=== PATIENT | female | born 1940 | race Caucasian/White ===

== ENCOUNTER → 2016-03-09 | Outpatient (CLI) | payer OTHER, MEDICARE | LOC: MMPC 11:11 | PROVIDERS: ATTEND Internal Medicine | DX: I48.91 Unspecified atrial fibrillation (principal); J44.9 Chronic obstructive pulmonary disease, unspecified; R60.9 Edema, unspecified; E03.9 Hypothyroidism, unspecified; J32.4 Chronic pansinusitis | CPT/HCPCS: 99213; G0463; 85610 ==

== ENCOUNTER → 2016-03-16 | Outpatient (CLI) | payer OTHER, MEDICARE | LOC: MMPC 09:00 | PROVIDERS: ATTEND Internal Medicine | DX: Z79.01 Long term (current) use of anticoagulants (principal); Z51.81 Encounter for therapeutic drug level monitoring; I63.9 Cerebral infarction, unspecified | CPT/HCPCS: 85610 ==

== ENCOUNTER → 2016-03-30 | Outpatient (CLI) | payer OTHER, MEDICARE | LOC: MMPC 09:00 | PROVIDERS: ATTEND Internal Medicine | DX: Z79.01 Long term (current) use of anticoagulants (principal); Z51.81 Encounter for therapeutic drug level monitoring; I63.9 Cerebral infarction, unspecified | CPT/HCPCS: 85610 ==

== ENCOUNTER → 2016-04-08 | Outpatient (CLI) | payer OTHER, MEDICARE ==
[2016-04-08 13:23] LABS: CALCIUM 9.2 mg/dL (8.7-10.7); POTASSIUM 4.7 meq/L (3.8-5.2)
== END ==
LOC: LAB 12:50
PROVIDERS: ATTEND Internal Medicine Cardiovascular Disease
DX: I27.2 Other secondary pulmonary hypertension (principal)
CPT/HCPCS: 36415; 80048

== ENCOUNTER → 2016-05-11 | Outpatient (CLI) | payer OTHER, MEDICARE | LOC: MMPC 11:11 | PROVIDERS: ATTEND Internal Medicine | DX: M79.1 Myalgia (principal); E03.9 Hypothyroidism, unspecified; I48.91 Unspecified atrial fibrillation; E78.5 Hyperlipidemia, unspecified; I25.10 Atherosclerotic heart disease of native coronary artery without angina pectoris ==

== ENCOUNTER → 2016-05-29 | Outpatient (CLI) | payer OTHER, MEDICARE ==
[2016-05-29 09:56] LABS: BUN/CREATININE RATIO 23.63 (6-20)
== END ==
LOC: LAB 09:20
PROVIDERS: ATTEND Internal Medicine Cardiovascular Disease
DX: J44.0 Chronic obstructive pulmonary disease with (acute) lower respiratory infection (principal); E78.5 Hyperlipidemia, unspecified; E03.9 Hypothyroidism, unspecified; I48.91 Unspecified atrial fibrillation; I73.9 Peripheral vascular disease, unspecified
CPT/HCPCS: 36415; 80048

== ENCOUNTER → 2016-06-08 | Outpatient (CLI) | payer OTHER, MEDICARE ==
--- NOTE | 2016-06-08 12:21 | DI ---
PA /LATERAL CHEST X-RAY, 06/08/2016 10:35 AM : Clinical History: Cough. Previous Exam: 01/06/2016. The patient is status post CABG. There is cardiomegaly and CHF is felt not to be present. There is in creased density with volume loss in the right middle lobe consistent with a right middle lobe pneumon ia. This patient has centrilobular emphysema. Mediastinal structures are normal. There are no pulmona ry nodules. Readin. Right middle lobe pneumonia. Followup films are recommended to be certain that the pneumonia reso lves completely. The should be obtained at least 2 weeks after the patient has become clinically comp letely asymptomatic. 2. Cardiomegaly without CHF. Comment: Mild initial verbal report to the provider was inadvertently incorrect because I was not rev iewing the current examination at the time of my verbal report. I did give a corrected verbal report by phone immediately after this error was identified.
== END ==
LOC: MOB RAD 10:37
PROVIDERS: ATTEND Physician Assistant
DX: R05 Cough (principal); J18.9 Pneumonia, unspecified organism; I51.7 Cardiomegaly; J43.2 Centrilobular emphysema; Z79.01 Long term (current) use of anticoagulants; Z51.81 Encounter for therapeutic drug level monitoring; I63.9 Cerebral infarction, unspecified
CPT/HCPCS: 36415; 71020; 80053; 85025; 85610; 86140; 87040; 99213

== ENCOUNTER → 2016-06-08 | Outpatient (CLI) | payer OTHER, MEDICARE ==
[2016-06-08 13:05] LABS: BASOPHILS # (AUTO) 0.03 10*3/UL; BASOPHILS % (AUTO) 0.3 % (0-1); EOSINOPHILS # (AUTO) 0.31 10*3/UL; EOSINOPHILS % (AUTO) 3.3 % (0-8); HEMATOCRIT 47.5 % (37.0-47.0); HEMOGLOBIN 15.3 g/dL (12.0-16.0); LYMPHOCYTES # (AUTO) 1.81 10*3/uL; MEAN CORPUSCULAR HEMOGLOBIN 29.4 PG (27-31); MEAN CORPUSCULAR HGB CONC 32.2 g/dL (33-37); MEAN CORPUSCULAR VOLUME 91.3 FL (81-99); MEAN PLATELET VOLUME 8.5 FL (7.4-12.2); MONOCYTES # (AUTO) 0.68 10*3/UL (0.3-0.8); MONOCYTES % (AUTO) 7.3 % (5-15); NEUTROPHILS # (AUTO) 6.46 10*3/UL; NEUTROPHILS % (AUTO) 69.5 % (50-80)
[2016-06-08 13:17] LABS: PLATELET MORPHOLOGY COMMENT NORMAL MORPHOLOGY (NORM); RBC MORPHOLOGY COMMENT NORMAL MORPHOLOGY (NORM); WBC MORPHOLOGY COMMENT NORMAL MORPHOLOGY (NORM)
[2016-06-08 13:18] LABS: BUN/CREATININE RATIO 25.55 (6-20); C-REACTIVE PROTEIN 0.8 mg/dL (0.0-0.9); SERUM ALBUMIN 4.4 g/dL (3.5-4.8)
== END ==
LOC: LAB 12:38
PROVIDERS: ATTEND Physician Assistant
DX: J18.9 Pneumonia, unspecified organism (principal); Z79.01 Long term (current) use of anticoagulants; Z51.81 Encounter for therapeutic drug level monitoring; I63.9 Cerebral infarction, unspecified
CPT/HCPCS: 36415; 80053; 85025; 85610; 86140; 87040; G0463

== ENCOUNTER → 2016-06-10 | Outpatient (CLI) | payer OTHER, MEDICARE | LOC: MMPC 11:11 | PROVIDERS: ATTEND Internal Medicine | DX: J18.1 Lobar pneumonia, unspecified organism (principal); G47.9 Sleep disorder, unspecified; J44.0 Chronic obstructive pulmonary disease with (acute) lower respiratory infection; I48.91 Unspecified atrial fibrillation; J44.9 Chronic obstructive pulmonary disease, unspecified | CPT/HCPCS: 99213; G0463 ==

== ENCOUNTER 2016-06-30 16:05 | Inpatient (IN) | payer OTHER, MEDICARE ==
[2016-06-30] MEDS ORDERED: IPRATROPIUM/ALBUTEROL SULFATE 3 ML NEB NEB ONE (16:24)
--- NOTE | 2016-06-30 16:30 | PDOC ---
Dyspnea HPI - General Chief Complaint: Respiratory Complaint Stated Complaint: CHF/DYSPNEA Date Seen by Provider: 06/30/16 Time Seen by Provider: 16:25 Source: POSITIVE: Patient, RN/MD Exam Limitations: POSITIVE: No limitations Treatment Prior to Arrival: REPORTS: Oxygen Nurse's Notes Reviewed & Considered: Yes - History of Present Illness Initial Comments: Patient comes in today with a chief complaint of shortness of breath. Patient with recent respiratory illness treated with antibiotics, steroids, and nebulizer treatments comes in today with increasing shortness of breath, elevated brain natruretic peptide and evidence of congestive heart failure per her primary care. She was seen today at the medical office building and sent to the emergency room for further evaluation. She states she has a slight headache, sore throat, shortness of breath. She's had increased urination, and no nausea vomiting or diarrhea. She denies any rashes. She denies any fever or chills but does have sweats that do been long-standing in nature. She is presently on Lopressor and it is noted that she has an allergy to Toprol. Toprol in the past has caused similar symptoms Body Location Affected: REPORTS: Chest Timing: REPORTS: Constant Duration: >1 week Severity: Moderate Quality: REPORTS: Other (Shortness of breath) Initiating Event: REPORTS: Upper Respiratory Illness Exacerbated By: REPORTS: Exertion, Laying Flat, Coughing Associated Symptoms: REPORTS: Sweating Similar Symptoms Previously: Yes Recently seen/treated/hospitalized: Yes Any Prior Injuries Related to Current Complaint?: No - Patient Home Medications Home Medications: Home Medications Docusate Sodium [Colace] 1 cap PO DAILY 11/18/11 Clopidogrel Bisulfate [Plavix] 1 tab PO DAILY #90 tab 05/20/15 Tamsulosin HCl 1 cap PO DAILY cap 12/09/15 Albuterol Sulfate [Proair Hfa] 1 puff INH Q4-6H #1 puff 02/11/16 Citalopram Hydrobromide [Citalopram Hbr] 1 tab-cap PO DAILY #90 tab-cap Levothyroxine Sodium 1 tab-cap PO DAILY #90 tab-cap 02/11/16 Albuterol/Ipratropium Inhaler [Combivent Respimat Inhaler] 2 puff INH QID #1 each 03/10/16 Budesonide [Pulmicort] 0.25 mg NEB BID ml 03/10/16 Diltiazem HCl 1 tab-cap PO QD tab 03/10/16 Mirabegron [Myrbetriq] 50 mg PO DAILY tab 03/10/16 Oxygen (O2) 1 unit INH QHS unit 03/10/16 Warfarin Sodium 1 tab-cap ORAL QD #90 tab-cap 03/16/16 Furosemide 1 tab PO DAILY tab 05/11/16 Hydrocodone/Acetaminophen [Hydrocodon-Acetaminophn 10-325] 1 tab-cap PO Q4-6H # 180 tab-cap 05/11/16 Metoprolol Tartrate 0.5 tab-cap PO BID #180 tab 05/11/16 Potassium Bicarbonate/Cit AC [Potassium 25 Meq Tablet Eff] 1 tab PO DAILY tab 05/11/16 Estrogens, Conj Vaginal Cream [Premarin Vaginal Cream] 0.5 gm VAGINAL 2XW #1 tube 06/10/16 Albuterol/Ipratrop Neb Soln [Duoneb Neb Soln] 1 vial NEB Q4-6HRSPRN #1 box 06/29 Atorvastatin Calcium 80 mg PO DAILY 06/30/16 Losartan [Cozaar] 25 mg PO DAILY 06/30/16 Tamsulosin HCl [Flomax] 0.4 mg PO DAILY 06/30/16 - Patient Allergies Allergies/Adverse Reactions: Allergies Allergy/AdvReac Type Severity Reaction Status Date / Time sulfamethoxazole Allergy Severe pruritis, Verified 06/30/16 16:12 [From Bactrim] short of breath, chest pain trimethoprim [From Bactrim] Allergy Severe pruritis, Verified 06/30/16 16:12 short of breath, chest pain metoprolol succinate AdvReac Severe SHORTNESS Verified 06/30/16 16:12 [From Toprol XL] OF BREATH PAIN CONTRACT AdvReac Unknown NOT Uncoded 06/30/16 16:12 APPLICABLE Past Medical History - heen HEENT History: Denies History, Dentures/Partials Cardiovascular History: Hypertension, Arrhythmia, Hyperlipidemia Respiratory History: COPD, Shortness of Breath, Home Oxygen Use Gastrointestinal History: Denies History Genitourinary History: Recurrent UTI, Incontinence, Other (please comment) Additional Genitourinary History: had stent to kidney Endocrine History: Hypothyroidism Musculoskeletal History: Arthritis Prosthesis or Implant: No Neurological History: Denies History Blood Disorders: Denies History Psychiatric History: Depression History of Sexually Transmitted Diseases: No Cancer History: Denies History History of MDRO: No History of Other Communicable Diseases: No Alcohol Use: Occasionally Substance Use Type: None Previous Surgical History: Yes Type / Date of Surgery: CABG, CAROTID ARTERY STENT X2, RENAL STENT Anesthesia Reactions: No Malignant Hyperthermia: No Significant Family History: No pertinent family hx ROS - Limitations ROS Limitations: No Limitations Constitution: REPORTS: Diaphoresis Cardiovascular: REPORTS: Denies Cardiac Symptoms Respiratory: REPORTS: Cough Non Productive, Shortness Of Breath, Wheezing Neurological: REPORTS: Headache Gastrointestinal: REPORTS: Denies GI Symptoms Endocrine: REPORTS: Denies Symptoms Musculoskeletal: REPORTS: Denies MS Symptoms Genitourinary: REPORTS: Other (Increased frequency of urination) Eyes: REPORTS: Denies Symptoms ENT: REPORTS: Denies Symptoms Skin: REPORTS: Denies Skin Symptoms Lympathic: REPORTS: Denies Lympathic Symptoms Immunologic: POSITIVE: Denies Symptoms Psychiatric: POSITIVE: Denies Psych Symptoms Dyspnea Physical Exam - General Appearance General Appearance: REPORTS: Alert, Cooperative, No Evidence of Trauma, Mild Distress - HEENT HEENT: POSITIVE: Head Inspection Nml, Eyes Inspection Nml, Ears Inspection Nml, Nose Inspection Nml, Oral/Dental Inspect. Nml, Pharynx Inspect. Nml, PERRL, EOMI , Dry Mucous Membranes - Neck Neck: REPORTS: Normal Inspection - Respiratory Respiratory: REPORTS: No Respiratory Distress, No Pleuritic Chest Pain, Speaks Full Sentences, No Pain on Inspiration, Wheezes - Cardiovascular Cardiovascular: REPORTS: Regular Rate and Rhythm, Heart Sounds Normal, No Murmur , No Gallop, No Friction Rub, No JVD - Abdomen Abdomen: Soft: (All Quadrants), Normal Bowel Sounds: (All Quadrants), Denies Tenderness: (All Quadrants) - Skin Skin: REPORTS: Intact, Normal For Race, Warm, Dry, No Rash - Extremities Extremity: Non-Tender: (All Extremities), Normal ROM: (All Extremities), Normal Inspection: (All Extremities), Pelvis Stable: (All Extremities) - Neurological / Psychological Neurological: POSITIVE: Affect Apporpriate, Oriented X3, Motor Normal, Sensation Normal Dyspnea Progress - Results Reviewed by me Xrays/CTs/US Reviewed by me: Yes Discussed with Radiologist: Yes Lab Results Reviewed: Yes - Patient's Progress Pain Medication Addressed: POSITIVE: Not Applicable Status: POSITIVE: Unchanged MDM / ED Course: Patient comes to the emergency department from the medical office building for evaluation. She has been having increasing shortness of breath with increasing cough, sweats and increasing oxygen requirements. She was evaluated, an IV started, blood drawn and sent to the lab for studies, radiographic studies obtained earlier were reviewed by me. Findings: Chest x-ray reveals worsening pneumonia. Assessment: Increased oxygen requirements with hypoxia on room air. Pneumonia which is worsening. Next Plan: Admission. Air Movement: POSITIVE: Poor Quality Measure Initiative: CAP: POSITIVE: CXR or CT - Consult Counseled: POSITIVE: Patient, RE: Lab Results, RE: Radiology Results, RE: DX Patient Care Time - Estimated PCT Patient Care Time (In Minutes): 20 Vital Signs - VS Reviewed Vital Signs Reviewed: Yes Discharge Clinical Impression: Pneumonia Discharge Disposition: Admit to Inpatient Condition: Stable Date Decision to Admit to Inpatient: 06/30/16 Time Decision to Admit to Inpatient: 16:57
[2016-06-30] MEDS ORDERED: cefTRIAXone Inj 2 GM in Sodium Chloride 0.9% 100 ML IV ONE (17:00)
[2016-06-30] MEDS ORDERED: AZITHROMYCIN 250 MG TABLET PO ONE (17:00)
[2016-06-30 17:20] LABS: VENOUS PH 7.45 (7.32-7.42)
[2016-06-30] MEDS ORDERED: NORMAL SALINE 10 ML SYRINGE FLUSH IVP PRN (17:33)
--- NOTE | 2016-06-30 17:40 | PDOC ---
History and Physical - History of Present Illness Date and Time of Service: 06/30/2016 7:29 PM Chief Complaint: Cough, shortness of breath getting worse last few days History of Present Illness: This is a 76 years old female with medical history significant for history of COPD on oxygen at night, coronary artery disease with previous CABG, history of previous stroke with history of carotid endarterectomy, atrial fibrillation on anticoagulation and depression who presented to the walk-in clinic because of cough and shortness of breath that that's not improving, apparently on June 08 she presented to the walk-in clinic at that time with cough and shortness of breath and was diagnosed with pneumonia she was put on antibiotics and bronchodilator and prednisone she felt there was some improvement but her symptoms started to come back again with more shortness of breath more with exertion with the swelling off the legs and because of that she presented again to the walk-in clinic and then they sent her to the ER. In the ER she was hypoxic needing oxygen she is only on oxygen at night. She was given breathing treatment and x-ray suggested the maybe worsening pneumonia compared to what she had before blood culture was taken and she was admitted. The cough is described intermittently with some phlegm she described at times being yellow in color but she having difficulty bringing that up, there was some wheezing today, there is some slight edema in her legs. There is no chest pain. She said she doesn't do much with walking because of arthritis in her feet. There is no fever shakes. She said she's been checking her blood pressure and blood pressure being low so she stopped taking her metoprolol and losartan on her own. She was seen also maybe [address] Olivo and he put her on Lasix. Past Medical History Medical History: 1. Hypertension. 2. Hypothyroidism. 3. COPD. 4. Sleep apnea. 5. Depression. 6. History of osteoporosis. 7. Atrial fibrillation. 8. Coronary artery disease status post CABG. 9. 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 Surgical History: 1. Carotid endarterectomy. 2. History of CABG. 3. Hysterectomy. 4. Right carotid internal artery stent. 5. Hysterectomy with bladder suspension. 6. Renal artery stent Family History: Reviewed an Not Pertinent Past Social History: She used to smoke quit many years ago, rarely drinks. No drugs. Tobacco Use: Former Smoker Substance Use Type: None Alcohol Use: Rarely Medication / Allergies Home Medications: Home Medications Medication Instructions Recorded Confirmed Type Docusate Sodium [Colace] 1 cap PO DAILY 11/18/11 06/30/16 History Clopidogrel Bisulfate [Plavix] 1 tab PO DAILY #90 tab 05/20/15 06/30/16 Clinic Tamsulosin HCl 1 cap PO DAILY cap 12/09/15 06/30/16 History Albuterol Sulfate [Proair Hfa] 1 puff INH Q4-6H #1 puff 02/11/16 06/30/16 Clinic Citalopram Hydrobromide 1 tab-cap PO DAILY #90 tab-cap 02/11/16 06/30/16 Clinic [Citalopram Hbr] Levothyroxine Sodium 1 tab-cap PO DAILY #90 tab-cap 02/11/16 06/30/16 Clinic Albuterol/Ipratropium Inhaler 2 puff INH QID #1 each 03/10/16 06/30/16 History [Combivent Respimat Inhaler] Budesonide [Pulmicort] 0.25 mg NEB BID ml 03/10/16 06/30/16 History Diltiazem HCl 1 tab-cap PO QD tab 03/10/16 06/30/16 History Mirabegron [Myrbetriq] 50 mg PO DAILY tab 03/10/16 06/30/16 History Oxygen (O2) 1 unit INH QHS unit 03/10/16 06/30/16 History Warfarin Sodium 1 tab-cap ORAL QD #90 tab-cap 03/16/16 06/30/16 Clinic Furosemide 1 tab PO DAILY tab 05/11/16 06/30/16 History Hydrocodone/Acetaminophen 1 tab-cap PO Q4-6H #180 tab-cap 05/11/16 06/30/16 Clinic [Hydrocodon-Acetaminophn 10-325] Metoprolol Tartrate 0.5 tab-cap PO BID #180 tab 05/11/16 06/30/16 Clinic Potassium Bicarbonate/Cit AC 1 tab PO DAILY tab 05/11/16 06/30/16 History [Potassium 25 Meq Tablet Eff] Estrogens, Conj Vaginal Cream 0.5 gm VAGINAL 2XW #1 tube 06/10/16 06/30/16 Clinic [Premarin Vaginal Cream] Albuterol/Ipratrop Neb Soln 1 vial NEB Q4-6HRSPRN #1 box 06/29/16 06/30/16 Clinic [[place] Neb Soln] Atorvastatin Calcium 80 mg PO DAILY 06/30/16 06/30/16 History Losartan [Cozaar] 25 mg PO DAILY 06/30/16 06/30/16 History Tamsulosin HCl [Flomax] 0.4 mg PO DAILY 06/30/16 06/30/16 History Allergies/Adverse Reactions: Allergies Allergy/AdvReac Type Severity Reaction Status Date / Time sulfamethoxazole Allergy Severe pruritis, Verified 07/01/16 07:32 [From Bactrim] short of breath, chest pain trimethoprim [From Bactrim] Allergy Severe pruritis, Verified 07/01/16 07:32 short of breath, chest pain metoprolol succinate AdvReac Severe SHORTNESS Verified 07/01/16 07:32 [From Toprol XL] OF BREATH PAIN CONTRACT AdvReac Unknown NOT Uncoded 07/01/16 07:32 APPLICABLE Review of Systems - Review of Systems All Systems: Reviewed & No Additional Complaints Except as Stated Exam - General General Appearance: POSITIVE: Cooperative, Obese - Head Head Exam: POSITIVE: Normal Inspection, Atraumatic - Eye Eye Exam: POSITIVE: Normal Appearance - ENT ENT Exam: POSITIVE: Normal Exam - Neck Neck Exam: POSITIVE: Normal Inspection - Respiratory Additional Respiratory Exam Details: Decreased air entry with harsh breasts on occasional wheeze. On the right. - Cardiovascular Cardiovascular Exam: POSITIVE: RRR, Irregular Rhythm - GI/Abdominal GI/Abdominal Exam: POSITIVE: Normal Bowel Sounds, Non Tender, Non Distended, Soft - Rectal Rectal Exam: POSITIVE: Deferred - External Exam: POSITIVE: Deferred - Extremities Additional Extremities Exam Details: Pedal edema noted - Back Back Exam: POSITIVE: Normal Inspection - Neurological Neurological Exam: POSITIVE: Alert, Oriented x 3, CN II-XII Intact, Moves All Extremities Equally - Psychiatric Psychiatric Exam: POSITIVE: Normal Affect - Integumentary Integumentary Exam: POSITIVE: Normal Color Results - Labs Labs - Last 24 Hours: Laboratory Results 06/30/16 Range/Units 17:10 VBG pH 7.45 H (7.32-7.42) VBG pCO2 49 (45-55) mmHg VBG HCO3 34 H (22-26) mmol/L VBG Base Excess 10 H (-2-2) MMOL/L Lactic Acid 1.1 (0.70-2.10) MMOL/L Magnesium 2.0 (1.6-2.4) mg/dL - EKG Data -: EKG Interpreted by Me - EKG Data Additional EKG Details: EKG shows atrial fibrillation with ventricular response at 108. - Imaging Status: Report Reviewed by Me (Chest x-ray showed airspace disease within the right lower lobe likely slightly worse than the prior examination. This may represent a new or worsening airspace disease) Assessment and Plan - Patient Problems (1) Pneumonia Current Visit: Yes Status: Acute Comment: Chest x-ray suggested likely worsening airspace disease on the right, she was given IV antibiotics will continue with IV antibiotics. I think will put her also on some steroid and bronchodilator. We'll do a CAT scan of her chest. (2) Atrial fibrillation Current Visit: Yes Status: Acute Comment: She is on Cardizem continue, continue with the warfarin will check her INR. She said she quit taking the metoprolol about 2 weeks ago as her blood pressure was low. We'll see what her heart rate overnight and see whether we need to adjust the dosage of the Cardizem. (3) Leg edema Current Visit: Yes Status: Acute Comment: She has history of coronary artery disease before, will do an echocardiogram to assess her LV function. There may be some pulmonary hypertension causing the edema. will Put her on IV Lasix. (4) Depression Current Visit: Yes Status: Acute Comment: Continue previous medications (5) History of coronary artery disease Current Visit: Yes Status: Acute Comment: Continue Plavix, Lipitor. (6) Hypothyroidism Current Visit: Yes Status: Acute Comment: Continue previous medications Photo / Body Diagrams - Uploaded Photos Uploaded Photos:
[2016-06-30] MEDS ORDERED: LIDOCAINE W/ SODIUM BICARB 0.5 ML SYR SUBD PRN (18:58)
[2016-06-30] MEDS: HYDROcodone-APAP 10 MG-325 MG TABLET PO PRN ×2 (20:08→23:59)
[2016-06-30] MEDS: ATORVASTATIN 40 MG TABLET PO SCH (20:08)
[2016-06-30] MEDS: Warfarin Tab 2.5 MG TAB PO SCH (20:09)
[2016-06-30] MEDS: methylPREDNISolone 40 MG/1 ML VIAL IVP SCH (20:09)
--- NOTE | 2016-06-30 20:59 | DI ---
CT CHEST W/O CONTRAST,06/30/2016 7:08 PM: Clinical History: Shortness of breath and cough. Previous Exam: October 27, 2012 Findings: Multiple helically acquired CT images are obtained through the chest following a CT noncontrast fide col, and demonstrate diffuse peripheral vascular disease. There is some subsegmental atelectasis in t he lung bases. There is no mass. Peripheral vascular calcifications are seen. Postsurgical changes are seen throughout the mediastinum . There are coronary artery calcifications identified. Mild degenerative changes of the thoracic spine are seen. There is mild cardiomegaly. Visualized portions of the upper abdomen are unremarkable. Impression: No acute intrathoracic pathology.
[2016-06-30] MEDS ORDERED: LEVALBUTEROL HCL 1.25 MG/3 ML NEB SCH (21:00)
[2016-06-30] MEDS ORDERED: LEVALBUTEROL HCL 1.25 MG/3 ML NEB ONE (21:32)
[2016-06-30] MEDS: BUDESONIDE 0.25 MG/2 ML AMPUL.NEB NEB SCH (21:35)
[2016-07-01] MEDS: LEVALBUTEROL HCL 1.25 MG/3 ML NEB SCH ×6 (00:08→19:39)
[2016-07-01] MEDS: methylPREDNISolone 40 MG/1 ML VIAL IVP SCH ×4 (02:04→23:25)
[2016-07-01] MEDS: HYDROcodone-APAP 10 MG-325 MG TABLET PO PRN ×5 (04:07→21:57)
[2016-07-01] MEDS: LEVOTHYROXINE 50 MCG TABLET PO SCH (06:05)
[2016-07-01] MEDS: BUDESONIDE 0.25 MG/2 ML AMPUL.NEB NEB SCH ×2 (06:48→19:38)
[2016-07-01] MEDS: FUROSEMIDE 10 MG/1 ML - 2 ML VIAL IVP SCH (07:24)
[2016-07-01] MEDS: DOCUSATE 100 MG CAPSULE PO SCH ×2 (08:06→20:20)
[2016-07-01] MEDS: CITALOPRAM 20 MG TABLET PO SCH (08:07)
[2016-07-01] MEDS: CLOPIDOGREL 75 MG TABLET PO SCH (08:07)
--- NOTE | 2016-07-01 08:16 | PDOC(PROG) ---
Date and Time of Service: 07/01/2016 8:16 AM Interval History: Subjective She said she feels better compared to yesterday. She did say she is bringing phlegm up, shortness of breath is also better. No chest pain. No palpitations. Objective : Data - Labs Labs - Last 24 Hours: Laboratory Results 06/30/16 06/30/16 07/01/16 Range/Units 17:10 19:27 06:02 PT 22.8 H 22.1 H (9.7-11.4) secs INR 2.18 2.11 (0.00-5.90) N/A VBG pH 7.45 H (7.32-7.42) VBG pCO2 49 (45-55) mmHg VBG HCO3 34 H (22-26) mmol/L VBG Base Excess 10 H (-2-2) MMOL/L Lactic Acid 1.1 (0.70-2.10) MMOL/L Magnesium 2.0 (1.6-2.4) mg/dL - Imaging CT Scan Status: Report Reviewed by Me (CT of the chest showed no acute intrathoracic abnormality) Objective : Exam - General General Appearance: No Acute Distress, Cooperative, Obese - Head Head Exam: Normal Inspection - Eye Eye Exam: Normal Appearance - ENT ENT Exam: Normal Exam - Neck Neck Exam: Normal Inspection - Respiratory Additional Respiratory Exam Details: Decreased air entry with minimal expiratory wheeze - Cardiovascular Cardiovascular Exam: RRR, Irregular Rhythm, Tachycardia - GI/Abdominal GI/Abdominal Exam: Normal Bowel Sounds, Non Tender, Non Distended, Soft, No Organomegaly - Rectal Rectal Exam: Deferred - External Exam: Deferred Exam: Deferred - Extremities Additional Extremities Exam Details: Trace edema - Neurological Neurological Exam: Alert, Oriented x 3, CN II-XII Intact, Moves All Extremities Equally - Psychiatric Psychiatric Exam: Normal Affect - Integumentary Integumentary Exam: Normal Color Assessment and Plan - Patient Problems (1) COPD exacerbation Current Visit: Yes Status: Acute Comment: Initially she was admitted as possible pneumonia causing COPD exacerbation but we did a CT of the chest there is no evidence of pneumonia on the CT, but will continue with the current treatment with antibiotics steroid and bronchodilator as acute COPD exacerbation. She is making improvement, I did tell her though that she may end up needing to be on oxygen all the time. Time will tell whether this episode of COPD exacerbation will improve to the extent that she goes back to her baseline without needing oxygen during the daytime but for now she need to be on oxygen (2) Atrial fibrillation Current Visit: Yes Status: Acute Comment: Her heart rate is not controlled well we'll give her usual Cardizem, may give additional Cardizem by mouth or metoprolol depending on her heart rate , uncontrolled we may use Cardizem drip. Continue Coumadin (3) Leg edema Current Visit: Yes Status: Acute Comment: Continue IV Lasix (4) Depression Current Visit: Yes Status: Acute Comment: Same med (5) History of coronary artery disease Current Visit: Yes Status: Acute Comment: Continue Plavix and Lipitor (6) Hypothyroidism Current Visit: Yes Status: Acute Comment: Same med Photo / Body Diagrams - Uploaded Photos Uploaded Photos:
[2016-07-01] MEDS ORDERED: DILTIAZEM HCL CD 120 MG CAP PO SCH (09:00)
[2016-07-01] MEDS ORDERED: DILTIAZEM 60 MG TABLET PO ONE (09:19)
[2016-07-01] MEDS: cefTRIAXone Inj 1 GM in Sodium Chloride 0.9% 100 ML IV SCH (17:34)
[2016-07-01] MEDS ORDERED: Senna Tab 8.6 MG TAB PO ONE (20:00)
[2016-07-01] MEDS: ATORVASTATIN 40 MG TABLET PO SCH (20:20)
[2016-07-01] MEDS: PANTOPRAZOLE 40 MG TABLET PO SCH (20:20)
[2016-07-01] MEDS: Warfarin Tab 2.5 MG TAB PO SCH (20:20)
[2016-07-01] MEDS ORDERED: DILTIAZEM 30 MG TABLET PO ONE (21:00)
[2016-07-01] MEDS ORDERED: LEVALBUTEROL HCL 1.25 MG/3 ML NEB SCH ×2 (21:00→21:30)
[2016-07-02] MEDS: LEVALBUTEROL HCL 1.25 MG/3 ML NEB SCH ×4 (01:23→19:21)
[2016-07-02] MEDS: HYDROcodone-APAP 10 MG-325 MG TABLET PO PRN ×4 (03:24→20:46)
[2016-07-02 05:27] LABS: BUN/CREATININE RATIO 27.5 (6-20); CALCIUM 8.6 mg/dL (8.7-10.7)
[2016-07-02] MEDS: BUDESONIDE 0.25 MG/2 ML AMPUL.NEB NEB SCH ×2 (06:32→19:21)
[2016-07-02] MEDS: LEVOTHYROXINE 50 MCG TABLET PO SCH (06:45)
[2016-07-02] MEDS: PANTOPRAZOLE 40 MG TABLET PO SCH ×2 (08:26→16:42)
[2016-07-02] MEDS: CLOPIDOGREL 75 MG TABLET PO SCH (08:26)
[2016-07-02] MEDS: DILTIAZEM CD 240 MG CAP PO SCH (08:26)
[2016-07-02] MEDS: Senna Tab 8.6 MG TAB PO SCH (08:26)
[2016-07-02] MEDS: methylPREDNISolone 40 MG/1 ML VIAL IVP SCH ×2 (08:27→20:47)
[2016-07-02] MEDS: FUROSEMIDE 10 MG/1 ML - 2 ML VIAL IVP SCH (08:27)
[2016-07-02] MEDS: CITALOPRAM 20 MG TABLET PO SCH (08:27)
[2016-07-02] MEDS: DOCUSATE 100 MG CAPSULE PO SCH ×3 (08:27→20:47)
[2016-07-02] MEDS ORDERED: DILTIAZEM CD 180 MG CAP PO SCH (09:00)
--- NOTE | 2016-07-02 09:28 | PDOC(PROG) ---
Date and Time of Service: 07/02/2016 9:23 AM Interval History: Subjective Patient's said she is feeling better, she slept better, she's concerned about her heart rate being not controlled. Objective : Data - Labs CBC and BMP: 07/02/16 04:22 Labs - Last 24 Hours: Laboratory Results 07/02/16 Range/Units 04:22 PT 24.8 H (9.7-11.4) secs INR 2.37 (0.00-5.90) N/A Sodium 138 (135-145) meq/L Potassium 4.0 (3.8-5.2) meq/L Chloride 99 (98-112) meq/L Carbon Dioxide 32 (23-33) meq/L Anion Gap 7 (5-20) BUN 22 (7-22) mg/dL Creatinine 0.8 (0.50-1.20) mg/dL Estimated GFR (>60 ml/min/1.73m(2)) BUN/Creatinine Ratio 27.50 H (6-20) Glucose 166 H (78-110) mg/dL Calculated Osmolality 292.0 (267-292) mOsm/kg Calcium 8.6 L (8.7-10.7) mg/dL Objective : Exam - General General Appearance: No Acute Distress, Cooperative - Head Head Exam: Normal Inspection, Atraumatic - Eye Eye Exam: Normal Appearance - ENT ENT Exam: Normal Exam - Neck Neck Exam: Normal Inspection - Respiratory Additional Respiratory Exam Details: Decreased air entry mostly clear minimal wheeze at times - Cardiovascular Cardiovascular Exam: Irregular Rhythm, Tachycardia - GI/Abdominal GI/Abdominal Exam: Normal Bowel Sounds, Non Tender, Non Distended, Soft - Rectal Rectal Exam: Deferred - External Exam: Deferred - Extremities Extremities Exam: Normal Inspection - Back Back Exam: Normal Inspection - Neurological Neurological Exam: Alert, Oriented x 3, CN II-XII Intact, No Facial Droop, Moves All Extremities Equally - Psychiatric Psychiatric Exam: Normal Affect - Integumentary Integumentary Exam: Normal Color Assessment and Plan - Patient Problems (1) COPD exacerbation Current Visit: Yes Status: Acute Comment: She is improving I think we'll cut back more on the steroid. (2) Atrial fibrillation Current Visit: Yes Status: Acute Comment: Having issues controlling her heart rate yesterday I gave her a next total 90 milligrams of immediate release diltiazem. Today I increased dosage of the diltiazem to 240 I think I'll probably put her on Cardizem at night and see whether that would achieve better rate control. She seems to be more tachycardic and hour before the morning dose of the diltiazem is due. I'm hoping by splitting the dosage and increasing it to we would achieve a better rate control. We'll check her INR tomorrow. She did have an echo I don't have the results yet. I'm hoping to control her rate without that addition of metoprolol as she said she is short of breath with a long-acting metoprolol. However she was at one point in time on short acting metoprolol. But she stopped it about 2 weeks ago because her blood pressure was low according to her. (3) Leg edema Current Visit: Yes Status: Acute Comment: This is improving continue IV Lasix (4) Depression Current Visit: Yes Status: Acute Comment: Same med (5) History of coronary artery disease Current Visit: Yes Status: Acute Comment: Continue Plavix (6) Hypothyroidism Current Visit: Yes Status: Acute Comment: Same med Photo / Body Diagrams - Uploaded Photos Uploaded Photos:
[2016-07-02] MEDS ORDERED: BISACODYL 10 MG SUPPOSITORY RECTAL PRN (11:14)
[2016-07-02] MEDS: cefTRIAXone Inj 1 GM in Sodium Chloride 0.9% 100 ML IV SCH (17:29)
[2016-07-02] MEDS: DILTIAZEM HCL CD 120 MG CAP PO SCH (20:46)
[2016-07-02] MEDS: Warfarin Tab 2.5 MG TAB PO SCH (20:46)
[2016-07-02] MEDS: NORMAL SALINE 10 ML SYRINGE FLUSH IVP PRN (20:47)
[2016-07-02] MEDS: ATORVASTATIN 40 MG TABLET PO SCH (21:37)
[2016-07-03] MEDS: HYDROcodone-APAP 10 MG-325 MG TABLET PO PRN ×4 (00:23→20:50)
[2016-07-03] MEDS: LEVALBUTEROL HCL 1.25 MG/3 ML NEB SCH ×3 (00:45→12:51)
[2016-07-03] MEDS ORDERED: ALPRAZolam Tab 0.25 MG TABLET PO ONE (01:13)
[2016-07-03] MEDS: LEVOTHYROXINE 50 MCG TABLET PO SCH (04:36)
[2016-07-03] MEDS: BUDESONIDE 0.25 MG/2 ML AMPUL.NEB NEB SCH (06:35)
[2016-07-03] MEDS: PANTOPRAZOLE 40 MG TABLET PO SCH ×2 (06:57→16:23)
[2016-07-03] MEDS: FUROSEMIDE 10 MG/1 ML - 2 ML VIAL IVP SCH (06:57)
[2016-07-03] MEDS: NORMAL SALINE 10 ML SYRINGE FLUSH IVP PRN (06:58)
[2016-07-03] MEDS: methylPREDNISolone 40 MG/1 ML VIAL IVP SCH (07:00)
[2016-07-03] MEDS: CITALOPRAM 20 MG TABLET PO SCH (09:05)
[2016-07-03] MEDS: DILTIAZEM CD 240 MG CAP PO SCH (09:05)
[2016-07-03] MEDS: DOCUSATE 100 MG CAPSULE PO SCH ×3 (09:06→20:51)
[2016-07-03] MEDS: CLOPIDOGREL 75 MG TABLET PO SCH (09:06)
[2016-07-03] MEDS: Senna Tab 8.6 MG TAB PO SCH (09:06)
--- NOTE | 2016-07-03 15:29 | PDOC(PROG) ---
Interval History: Feels much better today less short of breath. I did ask her about her beta venancio and shortness of breath she states that it does not make her feel short of breath but she stopped it because her blood pressure was low denies chest pain nausea and vomiting Objective : Data - Labs CBC and BMP: 07/02/16 04:22 Labs - Last 24 Hours: Laboratory Results 07/03/16 Range/Units 04:40 PT 29.5 H (9.7-11.4) secs INR 2.80 (0.00-5.90) N/A Objective : Exam - General General Appearance: Cooperative - Respiratory Additional Respiratory Exam Details: Bilateral expiratory wheezing - Cardiovascular Additional Cardiovascular Details: Irregularly irregular - GI/Abdominal GI/Abdominal Exam: Non Tender, Non Distended, Soft - Extremities Extremities Exam: No Clubbing Present, No Edema Present, No Cyanosis Present - Neurological Neurological Exam: Alert, Oriented x 3, CN II-XII Intact, No Facial Droop Assessment and Plan - Patient Problems (1) Atrial fibrillation Current Visit: Yes Status: Acute (2) COPD exacerbation Current Visit: Yes Status: Acute - Assessment / Plan Additional Assessment/Plan Details: #1 COPD exacerbation continue steroids and antibiotics and inhalers #2 atrial fibrillation rate controlled Cardizem now at 360 we will see what her heart rate doesn't blood pressure does if need be we can add beta venancio continue anticoagulation INR is therapeutic Photo / Body Diagrams - Uploaded Photos Uploaded Photos:
[2016-07-03] MEDS: TIOTROPIUM BROMIDE 18 MCG CAPSULE INH SCH (17:25)
[2016-07-03] MEDS: FLUTICASONE/SALMETEROL 250/50 UD INHALER INH SCH (19:22)
[2016-07-03] MEDS: Warfarin Tab 2.5 MG TAB PO SCH (20:50)
[2016-07-03] MEDS: DILTIAZEM HCL CD 120 MG CAP PO SCH (20:50)
[2016-07-03] MEDS: ATORVASTATIN 40 MG TABLET PO SCH (20:51)
[2016-07-04] MEDS: LEVOTHYROXINE 50 MCG TABLET PO SCH (05:55)
[2016-07-04] MEDS: TIOTROPIUM BROMIDE 18 MCG CAPSULE INH SCH (06:36)
[2016-07-04] MEDS: FLUTICASONE/SALMETEROL 250/50 UD INHALER INH SCH (06:37)
[2016-07-04] MEDS: NORMAL SALINE 10 ML SYRINGE FLUSH IVP PRN (06:57)
[2016-07-04] MEDS: FUROSEMIDE 10 MG/1 ML - 2 ML VIAL IVP SCH (06:57)
[2016-07-04] MEDS: PANTOPRAZOLE 40 MG TABLET PO SCH (06:57)
[2016-07-04] MEDS: CLOPIDOGREL 75 MG TABLET PO SCH (08:45)
[2016-07-04] MEDS: DOCUSATE 100 MG CAPSULE PO SCH (08:45)
[2016-07-04] MEDS: HYDROcodone-APAP 10 MG-325 MG TABLET PO PRN (08:45)
[2016-07-04] MEDS: Senna Tab 8.6 MG TAB PO SCH (08:45)
[2016-07-04] MEDS: CITALOPRAM 20 MG TABLET PO SCH (08:45)
[2016-07-04] MEDS: DILTIAZEM CD 240 MG CAP PO SCH (08:45)
[2016-07-04] MEDS ORDERED: AZITHROMYCIN 250 MG TABLET PO SCH (09:00)
[2016-07-04 12:55] VITALS: RESP 18; TEMP 97.7
--- NOTE | 2016-07-04 13:28 | DCSUMMARY ---
Hospitalization Summary Hospital Course: Final Discharge Diagnosis: Current Visit Problems Problem Status Priority Diagnosed Code Atrial fibrillation Acute I48.91 COPD exacerbation Acute J44.1 Depression Acute F32.9 History of coronary artery disease Acute Z86.79 Hypothyroidism Acute E03.9 Leg edema Acute R60.0 Pneumonia Acute J18.9 Diagnostic Data, Laboratory Data, and Procedures of Signifigance: Laboratory Results 06/30/16 06/30/16 07/01/16 Range/Units 17:10 19:27 06:02 PT 22.8 H 22.1 H (9.7-11.4) secs INR 2.18 2.11 (0.00-5.90) N/A VBG pH 7.45 H (7.32-7.42) VBG pCO2 49 (45-55) mmHg VBG HCO3 34 H (22-26) mmol/L VBG Base Excess 10 H (-2-2) MMOL/L Sodium (135-145) meq/L Potassium (3.8-5.2) meq/L Chloride (98-112) meq/L Carbon Dioxide (23-33) meq/L Anion Gap (5-20) BUN (7-22) mg/dL Creatinine (0.50-1.20) mg/dL Estimated GFR (>60 ml/min/1.73m(2)) BUN/Creatinine Ratio (6-20) Glucose (78-110) mg/dL Calculated Osmolality (267-292) mOsm/kg Lactic Acid 1.1 (0.70-2.10) MMOL/L Calcium (8.7-10.7) mg/dL Magnesium 2.0 (1.6-2.4) mg/dL 07/02/16 07/03/16 Range/Units 04:22 04:40 PT 24.8 H 29.5 H (9.7-11.4) secs INR 2.37 2.80 (0.00-5.90) N/A VBG pH (7.32-7.42) VBG pCO2 (45-55) mmHg VBG HCO3 (22-26) mmol/L VBG Base Excess (-2-2) MMOL/L Sodium 138 (135-145) meq/L Potassium 4.0 (3.8-5.2) meq/L Chloride 99 (98-112) meq/L Carbon Dioxide 32 (23-33) meq/L Anion Gap 7 (5-20) BUN 22 (7-22) mg/dL Creatinine 0.8 (0.50-1.20) mg/dL Estimated GFR (>60 ml/min/1.73m(2)) BUN/Creatinine Ratio 27.50 H (6-20) Glucose 166 H (78-110) mg/dL Calculated Osmolality 292.0 (267-292) mOsm/kg Lactic Acid (0.70-2.10) MMOL/L Calcium 8.6 L (8.7-10.7) mg/dL Magnesium (1.6-2.4) mg/dL History and Physical pertinent to Admission: Past Medical History Medical History: 1. Hypertension. 2. Hypothyroidism. 3. COPD. 4. Sleep apnea. 5. Depression. 6. History of osteoporosis. 7. Atrial fibrillation. 8. Coronary artery disease status post CABG. 9. 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 Surgical History: 1. Carotid endarterectomy. 2. History of CABG. 3. Hysterectomy. 4. Right carotid internal artery stent. 5. Hysterectomy with bladder suspension. 6. Renal artery stent Family History: Reviewed an Not Pertinent Past Social History: She used to smoke quit many years ago, rarely drinks. No drugs. Tobacco Use: Former Smoker Substance Use Type: None Alcohol Use: Rarely Course of Hospitalization: Is a very nice 76-year-old female with past medical history significant for COPD and uses oxygen only at night also has a history of coronary artery disease with previous CABG history of previous stroke carotid endarterectomy and atrial fibrillation on anticoagulation with Coumadin and is also on Plavix she presented to the walk-in clinic with some cough and shortness of breath she was put on an antibiotic and bronchodilator and prednisone patient continued to worsen and was sent to the ER where she was found to be hypoxic and admitted for possible pneumonia CT scan revealed no pneumonia and patient was treated with COPD exacerbation and improved over the course of her stay. Also she was taken off her blood pressure medication and the Cardizem to [address] Shi and her blood pressure improved and her heart rate are better controlled with this medication considering she has A. fib and also because of this I have prescribed Xopenex for her inhaler when necessary instead of regular albuterol which could exacerbate her A. 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 Morton about 3 weeks ago which put her on Lasix which we continued On the date of discharge, the patient was examined: Gen.: No acute distress, alert, nontoxic Heart: Regular rate and rhythm, no murmurs, clicks, gallops, or rubs Lungs: Clear to auscultation bilaterally, breathing is nonlabored Abdomen/GI: Normal tones on auscultation, soft, nontender, nondistended Musculoskeletal/extremities: No clubbing, cyanosis, or edema Vitals reviewed and are listed below Vital Signs (24 hrs) Temp Pulse Pulse Pulse Resp BP Pulse Ox 07/04/16 13:18 94 07/04/16 12:53 97.7 F 108 H 18 132/84 93 07/04/16 11:00 108 H 96 07/04/16 07:07 97.4 F 93 20 176/93 94 07/04/16 07:00 96 107 H 94 07/04/16 04:03 95 07/04/16 04:00 97.9 F 100 20 149/85 92 07/04/16 03:00 90 07/04/16 02:58 98 07/04/16 00:51 97.3 F 94 24 146/74 96 07/03/16 23:00 95 94 07/03/16 20:23 97.5 F 95 20 150/58 96 07/03/16 19:25 98 07/03/16 19:00 100 100 95 07/03/16 17:04 98.5 F 92 22 153/84 96 07/03/16 15:00 91 96 Assessment and Plan: 1. As per discharge assessments above 2. Disposition: Home 3. Condition on discharge, stable and improved. 4. Diet: regular diet 5. Activities: resume normal activities 6. Follow-Up: 1. PCP as needed she will call and make an appointment on Wednesday to be seen in the next 5-7 days as instructed her 2. 7. Medications at the Time of Discharge: Home Medications Medication Instructions Recorded Confirmed Type Docusate Sodium [Colace] 1 cap PO DAILY 11/18/11 06/30/16 History Clopidogrel Bisulfate [Plavix] 1 tab PO DAILY #90 tab 05/20/15 06/30/16 Clinic Tamsulosin HCl 1 cap PO DAILY cap 12/09/15 06/30/16 History Citalopram Hydrobromide 1 tab-cap PO DAILY #90 tab-cap 02/11/16 06/30/16 Clinic [Citalopram HBr] Levothyroxine Sodium 1 tab-cap PO DAILY #90 tab-cap 02/11/16 06/30/16 Clinic Diltiazem HCl 1 tab-cap PO QD tab 03/10/16 06/30/16 History Mirabegron [Myrbetriq] 50 mg PO DAILY tab 03/10/16 06/30/16 History Oxygen (O2) 1 unit INH QHS unit 03/10/16 06/30/16 History Warfarin Sodium 1 tab-cap ORAL QD #90 tab-cap 03/16/16 06/30/16 Clinic Furosemide 1 tab PO DAILY tab 05/11/16 06/30/16 History Hydrocodone/Acetaminophen 1 tab-cap PO Q4-6H #180 tab-cap 05/11/16 06/30/16 Clinic [Hydrocodon-Acetaminophn 10-325] Metoprolol Tartrate 0.5 tab-cap PO BID #180 tab 05/11/16 06/30/16 Clinic Potassium Bicarbonate/Cit AC 1 tab PO DAILY tab 05/11/16 06/30/16 History [Potassium 25 Meq Tablet Eff] Estrogens, Conj Vaginal Cream 0.5 gm VAGINAL 2XW #1 tube 06/10/16 06/30/16 Clinic [Premarin Vaginal Cream] Atorvastatin Calcium 80 mg PO DAILY 06/30/16 06/30/16 History Tamsulosin HCl [Flomax] 0.4 mg PO DAILY 06/30/16 06/30/16 History Diltiazem HCl [Cardizem Cd] 360 mg PO DAILY #30 cap 07/04/16 Rx Flutica/Salmet 250/50 Inhaler 1 puff INH RTBID #1 inhaler 07/04/16 Rx [Advair Diskus 250/50 Inhaler] Levalbuterol Tartrate [Xopenex Hfa] 15 gm INH Q4H PRN #1 hfa.aer.ad 07/04/16 Rx Tiotropium Inhalation Cap 18 mcg INH RTDAILY #30 inhaler 07/04/16 Rx [Spiriva Inhalation Cap] predniSONE Tab [Deltasone Tab] 20 mg PO BID #8 tab 07/04/16 Rx 8. Time, care, counseling and coordination of care for this discharge is greater than 30 minutes. Exam - Vitals Vital Signs: Vital Signs Temperature 97.7 F Temperature Source Temporal Artery Scan Pulse Rate [Apical] 107 Pulse Rate [Pulse Oximeter] 108 Pulse Rate 108 Respiratory Rate 18 Blood Pressure [Right Arm] 132/84 Blood Pressure [Left Arm] 145/77 Pulse Ox 94 Oxygen Flow Rate 4 Oxygen Delivery Method Nasal Cannula Height 5 ft 6 in Weight 95.164 kg Patient Problems - Patient Problem List (1) Atrial fibrillation Current Visit: Yes Status: Acute (2) COPD exacerbation Current Visit: Yes Status: Acute
== END 2016-07-04 14:58 | disposition home or self-care (01) | DRG 192 ==
LOC: ER 16:05 → MED/SURG 17:03
PROVIDERS: ADMIT Internal Medicine; ATTEND Internal Medicine
DX: J18.9 Pneumonia, unspecified organism (principal); J44.1 Chronic obstructive pulmonary disease with (acute) exacerbation; I48.91 Unspecified atrial fibrillation; Z79.01 Long term (current) use of anticoagulants; E03.9 Hypothyroidism, unspecified; R06.02 Shortness of breath
CPT/HCPCS: 36415; 71020; 80053; 82553; 83880; 84484; 85025; 86140; 93005; 93010; 94640 ×2; 99213; 99284 ×2; G0463; J7620; 71250; 80048; 82803; 83605; 83735; 85610; 87040; 93306; 94761; J0696; J1940; J2920; J7050; J7634

== ENCOUNTER → 2016-06-30 | Outpatient (CLI) | payer OTHER, MEDICARE ==
--- NOTE | 2016-06-30 14:55 | EKG ---
[address] [address] Measurements Intervals [place] Rate: 109 P: DE: 0 QRS: 85 QRSD: 106 T: 32 QT: 349 QTc: 413 Interpretive Statements ATRIAL FIBRILLATION WITH RAPID VENTRICULAR RESPONSE MINIMAL ST DEPRESSION [0.025+ mV ST DEPRESSION] ABNORMAL RHYTHM ECG No previous ECG available for comparison Electronically Signed On 06-30-16 15:57:39 MDT by Norberto Martinez [email or web address]
== END ==
LOC: RAD 14:27
PROVIDERS: ATTEND Physician Assistant
DX: R06.02 Shortness of breath (principal); I50.9 Heart failure, unspecified; R09.02 Hypoxemia; I48.91 Unspecified atrial fibrillation
CPT/HCPCS: 71020; 93005; 93010; 99213

== ENCOUNTER → 2016-06-30 | Outpatient (CLI) | payer OTHER, MEDICARE ==
[2016-06-30 15:13] LABS: BASOPHILS # (AUTO) 0.05 10*3/UL; BASOPHILS % (AUTO) 0.6 % (0-1); EOSINOPHILS # (AUTO) 0.09 10*3/UL; HEMATOCRIT 48.6 % (37.0-47.0); HEMOGLOBIN 15.4 g/dL (12.0-16.0); LYMPHOCYTES # (AUTO) 1.44 10*3/uL; MEAN CORPUSCULAR HEMOGLOBIN 28.7 PG (27-31); MEAN CORPUSCULAR HGB CONC 31.7 g/dL (33-37); MEAN CORPUSCULAR VOLUME 90.5 FL (81-99); MEAN PLATELET VOLUME 8.7 FL (7.4-12.2); MONOCYTES # (AUTO) 0.74 10*3/UL (0.3-0.8); MONOCYTES % (AUTO) 8.6 % (5-15); NEUTROPHILS # (AUTO) 6.32 10*3/UL; NEUTROPHILS % (AUTO) 73.1 % (50-80); RED BLOOD COUNT 5.37 10^6/uL (4.20-5.40)
[2016-06-30 15:26] LABS: PLATELET MORPHOLOGY COMMENT NORMAL MORPHOLOGY (NORM); RBC MORPHOLOGY COMMENT NORMAL MORPHOLOGY (NORM); WBC MORPHOLOGY COMMENT NORMAL MORPHOLOGY (NORM)
[2016-06-30 15:29] LABS: BLOOD UREA NITROGEN 17 mg/dL (7-22); BUN/CREATININE RATIO 18.88 (6-20); CALCIUM 9.3 mg/dL (8.7-10.7); SERUM ALBUMIN 4.2 g/dL (3.5-4.8)
[2016-06-30 15:38] LABS: CREATINE KINASE MB 1.18 NG/ML (0.00-5.00); TROPONIN I 0.013 ng/mL (< 0.040)
[2016-06-30 15:39] LABS: C-REACTIVE PROTEIN < 0.5 mg/dL (0.0-0.9)
--- NOTE | 2016-06-30 16:47 | DI ---
XR CXR 2VW PA/LAT,06/30/2016 2:26 PM: Clinical History: Shortness of breath. Previous Exam: June 08, 2016 Findings: A single frontal radiograph of the chest is obtained, and demonstrate some increased density overlyin g the lower thoracic spine. There is stable flattening of the hemidiaphragms. There is a stent noted within the right carotid artery as well is within one of the major branch vess els of the aortic arch. There is some density within the right middle lobe with some silhouetting of the right heart border e ssentially unchanged from the prior exam. Changes are noted as well. Impression: 1. Airspace disease within the right lower lobe likely slightly worse than the prior exam. This may r epresent a new, or worsening airspace disease.
== END ==
LOC: MOB EKG 14:31
PROVIDERS: ATTEND Physician Assistant
DX: R06.02 Shortness of breath (principal); I50.9 Heart failure, unspecified; R07.9 Chest pain, unspecified; I48.91 Unspecified atrial fibrillation; R53.1 Weakness
CPT/HCPCS: 36415; 71020; 80053; 82553; 83880; 84484; 85025; 86140; 94640

== ENCOUNTER → 2016-07-06 | Outpatient (CLI) | payer OTHER, MEDICARE | LOC: MMPC 09:00 | PROVIDERS: ATTEND Internal Medicine | DX: Z79.01 Long term (current) use of anticoagulants (principal); Z51.81 Encounter for therapeutic drug level monitoring; I63.9 Cerebral infarction, unspecified | CPT/HCPCS: 85610 ==

== ENCOUNTER → 2016-07-08 | Outpatient (CLI) | payer OTHER, MEDICARE | LOC: MMPC 11:11 | PROVIDERS: ATTEND Internal Medicine | DX: J44.9 Chronic obstructive pulmonary disease, unspecified (principal); I50.1 Left ventricular failure, unspecified; G47.00 Insomnia, unspecified; F41.8 Other specified anxiety disorders | CPT/HCPCS: 99213; G0463 ==

== ENCOUNTER → 2016-07-30 | Outpatient (CLI) | payer OTHER, MEDICARE ==
[2016-07-30 11:36] LABS: BUN/CREATININE RATIO 23.33 (6-20); CALCIUM 8.7 mg/dL (8.7-10.7)
== END ==
LOC: LAB 11:01
PROVIDERS: ATTEND Internal Medicine Cardiovascular Disease
DX: I25.10 Atherosclerotic heart disease of native coronary artery without angina pectoris (principal); I10 Essential (primary) hypertension
CPT/HCPCS: 36415; 80048

== ENCOUNTER → 2016-08-05 | Outpatient (CLI) | payer OTHER, MEDICARE | LOC: MMPC 11:11 | PROVIDERS: ATTEND Internal Medicine | DX: I50.32 Chronic diastolic (congestive) heart failure (principal); I50.1 Left ventricular failure, unspecified; I50.22 Chronic systolic (congestive) heart failure; I48.91 Unspecified atrial fibrillation; I25.10 Atherosclerotic heart disease of native coronary artery without angina pectoris; J44.9 Chronic obstructive pulmonary disease, unspecified; R60.9 Edema, unspecified; G47.33 Obstructive sleep apnea (adult) (pediatric); M15.9 Polyosteoarthritis, unspecified; N32.81 Overactive bladder; N39.41 Urge incontinence; G47.34 Idiopathic sleep related nonobstructive alveolar hypoventilation; E66.9 Obesity, unspecified | CPT/HCPCS: 99213; G0463 ==

== ENCOUNTER → 2016-08-06 | Outpatient (CLI) | payer OTHER, MEDICARE | LOC: MMPC 09:00 | PROVIDERS: ATTEND Internal Medicine | DX: Z79.01 Long term (current) use of anticoagulants (principal); Z51.81 Encounter for therapeutic drug level monitoring; I63.9 Cerebral infarction, unspecified | CPT/HCPCS: 85610 ==

== ENCOUNTER → 2016-08-12 | Outpatient (CLI) | payer OTHER, MEDICARE ==
[2016-08-12 09:27] LABS: BUN/CREATININE RATIO 28.18 (6-20); CALCIUM 9.2 mg/dL (8.7-10.7); CHOL/HDL RATIO 2.64 RATIO (0-4.0); SERUM ALBUMIN 4.2 g/dL (3.5-4.8)
== END ==
LOC: LAB 08:29
PROVIDERS: ATTEND Internal Medicine Cardiovascular Disease
DX: I50.32 Chronic diastolic (congestive) heart failure (principal)
CPT/HCPCS: 80053; 80061; 80162

== ENCOUNTER → 2016-08-13 | Outpatient (CLI) | payer OTHER, MEDICARE | LOC: MMPC 09:00 | PROVIDERS: ATTEND Internal Medicine | DX: Z79.01 Long term (current) use of anticoagulants (principal); Z51.81 Encounter for therapeutic drug level monitoring; I63.9 Cerebral infarction, unspecified | CPT/HCPCS: 85610 ==

== ENCOUNTER → 2016-08-27 | Outpatient (CLI) | payer OTHER, MEDICARE | LOC: MMPC 09:00 | PROVIDERS: ATTEND Internal Medicine | DX: Z79.01 Long term (current) use of anticoagulants (principal); Z51.81 Encounter for therapeutic drug level monitoring; I63.9 Cerebral infarction, unspecified | CPT/HCPCS: 85610 ==

== ENCOUNTER → 2016-08-31 | Outpatient (CLI) | payer OTHER, MEDICARE | LOC: MMPC 09:00 | PROVIDERS: ATTEND Internal Medicine | DX: Z79.01 Long term (current) use of anticoagulants (principal); Z51.81 Encounter for therapeutic drug level monitoring; I63.9 Cerebral infarction, unspecified | CPT/HCPCS: 85610 ==

== ENCOUNTER → 2016-09-07 | Outpatient (CLI) | payer OTHER, MEDICARE | LOC: MMPC 09:00 | PROVIDERS: ATTEND Internal Medicine | DX: Z79.01 Long term (current) use of anticoagulants (principal); Z51.81 Encounter for therapeutic drug level monitoring; I63.9 Cerebral infarction, unspecified | CPT/HCPCS: 85610 ==

== ENCOUNTER → 2016-09-14 | Outpatient (CLI) | payer OTHER, MEDICARE | LOC: MMPC 11:11 | PROVIDERS: ATTEND Internal Medicine | DX: I25.810 Atherosclerosis of coronary artery bypass graft(s) without angina pectoris (principal); R06.00 Dyspnea, unspecified; R60.0 Localized edema; J44.9 Chronic obstructive pulmonary disease, unspecified; I48.91 Unspecified atrial fibrillation | CPT/HCPCS: 99213; G0463 ==

== ENCOUNTER → 2016-09-21 | Outpatient (CLI) | payer OTHER, MEDICARE | LOC: MMPC 09:00 | PROVIDERS: ATTEND Internal Medicine | DX: Z79.01 Long term (current) use of anticoagulants (principal); Z51.81 Encounter for therapeutic drug level monitoring; I63.9 Cerebral infarction, unspecified | CPT/HCPCS: 85610 ==

== ENCOUNTER → 2016-09-28 | Outpatient (CLI) | payer OTHER, MEDICARE | LOC: MMPC 09:00 | PROVIDERS: ATTEND Internal Medicine | DX: Z79.01 Long term (current) use of anticoagulants (principal); Z51.81 Encounter for therapeutic drug level monitoring; I63.9 Cerebral infarction, unspecified | CPT/HCPCS: 85610 ==

== ENCOUNTER → 2016-10-15 | Outpatient (CLI) | payer OTHER, MEDICARE | LOC: MMPC 09:00 | PROVIDERS: ATTEND Internal Medicine | DX: Z79.01 Long term (current) use of anticoagulants (principal); Z51.81 Encounter for therapeutic drug level monitoring; I63.9 Cerebral infarction, unspecified | CPT/HCPCS: 85610 ==

== ENCOUNTER 2017-10-17 21:40 | Inpatient (IN) ==
--- NOTE | 2017-10-17 22:00 | EKG ---
[address] [address] Measurements Intervals [place] Rate: 125 P: [place]: 0 QRS: 34 QRSD: 99 T: 103 QT: 271 QTc: 345 Interpretive Statements ATRIAL FIBRILLATION WITH RAPID VENTRICULAR RESPONSE ST & T-WAVE ABNORMALITY, POSSIBE LATERAL ISCHEMIA Compared to ECG 07/14/2017 10:30:32 ST-T-wave abnormality still present Electronically Signed On 10-18-17 16:55:31 MDT by Norberto Martinez [email or web address]
--- NOTE | 2017-10-17 22:37 | PDOC ---
General Adult HPI - General Chief Complaint: Altered Mental Status Stated Complaint: High Blood Pressure, Altered Date Seen by Provider: 10/17/17 Time Seen by Provider: 21:40 Source: POSITIVE: Patient, Other (family) Exam Limitations: POSITIVE: No limitations Nurse's Notes Reviewed & Considered: Yes - History of Present Illness Initial Comment: The patient is a 77-year-old female who is evaluated in the emergency department with confusion and speech difficulty and elevated blood pressure. Apparently some time around 6 PM this evening the patient and her family noticed that she seemed to be having trouble with word finding. Her family thought she also seemed somewhat more confused. She had taken one of her pain pills around that time as well. They checked her blood pressure at home and it was in the 200s over 130s and they subsequently decided to come here to the emergency department. The patient denies any headache or chest pain. She does have shortness of breath which is chronic. She is normally on 4 L of oxygen at home. She denies any change in vision, nausea, increased numbness or weakness in her arms or legs. She does have a history of atrial fibrillation and is anticoagulated with Eliquis. She has not had any fevers. She does have a history of urinary incontinence and urinary tract infections. She states that her urologist has her on a daily antibiotic. Have you received a tetanus shot in the past 10 years?: No - Patient Home Medications Home Medications: Home Medications Oxygen (O2) 1 unit INH Q unit 03/10/16 clopidogrel 75 mg tablet 75 mg PO DAILY #90 tab 11/24/16 docusate sodium 100 mg capsule 100 mg PO DAILY cap 11/24/16 potassium bicarbonate-citric acid 25 mEq effervescent tablet 25 meq PO DAILY tab 11/24/16 torsemide 20 mg tablet 40 mg PO DAILY tab 11/24/16 trimethoprim 100 mg tablet 100 mg PO QD tab 11/24/16 atorvastatin 80 mg tablet 80 mg PO DAILY #90 tab 05/05/17 escitalopram 20 mg tablet 20 mg PO QDAY #30 tab 07/01/17 apixaban 2.5 mg tablet 2.5 mg PO BID #60 tab 08/03/17 digoxin 125 mcg tablet 125 mcg PO QDAY #30 tab 08/03/17 levothyroxine 50 mcg tablet 50 mcg PO DAILY #90 tab-cap 08/16/17 albuterol sulfate HFA 90 mcg/actuation aerosol inhaler 2 puff INH QID PRN #36 g 09/27/17 oxycodone-acetaminophen 10 mg-325 mg tablet 1 tab PO Q6H PRN #155 tab 09/27/17 - Patient Allergies Allergies/Adverse Reactions: Allergies 3 Allergy/AdvReac Type Severity Reaction Status Date / Time sulfamethoxazole Allergy Severe pruritis, Verified 10/17/17 23:35 [From Bactrim] short of breath, chest pain trimethoprim [From Bactrim] Allergy Severe pruritis, Verified 10/17/17 23:35 short of breath, chest pain toprop XL AdvReac Severe NAUSEA Uncoded 10/17/17 23:35 PAIN CONTRACT AdvReac Unknown NOT Uncoded 10/17/17 23:35 APPLICABLE oxycotin AdvReac NAUSEA Uncoded 10/17/17 23:35 Past Medical History - heen HEENT History: Denies History, Dentures/Partials Cardiovascular History: Hypertension, Arrhythmia, Hyperlipidemia Additional Cardiovasular History: LE EDEMA Respiratory History: COPD, Shortness of Breath, Home Oxygen Use Gastrointestinal History: Denies History Genitourinary History: Recurrent UTI, Incontinence, Other (please comment) Additional Genitourinary History: had stent to kidney Endocrine History: Hypothyroidism Musculoskeletal History: Arthritis Prosthesis or Implant: No Neurological History: Denies History Blood Disorders: Denies History Psychiatric History: Depression History of Sexually Transmitted Diseases: No Cancer History: Denies History History of MDRO: No History of Other Communicable Diseases: No Alcohol Use: Occasionally In the Past 12 Months, Have Used or Abuse Any Substance: None Previous Surgical History: Yes Type / Date of Surgery: CABG, CAROTID ARTERY STENT X2, RENAL STENT Anesthesia Reactions: No Malignant Hyperthermia: No Significant Family History: No pertinent family hx Past Medical History Reviewed: Reviewed - No Changes ROS - Limitations ROS Limitations: No Limitations Constitution: DENIES: Chills, Fever Cardiovascular: DENIES: Chest Pain, Heart Palpitations Respiratory: REPORTS: Shortness Of Breath, Other (She did have a cough and was treated for a respiratory infection several weeks ago) Neurological: REPORTS: Confusion, Other (Trouble with finding certain words). DENIES: Headache, Dizziness, Numbness, Seizure Activity, Weakness Gastrointestinal: REPORTS: Denies GI Symptoms Musculoskeletal: REPORTS: Denies MS Symptoms Genitourinary: REPORTS: Other (She does have chronic urinary incontinence and history of urinary tract infections) Eyes: REPORTS: Denies Symptoms ENT: REPORTS: Denies Symptoms Skin: DENIES: Rash General Adult Exam - General Appearance General Appearance: POSITIVE: Alert, Cooperative, No Acute Distress - HEENT HEENT: POSITIVE: Head Inspection Nml, Eyes Inspection Nml, Ears Inspection Nml, Nose Inspection Nml, Pharynx Inspect. Nml, PERRL, EOMI - Neck Neck: POSITIVE: Normal Inspection. NEGATIVE: Lymphadenopathy - Respiratory Respiratory: POSITIVE: No Respiratory Distress, Other (Decreased breath sounds bilaterally, she has mildly tachypnea) - Cardiovascular Cardiovascular: POSITIVE: No Murmur, Irregularly Irreg. 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 She could not remember today's date or month and occasionally she seemed to have trouble finding words although in general her speech seemed fairly normal and she answered questions appropriately) General Adult Progress - Results Reviewed by me Xrays/CTs/US Reviewed by me: Yes Discussed with Radiologist: Yes Radiology Findings: CT of the head shows no evidence of acute intracranial abnormality per radiologist. Chest x-ray shows no acute abnormalities per radiologist. Lab Results Reviewed by Me: Yes Lab Results:: Laboratory Results 3 10/17/17 10/17/17 10/17/17 22:30 22:30 22:30 WBC 14.21 H RBC 4.76 Hgb 14.1 Hct 42.8 MCV 89.9 MCH 29.6 MCHC 32.9 L RDW Std Deviation 55.6 H RDW Coeff of Karis 17.5 H Plt Count 312 MPV 8.9 Immature Gran % (Auto) 0.4 Neut % (Auto) 84.3 H Lymph % (Auto) 8.6 L Roberts % (Auto) 5.9 Eos % (Auto) 0.6 Baso % (Auto) 0.2 Immature Gran # (Auto) 0.05 Neut # (Auto) 11.98 Lymph # (Auto) 1.22 Roberts # (Auto) 0.84 H Eos # (Auto) 0.09 Baso # (Auto) 0.03 WBC Morphology Comment Normal morphology Plt Morphology Comment Normal morphology RBC Morph Comment Normal morphology D-Dimer 0.67 H VBG pH VBG pCO2 VBG HCO3 VBG Base Excess Sodium 140 Potassium 3.9 Chloride 96 L Carbon Dioxide 32 Anion Gap 12 BUN 17 Creatinine 0.8 BUN/Creatinine Ratio 21.25 H Glucose 143 H Calculated Osmolality 293.0 H Lactic Acid Calcium 9.2 Magnesium 1.9 Total Bilirubin 0.9 AST 22 ALT 18 Alkaline Phosphatase 96 Troponin I C-Reactive Protein 1.2 H NT-Pro-B Natriuret Pep 1090 H Total Protein 7.7 Albumin 4.4 Globulin 3.3 Albumin/Globulin Ratio 1.30 TSH Ur Collection Type Urine Color Urine Clarity Urine pH Ur Specific [place] Urine Protein Urine Glucose (UA) Urine Ketones Urine Occult Blood Urine Nitrate Urine Bilirubin Urine Urobilinogen Ur Leukocyte Esterase Urine RBC Urine WBC Ur Squamous Epith Cells Ur Renal Epithelial Cell Urine Crystals Urine Bacteria Urine Casts Urine Mucus Urine Trichomonas Urine Yeast Ur Culture Indicated? Digoxin 3 10/17/17 10/17/17 10/17/17 22:30 22:30 22:30 WBC RBC Hgb Hct MCV MCH MCHC RDW Std Deviation RDW Coeff of Karis Plt Count MPV Immature Gran % (Auto) Neut % (Auto) Lymph % (Auto) Roberts % (Auto) Eos % (Auto) Baso % (Auto) Immature Gran # (Auto) Neut # (Auto) Lymph # (Auto) Roberts # (Auto) Eos # (Auto) Baso # (Auto) WBC Morphology Comment Plt Morphology Comment RBC Morph Comment D-Dimer VBG pH VBG pCO2 VBG HCO3 VBG Base Excess Sodium Potassium Chloride Carbon Dioxide Anion Gap BUN Creatinine BUN/Creatinine Ratio Glucose Calculated Osmolality Lactic Acid Calcium Magnesium Total Bilirubin AST ALT Alkaline Phosphatase Troponin I 0.045 H C-Reactive Protein NT-Pro-B Natriuret Pep Total Protein Albumin Globulin Albumin/Globulin Ratio TSH 3.61 Ur Collection Type Urine Color Urine Clarity Urine pH Ur Specific [place] Urine Protein Urine Glucose (UA) Urine Ketones Urine Occult Blood Urine Nitrate Urine Bilirubin Urine Urobilinogen Ur Leukocyte Esterase Urine RBC Urine WBC Ur Squamous Epith Cells Ur Renal Epithelial Cell Urine Crystals Urine Bacteria Urine Casts Urine Mucus Urine Trichomonas Urine Yeast Ur Culture Indicated? Digoxin 0.6 L 3 10/17/17 10/17/17 10/17/17 22:30 22:34 23:15 WBC RBC Hgb Hct MCV MCH MCHC RDW Std Deviation RDW Coeff of Karis Plt Count MPV Immature Gran % (Auto) Neut % (Auto) Lymph % (Auto) Roberts % (Auto) Eos % (Auto) Baso % (Auto) Immature Gran # (Auto) Neut # (Auto) Lymph # (Auto) Roberts # (Auto) Eos # (Auto) Baso # (Auto) WBC Morphology Comment Plt Morphology Comment RBC Morph Comment D-Dimer VBG pH 7.58 H VBG pCO2 34 L VBG HCO3 32 H VBG Base Excess 10 H Sodium Potassium Chloride Carbon Dioxide Anion Gap BUN Creatinine BUN/Creatinine Ratio Glucose Calculated Osmolality Lactic Acid 3.1 H Calcium Magnesium Total Bilirubin AST ALT Alkaline Phosphatase Troponin I C-Reactive Protein NT-Pro-B Natriuret Pep Total Protein Albumin Globulin Albumin/Globulin Ratio TSH Ur Collection Type Clean catch urine Urine Color Yellow Urine Clarity Clear Urine pH 8.0 Ur Specific [place] 1.015 Urine Protein 100 A Urine Glucose (UA) Negative Urine Ketones Negative Urine Occult Blood Trace-intact H Urine Nitrate Negative Urine Bilirubin Negative Urine Urobilinogen 0.2 Ur Leukocyte Esterase Negative Urine RBC 1-3 Urine WBC 1-3 Ur Squamous Epith Cells Few Ur Renal Epithelial Cell None Urine Crystals None Urine Bacteria Many H Urine Casts None Urine Mucus None Urine Trichomonas None Urine Yeast None Ur Culture Indicated? Culture set Digoxin CBC and BMP: 10/18/17 05:00 10/18/17 05:00 EKG Interpreted/Reviewed By Me:: Yes EKG Interpretation:: POSITIVE: Other (EKG shows atrial fibrillation with a rate of 125, she does have some ST depression in leads V4 through V6 which is actually less prominent than on an EKG from June of this year. No acute ST segment or T-wave changes.) - Patient's Progress MDM / ED Course: The patient's blood pressure on arrival here was 145/113. Her EKG shows atrial fibrillation with rate of 125 and is unchanged significantly from an EKG from June of this year. CT scan of the head was obtained and was negative for any acute abnormalities. Chest x-ray was also negative for any acute infiltrate or other acute abnormalities. Her blood work reveals an elevated white count of 14 ,000. Her d-dimer is slightly elevated at 0.67. Troponin is mildly elevated at 0.045. BNP is elevated at 1000 which is less than previous values within the last year. Urinalysis does show many bacteria however is negative for nitrite and has only 1-3 WBCs on the microscopic exam, culture is pending. The cause of the patient's current confusion and difficulty with word finding is unclear however may be related to medication. A small CVA cannot be completely excluded. It addition the patient's white count is elevated and there is no obvious source. Blood cultures and lactate were obtained. The patient does have COPD and does have some increase shortness of breath and recent treatment for respiratory infection. In addition she is in atrial fibrillation and her rate is somewhat elevated in the 1 teens to 120s. These findings were discussed with the patient and her family. Decision was made to admit the patient for further monitoring and evaluation. Dr. Betancourt has agreed to admit the patient. - Consult Counseled: POSITIVE: Patient, Family, RE: Lab Results, RE: Radiology Results, RE : DX Patient Care Time - Estimated PCT Patient Care Time (In Minutes): 40 Vital Signs - Recent Vital Signs Vital Signs: Vital Signs (Last 8 hours) Temp Pulse Pulse Pulse Resp BP BP 10/18/17 06:20 106 H 20 10/18/17 06:19 93 20 10/18/17 05:54 99.0 F 99 24 131/87 10/18/17 05:00 87 24 141/63 10/18/17 04:03 22 10/18/17 04:02 99.0 F 93 22 114/72 10/18/17 03:43 94 22 10/18/17 03:42 81 26 H 10/18/17 03:30 92 119/58 10/18/17 03:00 97 10/18/17 02:58 93 22 134/95 10/18/17 02:54 86 20 10/18/17 02:40 129/69 10/18/17 02:30 131/64 10/18/17 02:20 106/58 10/18/17 02:13 10/18/17 02:10 108/56 10/18/17 01:50 93 20 10/18/17 01:49 97 22 10/18/17 01:00 98.3 F 105 H 24 118/77 10/18/17 00:58 97.1 F 112 H 20 156/89 10/18/17 00:07 Pulse Ox 10/18/17 06:20 94 10/18/17 06:19 94 10/18/17 05:54 93 10/18/17 05:00 91 10/18/17 04:03 10/18/17 04:02 93 10/18/17 03:43 93 10/18/17 03:42 93 10/18/17 03:30 10/18/17 03:00 10/18/17 02:58 94 10/18/17 02:54 10/18/17 02:40 10/18/17 02:30 10/18/17 02:20 10/18/17 02:13 95 10/18/17 02:10 10/18/17 01:50 97 10/18/17 01:49 89 10/18/17 01:00 93 10/18/17 00:58 95 10/18/17 00:07 93 - VS Reviewed Vital Signs Reviewed: Yes Discharge Clinical Impression: Atrial fibrillation with RVR, Elevated troponin, COPD exacerbation, Altered mental status, Leukocytosis Discharge Disposition: Admit to Inpatient Condition: Stable Date Decision to Admit to Inpatient: 10/17/17 Time Decision to Admit to Inpatient: 23:30
[2017-10-17 22:38] LABS: BASOPHILS # (AUTO) 0.03 10*3/UL; BASOPHILS % (AUTO) 0.2 % (0-1); EOSINOPHILS # (AUTO) 0.09 10*3/UL; EOSINOPHILS % (AUTO) 0.6 % (0-8); Hematocrit [HCT] 42.8 % (37.0-47.0); Hemoglobin [HGB] 14.1 g/dL (12.0-16.0); LYMPHOCYTES # (AUTO) 1.22 10*3/uL; MEAN CORPUSCULAR HEMOGLOBIN 29.6 PG (27-31); MEAN CORPUSCULAR HGB CONC 32.9 g/dL (33-37); MEAN CORPUSCULAR VOLUME 89.9 FL (81-99); MEAN PLATELET VOLUME 8.9 FL (7.4-12.2); MONOCYTES # (AUTO) 0.84 10*3/UL (0.3-0.8); MONOCYTES % (AUTO) 5.9 % (5-15); NEUTROPHILS # (AUTO) 11.98 10*3/UL; NEUTROPHILS % (AUTO) 84.3 % (50-80); RED BLOOD COUNT 4.76 10^6/uL (4.20-5.40)
[2017-10-17 22:46] LABS: VENOUS PH 7.58 (7.32-7.42)
[2017-10-17 22:53] LABS: BLOOD UREA NITROGEN 17 mg/dL (7-22); BUN/CREATININE RATIO 21.25 (6-20); SERUM ALBUMIN 4.4 g/dL (3.5-4.8)
--- NOTE | 2017-10-17 22:54 | DI ---
EXAM: CT Head Without Intravenous Contrast CLINICAL HISTORY: ITS.REASON speech difficulty, confusion Physician Notes: Tech Comments: TECHNIQUE: Axial computed tomography images of the head/brain without intravenous contrast. COMPARISON: No relevant prior studies available. FINDINGS: Limitations: Examination is motion limited. Brain: No evidence for acute intracranial hemorrhage or mass effect. Leonardo-white matter differentiation is grossly preserved, where visualized. Hypodensity within the left thalamus and right basal ganglia may be related to old lacunar infarcts. Global cortical involutional changes are present which are likely age-related. Mild subcortical and periventricular white matter hypodensities are noted, nonspecific though likely related to chronic small vessel ischemia. Ventricles: Unremarkable. No ventriculomegaly. Bones/joints: Unremarkable. No acute fracture. Soft tissues: Unremarkable. Vasculature: Atherosclerosis is present involving the visualized arterial structures. Sinuses: Mild paranasal sinus mucosal thickening. Mastoid air cells: Unremarkable as visualized. No mastoid effusion. IMPRESSION: 1. No acute findings.. Motion limited.
[2017-10-17 22:58] LABS: PLATELET MORPHOLOGY COMMENT NORMAL MORPHOLOGY (NORM); RBC MORPHOLOGY COMMENT NORMAL MORPHOLOGY (NORM); WBC MORPHOLOGY COMMENT NORMAL MORPHOLOGY (NORM)
--- NOTE | 2017-10-17 23:03 | DI ---
EXAM: XR Chest, 1 View CLINICAL HISTORY: ITS.REASON shortness of breath, confusion Physician Notes: Tech Comments: TECHNIQUE: Frontal view of the chest. COMPARISON: 09/15/17 FINDINGS: Lungs: Right lower lobe atelectasis. No acute infiltrate identified. Pleural space: Stable left pleural scarring. No significant effusion. No pneumothorax. Heart: Stable cardiomegaly and regional postsurgical changes. Mediastinum: Stable. Bones/joints: Stable. Vasculature: Atherosclerosis. IMPRESSION: 1. Cardiomegaly.
[2017-10-17 23:21] LABS: BILIRUBIN,URINE NEGATIVE (NEG); CLARITY,URINE CLEAR (CLEAR); COLOR,URINE YELLOW (Y); GLUCOSE, URINE (UA) NEGATIVE (NEG); OCCULT BLOOD,URINE Trace-intact (NEG); PROTEIN,URINE 100 mg/dl (NEG); UROBILINOGEN,URINE 0.2 EU/dL (0.2)
[2017-10-17 23:26] LABS: BACTERIA,URINE MANY; SQUAMOUS EPITHELIAL CELL,UR FEW; URINE SAMPLE TYPE CLEAN CATCH URINE
[2017-10-18] MEDS ORDERED: ALBUTEROL SULFATE 8.5 GM HFA INHALER INH PRN (00:07)
[2017-10-18] MEDS ORDERED: ACETAMINOPHEN 325 MG TABLET PO PRN ×3 (00:07→16:16)
[2017-10-18] MEDS ORDERED: CALCIUM CARBONATE 500 MG (TUMS) CHEWABLE TABLET PO PRN ×3 (00:07→16:16)
[2017-10-18] MEDS ORDERED: ONDANSETRON 4 MG/2 ML VIAL IVP PRN ×3 (00:07→16:16)
[2017-10-18] MEDS ORDERED: Sodium Chloride 0.9% 1,000 ML PRIMARY IV SCH ×2 (00:07→00:46)
[2017-10-18] MEDS ORDERED: DOCUSATE 100 MG CAPSULE PO PRN ×3 (00:07→16:16)
[2017-10-18] MEDS ORDERED: LIDOCAINE W/ SODIUM BICARB 0.5 ML SYR SUBD PRN ×2 (00:07→00:46)
[2017-10-18] MEDS ORDERED: ALBUTEROL SULFATE 2.5 MG/3 ML NEB PRN ×2 (00:27→00:46)
[2017-10-18] MEDS ORDERED: DILTIAZEM 5 MG/ML - 5 ML IV ONE ×2 (00:29→00:46)
[2017-10-18] MEDS ORDERED: IPRATROPIUM/ALBUTEROL SULFATE 3 ML NEB NEB SCH ×2 (00:30→01:00)
[2017-10-18] MEDS ORDERED: cefTRIAXone Inj 2 GM in Sodium Chloride 0.9% 100 ML IV SCH ×2 (00:30→08:00)
[2017-10-18] MEDS ORDERED: Diltiazem Drip 125 MG in Sodium Chloride 0.9% 100 ML IV SCH ×2 (00:30→00:46)
--- NOTE | 2017-10-18 00:46 | PDOC ---
HPI - History of Present Illness Date of Service: 10/18/17 Time of Service: 00:41 Chief Complaint: Confusion and word finding problems History of Present Illness: This very pleasant 77-year-old female with prior history of TIA, atrial fibrillation, carotid artery disease, COPD, amongst other medical issues, who presents accompanied by her daughter and gabe with complaints of acute onset of altered mental status, agitation and confusion tonight. The patient's daughter provides some history in the patient provides some history as well as does her . The patient took her normal dose of oxycodone ( Percocet) tonjim at around 7 PM and wandered around the kitchen about an hour later very confused. She states that she was having trouble finding a word to explain what she wanted to do with some coffee. She's had an another incident of that recently where she had trouble finding her words in the kitchen after her pain medications. She had an episode as well, according to her , in which she fell asleep on the toilet and she's apparently been getting some days and nights mixed up. I do not know she's had a Mini-Mental state examination done in the clinic but there are no short of long-term memory problems described by the family otherwise. The patient cannot drive due to her macular degeneration, so there's been no change in behaviors otherwise. The patient also reports that she's been short of breath, despite her 4 L of oxygen. She does not smoke. She's not had any fevers or chills. She's had diffuse sweating which is a chronic issue apparently. It is very difficult to sort of concentrate the history and physical exam based on a multitude of complaints, but the word finding problems and shortness of breath seemed to be the main issues that the patient was concerned about. She did have a Lexapro dose adjustment recently and was placed on a 3 months ago and apparently the patient has been significantly agitated since that was started. Patient also states that her feet hurt regardless of her Percocet. She denies taking any extra pills. She also had atrial fibrillation with a rapid ventricular response upon arrival with heart rates in the 120s although ST segment changes were not really change from prior EKG on comparison. Given the significant constellation of symptoms and multiple issues, patient is being admitted. Prior to the last couple of weeks, the patient has not had confusion to this degree. Other issues with her medications include a decrease in her digoxin although her digoxin level is now subtherapeutic. It was super therapeutic in the past. She also recently was switched from Coumadin to Eliquis. She was recently placed on trimethoprim to try and prevent urinary tract infections as well as these occur frequently for the patient. Past Medical History Medical History: 1. Hypertension. 2. Hypothyroidism. 3. COPD, with chronic hypoxemic respiratory failure on 4 L of nasal cannula at baseline. 4. Sleep apnea. 5. Depression apparently with anxiety features. 6. osteoporosis. 7. Atrial fibrillation. 8. Coronary artery disease status post CABG. 9. 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 10. Macular degeneration. 11. Carotid artery disease status post carotid stent placement on the right and prior carotid endarterectomy. 12. Chronic pain syndrome attributed to feet problems. I could not elicit any symptoms of neuropathy on history. Surgical History: 1. Carotid endarterectomy. 2. History of CABG. 3. Hysterectomy. 4. Right carotid internal artery stent. 5. Hysterectomy with bladder suspension. 6. Renal artery stent Family History: Reviewed an Not Pertinent Pertinent Family History: Heart disease in her father and in her siblings Past Social History: She used to smoke quit many years ago, rarely drinks. No drugs. . Has children. Tobacco Use: Former Smoker Do you dip or chew tobacco: No In the Past 12 Months, Have Used or Abuse Any of the Following Substance: None Alcohol Use: None Medication / Allergies Home Medications: Home Medications 3 Medication Instructions Recorded Confirmed Type Oxygen (O2) 1 unit INH QHS unit 03/10/16 10/17/17 History clopidogrel 75 mg tablet 75 mg PO DAILY #90 tab 11/24/16 10/17/17 History docusate sodium 100 mg capsule 100 mg PO DAILY cap 11/24/16 10/17/17 History potassium bicarbonate-citric acid 25 meq PO DAILY tab 11/24/16 10/17/17 History 25 mEq effervescent tablet torsemide 20 mg tablet 40 mg PO DAILY tab 11/24/16 10/17/17 History trimethoprim 100 mg tablet 100 mg PO QD tab 11/24/16 10/17/17 History atorvastatin 80 mg tablet 80 mg PO DAILY #90 tab 05/05/17 10/17/17 Rx escitalopram 20 mg tablet 20 mg PO QDAY #30 tab 07/01/17 10/17/17 Rx apixaban 2.5 mg tablet 2.5 mg PO BID #60 tab 08/03/17 10/17/17 Rx digoxin 125 mcg tablet 125 mcg PO QDAY #30 tab 08/03/17 10/17/17 Rx levothyroxine 50 mcg tablet 50 mcg PO DAILY #90 tab-cap 08/16/17 10/17/17 Rx albuterol sulfate HFA 90 2 puff INH QID PRN #36 g 09/27/17 10/17/17 Rx mcg/actuation aerosol inhaler oxycodone-acetaminophen 10 mg-325 1 tab PO Q6H PRN #155 tab 09/27/17 10/17/17 Rx mg tablet Allergies/Adverse Reactions: Allergies 3 Allergy/AdvReac Type Severity Reaction Status Date / Time sulfamethoxazole Allergy Severe pruritis, Verified 10/17/17 23:35 [From Bactrim] short of breath, chest pain trimethoprim [From Bactrim] Allergy Severe pruritis, Verified 10/17/17 23:35 short of breath, chest pain toprop XL AdvReac Severe NAUSEA Uncoded 10/17/17 23:35 PAIN CONTRACT AdvReac Unknown NOT Uncoded 10/17/17 23:35 APPLICABLE oxycotin AdvReac NAUSEA Uncoded 10/17/17 23:35 Review of Systems - Constitutional Constitutional: REPORTS: General Health Poor, Night Sweats (Chronic issue), Recent Illness (Had COPD exacerbation 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 [place]) - Eye Exam Eye Exam: REPORTS: Other (Has macular degeneration) - Respiratory Respiratory: REPORTS: Cough, Sputum (Thickened sputum), Dyspnea At Rest, Dyspnea with Exertion - Cardiovascular Cardiovascular: REPORTS: Negative System Review - Gastrointestinal Gastrointestinal / Abdominal: REPORTS: Nausea - Genitourinary Genitourinary: REPORTS: Incontinence, Urgency - Musculoskeletal Musculoskeletal: REPORTS: Joint Pain - Feet - Neurological Neurologic: REPORTS: Headache, Weakness, Confusion (The patient is aware that she is confused), Other (Word finding problems) - Psychiatric Psychiatric: REPORTS: Anxiety Exam - Vitals Vital Signs: Vital Signs Temperature 96.9 F Temperature Source Temporal Artery Scan Pulse Rate [Pulse Oximeter] 105 Pulse Rate 105 Respiratory Rate 20 Blood Pressure [Right Arm] 146/113 Pulse Ox 93 Oxygen Flow Rate 4 Oxygen Delivery Method Nasal Cannula Height 5 ft 5 in Weight 200 lb - General General Appearance: No Acute Distress, Cooperative - Head Head Exam: Normal Inspection, Normocephalic, Atraumatic - Eye Eye Exam: POSITIVE: No Scleral Icterus - ENT ENT Exam: POSITIVE: Mucous Membranes Dry - Neck Neck Exam: Normal Inspection, No Tenderness, No Lymphadenopathy, No Thyromegaly , JVP is not Raised - Respiratory Respiratory Exam: POSITIVE: Breathing Non Labored, Coarse Breath Sounds - Cardiovascular Cardiovascular Exam: POSITIVE: No Murmur, No Clicks, No Gallops, No Rubs, Irregular Rhythm, Tachycardia, No JVD - GI/Abdominal GI/Abdominal Exam: POSITIVE: Normal Bowel Sounds, Non Tender, Non Distended, Soft - Rectal Rectal Exam: POSITIVE: Deferred - External Exam: POSITIVE: Deferred Exam: POSITIVE: Deferred - Extremities Extremities Exam: POSITIVE: No Cyanosis Present, Clubbing Present, +1 Edema - Back Back Exam: POSITIVE: No CVA Tenderness - Neurological Neurological Exam: POSITIVE: Alert, Oriented x 3, No Facial Droop, Speech Intact / Clear, Moves All Extremities Equally Additional Neurological Exam Details: Was able to stand up and push up off the bed to stand up and transfer to the commode. - Psychiatric Psychiatric Exam: POSITIVE: Anxious, Agitated - Integumentary Integumentary Exam: POSITIVE: Warm, Dry, Intact Results - Labs CBC and BMP: 10/17/17 22:30 10/17/17 22:30 Additional Lab Results: Laboratory Results 10/17/17 10/17/17 10/17/17 Range/Units 22:30 22:30 22:30 WBC 14.21 H (4.8-10.8) 10^3/uL RBC 4.76 (4.20-5.40) 10^6/uL Hgb 14.1 (12.0-16.0) g/dL Hct 42.8 (37.0-47.0) % MCV 89.9 (81-99) FL MCH 29.6 (27-31) PG MCHC 32.9 L (33-37) g/dL RDW Std Deviation 55.6 H (39-50) fL RDW Coeff of Karis 17.5 H (11.5-14.5) % Plt Count 312 (140-350) 10*3/uL MPV 8.9 (7.4-12.2) FL Immature Gran % (Auto) 0.4 (0-5) % Neut % (Auto) 84.3 H (50-80) % Lymph % (Auto) 8.6 L (10-50) % [place] % (Auto) 5.9 (5-15) % Eos % (Auto) 0.6 (0-8) % Baso % (Auto) 0.2 (0-1) % Immature Gran # (Auto) 0.05 10*3/UL Neut # (Auto) 11.98 10*3/UL Lymph # (Auto) 1.22 10*3/uL [place] # (Auto) 0.84 H (0.3-0.8) 10*3/UL Eos # (Auto) 0.09 10*3/UL Baso # (Auto) 0.03 10*3/UL WBC Morphology Comment Normal morphology (NORM) Plt Morphology Comment Normal morphology (NORM) RBC Morph Comment Normal morphology (NORM) D-Dimer 0.67 H (0.00-0.59) mg/L VBG pH (7.32-7.42) VBG pCO2 (45-55) mmHg VBG HCO3 (22-26) mmol/L VBG Base Excess (-2-2) MMOL/L Sodium 140 (135-145) meq/L Potassium 3.9 (3.8-5.2) meq/L Chloride 96 L (98-112) meq/L Carbon Dioxide 32 (23-33) meq/L Anion Gap 12 (5-20) BUN 17 (7-22) mg/dL Creatinine 0.8 (0.50-1.20) mg/dL BUN/Creatinine Ratio 21.25 H (6-20) Glucose 143 H (78-110) mg/dL Calculated Osmolality 293.0 H (267-292) mOsm/kg Lactic Acid (0.70-2.10) MMOL/L Calcium 9.2 (8.7-10.7) mg/dL Magnesium 1.9 (1.6-2.4) mg/dL Total Bilirubin 0.9 (0.3-1.2) mg/dL AST 22 (8-39) IU/L ALT 18 (9-52) IU/L Alkaline Phosphatase 96 (38-126) IU/L Troponin I (< 0.040) ng/mL C-Reactive Protein 1.2 H (0.0-0.9) mg/dL NT-Pro-B Natriuret Pep 1090 H (0-450) PG/ML Total Protein 7.7 (6.1-8.0) g/dL Albumin 4.4 (3.5-4.8) g/dL Globulin 3.3 (2.50-4.10) g/dL Albumin/Globulin Ratio 1.30 (1.3-2.0) mg/g TSH (0.2700-4.2000) uIU/mL Ur Collection Type Urine Color (Y) Urine Clarity (CLEAR) Urine pH (5.0-8.5) Ur Specific [place] (1.005-1.030) Urine Protein (NEG) mg/dl Urine Glucose (UA) (NEG) mg/dL Urine Ketones (NEG) Urine Occult Blood (NEG) Urine Nitrate (NEG) Urine Bilirubin (NEG) Urine Urobilinogen (0.2) EU/dL Ur Leukocyte Esterase (NEG) Urine RBC (NONE) /hpf Urine WBC (NONE) Ur Squamous Epith Cells (NONE) Ur Renal Epithelial Cell (NONE) Urine Crystals Urine Bacteria (NONE) Urine Casts (NONE) Urine Mucus (NONE) Urine Trichomonas (NONE) Urine Yeast (NONE) Ur Culture Indicated? Digoxin (0.8-2.0) ng/mL 10/17/17 10/17/17 10/17/17 Range/Units 22:30 22:30 22:30 WBC (4.8-10.8) 10^3/uL RBC (4.20-5.40) 10^6/uL Hgb (12.0-16.0) g/dL Hct (37.0-47.0) % MCV (81-99) FL MCH (27-31) PG MCHC (33-37) g/dL RDW Std Deviation (39-50) fL RDW Coeff of Karis (11.5-14.5) % Plt Count (140-350) 10*3/uL MPV (7.4-12.2) FL Immature Gran % (Auto) (0-5) % Neut % (Auto) (50-80) % Lymph % (Auto) (10-50) % [place] % (Auto) (5-15) % Eos % (Auto) (0-8) % Baso % (Auto) (0-1) % Immature Gran # (Auto) 10*3/UL Neut # (Auto) 10*3/UL Lymph # (Auto) 10*3/uL [place] # (Auto) (0.3-0.8) 10*3/UL Eos # (Auto) 10*3/UL Baso # (Auto) 10*3/UL WBC Morphology Comment (NORM) Plt Morphology Comment (NORM) RBC Morph Comment (NORM) D-Dimer (0.00-0.59) mg/L VBG pH (7.32-7.42) VBG pCO2 (45-55) mmHg VBG HCO3 (22-26) mmol/L VBG Base Excess (-2-2) MMOL/L Sodium (135-145) meq/L Potassium (3.8-5.2) meq/L Chloride (98-112) meq/L Carbon Dioxide (23-33) meq/L Anion Gap (5-20) BUN (7-22) mg/dL Creatinine (0.50-1.20) mg/dL BUN/Creatinine Ratio (6-20) Glucose (78-110) mg/dL Calculated Osmolality (267-292) mOsm/kg Lactic Acid (0.70-2.10) MMOL/L Calcium (8.7-10.7) mg/dL Magnesium (1.6-2.4) mg/dL Total Bilirubin (0.3-1.2) mg/dL AST (8-39) IU/L ALT (9-52) IU/L Alkaline Phosphatase (38-126) IU/L Troponin I 0.045 H (< 0.040) ng/mL C-Reactive Protein (0.0-0.9) mg/dL NT-Pro-B Natriuret Pep (0-450) PG/ML Total Protein (6.1-8.0) g/dL Albumin (3.5-4.8) g/dL Globulin (2.50-4.10) g/dL Albumin/Globulin Ratio (1.3-2.0) mg/g TSH 3.61 (0.2700-4.2000) uIU/mL Ur Collection Type Urine Color (Y) Urine Clarity (CLEAR) Urine pH (5.0-8.5) Ur Specific [place] (1.005-1.030) Urine Protein (NEG) mg/dl Urine Glucose (UA) (NEG) mg/dL Urine Ketones (NEG) Urine Occult Blood (NEG) Urine Nitrate (NEG) Urine Bilirubin (NEG) Urine Urobilinogen (0.2) EU/dL Ur Leukocyte Esterase (NEG) Urine RBC (NONE) /hpf Urine WBC (NONE) Ur Squamous Epith Cells (NONE) Ur Renal Epithelial Cell (NONE) Urine Crystals Urine Bacteria (NONE) Urine Casts (NONE) Urine Mucus (NONE) Urine Trichomonas (NONE) Urine Yeast (NONE) Ur Culture Indicated? Digoxin 0.6 L (0.8-2.0) ng/mL 10/17/17 10/17/17 10/17/17 Range/Units 22:30 22:34 23:15 WBC (4.8-10.8) 10^3/uL RBC (4.20-5.40) 10^6/uL Hgb (12.0-16.0) g/dL Hct (37.0-47.0) % MCV (81-99) FL MCH (27-31) PG MCHC (33-37) g/dL RDW Std Deviation (39-50) fL RDW Coeff of Karis (11.5-14.5) % Plt Count (140-350) 10*3/uL MPV (7.4-12.2) FL Immature Gran % (Auto) (0-5) % Neut % (Auto) (50-80) % Lymph % (Auto) (10-50) % [place] % (Auto) (5-15) % Eos % (Auto) (0-8) % Baso % (Auto) (0-1) % Immature Gran # (Auto) 10*3/UL Neut # (Auto) 10*3/UL Lymph # (Auto) 10*3/uL [place] # (Auto) (0.3-0.8) 10*3/UL Eos # (Auto) 10*3/UL Baso # (Auto) 10*3/UL WBC Morphology Comment (NORM) Plt Morphology Comment (NORM) RBC Morph Comment (NORM) D-Dimer (0.00-0.59) mg/L VBG pH 7.58 H (7.32-7.42) VBG pCO2 34 L (45-55) mmHg VBG HCO3 32 H (22-26) mmol/L VBG Base Excess 10 H (-2-2) MMOL/L Sodium (135-145) meq/L Potassium (3.8-5.2) meq/L Chloride (98-112) meq/L Carbon Dioxide (23-33) meq/L Anion Gap (5-20) BUN (7-22) mg/dL Creatinine (0.50-1.20) mg/dL BUN/Creatinine Ratio (6-20) Glucose (78-110) mg/dL Calculated Osmolality (267-292) mOsm/kg Lactic Acid 3.1 H (0.70-2.10) MMOL/L Calcium (8.7-10.7) mg/dL Magnesium (1.6-2.4) mg/dL Total Bilirubin (0.3-1.2) mg/dL AST (8-39) IU/L ALT (9-52) IU/L Alkaline Phosphatase (38-126) IU/L Troponin I (< 0.040) ng/mL C-Reactive Protein (0.0-0.9) mg/dL NT-Pro-B Natriuret Pep (0-450) PG/ML Total Protein (6.1-8.0) g/dL Albumin (3.5-4.8) g/dL Globulin (2.50-4.10) g/dL Albumin/Globulin Ratio (1.3-2.0) mg/g TSH (0.2700-4.2000) uIU/mL Ur Collection Type Clean catch urine Urine Color Yellow (Y) Urine Clarity Clear (CLEAR) Urine pH 8.0 (5.0-8.5) Ur Specific [place] 1.015 (1.005-1.030) Urine Protein 100 A (NEG) mg/dl Urine Glucose (UA) Negative (NEG) mg/dL Urine Ketones Negative (NEG) Urine Occult Blood Trace-intact H (NEG) Urine Nitrate Negative (NEG) Urine Bilirubin Negative (NEG) Urine Urobilinogen 0.2 (0.2) EU/dL Ur Leukocyte Esterase Negative (NEG) Urine RBC 1-3 (NONE) /hpf Urine WBC 1-3 (NONE) Ur Squamous Epith Cells Few (NONE) Ur Renal Epithelial Cell None (NONE) Urine Crystals None Urine Bacteria Many H (NONE) Urine Casts None (NONE) Urine Mucus None (NONE) Urine Trichomonas None (NONE) Urine Yeast None (NONE) Ur Culture Indicated? Culture set Digoxin (0.8-2.0) ng/mL - EKG Data -: EKG Interpreted by Me Rate: Tachycardia - EKG Data When Compared to Previous EKG(s) There Are: No Significant Change EKG Interpretation: Nonspecific ST-T Wave Changes (Has T-wave inversions in V2 and ST changes in V4 V5 and V6 that are unchanged when compared to prior EKG, atrial fibrillation) - Imaging Status: Image Reviewed by Me (Chest x-ray shows to me what looks like an enlarged heart but this is a portable film. I do not see any evidence of pneumonia. Head CT scan on my view appears negative for acute bleed.) Assessment and Plan - Patient Problems (1) Atrial fibrillation with rapid ventricular response Current Visit: Yes Status: Acute Code(s): I48.91 - Unspecified atrial fibrillation (2) Expressive aphasia Current Visit: Yes Status: Acute Code(s): R47.01 - Aphasia (3) Confusion Current Visit: Yes Status: Acute Code(s): R41.0 - Disorientation, unspecified (4) COPD exacerbation Current Visit: Yes Status: Acute Code(s): J44.1 - Chronic obstructive pulmonary disease with (acute) exacerbation (5) History of TIA (transient ischemic attack) Current Visit: Yes Status: Chronic Code(s): Z86.73 - Personal history of transient ischemic attack (TIA), and cerebral infarction without residual deficits (6) Anxiety disorder Current Visit: Yes Status: Acute Code(s): F41.9 - Anxiety disorder, unspecified Qualifiers: Anxiety disorder type: unspecified anxiety disorder Qualified Code(s): F41.9 - Anxiety disorder, unspecified (7) Polypharmacy Current Visit: Yes Status: Acute Code(s): Z79.899 - Other terminal make up operator (current ) drug therapy (8) Chronic pain syndrome Current Visit: Yes Status: Acute Code(s): G89.4 - Chronic pain syndrome (9) Coronary artery disease Current Visit: Yes Status: Acute Code(s): I25.10 - Atherosclerotic heart disease of wiyot coronary artery without angina pectoris Qualifiers: Coronary Disease-Associated Artery/Lesion type: wiyot artery [place] vs. transplanted heart: wiyot heart Associated angina: without angina Qualified Code(s): I25.10 - Atherosclerotic heart disease of wiyot coronary artery without angina pectoris (10) Carotid artery disease Current Visit: Yes Status: Acute Code(s): I77.9 - Disorder of arteries and arterioles, unspecified Qualifiers: Carotid artery disease type: stenosis Laterality: right Qualified Code(s) : I65.21 - Occlusion and stenosis of right carotid artery (11) Hypothyroidism Current Visit: Yes Status: Chronic Onset Date: 08/06/11 Code(s): E03.9 - Hypothyroidism, unspecified Qualifiers: Hypothyroidism type: acquired Qualified Code(s): E03.9 - Hypothyroidism, unspecified - Assessment / Plan Additional Assessment/Plan Details: Admit the patient. Given the COPD exacerbation, placed on Rocephin, and prednisone and also add DuoNeb scheduled and albuterol on a when necessary basis. I did read through her most recent clinic note with Dr. Avendaño and it appears that the patient often stops medications such as inhalers without a clear reason as to why. She did use her albuterol rescue inhaler and I had her do 4 puffs in the emergency room and she did feel better in terms of her acute shortness of breath. Given her digoxin, atrial fibrillation with rapid ventricular response, and can hold off on Zithromax due to QT prolongation and arrhythmia issues on this medication. In terms of the expressive aphasia and confusion, it is difficult for me to tell if this is medication related or not. I think the patient does warrant exploration with an MRI scan to make sure there is no acute stroke. With the expressive aphasia I would be mostly worried about issues in a speech area of the brain. That is ordered for later this morning. Check labs tomorrow. Trend out 2 more troponins to see whether or not we could be dealing with an acute coronary syndrome although I doubt with no chest pain and no change in EKG tracings. Stop digitoxin. It was reduced, but now at subtherapeutic and I do not think it 's effective at its current dose. She cannot tolerate the higher dose because she was supratherapeutic recently. Therefore a different strategy will need to be instituted for her age fibrillation rate controlled. We'll trial Cardizem here with a rapid ventricular rate and if it works well we could consider going to that medication. Patient has chronic edema and this could certainly make it worse, but I think at this point I'm and hold off on her Lasix. Her arthritis is low on her basic metabolic panel and she appears somewhat dehydrated on exam some) some fluids tonight. I think some of her confusion may be polypharmacy related. It could be opiate induced as well and the history would certainly coincide with this given her confusion increase after her pain pill earlier this evening. Titrate Percocet to 07/01/2024 instead of 12/01/2024 Given the increased agitation since Lexapro, decrease it to 10 mg and in try to taper that off. I would like to avoid a serotonin withdrawal syndrome, but I don't think the Lexapro is effective so it should be titrated down. Historically and symptomatically the patient seems to be much more agitated according to the daughter since being on Lexapro. This patient would benefit greatly from a Mini-Mental state examination or screening for dementia after washout of some of these medications. Complex set of issues, but I think worse treating coinciding diagnosis sees at the same time including the following: COPD exacerbation Atrial fibrillation with rapid ventricular response Agitation which is likely related to medication and ARCHITECTURAL TECHNICIAN side effects Expressive aphasia which could be related to medications or could be related to potential stroke. ----- I did discuss the above plan with the patient, her , and her daughter and they all agreed to the plan. She is DO NOT RESUSCITATE.
[2017-10-18] MEDS: oxyCODONE-ACETAMINOPHEN 5-325 TAB PO SCH ×4 (01:23→18:53)
[2017-10-18] MEDS: IPRATROPIUM/ALBUTEROL SULFATE 3 ML NEB NEB SCH ×2 (01:49→06:19)
[2017-10-18] MEDS ORDERED: LEVOTHYROXINE 50 MCG TABLET PO SCH ×2 (05:30)
[2017-10-18 05:42] LABS: BASOPHILS # (AUTO) 0.03 10*3/UL; BASOPHILS % (AUTO) 0.2 % (0-1); EOSINOPHILS # (AUTO) 0.04 10*3/UL; EOSINOPHILS % (AUTO) 0.3 % (0-8); Hematocrit [HCT] 40.9 % (37.0-47.0); Hemoglobin [HGB] 13.2 g/dL (12.0-16.0); LYMPHOCYTES # (AUTO) 1.66 10*3/uL; MEAN CORPUSCULAR HEMOGLOBIN 29.1 PG (27-31); MEAN CORPUSCULAR HGB CONC 32.3 g/dL (33-37); MEAN CORPUSCULAR VOLUME 90.3 FL (81-99); MEAN PLATELET VOLUME 9.2 FL (7.4-12.2); MONOCYTES # (AUTO) 0.82 10*3/UL (0.3-0.8); MONOCYTES % (AUTO) 6.2 % (5-15); NEUTROPHILS # (AUTO) 10.58 10*3/UL; NEUTROPHILS % (AUTO) 80.3 % (50-80); RED BLOOD COUNT 4.53 10^6/uL (4.20-5.40)
[2017-10-18 05:59] LABS: BLOOD UREA NITROGEN 15 mg/dL (7-22); BUN/CREATININE RATIO 21.42 (6-20)
[2017-10-18 06:24] LABS: PLATELET MORPHOLOGY COMMENT NORMAL MORPHOLOGY (NORM); RBC MORPHOLOGY COMMENT NORMAL MORPHOLOGY (NORM); WBC MORPHOLOGY COMMENT NORMAL MORPHOLOGY (NORM)
[2017-10-18] MEDS ORDERED: ERGOCALCIFEROL 50,000 IU CAPSULE PO SCH (08:00)
--- NOTE | 2017-10-18 08:09 | PDOC(PROG) ---
Date of Service: 10/18/17 Time of Service: 08:00 Interval History: Subjective Patient was brought to the hospital because of for some confusion. She told me that she could not think clearly yesterday and the day before. Otherwise she is denying other symptoms except some shortness of breath. Apparently she's been short of breath for a period of time and recently saw the solo truck driver who put her on inhalers, steroid and antibiotics. She said she took a second round of antibiotics. She is short of breath when she walk few steps per her description. She is denying chest pain. There was also recent cut in the dosage of digoxin. Today she said maybe she is thinking more clearly but she is tired because she didn't sleep well. No chest pain. She somewhat difficult historian. She is though oriented 3. Objective : Data - Labs CBC and BMP: 10/18/17 05:00 10/18/17 05:00 Objective : Exam - General General Appearance: No Acute Distress, Cooperative - Head Head Exam: Normal Inspection - Eye Eye Exam: Normal Appearance - ENT ENT Exam: Normal Exam - Neck Neck Exam: Normal Inspection - Respiratory Additional Respiratory Exam Details: Decreased breath sounds otherwise clear - Cardiovascular Cardiovascular Exam: Irregular Rhythm, Tachycardia - GI/Abdominal GI/Abdominal Exam: Normal Bowel Sounds, Non Tender, Non Distended, Soft, No Organomegaly - Rectal Rectal Exam: Deferred - External Exam: Deferred Exam: Deferred - Extremities Extremities Exam: Normal Inspection - Back Back Exam: Normal Inspection - Neurological Neurological Exam: Alert, Oriented x 3, CN II-XII Intact, No Facial Droop, Speech Intact / Clear - Psychiatric Psychiatric Exam: Normal Affect - Integumentary Integumentary Exam: Normal Color Assessment and Plan - Patient Problems (1) Atrial fibrillation with rapid ventricular response Current Visit: Yes Status: Acute Comment: She is on Cardizem drip. We'll try to see whether we can switch her to Cardizem by mouth. We'll take her off the digoxin. Continue eliquis. We' ll see whether we can stop the fluid later on today because of her history of diastolic dysfunction. I think we'll hold off on stress test for now as her heart rate is not controlled. Code(s): I48.91 - Unspecified atrial fibrillation (2) Hypothyroidism Current Visit: Yes Status: Chronic Onset Date: 08/06/11 Comment: Same med Code(s): E03.9 - Hypothyroidism, unspecified Qualifiers: Hypothyroidism type: acquired Qualified Code(s): E03.9 - Hypothyroidism, unspecified (3) Confusion Current Visit: Yes Status: Acute Comment: She is not sure whether she took extra pain medication. This may be the effect of pain medications. She did have an MRI I'm waiting for the official result. Code(s): R41.0 - Disorientation, unspecified (4) COPD exacerbation Current Visit: Yes Status: Acute Comment: She was put on antibiotics, steroid and bronchodilator. Will switch the bronchodilator to Xopenex instead of the albuterol because of her heart rate Code(s): J44.1 - Chronic obstructive pulmonary disease with (acute) exacerbation (5) History of TIA (transient ischemic attack) Current Visit: Yes Status: Chronic Comment: Continue Plavix in addition to the request. Code(s): Z86.73 - Personal history of transient ischemic attack (TIA), and cerebral infarction without residual deficits (6) Anxiety disorder Current Visit: Yes Status: Acute Comment: She is on Lexapro and the dosage was cut back by Dr. Galeas as there was also a recent change in medication. We'll continue with the current dosage. May consider some Xanax as she seems very anxious at times. Code(s): F41.9 - Anxiety disorder, unspecified Qualifiers: Anxiety disorder type: unspecified anxiety disorder Qualified Code(s): F41.9 - Anxiety disorder, unspecified (7) Chronic pain syndrome Current Visit: Yes Status: Acute Comment: Same pain medications Code(s): G89.4 - Chronic pain syndrome (8) Coronary artery disease Current Visit: Yes Status: Acute Comment: Continue Plavix and Lipitor. Code(s): I25.10 - Atherosclerotic heart disease of [place] coronary artery without angina pectoris Qualifiers: Coronary Disease-Associated Artery/Lesion type: [place] artery [place] vs. transplanted heart: [place] heart Associated angina: without angina Qualified Code(s): I25.10 - Atherosclerotic heart disease of [place] coronary artery without angina pectoris (9) Abnormal finding on urinalysis Current Visit: Yes Status: Acute Comment: Culture was sent she is on antibiotics continue. Code(s): R82.90 - Unspecified abnormal findings in urine (10) Vitamin D deficiency Current Visit: Yes Status: Acute Comment: We will put her on vitamin D. Code(s): E55.9 - Vitamin D deficiency, unspecified
--- NOTE | 2017-10-18 08:25 | DI ---
CT CTA Chest Non-Coronary WWO,10/18/2017 1:10 AM: Clinical History: Dyspnea and hypoxia. Previous Exam: June Findings: Multiple helically acquired CT images are obtained through the chest following intravenous administra tion of 75 cc of Isovue-370, and demonstrate no evidence of pulmonary embolism. The pulmonary arterie s are within normal limits. There is mild subsegmental atelectasis in the lung bases. Is no mass. The re is mild cardiomegaly. Peripheral vascular calcifications are seen of the aorta and coronary artery calcifications are noted. There is subsegmental atelectasis in the lung bases. The upper abdomen is not well evaluated. 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 Impression: No evidence of pulmonary embolism. Other findings stable from the prior exam.
--- NOTE | 2017-10-18 08:27 | DI ---
MRI Brain WO Contrast,10/18/2017 7:00 AM: Clinical History: Expressive aphasia. Previous Exam: None at this facility. Findings: Multiplanar MR images are obtained through the brain without contrast, and demonstrate limited evalua tion due to motion artifact. There is no abnormally restricted diffusion. There is diffuse age-related body and loss and there are scattered areas of increased FLAIR and T2 si gnal within the periventricular and subcortical white matter consistent with small vessel ischemic ch true. The midline structures are unremarkable. There is no evidence of Chiari malformation. The spinal cord is normal. The corpus callosum is normal. The sella and parasellar region is unremarkable. The paran kyle sinuses and intraorbital structures are normal. Impression: No acute intracranial pathology.
[2017-10-18] MEDS ORDERED: LEVALBUTEROL HCL 1.25 MG/3 ML NEB PRN ×2 (08:30→16:16)
[2017-10-18] MEDS ORDERED: Apixaban Tab 2.5 MG TABLET PO SCH ×2 (09:00)
[2017-10-18] MEDS ORDERED: DILTIAZEM HCL CD 120 MG CAP PO SCH (09:00)
[2017-10-18] MEDS ORDERED: DOCUSATE 100 MG CAPSULE PO SCH (09:00)
[2017-10-18] MEDS ORDERED: POTASSIUM CHLORIDE 20 MEQ TAB PO SCH (09:00)
[2017-10-18] MEDS ORDERED: predniSONE Tab 20 MG, predniSONE Tab 10 MG PO SCH ×4 (09:00)
[2017-10-18] MEDS ORDERED: ESCITALOPRAM 10 MG TABLET PO SCH ×3 (09:00)
[2017-10-18] MEDS ORDERED: CLOPIDOGREL 75 MG TABLET PO SCH ×2 (09:00)
[2017-10-18] MEDS ORDERED: DIGOXIN 125 MCG TABLET PO SCH (09:00)
[2017-10-18] MEDS ORDERED: PANTOPRAZOLE 40 MG TABLET PO SCH (09:00)
[2017-10-18] MEDS ORDERED: LIDOCAINE HCL 2 % 10 ML JELLY URO-JECT TOPICAL PRN (09:18)
[2017-10-18] MEDS ORDERED: DILTIAZEM 30 MG TABLET PO PRN ×2 (11:33→16:16)
[2017-10-18] MEDS ORDERED: ALPRAZolam Tab 0.25 MG TABLET PO PRN (12:24)
[2017-10-18] MEDS ORDERED: LEVALBUTEROL HCL 1.25 MG/3 ML NEB SCH (13:00)
[2017-10-18] MEDS: LEVALBUTEROL HCL 1.25 MG/3 ML NEB SCH (20:05)
[2017-10-18] MEDS: Apixaban Tab 2.5 MG TABLET PO SCH (20:19)
[2017-10-18] MEDS: ATORVASTATIN 40 MG TABLET PO SCH (20:19)
[2017-10-18] MEDS: DILTIAZEM HCL CD 120 MG CAP PO SCH (20:19)
[2017-10-18] MEDS: ALPRAZolam Tab 0.25 MG TABLET PO PRN (20:19)
[2017-10-18] MEDS: POTASSIUM CHLORIDE 20 MEQ TAB PO SCH (20:22)
[2017-10-18] MEDS ORDERED: ATORVASTATIN 40 MG TABLET PO SCH ×2 (21:00)
[2017-10-19] MEDS: oxyCODONE-ACETAMINOPHEN 5-325 TAB PO SCH ×4 (00:45→18:50)
[2017-10-19] MEDS ORDERED: cefTRIAXone Inj 2 GM in Sodium Chloride 0.9% 100 ML IV SCH (01:00)
[2017-10-19] MEDS: LEVALBUTEROL HCL 1.25 MG/3 ML NEB SCH ×4 (01:02→19:16)
[2017-10-19] MEDS: LEVOTHYROXINE 50 MCG TABLET PO SCH (04:36)
[2017-10-19 05:29] LABS: BASOPHILS # (AUTO) 0.02 10*3/UL; BASOPHILS % (AUTO) 0.2 % (0-1); EOSINOPHILS # (AUTO) 0.13 10*3/UL; EOSINOPHILS % (AUTO) 1.1 % (0-8); Hematocrit [HCT] 43.7 % (37.0-47.0); Hemoglobin [HGB] 14.4 g/dL (12.0-16.0); LYMPHOCYTES # (AUTO) 1.97 10*3/uL; MEAN CORPUSCULAR HEMOGLOBIN 29.8 PG (27-31); MEAN CORPUSCULAR VOLUME 90.3 FL (81-99); MONOCYTES # (AUTO) 1.13 10*3/UL (0.3-0.8); MONOCYTES % (AUTO) 9.2 % (5-15); NEUTROPHILS # (AUTO) 8.96 10*3/UL; NEUTROPHILS % (AUTO) 73.1 % (50-80); RED BLOOD COUNT 4.84 10^6/uL (4.20-5.40)
[2017-10-19 05:38] LABS: BLOOD UREA NITROGEN 17 mg/dL (7-22); BUN/CREATININE RATIO 24.28 (6-20)
[2017-10-19 06:10] LABS: RBC MORPHOLOGY COMMENT NORMAL MORPHOLOGY (NORM); WBC MORPHOLOGY COMMENT NORMAL MORPHOLOGY (NORM)
[2017-10-19 06:11] LABS: PLATELET MORPHOLOGY COMMENT SEE COMMENTS (NORM)
[2017-10-19] MEDS: POTASSIUM CHLORIDE 20 MEQ TAB PO SCH ×2 (06:42→17:37)
[2017-10-19] MEDS: PANTOPRAZOLE 40 MG TABLET PO SCH (06:42)
--- NOTE | 2017-10-19 07:48 | PDOC(PROG) ---
Date of Service: 10/19/17 Time of Service: 08:00 Interval History: Subjective Patient is sleepy but arousable. She said she feels better compared to when she came in. Things are more clear in her head. She is oriented 3. Her shortness of breath seemed to be improved. Objective : Data - Labs CBC and BMP: 10/19/17 04:45 10/19/17 04:45 Objective : Exam - General General Appearance: No Acute Distress, Cooperative, Obese - Head Head Exam: Normal Inspection - Eye Eye Exam: Normal Appearance - ENT ENT Exam: Normal Exam - Neck Neck Exam: Normal Inspection - Respiratory Additional Respiratory Exam Details: Decreased air entry otherwise clear - Cardiovascular Cardiovascular Exam: Irregular Rhythm - GI/Abdominal GI/Abdominal Exam: Normal Bowel Sounds, Non Tender, Non Distended, Soft, No Organomegaly - Rectal Rectal Exam: Deferred - External Exam: Deferred - Extremities Extremities Exam: Normal Inspection - Back Back Exam: Normal Inspection - Neurological Neurological Exam: Alert, Oriented x 3, CN II-XII Intact, No Facial Droop, Speech Intact / Clear, Moves All Extremities Equally - Psychiatric Psychiatric Exam: Normal Affect - Integumentary Integumentary Exam: Normal Color Assessment and Plan - Patient Problems (1) Atrial fibrillation with rapid ventricular response Current Visit: Yes Status: Acute Comment: We switched her to by mouth Cardizem and her rate seemed to be better controlled now. However she is mainly laying in bed. I'll ask PT and OT to work with her she is weak and will see what happens to her heart rate will keep the same dosage for now. For anticoagulation she is on eliquis. Code(s): I48.91 - Unspecified atrial fibrillation (2) Hypothyroidism Current Visit: Yes Status: Chronic Onset Date: 08/06/11 Comment: Same med Code(s): E03.9 - Hypothyroidism, unspecified Qualifiers: Hypothyroidism type: acquired Qualified Code(s): E03.9 - Hypothyroidism, unspecified (3) Confusion Current Visit: Yes Status: Acute Comment: The MRI did not show evidence of a new stroke. Maybe it's medication and secondary to UTI she seems better now. Code(s): R41.0 - Disorientation, unspecified (4) COPD exacerbation Current Visit: Yes Status: Acute Comment: Continue antibiotics, steroid and bronchodilator. There is an element of anxiety and we put her on Xanax as needed. Code(s): J44.1 - Chronic obstructive pulmonary disease with (acute) exacerbation (5) History of TIA (transient ischemic attack) Current Visit: Yes Status: Chronic Comment: Continue Plavix Code(s): Z86.73 - Personal history of transient ischemic attack (TIA), and cerebral infarction without residual deficits (6) Anxiety disorder Current Visit: Yes Status: Acute Comment: Continue Lexapro and Xanax as needed Code(s): F41.9 - Anxiety disorder, unspecified Qualifiers: Anxiety disorder type: unspecified anxiety disorder Qualified Code(s): F41.9 - Anxiety disorder, unspecified (7) Chronic pain syndrome Current Visit: Yes Status: Acute Comment: Same pain medication Code(s): G89.4 - Chronic pain syndrome (8) Coronary artery disease Current Visit: Yes Status: Acute Comment: She is on Lipitor and Plavix. troponin was minimally elevated. I think once her rate is controlled probably need to have a stress test may be a as an outpatient Code(s): I25.10 - Atherosclerotic heart disease of [place] coronary artery without angina pectoris Qualifiers: Coronary Disease-Associated Artery/Lesion type: [place] artery [place] vs. transplanted heart: [place] heart Associated angina: without angina Qualified Code(s): I25.10 - Atherosclerotic heart disease of [place] coronary artery without angina pectoris (9) Abnormal finding on urinalysis Current Visit: Yes Status: Acute Comment: The UA showing growth of gram-negative bacilli will see the identity today. She is on Rocephin continue Code(s): R82.90 - Unspecified abnormal findings in urine (10) Vitamin D deficiency Current Visit: Yes Status: Acute Comment: Continue vitamin D Code(s): E55.9 - Vitamin D deficiency, unspecified
[2017-10-19] MEDS: CLOPIDOGREL 75 MG TABLET PO SCH (09:02)
[2017-10-19] MEDS: cefTRIAXone Inj 2 GM in Sodium Chloride 0.9% 100 ML IV SCH (09:02)
[2017-10-19] MEDS: ESCITALOPRAM 10 MG TABLET PO SCH (09:02)
[2017-10-19] MEDS: DILTIAZEM HCL CD 120 MG CAP PO SCH ×2 (09:02→20:11)
[2017-10-19] MEDS: predniSONE Tab 20 MG, predniSONE Tab 10 MG PO SCH ×2 (09:02)
[2017-10-19] MEDS: Apixaban Tab 2.5 MG TABLET PO SCH ×2 (09:02→20:10)
--- NOTE | 2017-10-19 12:59 | PTI REPORT ---
Thank you for the referral of Milagros Dennis. She was seen on 10/19/17 for an inpatient evaluation secondary to weakness. SUBJECTIVE: The patient is a 77-year-old female. The patient states that her family made her come to the hospital and that she was very confused and didn't understand why. She states that her vision is going away and that she is not seeing very well and that has really got her depressed. The patient takes a lot of pain medication due to her sore and achy feet and ankles. She states she uses a cane when she ambulates at home; she sometimes doesn't use it around the house, but anytime she ventures outside. She states she hasn't been going outside much doing any shopping or other ADLs due to her vision and her incontinence. PAST MEDICAL HISTORY: Past medical history can be found in the patient's medical record. OBJECTIVE FINDINGS: General observations: The patient was seen in her room this morning. She is hooked up to all of the cardiac monitors in the ICU. The patient was alert and oriented x3 and states that she feels much better than she did upon admission. Range of motion: The patient demonstrates range of motion of her cervical spine and shoulders that is non painful and within normal limits for age. The patient demonstrated with normal range of motion of her lower extremities. Strength: The patient demonstrates 3/5 for strength in the upper extremities. She appeared to have normal sensation in the hands and fingers as well. Lower extremity strength was 3 to 3-/5. Edema: There is no swelling in the ankles or feet to speak of. Pain: The patient states that her ankles and feet are very painful and sore when she steps on them, but not too bad at rest. She states sometimes they ache and burn and she appeared to have decreased sensation, almost neuropathy type symptoms. The patient did become very anxious when we talked about her pain medication and the possibility that she didn't take it properly and that is why she ended up in the hospital. Transfers: The patient transferred from sit to stand with stand by assist. Ambulation: The patient ambulated and was able to do turns and bending over with minimal assist to stand by assist. She did not lose her balance while we were in the room. Endurance: The patient has very poor endurance and is on 4 liters of oxygen at all times. She states her oxygen apparatus when she leaves the house is a " puff as needed" type apparatus and she feels it does not deliver the oxygen she needs for active movement. She becomes anxious and short of breath when she has to use that apparatus. ASSESSMENT: Hospitalization due to medications. Now that she has been managed properly she is doing well today. We will defer medication organization and ADL organization to occupational therapy and we will assist them in any way possible. Short-Term Goals: To be met by discharge from inpatient: Patient will be able to perform all bed mobility and transfers independently. Patient will be able to ambulate 300 feet with least restrictive assistive device. Patient will improve lower extremity strength to 4/5. Long-Term Goals: To be met following discharge from inpatient: Patient will return home safely and independently. TREATMENT PLAN: Patient will be seen B.I.D during the week and one time per day over the weekend as an inpatient to address the above goals and objectives. INITIAL TREATMENT: Treatment today consisted of the initial evaluation activities only. JAZLYN
--- NOTE | 2017-10-19 15:14 | OTI REPORT ---
Thank you for the referral of Milagros Dennis. He was seen on 10/19/17 for an occupational therapy inpatient evaluation secondary to increased confusion and generalized weakness. SUBJECTIVE: The patient is a 77-year-old female who is being seen secondary to having some increased confusion and agitation at home. She reports that she lives in her own home. She has difficulty with a lot of different things. She has been on a lot of high level plain meds for over a year. 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 She states that both of her feet hurt her a lot and that is why she is very limited. She typically does not walk with any assistive device in her home, but uses a cane out of her home. Recently she has been staying in her home more and more as it is more difficult for her to get out secondary to her foot pain and her decreased vision. The patient is also on four liters of oxygen at home and was on four liters today while in the hospital. She reports that she is breathing much better today. When she goes out, she has the pulsed oxygen which she doesn't think helps her very well as she does get short of breath when she goes out and about. The patient reports that she typically dresses herself. We did discuss her multiple medications. She reports she does not see very well and pill boxes do not help her whatsoever. She typically lines her pills in her cupboards and takes them one at a time throughout the day. She says she has too many to count. She states the pain medications she is taking take the edge off, but do not completely help the pain. PAST MEDICAL HISTORY: Past medical history can be found in the patient's medical record. OBJECTIVE FINDINGS: General observations: Today the patient was sitting in bed upon the therapist's arrival. She had her breakfast in front of her but had fallen asleep. Cognitively, the patient was very with it in comparison to the reports from yesterday. She knew the date, her name, reason for hospitalization, and she was able to give us a full history. Cognitively the patient seemed good today; however, we may continue with a cognitive assessment later on today. Vision: The patient's vision is very poor. We did discuss using some assistive devices for her vision. She said that she has tried some big magnifier machines from [employer] that did not help her whatsoever. Activities of daily living: While sitting edge of bed, the patient was able to don and doff her socks independently. Transfers: The patient required contact guard assist to transfer from sit to stand. She was slightly unsteady but overall had good balance. The patient requires min assist for balance with toilet transfers. Range of motion: Upper extremity range of motion is within functional limits. She was able to externally rotate to touch the back of her head and internally rotate to touch her back. Strength: Strength in her upper extremities was 3+/5 for flexion and abduction, elbow flexion/extension was 4/5, and wrist flexion/extension was 4/5. Pain: The patient states that she has minimal pain in her shoulders and hands. Her main pain is in her feet. Endurance: The patient does get short of breath very easily. ASSESSMENT: The patient would benefit from skilled occupational therapy to work on energy conservation and to improve her slight difficulties with functional transfers and her balance. We talked to Dr. Condon and Elena Chaparro about the patient's medication management. The patient may be confusing some of her medications and may not be able to see them correctly. It is highly recommended that upon discharge a nurse goes into the home to check her medications and to see if she is taking them correctly. She may also benefit from some home health services as it sounds like her vision is very limiting as well as her feet, which cause increased safety difficulties. The patient does have some overall weakness and decreased endurance secondary to her COPD. The patient also has anxiety which is somewhat limiting. Short-Term Goals: To be met by discharge from inpatient: Patient will be able to dress self including set up independently. Patient will learn three to four energy conservation techniques and implement them during activities to conserve energy. Patient will increase upper extremity strength to 4+/5 throughout. Patient will be able to complete 5-10 minutes of activity in order to improve her activity tolerance with ADLs. Long-Term Goals: To be met following discharge from inpatient: Patient will be able to return home with minimal assistance to address medication management and to improve her abilities for in home ADLs secondary to her vision loss. TREATMENT PLAN: Patient will be seen B.I.D during the week and one time per day over the weekend as an inpatient to address the above goals and objectives. INITIAL TREATMENT: Treatment today consisted of the initial evaluation followed by discussion and education on visual needs, energy conservation, and medication management. We also worked on lower extremity ADLs including dressing tasks and functional transfers with contact guard to min assist. JAZLYN
--- NOTE | 2017-10-19 16:04 | PT.PROG ---
Progress Note Progress Note: S. Patient stated that she would like to go for a walk this afternoon. O. Patient ambulated 150 feet around the nurses station. then was left in her room where she was left in her chair with nursing. A. Patient tolerated ambulation well, she required 2 short standing rest breaks during ambulation and min assist x 1. Patient would continue to benefit from skilled therapy to increase strength and mobility. P. continue POC.
--- NOTE | 2017-10-19 16:26 | OT.PROG ---
Progress Note Progress Note: S: pt reported that she hasn't got out much and she thinks it may be good for her to do out-pt therapy. She states that she can not see very well, and she can 't read but can still watch t.v. O: pt was educated and practiced some energy conservation techniques. They included purse breathing through activities. A: pt would continue to benefit from therapy to increase her activity tolerance. P: continue per POC.
[2017-10-19] MEDS: ATORVASTATIN 40 MG TABLET PO SCH (20:11)
[2017-10-19] MEDS: ALPRAZolam Tab 0.25 MG TABLET PO PRN (20:11)
[2017-10-20] MEDS: oxyCODONE-ACETAMINOPHEN 5-325 TAB PO SCH ×5 (01:30→18:43)
[2017-10-20] MEDS: LEVALBUTEROL HCL 1.25 MG/3 ML NEB SCH ×4 (01:51→19:05)
[2017-10-20] MEDS: LEVOTHYROXINE 50 MCG TABLET PO SCH (04:44)
[2017-10-20] MEDS: PANTOPRAZOLE 40 MG TABLET PO SCH (06:42)
[2017-10-20] MEDS: POTASSIUM CHLORIDE 20 MEQ TAB PO SCH (06:42)
--- NOTE | 2017-10-20 08:21 | PDOC(PROG) ---
Date of Service: 10/20/17 Time of Service: 08:20 Interval History: Subjective Patient feels better compared to when she came in. She said she thinks more clearly today. Shortness of breath improved. She still have some problems sleeping but otherwise she said she is doing much better compared to when she came in. Objective : Data - Labs CBC and BMP: 10/19/17 04:45 10/19/17 04:45 Objective : Exam - General General Appearance: No Acute Distress, Cooperative - Head Head Exam: Normal Inspection - Eye Eye Exam: Normal Appearance - ENT ENT Exam: Normal Exam - Neck Neck Exam: Normal Inspection - Respiratory Respiratory Exam: Clear to Auscultation - Bilaterally - Cardiovascular Cardiovascular Exam: RRR - GI/Abdominal GI/Abdominal Exam: Normal Bowel Sounds, Non Tender, Non Distended, Soft, No Organomegaly - Rectal Rectal Exam: Deferred - External Exam: Deferred Exam: Deferred - Extremities Extremities Exam: Normal Inspection - Back Back Exam: Normal Inspection - Neurological Neurological Exam: Alert, Oriented x 3, CN II-XII Intact, No Facial Droop, Speech Intact / Clear, Moves All Extremities Equally - Psychiatric Psychiatric Exam: Normal Affect Assessment and Plan - Patient Problems (1) Atrial fibrillation with rapid ventricular response Current Visit: Yes Status: Acute Comment: Rate seems to be controlled now with the Cardizem. She is on eliquis for anticoagulation continue Code(s): I48.91 - Unspecified atrial fibrillation (2) Hypothyroidism Current Visit: Yes Status: Chronic Onset Date: 08/06/11 Comment: Same med Code(s): E03.9 - Hypothyroidism, unspecified Qualifiers: Hypothyroidism type: acquired Qualified Code(s): E03.9 - Hypothyroidism, unspecified (3) Confusion Current Visit: Yes Status: Acute Comment: Seem to be resolved Code(s): R41.0 - Disorientation, unspecified (4) COPD exacerbation Current Visit: Yes Status: Acute Comment: Continue steroid and breathing treatment, will start cutting back on the dosage of the steroid. Code(s): J44.1 - Chronic obstructive pulmonary disease with (acute) exacerbation (5) History of TIA (transient ischemic attack) Current Visit: Yes Status: Chronic Comment: She is on Plavix continue Code(s): Z86.73 - Personal history of transient ischemic attack (TIA), and cerebral infarction without residual deficits (6) Anxiety disorder Current Visit: Yes Status: Acute Comment: Continue Lexapro and the Xanax as needed Code(s): F41.9 - Anxiety disorder, unspecified Qualifiers: Anxiety disorder type: unspecified anxiety disorder Qualified Code(s): F41.9 - Anxiety disorder, unspecified (7) Chronic pain syndrome Current Visit: Yes Status: Acute Comment: Same pain medication Code(s): G89.4 - Chronic pain syndrome (8) Coronary artery disease Current Visit: Yes Status: Acute Comment: She may need to have a stress test later on as an outpatient. Code(s): I25.10 - Atherosclerotic heart disease of [place] coronary artery without angina pectoris Qualifiers: Coronary Disease-Associated Artery/Lesion type: [place] artery [place] vs. transplanted heart: [place] heart Associated angina: without angina Qualified Code(s): I25.10 - Atherosclerotic heart disease of [place] coronary artery without angina pectoris (9) Vitamin D deficiency Current Visit: Yes Status: Acute Comment: Continue vitamin D replacement Code(s): E55.9 - Vitamin D deficiency, unspecified (10) UTI (urinary tract infection) Current Visit: Yes Status: Acute Comment: Growth showed Klebsiella she is on Rocephin will give another day of IV antibiotics. Probably home tomorrow Code(s): N39.0 - Urinary tract infection, site not specified
[2017-10-20] MEDS: cefTRIAXone Inj 2 GM in Sodium Chloride 0.9% 100 ML IV SCH (09:12)
[2017-10-20] MEDS: Apixaban Tab 2.5 MG TABLET PO SCH ×2 (09:12→20:28)
[2017-10-20] MEDS: predniSONE Tab 20 MG, predniSONE Tab 10 MG PO SCH ×2 (09:12)
[2017-10-20] MEDS: ESCITALOPRAM 10 MG TABLET PO SCH (09:13)
[2017-10-20] MEDS: TORSEMIDE 20 MG PO SCH (09:13)
[2017-10-20] MEDS: CLOPIDOGREL 75 MG TABLET PO SCH (09:13)
[2017-10-20] MEDS: DILTIAZEM HCL CD 120 MG CAP PO SCH ×2 (09:13→20:28)
[2017-10-20 09:49] LABS: BLOOD UREA NITROGEN 22 mg/dL (7-22); BUN/CREATININE RATIO 31.42 (6-20)
--- NOTE | 2017-10-20 15:59 | PT.PROG ---
Progress Note Progress Note: S. Patient stated that she is feeling better this morning compared to yesterday. O. patient ambulated 450 feet to around the nurses station then was left in chair with alarm and call light. A. patient tolerated therapy well this morning, she continues to have weakness and requires short rest breaks during ambulation. Patient would continue to benefit from skilled therapy to increase strength and mobility at this time. P. Continue POC.
--- NOTE | 2017-10-20 17:05 | PT.PROG ---
Progress Note Progress Note: S: Pt. states he is doing ok. O: Treatment consisted of functional activities: ambulated 2 1/2 laps with use of cane with 3-4 rest breaks. She was then taken back to her room. A: Pt. continues to have low activity tolerance and require frequent rest breaks. P: Continue per POC to increase strength and activity tolerance. Jo Ann Gonsalves, DAMASCENER
--- NOTE | 2017-10-20 17:31 | OT.PROG ---
Progress Note Progress Note: S: pt reports that she feels week and tired. o:: After completing ambulation with PT she completed exercises in room while sitting. She completed active shoulder flex, abd, bicep flex and rows all x20 while practicing good breathing techniques as energy conservation techniques. A: pt demonstrates low activity tolerance but may continue to benefit from therapy to increase tolerance in in/out pt setting. P: continue per POC.
[2017-10-20] MEDS: ALPRAZolam Tab 0.25 MG TABLET PO PRN (20:28)
[2017-10-20] MEDS: ATORVASTATIN 40 MG TABLET PO SCH (20:28)
[2017-10-21] MEDS: oxyCODONE-ACETAMINOPHEN 5-325 TAB PO SCH ×2 (01:02→10:55)
[2017-10-21] MEDS: LEVALBUTEROL HCL 1.25 MG/3 ML NEB SCH ×2 (01:12→06:38)
[2017-10-21] MEDS: LEVOTHYROXINE 50 MCG TABLET PO SCH (05:32)
[2017-10-21 06:39] VITALS: O2SAT 91
[2017-10-21 07:13] VITALS: BP 173/84; RESP 20; TEMP 96.9
[2017-10-21] MEDS: DILTIAZEM HCL CD 120 MG CAP PO SCH (08:28)
[2017-10-21] MEDS: ESCITALOPRAM 10 MG TABLET PO SCH (08:29)
[2017-10-21] MEDS: PANTOPRAZOLE 40 MG TABLET PO SCH (08:29)
[2017-10-21] MEDS: Apixaban Tab 2.5 MG TABLET PO SCH (08:29)
[2017-10-21] MEDS: CLOPIDOGREL 75 MG TABLET PO SCH (08:29)
[2017-10-21] MEDS: cefTRIAXone Inj 2 GM in Sodium Chloride 0.9% 100 ML IV SCH (08:30)
[2017-10-21] MEDS ORDERED: predniSONE Tab 20 MG TAB PO SCH (09:00)
[2017-10-21] MEDS ORDERED: POTASSIUM CHLORIDE 20 MEQ TAB PO SCH (09:00)
--- NOTE | 2017-10-21 09:50 | DCSUMMARY ---
Hospitalization Summary Admit Date: 10/18/2017 Discharge Date: 10/21/17 Hospital Course: Discharge diagnoses 1. Confusion probably multifactorial resolved 2. Atrial fibrillation. 3. UTI 4. History of hypertension 5. COPD 6. History of CVA 7. Macular degeneration 8. Chronic pain syndrome 9. Hypothyroidism 10. Depression with anxiety Hospital course This is 77 years old the female with medical history significant for history of CVA before, atrial fibrillation, carotid artery disease, COPD and chronic pain syndrome who was brought to the hospital because of alteration in mental status , with some restlessness and confusion. The patient took her normal dose of Percocet on the night of admission and wondered around the kitchen about an hour later very confused. She states that she was having trouble finding a word to explain what's she wanted to do with some coffee. She had also another episode when she had also some confusion. The patient did report shortness of breath when she came in. Because of that she was brought to the hospital. There was a recent change in her dosage of medication as the Lexapro dose was increased and the digoxin dose was decreased. Patient was admitted to the hospital by Dr. Galeas please see his note. Patient was in addition to having the confusion was in A fib with rapid ventricular response. Patient was put on IV drip Cardizem. She was started on antibiotics for possible infection. She did have a CT of the head which did not show acute findings. She did have an MRI the next day and there was no evidence of new stroke. The impression is that her confusion is probably multifactorial including maybe taking extra pain medication and UTI. She did also have some mild COPD exacerbation and she was put on steroid and bronchodilator in addition to the antibiotic to treat the UTI. The growth in the urine showed Klebsiella. When I saw her she was initially really anxious as we did adjustment to her medication and treated her with antibiotics she seemed to improve. Initially she was put on Cardizem drip as I said and then we switched her to Cardizem by mouth instead of the digoxin. Gradually there was improvement in her symptoms. Did ask physical therapy to work with her. At the day of discharge she was feeling better so we thought that she cab be discharged home on Cardizem by mouth, we did decrease the dosage of the Lexapro to 10 mg from 20 mg daily. we gave her a few days of prednisone. Continued with inhaler treatment. She is normally on torsemide although prescribed at 40 mg but she actually takes 20 mg day. We Suggested that she continue on 20 mg a day. Did discuss with her the option of measuring daily weights and the use torsemide when she gain more than 2 pounds. however she need to be consistent with measuring her weight otherwise she need to be on the torsemide daily as from before. She did have some mild elevation of troponin when she came in and did discuss with her having a stress test I thought this could be done later on as an outpatient once she recover from this illness. She did not have chest pain. She will discuss it with her production consultant and the PCP. Discharge instruction Diet regular activity as started Medications Current Medication(s) 3 Medication Instructions Recorded Confirmed Type Oxygen (O2) 1 unit INH QHS unit 03/10/16 10/17/17 History clopidogrel 75 mg tablet 75 mg PO DAILY #90 tab 11/24/16 10/17/17 History docusate sodium 100 mg capsule 100 mg PO DAILY cap 11/24/16 10/17/17 History potassium bicarbonate-citric acid 25 meq PO DAILY tab 11/24/16 10/17/17 History 25 mEq effervescent tablet torsemide 20 mg tablet 40 mg PO DAILY tab 11/24/16 10/17/17 History trimethoprim 100 mg tablet 100 mg PO QD tab 11/24/16 10/17/17 History atorvastatin 80 mg tablet 80 mg PO DAILY #90 tab 05/05/17 10/17/17 Rx apixaban 2.5 mg tablet 2.5 mg PO BID #60 tab 08/03/17 10/17/17 Rx levothyroxine 50 mcg tablet 50 mcg PO DAILY #90 tab-cap 08/16/17 10/17/17 Rx albuterol sulfate HFA 90 2 puff INH QID PRN #36 g 09/27/17 10/17/17 Rx mcg/actuation aerosol inhaler oxycodone-acetaminophen 10 mg-325 1 tab PO Q6H PRN #155 tab 09/27/17 10/17/17 Rx mg tablet Diltiazem 24Hr ER [Cardizem Cd] 120 mg PO BID #60 cap.sr.24h 10/21/17 Rx Escitalopram Oxalate [Lexapro] 10 mg PO DAILY tab 10/21/17 Rx Pantoprazole Sodium [Protonix] 40 mg PO AC BK #30 tab 10/21/17 Rx Prednisone 10 mg PO DAILY #6 tab 10/21/17 Rx Torsemide [Torsemide] 20 mg PO DAILY #1 10/21/17 Rx Follow-up with PCP in 1-2 weeks, follow-up with the cardiology in 1-2 weeks Condition at discharge was stable for discharge Exam - Vitals Vital Signs: Vital Signs Temperature 96.9 F Temperature Source Temporal Artery Scan Pulse Rate [Telemetry] 77 Pulse Rate [Apical] 86 Pulse Rate [Pulse Oximeter] 79 Pulse Rate 77 Respiratory Rate 20 Blood Pressure [Right Arm] 173/84 Blood Pressure 156/89 Pulse Ox 91 Oxygen Flow Rate 4 Oxygen Delivery Method Nasal Cannula Height 5 ft 5 in Weight 215 lb - General General Appearance: No Acute Distress, Cooperative, Obese - Head Head Exam: Normal Inspection - Eye Eye Exam: POSITIVE: Normal Appearance - ENT ENT Exam: POSITIVE: Normal Exam - Neck Neck Exam: Normal Inspection - Respiratory Additional Respiratory Exam Details: Decreased air entry otherwise clear - Cardiovascular Cardiovascular Exam: POSITIVE: Irregular Rhythm - GI/Abdominal GI/Abdominal Exam: POSITIVE: Normal Bowel Sounds, Non Tender, Non Distended, Soft, No Organomegaly - Rectal Rectal Exam: POSITIVE: Deferred - External Exam: POSITIVE: Deferred - Extremities Extremities Exam: POSITIVE: Normal Inspection - Back Back Exam: POSITIVE: Normal Inspection - Neurological Neurological Exam: POSITIVE: Alert, Oriented x 3, CN II-XII Intact, No Facial Droop, Speech Intact / Clear, Moves All Extremities Equally - Psychiatric Psychiatric Exam: POSITIVE: Normal Affect Patient Problems - Patient Problem List (1) Atrial fibrillation with rapid ventricular response Current Visit: Yes Status: Acute Code(s): I48.91 - Unspecified atrial fibrillation Category: Medical (2) Hypothyroidism Current Visit: Yes Status: Chronic Onset Date: 08/06/11 Code(s): E03.9 - Hypothyroidism, unspecified Qualifiers: Hypothyroidism type: acquired Qualified Code(s): E03.9 - Hypothyroidism, unspecified Category: Medical (3) Confusion Current Visit: Yes Status: Acute Code(s): R41.0 - Disorientation, unspecified Category: Medical (4) COPD exacerbation Current Visit: Yes Status: Acute Code(s): J44.1 - Chronic obstructive pulmonary disease with (acute) exacerbation Category: Medical (5) History of TIA (transient ischemic attack) Current Visit: Yes Status: Chronic Code(s): Z86.73 - Personal history of transient ischemic attack (TIA), and cerebral infarction without residual deficits Category: Medical (6) Anxiety disorder Current Visit: Yes Status: Acute Code(s): F41.9 - Anxiety disorder, unspecified Qualifiers: Anxiety disorder type: unspecified anxiety disorder Qualified Code(s): F41.9 - Anxiety disorder, unspecified Category: Medical (7) Chronic pain syndrome Current Visit: Yes Status: Acute Code(s): G89.4 - Chronic pain syndrome Category: Medical (8) Coronary artery disease Current Visit: Yes Status: Acute Code(s): I25.10 - Atherosclerotic heart disease of [place] coronary artery without angina pectoris Qualifiers: Coronary Disease-Associated Artery/Lesion type: [place] artery [place] vs. transplanted heart: [place] heart Associated angina: without angina Qualified Code(s): I25.10 - Atherosclerotic heart disease of [place] coronary artery without angina pectoris Category: Medical (9) Vitamin D deficiency Current Visit: Yes Status: Acute Code(s): E55.9 - Vitamin D deficiency, unspecified Category: Medical (10) UTI (urinary tract infection) Current Visit: Yes Status: Acute Code(s): N39.0 - Urinary tract infection, site not specified Category: Medical
--- NOTE | 2017-10-21 11:48 | PT.PROG ---
Progress Note Progress Note: S. Patient stated that she is feeling better today. O. Patient ambulated 450 feet around the nurses station then performed seated exercises in the form of; long arc quads, marches, heel toe raises, ball squeezes, clam shells, and resisted knee flexion all x 10 bilaterally. Patient was left with alarm and call light. A. Patient tolerated therapy well, she is able to ambulate further with no rest breaks today. Patient has met all goals at this time however could benefit from outpatient therapy to continue strengthening and endurance. P. Continue POC.
[2017-10-21] MEDS: TORSEMIDE 20 MG PO SCH (12:20)
--- NOTE | 2017-10-21 16:48 | OT AM DAY ---
Diagnosis : Weakness AM - Occupational Therapy S: The patient's daughter was present during treatment today. They stated that the patient is going home here shortly. The patient's daughter would really like her to come to outpatient therapy to continue to work on her strength and overall abilities. O: The patient was able to demonstrate transferring from sit to stand independently. The patient was able to transfer to the bathroom with stand by assist. The patient performed toileting activities independently. The patient was able to don Depends and pants independently as well as new socks. We then worked on active range of motion for shoulder flexion, biceps flexion/extension , and wrist flexion/extension. A: The patient was instructed in energy conservation techniques as well as functional activities to perform at home. P: Patient is being discharged to home. JAZLYN
[2017-10-25] MEDS ORDERED: ERGOCALCIFEROL 50,000 IU CAPSULE PO SCH (08:00)
== END 2017-10-21 12:41 | disposition home or self-care (01) | DRG 309 ==
LOC: ER 21:40 → MED/SURG 23:51 → ICU 10-18 00:30 → MED/SURG 10-18 15:45
PROVIDERS: ADMIT Family Medicine; ATTEND Internal Medicine

== ENCOUNTER 2017-11-12 09:48 | Inpatient (IN) ==
[2017-11-12] MEDS ORDERED: Sodium Chloride 0.9% 1,000 ML PRIMARY IV ONE (10:11)
--- NOTE | 2017-11-12 10:22 | EKG ---
[address] [address] Measurements Intervals [place] Rate: 122 P: SC: 0 QRS: 15 QRSD: 110 T: 37 QT: 323 QTc: 395 Interpretive Statements ATRIAL FIBRILLATION WITH RAPID VENTRICULAR RESPONSE MODERATE INTRAVENTRICULAR CONDUCTION DELAY [105+ ms QRS DURATION, 80+ ms Q/S IN V1/V2, NO Q AND 60+ ms R IN I/aVL/V5/V6] NONSPECIFIC ST & T-WAVE ABNORMALITY Compared to ECG 10/17/2017 21:57:35 Intraventricular conduction delay now present Possible ischemia is now borderline T-wave abnormality still present Electronically Signed On 11-15-17 08:03:56 MDT by Don Salazar MD [email or web address]
--- NOTE | 2017-11-12 10:38 | PDOC ---
General Adult HPI - General Chief Complaint: Respiratory Complaint Stated Complaint: high b/p/difficulty breathing Date Seen by Provider: 11/12/17 Time Seen by Provider: 10:05 Source: POSITIVE: Patient Exam Limitations: POSITIVE: No limitations Nurse's Notes Reviewed & Considered: Yes - History of Present Illness Initial Comment: The patient is a 77-year-old female who presents to the emergency department with increased confusion and general malaise. She has a history of chronic atrial fibrillation, COPD, coronary artery disease as well as chronic pain and presents to the ER stating that she just doesn't feel right. She states that yesterday she attempted to go to PT however she didn't feel well enough to complete this. Since then she just hasn't felt well. She denies any specific complaints of headache or chest pain. She does have a history of similar symptoms last month and was hospitalized for several days. At that time she had undergone CT of the head as well as MRI of the brain which did not show any evidence of acute bleed or infarct. She had been taken off of digoxin during that hospitalization and discharged home on Cardizem however she saw the learning design specialist several days ago and was taken off the Cardizem and put back on digoxin. In addition she has a history of urinary tract infections and was treated for an infection during her last hospitalization. She does have history of chronic urinary incontinence and takes baseline suppressive antibiotic medications prescribed by the urologist. She also has COPD and wears oxygen at 4 L baseline. She denies any increased shortness of breath or productive cough. She has not had any known fever at home. She denies abdominal pain. She has not had any increased swelling in her legs. She states that she feels dehydrated. She is anticoagulated with Eliquis. She denies any recent falls. She does take oxycodone 4 times a day for chronic pain in her legs. She states that she has not increased the dose or taken any extra pain medication recently. Have you received a tetanus shot in the past 10 years?: Yes - Patient Home Medications Home Medications: Home Medications Oxygen (O2) 1 unit INH QHS unit 03/10/16 clopidogrel 75 mg tablet 75 mg PO DAILY #90 tab 11/24/16 docusate sodium 100 mg capsule 100 mg PO DAILY cap 11/24/16 trimethoprim 100 mg tablet 100 mg PO QD tab 11/24/16 atorvastatin 80 mg tablet 80 mg PO DAILY #90 tab 05/05/17 apixaban 2.5 mg tablet 2.5 mg PO BID #60 tab 08/03/17 levothyroxine 50 mcg tablet 50 mcg PO DAILY #90 tab-cap 08/16/17 albuterol sulfate HFA 90 mcg/actuation aerosol inhaler 2 puff INH QID PRN #36 g 09/27/17 Diltiazem 24Hr ER [Cardizem Cd] 120 mg PO BID #60 cap.sr.24h 10/21/17 Escitalopram Oxalate [Lexapro] 10 mg PO DAILY tab 10/21/17 oxycodone-acetaminophen 10 mg-325 mg tablet 1 tab PO Q6H PRN #120 tab 11/02/17 digoxin 125 mcg tablet 125 mcg PO QDAY #30 tab 11/09/17 ipratropium 20 mcg-albuterol 100 mcg/actuation mist for inhalation 1 inh INH QID 11/09/17 potassium chloride ER 10 mEq capsule,extended release 10 meq PO .QOD 30 Days cap 11/09/17 torsemide 20 mg tablet 10 mg PO .qod tab 11/09/17 - Patient Allergies Allergies/Adverse Reactions: Allergies 3 Allergy/AdvReac Type Severity Reaction Status Date / Time sulfamethoxazole Allergy Severe pruritis, Verified 11/12/17 09:56 [From Bactrim] short of breath, chest pain trimethoprim [From Bactrim] Allergy Severe pruritis, Verified 11/12/17 09:56 short of breath, chest pain toprop XL AdvReac Severe NAUSEA Uncoded 11/12/17 09:56 PAIN CONTRACT AdvReac Unknown NOT Uncoded 11/12/17 09:56 APPLICABLE oxycotin AdvReac NAUSEA Uncoded 11/12/17 09:56 Past Medical History - heen HEENT History: Denies History, Dentures/Partials Cardiovascular History: Hypertension, Arrhythmia, Hyperlipidemia Additional Cardiovasular History: LE EDEMA Respiratory History: COPD, Shortness of Breath, Home Oxygen Use Gastrointestinal History: Denies History Genitourinary History: Recurrent UTI, Incontinence, Other (please comment) Additional Genitourinary History: had stent to kidney Endocrine History: Hypothyroidism Musculoskeletal History: Arthritis Prosthesis or Implant: No Neurological History: Denies History Blood Disorders: Denies History Psychiatric History: Depression History of Sexually Transmitted Diseases: No Female Reproductive History: Hysterectomy Cancer History: Denies History In Past Year Been Physically Harmed or Verbally Threatened: No History of MDRO: No History of Other Communicable Diseases: No Tobacco Use: Never Smoker Alcohol Use: Occasionally In the Past 12 Months, Have Used or Abuse Any Substance: None Previous Surgical History: Yes Type / Date of Surgery: CABG, CAROTID ARTERY STENT X2, RENAL STENT Anesthesia Reactions: No Malignant Hyperthermia: No Significant Family History: No pertinent family hx Past Medical History Reviewed: Reviewed - No Changes ROS - Limitations ROS Limitations: No Limitations Constitution: REPORTS: Weakness (Generalized weakness and malaise). DENIES: Chills, Fever Cardiovascular: REPORTS: Blood Pressure Problem (She does report that her blood pressure has been running high in the 160s to 170s systolic). DENIES: Chest Pain, Heart Palpitations, Edema Respiratory: REPORTS: Shortness Of Breath (Chronic). DENIES: Cough Non Productive, Cough Productive Neurological: REPORTS: Confusion. DENIES: Headache, Numbness, Weakness Gastrointestinal: DENIES: Abdominal Pain, Nausea, Vomitting, Diarrhea Endocrine: REPORTS: Fatigue Musculoskeletal: DENIES: Lower Extremity Swelling (She states that her legs are less swollen than usual although she does still have some swelling) Genitourinary: REPORTS: Other (She has chronic urinary incontinence and history of urinary tract infections) Eyes: REPORTS: Denies Symptoms ENT: REPORTS: Denies Symptoms Skin: DENIES: Rash General Adult Exam - General Appearance General Appearance: POSITIVE: Alert, Cooperative, No Acute Distress - HEENT HEENT: POSITIVE: Head Inspection Nml, Eyes Inspection Nml, Ears Inspection Nml, Nose Inspection Nml, Pharynx Inspect. Nml, Dry Mucous Membranes - Neck Neck: POSITIVE: Normal Inspection. NEGATIVE: Lymphadenopathy - Respiratory Respiratory: POSITIVE: No Respiratory Distress, Breath Sounds Normal (Decreased breath sounds bilaterally, respirations are unlabored) - Cardiovascular Cardiovascular: POSITIVE: Irregularly Irreg. Rhythm, Other (Heart rate is in the 120s) - Abdomen Abdomen: Soft: (All Quadrants), Denies Tenderness: (All Quadrants) - Back Back: POSITIVE: Normal Inspection - Skin Skin: POSITIVE: Normal Color, No Rash - Extremities Extremity: Normal ROM: (All Extremities) Additional Extremities Details: She does have 1+-2+ edema on the lower extremities bilaterally - Neurological / Psychological Neurological: POSITIVE: Oriented X3, process lead Normal As Tested, Motor Normal, Sensation Normal, Other (No focal neurologic deficits and her speech appears normal at this time) General Adult Progress - Results Reviewed by me Xrays/CTs/US Reviewed by me: Yes Discussed with Radiologist: Yes Radiology Findings: Head CT and chest x-ray showed no acute findings per radiologist. Lab Results Reviewed by Me: Yes Lab Results:: Laboratory Results 3 11/12/17 11/12/17 11/12/17 10:51 10:52 10:52 WBC RBC Hgb Hct MCV MCH MCHC RDW Std Deviation RDW Coeff of Karis Plt Count MPV Immature Gran % (Auto) Neut % (Auto) Lymph % (Auto) Gage % (Auto) Eos % (Auto) Baso % (Auto) Immature Gran # (Auto) Neut # (Auto) Lymph # (Auto) Gage # (Auto) Eos # (Auto) Baso # (Auto) WBC Morphology Comment Plt Morphology Comment RBC Morph Comment Sodium 137 Potassium 4.2 Chloride 97 L Carbon Dioxide 32 Anion Gap 8 BUN 17 Creatinine 0.6 BUN/Creatinine Ratio 28.33 H Glucose 151 H Calculated Osmolality 288.0 Lactic Acid Calcium 9.5 Magnesium 2.1 Total Bilirubin 1.1 AST 24 ALT 29 Alkaline Phosphatase 91 Troponin I < 0.019 C-Reactive Protein 0.8 NT-Pro-B Natriuret Pep 796 H Total Protein 7.4 Albumin 4.3 Globulin 3.2 Albumin/Globulin Ratio 1.30 Ur Collection Type Clean catch urine Urine Color Yellow Urine Clarity Clear Urine pH 8.0 Ur Specific [place] 1.015 Urine Protein 30 A Urine Glucose (UA) Negative Urine Ketones Negative Urine Occult Blood Negative Urine Nitrate Negative Urine Bilirubin Negative Urine Urobilinogen 0.2 Ur Leukocyte Esterase Negative Urine RBC 1-3 Urine WBC 1-3 Ur Squamous Epith Cells Rare Ur Renal Epithelial Cell None Urine Crystals None Urine Bacteria Moderate H Urine Casts None Urine Mucus None Urine Trichomonas None Urine Yeast None Ur Culture Indicated? Culture set Digoxin 3 11/12/17 11/12/17 11/12/17 10:52 11:17 11:17 WBC 10.11 RBC 4.60 Hgb 13.9 Hct 41.6 MCV 90.4 MCH 30.2 MCHC 33.4 RDW Std Deviation 53.7 H RDW Coeff of Karis 16.7 H Plt Count 327 MPV 9.2 Immature Gran % (Auto) 0.2 Neut % (Auto) 85.0 H Lymph % (Auto) 9.2 L Gage % (Auto) 4.8 L Eos % (Auto) 0.6 Baso % (Auto) 0.2 Immature Gran # (Auto) 0.02 Neut # (Auto) 8.59 Lymph # (Auto) 0.93 Gage # (Auto) 0.49 Eos # (Auto) 0.06 Baso # (Auto) 0.02 WBC Morphology Comment Normal morphology Plt Morphology Comment Normal morphology RBC Morph Comment See comments Sodium Potassium Chloride Carbon Dioxide Anion Gap BUN Creatinine BUN/Creatinine Ratio Glucose Calculated Osmolality Lactic Acid 1.9 Calcium Magnesium Total Bilirubin AST ALT Alkaline Phosphatase Troponin I C-Reactive Protein NT-Pro-B Natriuret Pep Total Protein Albumin Globulin Albumin/Globulin Ratio Ur Collection Type Urine Color Urine Clarity Urine pH Ur Specific [place] Urine Protein Urine Glucose (UA) Urine Ketones Urine Occult Blood Urine Nitrate Urine Bilirubin Urine Urobilinogen Ur Leukocyte Esterase Urine RBC Urine WBC Ur Squamous Epith Cells Ur Renal Epithelial Cell Urine Crystals Urine Bacteria Urine Casts Urine Mucus Urine Trichomonas Urine Yeast Ur Culture Indicated? Digoxin 0.5 L CBC and BMP: 11/12/17 11:17 11/12/17 10:52 EKG Interpreted/Reviewed By Me:: Yes EKG Interpretation:: POSITIVE: Other (She does have atrial fibrillation with a rate of 122, no acute ST segment or T-wave changes) - Patient's Progress MDM / ED Course: The patient is hypertensive on arrival with blood pressure of 169/83. She is also somewhat tachycardic with a heart rate in the 120s. EKG shows atrial fibrillation with rapid ventricular response with no other acute ST segment or T -wave findings. An IV was established. Blood cultures and lactate were drawn with initial IV start. She did receive 1 L bolus of normal saline and she appears to be clinically dry. Her blood work is all essentially unremarkable. Urinalysis reveals moderate bacteria with only 1-3 WBCs which is similar to what she had during her last hospitalization and culture grew out Klebsiella. Her head CT shows no acute findings per radiologist. The patient continues to have generalized weakness and malaise. The etiology of this is unclear. She may have a mild urinary tract infection and culture is pending. In addition she continues to have atrial fibrillation with a rate between 101 30 here in the ER. She did recently have her medication changed which may be contributing to her current symptoms. Decision was made to admit the patient for further monitoring and treatment. Dr. Condon has agreed to admit the patient and the patient is in agreement with this plan. - Consult Counseled: POSITIVE: Patient, RE: Lab Results, RE: Radiology Results, RE: DX, RE : Need for F/U Patient Care Time - Estimated PCT Patient Care Time (In Minutes): 35 Vital Signs - VS Reviewed Vital Signs Reviewed: Yes Discharge Clinical Impression: Atrial fibrillation with rapid ventricular response, Confusion Discharge Disposition: Admit to Inpatient Condition: Fair Date Decision to Admit to Inpatient: 11/12/17 Time Decision to Admit to Inpatient: 13:00
[2017-11-12 10:55] LABS: BILIRUBIN,URINE NEGATIVE (NEG); CLARITY,URINE CLEAR (CLEAR); COLOR,URINE YELLOW (Y); GLUCOSE, URINE (UA) NEGATIVE (NEG); OCCULT BLOOD,URINE NEGATIVE (NEG); PROTEIN,URINE 30 mg/dl (NEG); UROBILINOGEN,URINE 0.2 EU/dL (0.2)
[2017-11-12 11:01] LABS: BLOOD UREA NITROGEN 17 mg/dL (7-22); BUN/CREATININE RATIO 28.33 (6-20); SERUM ALBUMIN 4.3 g/dL (3.5-4.8)
[2017-11-12 11:03] LABS: BACTERIA,URINE MODERATE; SQUAMOUS EPITHELIAL CELL,UR RARE; URINE SAMPLE TYPE CLEAN CATCH URINE
[2017-11-12 11:23] LABS: BASOPHILS # (AUTO) 0.02 10*3/UL; BASOPHILS % (AUTO) 0.2 % (0-1); EOSINOPHILS # (AUTO) 0.06 10*3/UL; EOSINOPHILS % (AUTO) 0.6 % (0-8); Hematocrit [HCT] 41.6 % (37.0-47.0); Hemoglobin [HGB] 13.9 g/dL (12.0-16.0); LYMPHOCYTES # (AUTO) 0.93 10*3/uL; MEAN CORPUSCULAR HEMOGLOBIN 30.2 PG (27-31); MEAN CORPUSCULAR HGB CONC 33.4 g/dL (33-37); MEAN CORPUSCULAR VOLUME 90.4 FL (81-99); MEAN PLATELET VOLUME 9.2 FL (7.4-12.2); MONOCYTES # (AUTO) 0.49 10*3/UL (0.3-0.8); MONOCYTES % (AUTO) 4.8 % (5-15); NEUTROPHILS # (AUTO) 8.59 10*3/UL
[2017-11-12 11:37] LABS: PLATELET MORPHOLOGY COMMENT NORMAL MORPHOLOGY (NORM); RBC MORPHOLOGY COMMENT SEE COMMENTS (NORM); WBC MORPHOLOGY COMMENT NORMAL MORPHOLOGY (NORM)
--- NOTE | 2017-11-12 12:47 | DI ---
CT HEAD SCAN WITHOUT IV CONTRAST, 11/12/2017 10:11 AM : Clinical History: Confusion. The patient is anticoagulated. Previous Exam: 10/17/2017. Scans are obtained from the foramen magnum to the vertex without IV contrast. The 4th, 3rd, and lateral ventricles are of normal size, shape, position, and contour for the patient 's age. There is no acute intracranial hemorrhagic or bland infarct. There is an old lacunar infarct of the left thalamus. There is a low-density area towards the inferior aspect of the right basal gang franko but this actually represents an extension of subarachnoid space from the right sylvian vallecula rather than a low-density lesion of the brain parenchyma. There is mild to moderate cerebellar and mi ld cerebral atrophy. There are no extracerebral mantles or shift of the midline structures. Bone wind ow evaluation is normal. The paranasal sinuses are normal. READIN. There is no acute hemorrhagic or bland infarct. 2. Old lacunar infarct of the left thalamus. The low density area in the region of the right basal g anglia anteriorly represents an ectatic subarachnoid channel extending from the right sylvian vallecu la, a normal variant. 3. Mild to moderate cerebellar and mild cerebral atrophy.
--- NOTE | 2017-11-12 13:20 | DI ---
AP CHEST X-RAY, 11/12/2017 10:11 AM : Clinical History: Hypoxia. Previous Exam: 10/17/2017. There is no acute soft tissue or bony abnormality. The patient is status post CABG. There is cardiome yary. The vessels are more prominent and distended than on the prior exam and this patient may have C HF. No acute infiltrate or effusion is present. The lungs are hyperinflated. Mediastinal structures a re normal. There are no pulmonary nodules. Readin. There is no acute infiltrate or effusion. The lungs are hyperinflated in this patient may have un derlying emphysema. 2. Cardiomegaly. The vessels are more prominent than on the prior exam and this patient may have CHF .
--- NOTE | 2017-11-12 13:50 | PDOC ---
HPI - History of Present Illness Date of Service: 11/12/17 Time of Service: 16:00 Chief Complaint: More confusion History of Present Illness: This is a 77 years old female with medical history significant for history of CVA before, atrial fibrillation, carotid artery disease, COPD and chronic pain syndrome who was also recently here in the hospital for the confusion which were believed to be multifactorial, she had also UTI, uncontrolled heart rate and she had also COPD exacerbation. Herat rate was controlled with Cardizem and the digoxin was discontinued apparently she was doing okay except her blood pressure is uncontrolled as apparently she stopped taking the diuretic she saw Dr. Martinez on the he took her off the Cardizem put her back on the digoxin. And then the last 2 days she's been having confusion not thinking clearly according to her. She is denying palpitation or shortness of breath. Because of that she was brought to the ER. In the ER she was found to have an abnormal UA and heart rate was uncontrolled atrial fibrillation at 122. She was given fluids and was admitted. Currently she is denying chest pain, denying shortness of breath denying nausea or vomiting. Past Medical History Medical History: 1. Hypertension. 2. Hypothyroidism. 3. COPD, with chronic hypoxemic respiratory failure on 4 L of nasal cannula at baseline. 4. Sleep apnea. 5. Depression apparently with anxiety features. 6. osteoporosis. 7. Atrial fibrillation. 8. Coronary artery disease status post CABG. 9. 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 10. Macular degeneration. 11. Carotid artery disease status post carotid stent placement on the right and prior carotid endarterectomy. 12. Chronic pain syndrome attributed to feet problems. I could not elicit any symptoms of neuropathy on history. Surgical History: 1. Carotid endarterectomy. 2. History of CABG. 3. Hysterectomy. 4. Right carotid internal artery stent. 5. Hysterectomy with bladder suspension. 6. Renal artery stent Family History: Reviewed an Not Pertinent Pertinent Family History: Heart disease in her father and in her siblings Past Social History: She used to smoke quit many years ago, rarely drinks. No drugs. . Has children. Tobacco Use: Never Smoker In the Past 12 Months, Have Used or Abuse Any of the Following Substance: None Alcohol Use: Rarely Medication / Allergies Home Medications: Home Medications 3 Medication Instructions Recorded Confirmed Type Oxygen (O2) 1 unit INH QHS unit 03/10/16 11/12/17 History clopidogrel 75 mg tablet 75 mg PO DAILY #90 tab 11/24/16 11/12/17 History docusate sodium 100 mg capsule 100 mg PO DAILY cap 11/24/16 11/12/17 History trimethoprim 100 mg tablet 100 mg PO QD tab 11/24/16 11/12/17 History atorvastatin 80 mg tablet 80 mg PO DAILY #90 tab 05/05/17 11/12/17 Rx apixaban 2.5 mg tablet 2.5 mg PO BID #60 tab 08/03/17 11/12/17 Rx levothyroxine 50 mcg tablet 50 mcg PO DAILY #90 tab-cap 08/16/17 11/12/17 Rx albuterol sulfate HFA 90 2 puff INH QID PRN #36 g 09/27/17 11/12/17 Rx mcg/actuation aerosol inhaler Diltiazem 24Hr ER [Cardizem Cd] 120 mg PO BID #60 cap.sr.24h 10/21/17 11/12/17 Rx Escitalopram Oxalate [Lexapro] 10 mg PO DAILY tab 10/21/17 11/12/17 Rx oxycodone-acetaminophen 10 mg-325 1 tab PO Q6H PRN #120 tab 11/02/17 11/12/17 Rx mg tablet digoxin 125 mcg tablet 125 mcg PO QDAY #30 tab 11/09/17 11/12/17 Rx ipratropium 20 mcg-albuterol 100 1 inh INH QID 11/09/17 11/12/17 History mcg/actuation mist for inhalation potassium chloride ER 10 mEq 10 meq PO .QOD 30 Days cap 11/09/17 11/12/17 History capsule,extended release torsemide 20 mg tablet 10 mg PO .qod tab 11/09/17 11/12/17 History Allergies/Adverse Reactions: Allergies 3 Allergy/AdvReac Type Severity Reaction Status Date / Time sulfamethoxazole Allergy Severe pruritis, Verified 11/12/17 09:56 [From Bactrim] short of breath, chest pain trimethoprim [From Bactrim] Allergy Severe pruritis, Verified 11/12/17 09:56 short of breath, chest pain toprop XL AdvReac Severe NAUSEA Uncoded 11/12/17 09:56 PAIN CONTRACT AdvReac Unknown NOT Uncoded 11/12/17 09:56 APPLICABLE oxycotin AdvReac NAUSEA Uncoded 11/12/17 09:56 Review of Systems - Review of Systems All Systems: Reviewed & No Additional Complaints Except as Stated Exam - Vitals Vital Signs: Vital Signs Temperature 98.4 F Temperature Source Temporal Artery Scan Pulse Rate [Pulse Oximeter] 118 Respiratory Rate 18 Blood Pressure [Left Arm] 169/89 Pulse Ox 95 Oxygen Delivery Method Room Air Height 5 ft 6 in Weight 200 lb - General General Appearance: Cooperative - Head Head Exam: Normal Inspection - Eye Eye Exam: POSITIVE: Normal Appearance - Neck Neck Exam: Normal Inspection - Respiratory Additional Respiratory Exam Details: Decreased air entry otherwise clear - Cardiovascular Cardiovascular Exam: POSITIVE: Irregular Rhythm - GI/Abdominal GI/Abdominal Exam: POSITIVE: Normal Bowel Sounds, Non Tender, Non Distended, Soft, No Organomegaly - Rectal Rectal Exam: POSITIVE: Deferred - External Exam: POSITIVE: Deferred - Extremities Extremities Exam: POSITIVE: Normal Inspection - Neurological Neurological Exam: POSITIVE: Alert, CN II-XII Intact, Speech Intact / Clear, Moves All Extremities Equally - Psychiatric Psychiatric Exam: POSITIVE: Flat Affect Results - Labs CBC and BMP: 11/13/17 05:00 11/13/17 05:00 - EKG Data -: EKG Interpreted by Me Rate: Tachycardia (EKG showed atrial fibrillation with rapid ventricular response) - Imaging Status: Report Reviewed by Me (CT There is no acute hemorrhagic or bland infarct. 2. Old lacunar infarct of the left thalamus. The low density area in the region of the right basal ganglia anteriorly represents an ectatic subarachnoid channel extending from the right sylvian vallecula, a normal variant. 3. Mild to moderate cerebellar and mild cerebral atrophy. Chest X ray 1. There is no acute infiltrate or effusion. The lungs are hyperinflated in this patient may have underlying emphysema. 2. Cardiomegaly. The vessels are more prominent than on the prior exam and this patient may have CHF.) Assessment and Plan - Patient Problems (1) Atrial fibrillation with rapid ventricular response Current Visit: Yes Status: Acute Comment: Her rate is still uncontrolled, I think will put her back Cardizem . Does not seem the digoxin is able to control heart rate. I did explain to the family I understand Dr. Martinez position in terms of for it may affect her LV fashion. However her LV function was normal her EF was 60% in June 2016. In addition her BNP on the day that he saw her was normal. And was high when she was in the hospital with uncontrolled rate. There is a an allergy to metoprolol puts in the note. The family said that at one point she was tried on beta venancio and she became short of breath and they took her off the beta venancio. So seems to be intolerance to beta venancio. I told the family I have limited resources apart from trying to put her on the Cardizem to control her heart rate. They agreed with the current plan. I think the fact that her heart rate became uncontrolled and have recurrence of symptoms after discontinuing the Cardizem ponits to its benefits. In addition having a normal BNP also on the day that it was discontinued also point the fact that it was not depressing her LV function and that was the concern that Dr. Martinez had with it. His BNP is actually elevated now and I think this is as a result of uncontrolled heart rate as a result of stopping the Cardizem. The digoxin was stopped last time because at higher dosage that she was before she was supratherapeutic and the dosage was cut and she ended up with uncontrolled rate so that strategy was not working and that's why we switch the Cardizem. Code(s): I48.91 - Unspecified atrial fibrillation (2) Abnormal finding on urinalysis Current Visit: No Status: Acute Comment: I think will put her on antibiotics until we have culture results. Code(s): R82.90 - Unspecified abnormal findings in urine (3) Coronary artery disease Current Visit: No Status: Acute Comment: Continue Plavix. And Lipitor. Code(s): I25.10 - Atherosclerotic heart disease of [place] coronary artery without angina pectoris Qualifiers: Coronary Disease-Associated Artery/Lesion type: [place] artery [place] vs. transplanted heart: [place] heart Associated angina: without angina Qualified Code(s): I25.10 - Atherosclerotic heart disease of [place] coronary artery without angina pectoris
[2017-11-12] MEDS ORDERED: LIDOCAINE HCL 2 % 10 ML JELLY URO-JECT TOPICAL PRN (13:57)
[2017-11-12] MEDS ORDERED: LIDOCAINE W/ SODIUM BICARB 0.5 ML SYR SUBD PRN (13:57)
[2017-11-12] MEDS: oxyCODONE/APAP 10/325 Tab 1 EACH TAB PO PRN ×3 (14:41→23:12)
[2017-11-12] MEDS: DILTIAZEM HCL CD 120 MG CAP PO SCH ×2 (14:41→20:48)
[2017-11-12] MEDS ORDERED: LEVALBUTEROL HCL 1.25 MG/3 ML NEB PRN (15:06)
[2017-11-12] MEDS: cefTRIAXone Inj 1 GM in Sodium Chloride 0.9% 100 ML IV SCH (15:30)
[2017-11-12] MEDS ORDERED: Vancomycin-PHA to Dose IV PRN (15:38)
[2017-11-12] MEDS: LEVALBUTEROL HCL 1.25 MG/3 ML NEB PRN ×2 (17:37→21:49)
[2017-11-12] MEDS: LEVALBUTEROL HCL 1.25 MG/3 ML NEB SCH (19:00)
[2017-11-12] MEDS: ATORVASTATIN 40 MG TABLET PO SCH (20:48)
[2017-11-12] MEDS: Apixaban Tab 2.5 MG TABLET PO SCH (20:48)
[2017-11-13] MEDS: oxyCODONE/APAP 10/325 Tab 1 EACH TAB PO PRN ×4 (04:52→21:37)
[2017-11-13 05:28] LABS: BASOPHILS # (AUTO) 0.03 10*3/UL; BASOPHILS % (AUTO) 0.3 % (0-1); EOSINOPHILS # (AUTO) 0.19 10*3/UL; EOSINOPHILS % (AUTO) 1.8 % (0-8); Hematocrit [HCT] 42.3 % (37.0-47.0); Hemoglobin [HGB] 14.2 g/dL (12.0-16.0); LYMPHOCYTES # (AUTO) 2.09 10*3/uL; MEAN CORPUSCULAR HEMOGLOBIN 30.4 PG (27-31); MEAN CORPUSCULAR HGB CONC 33.6 g/dL (33-37); MEAN CORPUSCULAR VOLUME 90.6 FL (81-99); MEAN PLATELET VOLUME 9.6 FL (7.4-12.2); MONOCYTES # (AUTO) 0.97 10*3/UL (0.3-0.8); MONOCYTES % (AUTO) 9.1 % (5-15); NEUTROPHILS % (AUTO) 69.1 % (50-80); RED BLOOD COUNT 4.67 10^6/uL (4.20-5.40)
[2017-11-13] MEDS ORDERED: LEVOTHYROXINE 50 MCG TABLET PO SCH ×2 (05:30→09:00)
[2017-11-13 05:42] LABS: BLOOD UREA NITROGEN 20 mg/dL (7-22); SERUM ALBUMIN 3.9 g/dL (3.5-4.8)
[2017-11-13 05:44] LABS: PLATELET MORPHOLOGY COMMENT NORMAL MORPHOLOGY (NORM); RBC MORPHOLOGY COMMENT NORMAL MORPHOLOGY (NORM); WBC MORPHOLOGY COMMENT NORMAL MORPHOLOGY (NORM)
[2017-11-13] MEDS: LEVALBUTEROL HCL 1.25 MG/3 ML NEB SCH ×4 (06:11→19:07)
--- NOTE | 2017-11-13 08:09 | PDOC(PROG) ---
Date of Service: 11/13/17 Time of Service: 08:00 Interval History: Subjective She seems to be better today. Calmer and more with it. Denying shortness of breath denying chest pain. Objective : Data - Labs CBC and BMP: 11/13/17 05:00 11/13/17 05:00 Objective : Exam - General General Appearance: No Acute Distress, Obese - Head Head Exam: Normal Inspection - Eye Eye Exam: Normal Appearance - ENT ENT Exam: Normal Exam - Neck Neck Exam: Normal Inspection - Respiratory Respiratory Exam: Clear to Auscultation - Bilaterally - Cardiovascular Cardiovascular Exam: RRR - GI/Abdominal GI/Abdominal Exam: Normal Bowel Sounds, Non Tender, Non Distended, Soft, No Organomegaly - Rectal Rectal Exam: Deferred - External Exam: Deferred - Extremities Extremities Exam: Normal Inspection - Back Back Exam: Normal Inspection - Neurological Neurological Exam: Alert, Oriented x 3, CN II-XII Intact, No Facial Droop, Speech Intact / Clear, Moves All Extremities Equally - Psychiatric Psychiatric Exam: Normal Affect - Integumentary Integumentary Exam: Normal Color Assessment and Plan - Patient Problems (1) Atrial fibrillation with rapid ventricular response Current Visit: Yes Status: Acute Comment: Rate seemed to be better controlled continue Cardizem. Continue eliquis. Code(s): I48.91 - Unspecified atrial fibrillation (2) Abnormal finding on urinalysis Current Visit: No Status: Acute Comment: She is on Rocephin until we have culture result. Code(s): R82.90 - Unspecified abnormal findings in urine (3) Coronary artery disease Current Visit: No Status: Acute Comment: She is on Plavix and Lipitor continue. Code(s): I25.10 - Atherosclerotic heart disease of [place] coronary artery without angina pectoris Qualifiers: Coronary Disease-Associated Artery/Lesion type: [place] artery [place] vs. transplanted heart: [place] heart Associated angina: without angina Qualified Code(s): I25.10 - Atherosclerotic heart disease of [place] coronary artery without angina pectoris (4) Hypertension Current Visit: Yes Status: Acute Comment: Blood pressure is elevated. She is on torsemide and that should help to lower her blood pressure she'll get it today asked the family to bring it. she is on Cardizem. If The blood pressure still uncontrolled consider adding an JOHNNY inhibitor. Code(s): I10 - Essential (primary) hypertension (5) Anxiety associated with depression Current Visit: No Status: Chronic Onset Date: 08/13/15 Comment: She is on Lexapro continue Code(s): F41.8 - Other specified anxiety disorders
[2017-11-13] MEDS: DOCUSATE 100 MG CAPSULE PO SCH (08:41)
[2017-11-13] MEDS: CLOPIDOGREL 75 MG TABLET PO SCH (08:41)
[2017-11-13] MEDS: Apixaban Tab 2.5 MG TABLET PO SCH ×2 (08:41→21:38)
[2017-11-13] MEDS: DILTIAZEM HCL CD 120 MG CAP PO SCH ×2 (08:41→21:37)
[2017-11-13] MEDS: ESCITALOPRAM 10 MG TABLET PO SCH (08:41)
[2017-11-13] MEDS: LEVOTHYROXINE 100 MCG TABLET PO SCH (08:41)
[2017-11-13] MEDS ORDERED: Potassium Chloride Tab 10 MEQ TAB PO SCH (10:30)
[2017-11-13] MEDS: TORSEMIDE 20 MG PO SCH (11:00)
[2017-11-13] MEDS: cefTRIAXone Inj 1 GM in Sodium Chloride 0.9% 100 ML IV SCH (15:30)
[2017-11-13] MEDS ORDERED: POLYETHYLENE GLYCOL 3350 17 GM POWDER PO PRN (20:08)
[2017-11-13] MEDS: ATORVASTATIN 40 MG TABLET PO SCH (21:37)
[2017-11-14] MEDS: oxyCODONE/APAP 10/325 Tab 1 EACH TAB PO PRN ×4 (04:09→21:55)
[2017-11-14] MEDS: LEVOTHYROXINE 100 MCG TABLET PO SCH (05:42)
[2017-11-14] MEDS ORDERED: LEVALBUTEROL HCL 1.25 MG/3 ML NEB ONE ×4 (07:56→15:20)
[2017-11-14] MEDS: LEVALBUTEROL HCL 1.25 MG/3 ML NEB SCH ×4 (07:57→18:52)
[2017-11-14] MEDS: TORSEMIDE 20 MG PO SCH (09:14)
[2017-11-14] MEDS: DOCUSATE 100 MG CAPSULE PO SCH (09:15)
[2017-11-14] MEDS: Apixaban Tab 2.5 MG TABLET PO SCH ×2 (09:15→20:42)
[2017-11-14] MEDS: CLOPIDOGREL 75 MG TABLET PO SCH (09:15)
[2017-11-14] MEDS: ESCITALOPRAM 10 MG TABLET PO SCH (09:15)
[2017-11-14] MEDS: DILTIAZEM HCL CD 120 MG CAP PO SCH ×2 (09:16→20:41)
[2017-11-14] MEDS: Potassium Chloride Tab 10 MEQ TAB PO SCH (10:13)
--- NOTE | 2017-11-14 10:13 | PDOC(PROG) ---
Date of Service: 11/14/17 Time of Service: 10:20 Interval History: Subjective Patient feels better. She said she slept well last night. She is denying chest pain or shortness of breath. She wants to go for a walk. Objective : Data - Labs CBC and BMP: 11/13/17 05:00 11/13/17 05:00 Objective : Exam - General General Appearance: No Acute Distress, Cooperative, Obese - Head Head Exam: Normal Inspection - Eye Eye Exam: Normal Appearance - ENT ENT Exam: Normal Exam - Neck Neck Exam: Normal Inspection - Respiratory Additional Respiratory Exam Details: Decreased air entry otherwise clear - Cardiovascular Cardiovascular Exam: Irregular Rhythm - GI/Abdominal GI/Abdominal Exam: Normal Bowel Sounds, Non Tender, Non Distended, Soft, No Organomegaly - Rectal Rectal Exam: Deferred - External Exam: Deferred - Extremities Extremities Exam: Normal Inspection - Neurological Neurological Exam: Alert, Oriented x 3, CN II-XII Intact, Moves All Extremities Equally - Psychiatric Psychiatric Exam: Normal Affect Assessment and Plan - Patient Problems (1) Atrial fibrillation with rapid ventricular response Current Visit: Yes Status: Acute Comment: Rate is better controlled with the Cardizem. Continue anticoagulation. Did explain to the that we switched her to the Cardizem as seem not to be digoxin seems not working, she came in twice and her rate was not controlled. Code(s): I48.91 - Unspecified atrial fibrillation (2) Abnormal finding on urinalysis Current Visit: No Status: Acute Comment: Gram-negative bacilli growing in the culture. Will wait for identification and likely switch her to oral antibiotics. Code(s): R82.90 - Unspecified abnormal findings in urine (3) Coronary artery disease Current Visit: No Status: Acute Comment: She is on Plavix and Lipitor continue Code(s): I25.10 - Atherosclerotic heart disease of [place] coronary artery without angina pectoris Qualifiers: Coronary Disease-Associated Artery/Lesion type: [place] artery [place] vs. transplanted heart: [place] heart Associated angina: without angina Qualified Code(s): I25.10 - Atherosclerotic heart disease of [place] coronary artery without angina pectoris (4) Hypertension Current Visit: Yes Status: Acute Comment: Blood pressure seem to be better with Cardizem and torsemide. One of the issue would be compliance when she goes home. Last time we tried to convince her to use a pillbox however she was resistant. She still resistant to that this time too. We'll do MOCA today and CPT tomorrow. Code(s): I10 - Essential (primary) hypertension (5) Anxiety associated with depression Current Visit: No Status: Chronic Onset Date: 08/13/15 Comment: Continue Lexapro Code(s): F41.8 - Other specified anxiety disorders
[2017-11-14] MEDS: NITROFURANTOIN/NITROFURAN MAC 100 MG CAPSULE PO SCH ×2 (13:42→20:41)
[2017-11-14] MEDS ORDERED: LEVALBUTEROL HCL 0.63 MG/3 ML NEB ONE (15:19)
[2017-11-14] MEDS: ATORVASTATIN 40 MG TABLET PO SCH (20:41)
[2017-11-15] MEDS: LEVALBUTEROL HCL 1.25 MG/3 ML NEB SCH ×2 (06:58→10:49)
[2017-11-15] MEDS: oxyCODONE/APAP 10/325 Tab 1 EACH TAB PO PRN ×2 (07:05→13:34)
[2017-11-15] MEDS: LEVOTHYROXINE 100 MCG TABLET PO SCH (07:06)
[2017-11-15] MEDS: DILTIAZEM HCL CD 120 MG CAP PO SCH (11:16)
[2017-11-15] MEDS: Apixaban Tab 2.5 MG TABLET PO SCH (11:17)
[2017-11-15] MEDS: CLOPIDOGREL 75 MG TABLET PO SCH (11:17)
[2017-11-15] MEDS: ESCITALOPRAM 10 MG TABLET PO SCH (11:18)
[2017-11-15] MEDS: DOCUSATE 100 MG CAPSULE PO SCH (11:18)
[2017-11-15] MEDS: Potassium Chloride Tab 10 MEQ TAB PO SCH (11:18)
[2017-11-15] MEDS: TORSEMIDE 20 MG PO SCH (11:19)
[2017-11-15] MEDS: NITROFURANTOIN/NITROFURAN MAC 100 MG CAPSULE PO SCH (11:19)
--- NOTE | 2017-11-15 11:51 | OT PM DAY ---
PM - Occupational Therapy S: The patient states that she has trouble seeing; she cannot see very well , even with her glasses on. O: The patient was seen in her room. She completed the Scar Cognitive Assessment (MoCA) Visuospatial executive: 05/03 Namin Attention: Sub-task 1: 1/2 Sub-task 2: 1 Sub-task 3: 0/3 Language: Sub-task 1: 2/2 Sub-task 2: 0/ Abstraction: 1 Delayed recall: 05/03 Orientation: 6 The patient had a total score of 19/30 which puts her in the MILD cognitive impairment category. She was left with her lunch, upright in her chair. A: The patient got frustrated with any of the tasks that she had to complete on her own, like the visuospatial executive cube. Problem solving was very difficult for the patient. P: Continue seeing patient BID during the week and one time per day over the weekend until discharge. ALDAD
--- NOTE | 2017-11-15 12:39 | PTI REPORT ---
Thank you for the referral of Milagros Dennis. He was seen on 11/15/17 for an inpatient evaluation secondary to confusion. SUBJECTIVE: The patient is a 77-year-old female who has been hospitalize with us before with similar issues in the last six weeks. The patient lives with her at home. She has chronic pain issues. She is on 4 liters of oxygen. She has diabetic neuropathy and she is on quite a bit of pain medication. She comes into the hospital with a UTI and a-fib, which appears to be a chronic condition for her. She was very confused upon entering the hospital, as she was on her most recent hospitalization as well. The patient was attempting to do some therapy after her recent hospitalization but it only lasted for a visit or two. PAST MEDICAL HISTORY: Past medical history can be found in the patient's medical record. OBJECTIVE FINDINGS: General observations: The patient was alert and oriented x3 and seemed to be doing a lot better with her confusion and orientation. The patient has a lot of questions about why she has a catheter and when it can possibly be removed. Pain: The patient states she is having some minimal pain in her neck and shoulders and her ankles aren't too bad today. She has chronic pain in her right shoulder with the possibility of a rotator cuff tear. Range of motion: The patient demonstrates range of motion in her cervical spine that is functional and non painful. She demonstrates shoulder range of motion to approximately 90 to 100 degrees bilaterally. Strength: Lower extremity strength was 3/5 with functional range of motion. She had fair to fair minus core control. Ambulation: The patient does use a cane outside the home. Within the home, she uses no assistive devices. The patient is able to ambulate with stand by assist of one and a straight cane fairly well. Endurance: The patient does become short of breath easily. ASSESSMENT: Confusion due to her medication issues. When she comes to the hospital, the hospital kind of straightens her out and she does well for a while. The therapist is not sure the patient is able to manage her medications at home; whatever system she has in place is not working well. She has chronic atrial fibrillation and chronic pain as well as significant COPD. Short-Term Goals: To be met by discharge from inpatient: Patient will be able to transfer from bed to stand independently. Patient will be able to ambulate 100 feet with least restrictive assistive device. Patient will demonstrate lower extremity strength of 4/5 or greater. Long-Term Goals: To be met following discharge from inpatient: Patient will return home, independent with all ADLs and functional transfers. TREATMENT PLAN: Patient will be seen B.I.D during the week and one time per day over the weekend as an inpatient for light strengthening, transfers, and ambulatory activities. INITIAL TREATMENT: Treatment today consisted of the initial evaluation activities only. JAZLYN
--- NOTE | 2017-11-15 13:04 | DCSUMMARY ---
Hospitalization Summary Admit Date: 11/12/2017 Discharge Date: 11/15/17 Hospital Course: Discharge diagnoses 1. Atrial fibrillation with rapid ventricular response 2. UTI 3. Anxiety/depression 4. History of CVA before 5. Hypothyroidism 6. Hypertension 7. COPD on oxygen 8. Depression with anxiety 9. History of multiple degeneration 10. Chronic pain syndrome 11. Bladder incontinence Hospital course This is a 77 years old female with medical history significant for history of CVA before, A fib, coronary artery disease, COPD and chronic pain syndrome who was recently here in the hospital for some confusion which we believed at that time to be multifactorial in etiology, she had UTI, uncontrolled heart rate and she also had COPD exacerbation. Heart rate was controlled with Cardizem and digoxin was discontinued. The digoxin was discontinued as the we noticed her rate was not controlled with it. The dosage was recently adjusted as the level was supratherapeutic, so the level is either high or low with uncontrolled rate so this was switched to Cardizem. She has intolerance to beta venancio. Apparently this time before she came in her blood pressure was elevated she saw Dr. Martinez like 2 days or 3 days before she came into the ER he discontinued the Cardizem and put her back on the digoxin. His reasoning was that she has a LV dysfunction though her echo showed normal ejection fraction before, and her BNP on the day that he saw her was normal. This was done on Wednesday and she came in on Wednesday into the ER apparently complaining from confusion. She was found to be in atrial fibrillation uncontrolled rate. Her digoxin level was low. She was admitted to the hospital. After discussion with the family about what medication we should use and with her it seemed to me the Cardizem worked before, her LV function was normal before her BNP when she was on Cardizem improved compared to what it was when she was on digoxin. We decided to put her back on the Cardizem and discontinued the digoxin. Family was okay that she on okay with that. Urine did grow Escherichia coli which was resistant to trimethoprim. She received Rocephin and switched to Macrodantin. I did not DC the trimethoprim postdischarge I think this need to be looked at by her urologist as she was complaining from incontinence I thought will leave it up to him to decide to continue with it or not. The previous infection she had before was Klebsiella. She did improve and she did participate with physical therapy and she did okay and they thought that she is ready for discharged home. The issue that we tried to convince her is to have either a pillbox or home health nurse to come and check on her medication intake however she refused like the previous time. Medication compliance is an issue. She wasn't taking her diuretic as prescribed. And I'm not sure with her vision that she is taking all her medications correctly. I'm not sure whether she is taking more of her pain medications than she is prescribed. Discharge instructions Diet regular Activity as tolerated Medications Current Medication(s) 3 Medication Instructions Recorded Confirmed Type Oxygen (O2) 1 unit INH QHS unit 03/10/16 11/12/17 History clopidogrel 75 mg tablet 75 mg PO DAILY #90 tab 11/24/16 11/12/17 History docusate sodium 100 mg capsule 100 mg PO DAILY cap 11/24/16 11/12/17 History trimethoprim 100 mg tablet 100 mg PO QD tab 11/24/16 11/12/17 History atorvastatin 80 mg tablet 80 mg PO DAILY #90 tab 05/05/17 11/12/17 Rx apixaban 2.5 mg tablet 2.5 mg PO BID #60 tab 08/03/17 11/12/17 Rx levothyroxine 50 mcg tablet 50 mcg PO DAILY #90 tab-cap 08/16/17 11/12/17 Rx albuterol sulfate HFA 90 2 puff INH QID PRN #36 g 09/27/17 11/12/17 Rx mcg/actuation aerosol inhaler Escitalopram Oxalate [Lexapro] 10 mg PO DAILY tab 10/21/17 11/12/17 Rx oxycodone-acetaminophen 10 mg-325 1 tab PO Q6H PRN #120 tab 11/02/17 11/12/17 Rx mg tablet ipratropium 20 mcg-albuterol 100 1 inh INH QID 11/09/17 11/12/17 History mcg/actuation mist for inhalation potassium chloride ER 10 mEq 10 meq PO .QOD 30 Days cap 11/09/17 11/12/17 History capsule,extended release torsemide 20 mg tablet 20 mg PO DAILY tab 11/09/17 11/13/17 History Diltiazem 24Hr ER [Cardizem Cd] 120 mg PO BID #60 cap.sr.24h 11/15/17 Rx Nitrofurantoin Macro [Macrodantin] 100 mg PO BID #8 cap 11/15/17 Rx Follow-up with PCP 1-2 weeks, follow-up with urology 2 weeks Condition at discharge was stable for discharge Exam - Vitals Vital Signs: Vital Signs Temperature 97.9 F Temperature Source Temporal Artery Scan Pulse Rate [Apical] 63 Pulse Rate [Pulse Oximeter] 96 Pulse Rate 90 Respiratory Rate 16 Blood Pressure [Right Arm] 105/71 Blood Pressure [Left Arm] 169/89 Pulse Ox 100 Oxygen Flow Rate 4L Oxygen Delivery Method Nasal Cannula Height 5 ft 6 in Weight 216 lb 6.4 oz - General General Appearance: No Acute Distress, Cooperative, Obese - Head Head Exam: Normal Inspection - Eye Eye Exam: POSITIVE: Normal Appearance - ENT ENT Exam: POSITIVE: Normal Exam - Neck Neck Exam: Normal Inspection - Respiratory Respiratory Exam: POSITIVE: Clear to Auscultation - Bilaterally - Cardiovascular Cardiovascular Exam: POSITIVE: RRR - GI/Abdominal GI/Abdominal Exam: POSITIVE: Normal Bowel Sounds, Non Tender, Non Distended, Soft, No Organomegaly - Rectal Rectal Exam: POSITIVE: Deferred - External Exam: POSITIVE: Deferred Exam: POSITIVE: Deferred - Extremities Extremities Exam: POSITIVE: Normal Inspection - Neurological Neurological Exam: POSITIVE: Alert, Oriented x 3, CN II-XII Intact, No Facial Droop, Speech Intact / Clear, Moves All Extremities Equally - Psychiatric Psychiatric Exam: POSITIVE: Normal Affect Patient Problems - Patient Problem List (1) Atrial fibrillation with rapid ventricular response Status: Acute Code(s): I48.91 - Unspecified atrial fibrillation Category: Medical (2) Abnormal finding on urinalysis Status: Acute Code(s): R82.90 - Unspecified abnormal findings in urine Category: Medical (3) Coronary artery disease Status: Acute Code(s): I25.10 - Atherosclerotic heart disease of [place] coronary artery without angina pectoris Qualifiers: Coronary Disease-Associated Artery/Lesion type: [place] artery [place] vs. transplanted heart: [place] heart Associated angina: without angina Qualified Code(s): I25.10 - Atherosclerotic heart disease of [place] coronary artery without angina pectoris Category: Medical (4) Hypertension Status: Acute Code(s): I10 - Essential (primary) hypertension Category: Medical (5) Anxiety associated with depression Status: Chronic Onset Date: 08/13/15 Code(s): F41.8 - Other specified anxiety disorders Category: Medical
[2017-11-15 13:32] VITALS: BP 122/78; RESP 20; TEMP 97.7; O2SAT 90
--- NOTE | 2017-11-15 15:23 | OTI REPORT ---
Thank you for the referral of Milagros Dennis. She was seen on 11/15/17 for an occupational therapy inpatient evaluation secondary to confusion. SUBJECTIVE: The patient is a 77-year-old female who is being seen today secondary to weakness and cognitive concerns. Prior to admission the patient lived at home with her . 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 The patient reports that she is possibly having some difficulties with her medication management; she didn't think that she was, but there are times when she can't really see her medications, she just has them lined up in her cupboard. The patient takes her thyroid medication separately in the AM and then she fills her pill cup after she eats breakfast to take the rest of her medications. She also reported that she feels like her doctors change her medication frequently and that that she just can't keep up with the medication changes. Her daughter typically cleans her house. The patient does her own laundry and dishes and she showers independently. She typically uses her cane for ambulation outside of the house but does not use it in the house. The therapist had a long discussion with the patient on the use of a pill box; however, the patient stated "I need to do it daily, I can't do the week crap". The patient reports that she cannot see well enough to go shopping, so her family does all the shopping for her. The patient does not drive. The patient does have a phone at home with bigger numbers. She can see the numbers 3, 5, and 8 and can punch in the rest of the phone number that way. The patient cannot read the phone book. She has some phone numbers memorized. The patient does get meals on wheels five days a week, so this helps her and her out. For supper they usually have a snack like meal and use the toaster or the microwave. At one time the patient told the therapist that she takes her pain meds "two every six hours" and another time she told the therapist she takes "one every six hours". The patient's does not help her with medication management. When she gets short of breath he tells her to use her inhaler. PAST MEDICAL HISTORY: Past medical history can be found in the patient's medical record. OBJECTIVE FINDINGS: Cognition: The patient did have some difficulty finding words that she wanted to say. We attempted the CPT test; however, the patient was very adamant and refused a lot of the tasks. Cognitively the patient was in a rote learning type state where she was not abstractly seeing the big picture of how this could possibly benefit her in the long run to simulate tasks. Medication: The patient refused to use the pill boxes and could not read the directions on the bill boxes. Shopping: The patient did not want to try to use the correct amount of money or make change as she stated, "I do not do this in the store". [place]: The patient did not want to make toast. Washing: The patient did not want to use the sink. Phone: The patient was not able to visually see the phone numbers and refused to do the phone task. We attempted each task with explanation, but the patient reported she doesn't do these things and would not do them with the therapist. Range of motion: Upper extremity active range of motion is within functional limits. Strength: Strength throughout was 3+/5 for shoulder flexion, abduction, elbow flexion/extension, and internal/external rotation. Oxygen: The patient is on 4 liters of oxygen. The patient reports she is on 4 liters of oxygen everyday. The patient reports that she loses her breath quite frequently. ASSESSMENT: During the evaluation, the patient was enquiring about some medication management simulations. The therapist ended up calling [employer] as well as [employer] and they both stated they could help her set up her medications in a pill box form if she were to provide them. We also called [employer] which was recently purchased by another company. In the past, [employer] would send pills out in pill bubbles that would have all of the pills together; however, that company is not able to send medications through the mail anymore and the patient would have to go to [place] to get them. The patient was not willing to do that. The patient was slightly inquisitive about home health coming to help her set up her medications. The therapist did talk to [facility] and they stated that they could do a pill walk on her pills which would help her distribute the pills when she needed to take them as well as the correct pills. We could also put a timer on her pain pills if needed. After the therapist discussed this with the team, the patient refused all assistance with her her pain pills as well as medication management for home. It is recommended that the patient have somebody assist with her medication management on a weekly basis if not a daily basis to make sure that she is taking her pills as prescribed. The patient's vision is limiting a lot of her ability to see her medications. Cognitively she seems to be on a rote learning level. The patient was in the MILD cognitive impairment range with the MoCA yesterday. This indicates that the patient is having some mild cognitive processing issues which she did demonstrate today when attempting the CPT. Short-Term Goals: To be met by discharge from inpatient: Patient will be able to dress self without loss of breath independently. Patient will increase upper extremity strength to 4+/5 in bilateral upper extremities. Patient will complete all functional transfers with stand by assist. Long-Term Goals: To be met following discharge from inpatient: Patient will return home demonstrating a willingness for assistance with her medication management on a daily basis. TREATMENT PLAN: Patient will be seen B.I.D during the week and one time per day over the weekend as an inpatient to address the above goals and objectives. INITIAL TREATMENT: Treatment today consisted of the initial evaluation followed by attempting cognitive tasks. JAZLYN
--- NOTE | 2017-11-15 17:43 | PT.PROG ---
Progress Note Progress Note: S. Patient stated that she is feeling a little better today than yesterday. O. Patient ambulated 175 feet to the therapy gym where she performed seated exercises in the form of; long arc quads, marches, heel toe raises, clam shells , resisted knee flexion all x 15 bilaterally. Standing balance activities 3 x 30 seconds feet together, tandem stance bilaterally. Patient was left with OT for further therapy. A. Patient tolerated therapy well this morning, she continues to have some weakness and would continue to benefit from skilled therapy at this time. P. Continue POC.
== END 2017-11-15 14:30 | disposition home or self-care (01) | DRG 309 ==
LOC: ER 09:48 → MED/SURG 12:56
PROVIDERS: ADMIT Internal Medicine; ATTEND Internal Medicine

== ENCOUNTER 2017-11-24 09:48 | Inpatient (IN) ==
[2017-11-24] MEDS ORDERED: Sodium Chloride 0.9% 1,000 ML PRIMARY IV ONE (10:42)
[2017-11-24] MEDS ORDERED: IPRATROPIUM/ALBUTEROL SULFATE 3 ML NEB NEB ONE (10:46)
--- NOTE | 2017-11-24 10:46 | EKG ---
[address] [address] Measurements Intervals [place] Rate: 114 P: [place]: 0 QRS: 50 QRSD: 113 T: 34 QT: 321 QTc: 389 Interpretive Statements ATRIAL FIBRILLATION WITH RAPID VENTRICULAR RESPONSE MODERATE INTRAVENTRICULAR CONDUCTION DELAY ST & T-WAVE ABNORMALITY, POSSIBLE INFERIOR ISCHEMIA ABNORMAL RHYTHM ECG Compared to ECG 11/12/2017 10:21:33 No significant changes Electronically Signed On 11-24-17 12:18:35 MDT by Norberto Martinez [email or web address]
[2017-11-24 10:50] LABS: BASOPHILS # (AUTO) 0.04 10*3/UL; BASOPHILS % (AUTO) 0.3 % (0-1); EOSINOPHILS # (AUTO) 0.21 10*3/UL; EOSINOPHILS % (AUTO) 1.7 % (0-8); Hematocrit [HCT] 42.7 % (37.0-47.0); Hemoglobin [HGB] 14.3 g/dL (12.0-16.0); LYMPHOCYTES # (AUTO) 1.05 10*3/uL; MEAN CORPUSCULAR HEMOGLOBIN 30.8 PG (27-31); MEAN CORPUSCULAR HGB CONC 33.5 g/dL (33-37); MEAN CORPUSCULAR VOLUME 91.8 FL (81-99); MEAN PLATELET VOLUME 9.1 FL (7.4-12.2); MONOCYTES # (AUTO) 0.79 10*3/UL (0.3-0.8); MONOCYTES % (AUTO) 6.5 % (5-15); NEUTROPHILS # (AUTO) 9.99 10*3/UL; NEUTROPHILS % (AUTO) 82.5 % (50-80); RED BLOOD COUNT 4.65 10^6/uL (4.20-5.40)
[2017-11-24 11:01] LABS: BLOOD UREA NITROGEN 21 mg/dL (7-22); BUN/CREATININE RATIO 26.25 (6-20); SERUM ALBUMIN 4.8 g/dL (3.5-4.8)
[2017-11-24 11:06] LABS: PLATELET MORPHOLOGY COMMENT NORMAL MORPHOLOGY (NORM); RBC MORPHOLOGY COMMENT NORMAL MORPHOLOGY (NORM); WBC MORPHOLOGY COMMENT NORMAL MORPHOLOGY (NORM)
[2017-11-24 11:07] LABS: BILIRUBIN,URINE NEGATIVE (NEG); CLARITY,URINE CLEAR (CLEAR); COLOR,URINE YELLOW (Y); GLUCOSE, URINE (UA) NEGATIVE (NEG); OCCULT BLOOD,URINE Trace-intact (NEG); PH,URINE 7.5 (5.0-8.5); PROTEIN,URINE NEGATIVE (NEG); UROBILINOGEN,URINE 0.2 EU/dL (0.2)
[2017-11-24 11:22] LABS: SQUAMOUS EPITHELIAL CELL,UR RARE; URINE SAMPLE TYPE CATH SPECIMEN
[2017-11-24 11:34] LABS: VENOUS PH 7.46 (7.32-7.42)
--- NOTE | 2017-11-24 12:04 | DI ---
PA /LATERAL CHEST, 11/24/2017 10:42 AM : Clinical History: Cough. Dyspnea. Previous Exam: 09/15/2017. There is no acute soft tissue or bony abnormality. The patient is status post CABG. There is cardiome yary without CHF. There is left lower lobe atelectasis versus a very early pneumonia. The atelectasis in the right middle lobe present on the prior exam has completely resolved. There is centrilobular e mphysema with pulmonary arterial hypertension. Mediastinal structures are otherwise normal. There are no pulmonary nodules. Readin. There is left lower lobe atelectasis versus a very early pneumonia. 2. Centrilobular emphysema with pulmonary arterial hypertension. 3. Cardiomegaly without CHF. The patient is status post CABG.
[2017-11-24] MEDS ORDERED: cefTRIAXone Inj 1 GM in Sodium Chloride 0.9% 100 ML IV ONE (12:37)
--- NOTE | 2017-11-24 13:05 | PDOC ---
HPI - History of Present Illness History of Present Illness: This is a very nice 77-year-old female who was just discharged from the hospital on November 12 and 2 weeks prior to that also had another admission. Last admission the a month ago was for confusion which was the team to be multifactorial at that time other admissions for COPD exacerbation and UTI comes back to the hospital with some shortness of breath and hypoxia and possible pneumonia in the past I think she was taken off Cardizem and put on digoxin and the reason was for LV dysfunction even though her echo echo showed normal ejection fraction she was put back on Cardizem which worked very well for the patient for rate control. Patient states that she forgets things and the is not focused she also has some cough also feels anxious but this is not new Past Medical History Medical History: 1. Hypertension. 2. Hypothyroidism. 3. COPD, with chronic hypoxemic respiratory failure on 4 L of nasal cannula at baseline. 4. Sleep apnea. 5. Depression apparently with anxiety features. 6. osteoporosis. 7. Atrial fibrillation. 8. Coronary artery disease status post CABG. 9. 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 10. Macular degeneration. 11. Carotid artery disease status post carotid stent placement on the right and prior carotid endarterectomy. 12. Chronic pain syndrome attributed to feet problems. I could not elicit any symptoms of neuropathy on history. Surgical History: 1. Carotid endarterectomy. 2. History of CABG. 3. Hysterectomy. 4. Right carotid internal artery stent. 5. Hysterectomy with bladder suspension. 6. Renal artery stent Family History: Reviewed an Not Pertinent Pertinent Family History: Heart disease in her father and in her siblings Past Social History: She used to smoke quit many years ago, rarely drinks. No drugs. . Has children. Tobacco Use: Never Smoker In the Past 12 Months, Have Used or Abuse Any of the Following Substance: None Medication / Allergies Home Medications: Home Medications 3 Medication Instructions Recorded Confirmed Type Oxygen (O2) 1 unit INH QHS unit 03/10/16 11/24/17 History clopidogrel 75 mg tablet 75 mg PO DAILY #90 tab 11/24/16 11/24/17 History docusate sodium 100 mg capsule 100 mg PO DAILY cap 11/24/16 11/24/17 History trimethoprim 100 mg tablet 100 mg PO QD tab 11/24/16 11/24/17 History atorvastatin 80 mg tablet 80 mg PO DAILY #90 tab 05/05/17 11/24/17 Rx apixaban 2.5 mg tablet 2.5 mg PO BID #60 tab 08/03/17 11/24/17 Rx levothyroxine 50 mcg tablet 50 mcg PO DAILY #90 tab-cap 08/16/17 11/24/17 Rx albuterol sulfate HFA 90 2 puff INH QID PRN #36 g 09/27/17 11/24/17 Rx mcg/actuation aerosol inhaler Escitalopram Oxalate [Lexapro] 10 mg PO DAILY tab 10/21/17 11/24/17 Rx oxycodone-acetaminophen 10 mg-325 1 tab PO Q6H PRN #120 tab 11/02/17 11/24/17 Rx mg tablet ipratropium 20 mcg-albuterol 100 1 inh INH QID 11/09/17 11/24/17 History mcg/actuation mist for inhalation potassium chloride ER 10 mEq 10 meq PO .QOD 30 Days cap 11/09/17 11/24/17 History capsule,extended release torsemide 20 mg tablet 20 mg PO DAILY tab 11/09/17 11/24/17 History Diltiazem 24Hr ER [Cardizem Cd] 120 mg PO BID #60 cap.sr.24h 11/15/17 11/24/17 Rx Allergies/Adverse Reactions: Allergies 3 Allergy/AdvReac Type Severity Reaction Status Date / Time sulfamethoxazole Allergy Severe pruritis, Verified 11/24/17 08:49 [From Bactrim] short of breath, chest pain trimethoprim [From Bactrim] Allergy Severe pruritis, Verified 11/24/17 08:49 short of breath, chest pain toprop XL AdvReac Severe NAUSEA Uncoded 11/12/17 09:56 PAIN CONTRACT AdvReac Unknown NOT Uncoded 11/12/17 09:56 APPLICABLE oxycotin AdvReac NAUSEA Uncoded 11/12/17 09:56 Review of Systems - Review of Systems All Systems: Reviewed & No Additional Complaints Except as Stated - Gastrointestinal Gastrointestinal / Abdominal: DENIES: Negative System Review, Nausea, Vomiting, Diarrhea, Constipation, Abdominal Pain, Bloody Stool, Poor Appetite, Heartburn, Regurgitation, Bloating, Lactose Intolerance, Melena, Bright Red Blood per Rectum, Other, See HPI Exam - Vitals Vital Signs: Vital Signs Temperature 97.7 F Temperature Source Temporal Artery Scan Pulse Rate [Pulse Oximeter] 112 Pulse Rate 116 Respiratory Rate 18 Blood Pressure [Left Arm] 147/85 Pulse Ox 100 Oxygen Delivery Method Room Air Height 5 ft 6 in Weight 213 lb - General General Appearance: Mild Distress - Neck Neck Exam: Normal Inspection, Full ROM, No Tenderness, No Lymphadenopathy, No Thyromegaly, JVP is not Raised - Respiratory Respiratory Exam: POSITIVE: Crackles, Wheezes - Cardiovascular Cardiovascular Exam: POSITIVE: RRR, No Murmur, No Clicks, No Gallops, No Rubs, PMI Non-Displaced - GI/Abdominal GI/Abdominal Exam: POSITIVE: Normal Bowel Sounds, Non Tender, Non Distended, Soft, No Masses, No Hepatomegaly, No Splenomegaly, No Organomegaly - Extremities Extremities Exam: POSITIVE: No Clubbing Present, No Edema Present - Neurological Neurological Exam: POSITIVE: Alert, Oriented x 3, Speech Intact / Clear - Psychiatric Psychiatric Exam: POSITIVE: Anxious Results - Labs CBC and BMP: 11/24/17 10:20 11/24/17 10:20 Assessment and Plan - Patient Problems (1) COPD exacerbation Current Visit: No Status: Acute Comment: We will start Rocephin and Zithromax and steroids and inhalers check VBG and CT scan of the chest to make sure she does not have a pulmonary embolus or pneumonia unclear with with x-ray Code(s): J44.1 - Chronic obstructive pulmonary disease with (acute) exacerbation (2) Expressive aphasia Current Visit: No Status: Acute Code(s): R47.01 - Aphasia (3) Anxiety disorder Current Visit: No Status: Acute Comment: We will write for some Ativan when necessary Code(s): F41.9 - Anxiety disorder, unspecified Qualifiers: (4) Atrial fibrillation with rapid ventricular response Current Visit: No Status: Acute Code(s): I48.91 - Unspecified atrial fibrillation (5) Dementia Current Visit: Yes Status: Acute Comment: Patient seems to not know what to do next her make any decisions will get a cognitive eval from occupational therapy and consult [facility] for anxiety Code(s): F03.90 - Unspecified dementia without behavioral disturbance
[2017-11-24] MEDS ORDERED: ALBUTEROL SULFATE 8.5 GM HFA INHALER INH PRN (13:11)
[2017-11-24] MEDS ORDERED: cefTRIAXone Inj 2 GM in Sodium Chloride 0.9% 100 ML IV SCH (13:11)
[2017-11-24] MEDS ORDERED: ALBUTEROL SULFATE 2.5 MG/3 ML NEB PRN (13:11)
[2017-11-24] MEDS ORDERED: LIDOCAINE W/ SODIUM BICARB 0.5 ML SYR SUBD PRN (13:11)
[2017-11-24] MEDS: oxyCODONE/APAP 10/325 Tab 1 EACH TAB PO PRN ×2 (13:54→20:35)
[2017-11-24] MEDS: LORazepam 2 MG/1 ML VIAL IVP PRN ×2 (13:55→20:36)
[2017-11-24] MEDS ORDERED: TORSEMIDE 20 MG PO SCH ×2 (14:00→16:30)
--- NOTE | 2017-11-24 14:22 | PDOC ---
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 The patient and the patient's daughter states that for the past week or so the patient has had episodes of "confusion". The daughter reports that the patient has episodes of "not knowing where she is at". Daughter reports that the patient has episodes of being "disoriented and argumentative". The daughter gives the example that the patient recently insisted that there was "the #1 on her pajamas, when there were no numbers on her pajamas. Daughter reports that the patient has a history of recurring urinary tract infections and was recently evaluated for this problem as well as urinary frequency and incontinence, and a Reece catheter was placed. Patient was recently admitted to this facility for a urinary tract infection, and was discharged 9 days ago. Patient states that she has been on prophylactic antibiotics for recurring urinary tract infections. Patient has a history of chronic foot pain, diagnosed as "neuropathy" for which she takes oxycodone/APAP. History of atrial fibrillation , for which she is on Eliquis. Patient reportedly had a low-grade fever in her physician's office earlier this morning. Patient has a history of COPD and takes beta agonists by inhalation. She is on 4 L of oxygen per minute chronically. In the emergency room her oxygen saturation was 89% on 6 L. Patient denies any chest pain. No GI symptoms. The patient's taping supervisor sent the patient to the emergency room for further evaluation. Have you received a tetanus shot in the past 10 years?: No Body Location Affected: REPORTS: Chest (Cough, shortness of breath), Other ( Episodes of confusion) Timing: REPORTS: Gradual (Cough gradually worsening over the past 3 or 4 days) Duration: <1 week Severity: Moderate Quality: REPORTS: Other (Patient denies any pain anywhere) Context: REPORTS: None Modifying Factors: improves with: Coughing Similar Symptoms Previously: No Recent Care Received: REPORTS: Recently Seen, Treated by MD, Hospitalized Any Prior Injuries Related to Current Complaint?: No - Patient Home Medications Home Medications: Home Medications Oxygen (O2) 1 unit INH QHS unit 03/10/16 clopidogrel 75 mg tablet 75 mg PO DAILY #90 tab 11/24/16 docusate sodium 100 mg capsule 100 mg PO DAILY cap 11/24/16 trimethoprim 100 mg tablet 100 mg PO QD tab 11/24/16 atorvastatin 80 mg tablet 80 mg PO DAILY #90 tab 05/05/17 apixaban 2.5 mg tablet 2.5 mg PO BID #60 tab 08/03/17 levothyroxine 50 mcg tablet 50 mcg PO DAILY #90 tab-cap 08/16/17 albuterol sulfate HFA 90 mcg/actuation aerosol inhaler 2 puff INH QID PRN #36 g 09/27/17 Escitalopram Oxalate [Lexapro] 10 mg PO DAILY tab 10/21/17 oxycodone-acetaminophen 10 mg-325 mg tablet 1 tab PO Q6H PRN #120 tab 11/02/17 ipratropium 20 mcg-albuterol 100 mcg/actuation mist for inhalation 1 inh INH QID 11/09/17 potassium chloride ER 10 mEq capsule,extended release 10 meq PO .QOD 30 Days cap 11/09/17 torsemide 20 mg tablet 20 mg PO DAILY tab 11/09/17 Diltiazem 24Hr ER [Cardizem Cd] 120 mg PO BID #60 cap.sr.24h 11/15/17 - Patient Allergies Allergies/Adverse Reactions: Allergies 3 Allergy/AdvReac Type Severity Reaction Status Date / Time sulfamethoxazole Allergy Severe pruritis, Verified 11/24/17 08:49 [From Bactrim] short of breath, chest pain trimethoprim [From Bactrim] Allergy Severe pruritis, Verified 11/24/17 08:49 short of breath, chest pain toprop XL AdvReac Severe NAUSEA Uncoded 11/12/17 09:56 PAIN CONTRACT AdvReac Unknown NOT Uncoded 11/12/17 09:56 APPLICABLE oxycotin AdvReac NAUSEA Uncoded 11/12/17 09:56 Past Medical History - heen HEENT History: Denies History, Dentures/Partials Cardiovascular History: Hypertension, Arrhythmia, Hyperlipidemia Additional Cardiovasular History: LE EDEMA Respiratory History: COPD, Shortness of Breath, Home Oxygen Use Gastrointestinal History: Denies History Genitourinary History: Recurrent UTI, Incontinence, Other (please comment) Additional Genitourinary History: had stent to kidney Endocrine History: Hypothyroidism Musculoskeletal History: Arthritis Prosthesis or Implant: No Neurological History: Denies History Blood Disorders: Denies History Psychiatric History: Depression History of Sexually Transmitted Diseases: No Female Reproductive History: Hysterectomy Obstetrical History: Denies History Cancer History: Denies History In Past Year Been Physically Harmed or Verbally Threatened: No History of MDRO: No History of Other Communicable Diseases: No Tobacco Use: Never Smoker Alcohol Use: Occasionally In the Past 12 Months, Have Used or Abuse Any Substance: None Previous Surgical History: Yes Type / Date of Surgery: CABG, CAROTID ARTERY STENT X2, RENAL STENT Anesthesia Reactions: No Malignant Hyperthermia: No Significant Family History: No pertinent family hx Past Medical History Reviewed: Reviewed - No Changes ROS - Limitations ROS Limitations: No Limitations Constitution: REPORTS: Fever (Subjectively) Cardiovascular: REPORTS: Denies Cardiac Symptoms Respiratory: REPORTS: Cough Productive, Shortness Of Breath Neurological: REPORTS: Confusion (Intermittent) Gastrointestinal: REPORTS: Denies GI Symptoms Endocrine: REPORTS: Denies Symptoms Musculoskeletal: REPORTS: Denies MS Symptoms Genitourinary: REPORTS: Denies Symptoms Eyes: REPORTS: Denies Symptoms ENT: REPORTS: Denies Symptoms Skin: REPORTS: Denies Skin Symptoms Lympathic: REPORTS: Denies Lympathic Symptoms Immunologic: POSITIVE: Denies Symptoms Psychiatric: POSITIVE: Denies Psych Symptoms General Adult Exam - General Appearance General Appearance: POSITIVE: Alert, Cooperative, No Acute Distress, No Evidence of Trauma - HEENT HEENT: POSITIVE: Head Inspection Nml, Eyes Inspection Nml, Ears Inspection Nml, Nose Inspection Nml, Oral/Dental Inspect. Nml, Pharynx Inspect. Nml, PERRL, EOMI - Pupils Pupil Size: 4 mm: Bilateral - Neck Neck: POSITIVE: Normal Inspection, Thyroid Normal - Respiratory Respiratory: POSITIVE: No Respiratory Distress, Rales (Rales left lung base). NEGATIVE: Breath Sounds Normal - Cardiovascular Cardiovascular: POSITIVE: No Murmur, Irregularly Irreg. Rhythm, Tachycardia ( Atrial fibrillation at a rate of 1 12/m). NEGATIVE: Regular Rate & Rhythm ( Irregularly irregular rhythm), No Gallop Peripheral Pulses: Radial (R): 2+, Radial (L): 2+ - Abdomen Abdomen: Soft: (All Quadrants), Normal Bowel Sounds: (All Quadrants), Denies Tenderness: (All Quadrants), No Splenomegaly: (All Quadrants), No Hepatomegaly: (All Quadrants), No Guarding: (All Quadrants), No Rebound: (All Quadrants), No Palpable Pulse: (All Quadrants), No Palpabale Mass: (All Quadrants), No Distention: (All Quadrants), No Rigidity: (All Quadrants) - Back Back: POSITIVE: Normal Inspection - Skin Skin: POSITIVE: Normal Color, Warm, Dry, No Rash - Extremities Extremity: Non-Tender: (All Extremities), Normal ROM: (All Extremities), Normal Inspection: (All Extremities) - Neurological / Psychological Neurological: POSITIVE: Affect Apporpriate, Oriented X3, earth moving technician Normal As Tested, Motor Normal, Sensation Normal General Adult Progress - Results Reviewed by me Xrays/CTs/US Reviewed by me: Yes Discussed with Radiologist: Yes Radiology Findings: Chest x-ray shows left lower lobe atelectasis versus pneumonia Lab Results Reviewed by Me: Yes Lab Results:: Laboratory Results 3 11/24/17 11/24/17 11/24/17 10:20 10:20 10:20 WBC 12.12 H RBC 4.65 Hgb 14.3 Hct 42.7 MCV 91.8 MCH 30.8 MCHC 33.5 RDW Std Deviation 54.6 H RDW Coeff of Karis 16.8 H Plt Count 383 H MPV 9.1 Immature Gran % (Auto) 0.3 Neut % (Auto) 82.5 H Lymph % (Auto) 8.7 L [place] % (Auto) 6.5 Eos % (Auto) 1.7 Baso % (Auto) 0.3 Immature Gran # (Auto) 0.04 Neut # (Auto) 9.99 Lymph # (Auto) 1.05 [place] # (Auto) 0.79 Eos # (Auto) 0.21 Baso # (Auto) 0.04 WBC Morphology Comment Normal morphology Plt Morphology Comment Normal morphology RBC Morph Comment Normal morphology D-Dimer 0.50 VBG pH VBG pCO2 VBG HCO3 VBG Base Excess Sodium 136 Potassium 3.6 L Chloride 92 L Carbon Dioxide 36 H Anion Gap 8 BUN 21 Creatinine 0.8 BUN/Creatinine Ratio 26.25 H Glucose 134 H Calculated Osmolality 286.0 Lactic Acid Calcium 9.3 Magnesium 2.0 Total Bilirubin 0.9 AST 46 H ALT 21 Alkaline Phosphatase 88 Total Creatine Kinase 48 Troponin I C-Reactive Protein 0.8 NT-Pro-B Natriuret Pep 673 H Total Protein 8.1 H Albumin 4.8 Globulin 3.3 Albumin/Globulin Ratio 1.40 Ur Collection Type Urine Color Urine Clarity Urine pH Ur Specific [place] Urine Protein Urine Glucose (UA) Urine Ketones Urine Occult Blood Urine Nitrate Urine Bilirubin Urine Urobilinogen Ur Leukocyte Esterase Urine RBC Urine WBC Ur Squamous Epith Cells Ur Renal Epithelial Cell Urine Crystals Urine Bacteria Urine Casts Urine Mucus Urine Trichomonas Urine Yeast Ur Culture Indicated? 3 11/24/17 11/24/17 11/24/17 10:20 10:20 10:50 WBC RBC Hgb Hct MCV MCH MCHC RDW Std Deviation RDW Coeff of Karis Plt Count MPV Immature Gran % (Auto) Neut % (Auto) Lymph % (Auto) [place] % (Auto) Eos % (Auto) Baso % (Auto) Immature Gran # (Auto) Neut # (Auto) Lymph # (Auto) [place] # (Auto) Eos # (Auto) Baso # (Auto) WBC Morphology Comment Plt Morphology Comment RBC Morph Comment D-Dimer VBG pH 7.46 H VBG pCO2 54 VBG HCO3 38 H VBG Base Excess 14 H Sodium Potassium Chloride Carbon Dioxide Anion Gap BUN Creatinine BUN/Creatinine Ratio Glucose Calculated Osmolality Lactic Acid 1.9 Calcium Magnesium Total Bilirubin AST ALT Alkaline Phosphatase Total Creatine Kinase Troponin I 0.017 C-Reactive Protein NT-Pro-B Natriuret Pep Total Protein Albumin Globulin Albumin/Globulin Ratio Ur Collection Type Urine Color Urine Clarity Urine pH Ur Specific [place] Urine Protein Urine Glucose (UA) Urine Ketones Urine Occult Blood Urine Nitrate Urine Bilirubin Urine Urobilinogen Ur Leukocyte Esterase Urine RBC Urine WBC Ur Squamous Epith Cells Ur Renal Epithelial Cell Urine Crystals Urine Bacteria Urine Casts Urine Mucus Urine Trichomonas Urine Yeast Ur Culture Indicated? 3 11/24/17 11:01 WBC RBC Hgb Hct MCV MCH MCHC RDW Std Deviation RDW Coeff of Karis Plt Count MPV Immature Gran % (Auto) Neut % (Auto) Lymph % (Auto) [place] % (Auto) Eos % (Auto) Baso % (Auto) Immature Gran # (Auto) Neut # (Auto) Lymph # (Auto) [place] # (Auto) Eos # (Auto) Baso # (Auto) WBC Morphology Comment Plt Morphology Comment RBC Morph Comment D-Dimer VBG pH VBG pCO2 VBG HCO3 VBG Base Excess Sodium Potassium Chloride Carbon Dioxide Anion Gap BUN Creatinine BUN/Creatinine Ratio Glucose Calculated Osmolality Lactic Acid Calcium Magnesium Total Bilirubin AST ALT Alkaline Phosphatase Total Creatine Kinase Troponin I C-Reactive Protein NT-Pro-B Natriuret Pep Total Protein Albumin Globulin Albumin/Globulin Ratio Ur Collection Type Cath specimen Urine Color Yellow Urine Clarity Clear Urine pH 7.5 Ur Specific [place] 1.015 Urine Protein Negative Urine Glucose (UA) Negative Urine Ketones Negative Urine Occult Blood Trace-intact H Urine Nitrate Negative Urine Bilirubin Negative Urine Urobilinogen 0.2 Ur Leukocyte Esterase Negative Urine RBC None Urine WBC None Ur Squamous Epith Cells Rare Ur Renal Epithelial Cell None Urine Crystals None Urine Bacteria None Urine Casts None Urine Mucus Rare Urine Trichomonas None Urine Yeast None Ur Culture Indicated? Culture not set CBC and BMP: 11/24/17 10:20 11/24/17 10:20 EKG Interpreted/Reviewed By Me:: Yes (atrial fibrillation with ventricular response of 112) EKG Interpretation:: POSITIVE: Normal Intervals, Normal [place], Normal QRS. NEGATIVE: Normal Sinus Rhythm, Normal Rate, Normal ST/T, Abnormal EKG (Atrial fibrillation with a ventricular response of 1 12/m with ST depression V4, V5, V6 , 1 and aVF) - Patient's Progress Pain Medication Addressed: POSITIVE: Not Applicable School/Work Release Addressed: POSITIVE: Not Applicable Re-Examine Time: 12:00 Re-Examine Comment: Patient states she feels some better after nebulizer treatment with DuoNeb. 1 g of Rocephin given after blood cultures. Status: POSITIVE: Improved, Re-Examined Antibiotics Given: Yes (Rocephin 1 g IV) - Consult Consult (If Yes, Name of Consulting MD & Time Called): Yes (Dr. Mccord, hospitalist, [id number]) Consulting MD will see pt:: POSITIVE: [facility] [place] Admit Counseled: POSITIVE: Patient, Family, RE: Lab Results, RE: Radiology Results, RE : DX, RE: Need for F/U Patient Care Time - Estimated PCT Patient Care Time (In Minutes): 60 Vital Signs - Recent Vital Signs Vital Signs: Vital Signs (Last 8 hours) Temp Pulse Pulse Resp BP Pulse Ox 11/24/17 11:26 116 H 18 100 11/24/17 11:25 110 H 16 96 11/24/17 10:16 97.7 F 112 H 32 H 147/85 89 - VS Reviewed Vital Signs Reviewed: Yes Discharge Clinical Impression: Pneumonia, COPD (chronic obstructive pulmonary disease), Altered mental status , Atrial fibrillation with rapid ventricular response Discharge Disposition: Admit to Inpatient Condition: Fair Date Decision to Admit to Inpatient: 11/24/17 Time Decision to Admit to Inpatient: 12:30
[2017-11-24] MEDS: methylPREDNISolone 125 MG/2 ML VIAL IVP SCH ×2 (15:36→19:55)
[2017-11-24] MEDS: Potassium Chloride Tab 10 MEQ TAB PO SCH (15:37)
--- NOTE | 2017-11-24 19:53 | DI ---
CT ANGIOGRAM OF THE CHEST, 11/24/2017 1:33 PM : Clinical History: Hypoxia. Cough. Previous Exam: 10/18/2017. Scans are performed from the base of the neck to the lower lung bases with IV contrast. 5 mL of Isovu e 370 was injected IV. Proprietary automated bolus tracking software was used to verify the timing of the injection. The base of the neck and thoracic inlet are normal. There are no abnormal axillary, supraclavicular, mediastinal, or hilar nodes. There is cardiomegaly and on the lot worker view, the heart has a "globular" configuration. There is four-chamber dilatation indicating a cardiomyopathy. The patient is status po st CABG and only the ORTIZ graft is visualized but it does not appear opacified. Coronary artery calci fications are present in the entire length of the left circumflex artery, the proximal and middle thi rds of the LAD, and the proximal half of the right coronary artery. The cardiomyopathy is most likely secondary to ischemia. The vessels are more prominent and more vessels are visualized than on the pr evious exam and this patient probably is in CHF. There is pulmonary arterial hypertension without nori dence of pulmonary emboli or pulmonary embolism with infarction. The previous study showed almost com plete atelectasis of the right middle lobe and this has reexpanded. There is a small right pleural ef fusion. No acute infiltrate is present. There is atelectasis in the right lower lobe. The bilateral a drenal masses have not changed since the prior exam. There are above fat density although the patient did receive IV contrast. The spleen and limited views of the pancreas are normal. There probably is fatty infiltration of the liver. Reflux of contrast into the hepatic veins suggest there is tricuspid insufficiency as well. READIN. There is no evidence of pulmonary embolism or pulmonary embolism with infarction. There is pulmon edi arterial hypertension. 2. Four-chamber enlargement with a globular heart configuration consistent with a cardiomyopathy mos t likely secondary to ischemia. The ORTIZ graft is visualized but is not well opacified. Other grafts are not visualized. This patient probably has CHF, and may have tricuspid insufficiency. 3. There is no acute infiltrate. A small right pleural effusion is present. The collapse of the righ t middle lobe seen on the prior exam has resolved. 4. There has been no change in the bilateral adrenal masses.
[2017-11-24] MEDS: DILTIAZEM HCL CD 120 MG CAP PO SCH (20:35)
[2017-11-24] MEDS: ATORVASTATIN 40 MG TABLET PO SCH (20:35)
[2017-11-24] MEDS: DOCUSATE 100 MG CAPSULE PO SCH (20:36)
[2017-11-24] MEDS: Apixaban Tab 2.5 MG TABLET PO SCH (20:36)
[2017-11-25] MEDS: methylPREDNISolone 125 MG/2 ML VIAL IVP SCH (01:13)
[2017-11-25] MEDS: oxyCODONE/APAP 10/325 Tab 1 EACH TAB PO PRN ×3 (04:02→21:17)
[2017-11-25 04:55] LABS: BASOPHILS # (AUTO) 0.02 10*3/UL; BASOPHILS % (AUTO) 0.2 % (0-1); EOSINOPHILS # (AUTO) 0.01 10*3/UL; EOSINOPHILS % (AUTO) 0.1 % (0-8); Hematocrit [HCT] 44.7 % (37.0-47.0); Hemoglobin [HGB] 14.8 g/dL (12.0-16.0); LYMPHOCYTES # (AUTO) 0.58 10*3/uL; MEAN CORPUSCULAR HGB CONC 33.1 g/dL (33-37); MEAN CORPUSCULAR VOLUME 93.5 FL (81-99); MEAN PLATELET VOLUME 9.5 FL (7.4-12.2); MONOCYTES # (AUTO) 0.05 10*3/UL (0.3-0.8); MONOCYTES % (AUTO) 0.6 % (5-15); NEUTROPHILS # (AUTO) 7.65 10*3/UL; NEUTROPHILS % (AUTO) 91.9 % (50-80); RED BLOOD COUNT 4.78 10^6/uL (4.20-5.40)
[2017-11-25 05:12] LABS: BLOOD UREA NITROGEN 21 mg/dL (7-22)
--- NOTE | 2017-11-25 05:14 | PDOC(PROG) ---
Interval History: Patient states that she slept for the first time in many days and her thinking is way better she is still very anxious and I think this is the major reason for this nice patient issues of from not being able to rest. Denies chest pain or shortness of breath Objective : Data - Labs CBC and BMP: 11/25/17 04:04 11/25/17 04:04 Objective : Exam - General General Appearance: Cooperative - Respiratory Respiratory Exam: Clear to Auscultation - Bilaterally, Breathing Non Labored, Normal To Percussion, Normal to Percussion and Palpation - Cardiovascular Cardiovascular Exam: RRR, No Murmur, No Clicks, No Gallops, No Rubs, PMI Non- Displaced - Extremities Extremities Exam: No Clubbing Present, No Edema Present, No Cyanosis Present - Neurological Neurological Exam: Alert, Oriented x 3, No Facial Droop, Speech Intact / Clear - Psychiatric Psychiatric Exam: Anxious Assessment and Plan - Patient Problems (1) COPD exacerbation Current Visit: No Status: Acute Comment: Continue antibiotics and steroids. CT reveals no pneumonia no pulmonary embolus but consistent with the cardiomyopathy echo done on showed some may be right heart failure and EF of 65% and pulmonary hypertension but CT of her chest reveals ischemic cardiomyopathy in patient with previous coronary artery disease we'll repeat Bnp. VBG within normal limits. I did speak with Dr. 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 Xanax 3 times a day scheduled patient at the moderate to severe anxiety patient realizes that this is a major issue in her life and she is not able to sleep for the first time yesterday with some Ativan was able to have some rest and now feels much better I will start add Xanax 1 mg 3 times a day Code(s): F41.9 - Anxiety disorder, unspecified Qualifiers: (3) Atrial fibrillation with rapid ventricular response Current Visit: Yes Status: Acute Comment: Stable on Cardizem she is also anticoagulated Code(s): I48.91 - Unspecified atrial fibrillation (4) Dementia Current Visit: Yes Status: Acute Comment: Consult ordered with occupational therapy and [facility] Code(s): F03.90 - Unspecified dementia without behavioral disturbance
[2017-11-25 05:18] LABS: PLATELET MORPHOLOGY COMMENT NORMAL MORPHOLOGY (NORM); RBC MORPHOLOGY COMMENT NORMAL MORPHOLOGY (NORM); WBC MORPHOLOGY COMMENT NORMAL MORPHOLOGY (NORM)
[2017-11-25] MEDS: LEVOTHYROXINE 50 MCG TABLET PO SCH (05:45)
[2017-11-25] MEDS: LEVALBUTEROL HCL 1.25 MG/3 ML NEB SCH ×4 (06:34→18:48)
[2017-11-25] MEDS ORDERED: FUROSEMIDE 10 MG/1 ML - 4 ML IVP ONE (07:00)
[2017-11-25] MEDS: FUROSEMIDE 40 MG TABLET PO SCH ×2 (07:16→12:43)
[2017-11-25] MEDS: predniSONE Tab 20 MG TAB PO SCH (08:43)
[2017-11-25] MEDS: Potassium Chloride Tab 10 MEQ TAB PO SCH (08:43)
[2017-11-25] MEDS: Apixaban Tab 2.5 MG TABLET PO SCH ×2 (08:43→20:54)
[2017-11-25] MEDS: ESCITALOPRAM 10 MG TABLET PO SCH (08:44)
[2017-11-25] MEDS: ALPRAZolam Tab 1 MG TABLET PO SCH ×3 (08:44→20:53)
[2017-11-25] MEDS: DILTIAZEM HCL CD 120 MG CAP PO SCH ×2 (08:44→20:53)
[2017-11-25] MEDS: CLOPIDOGREL 75 MG TABLET PO SCH (08:44)
[2017-11-25] MEDS ORDERED: AZITHROMYCIN 250 MG TABLET PO ONE (09:00)
[2017-11-25] MEDS ORDERED: ALBUTEROL INH SCH (11:00)
[2017-11-25] MEDS ORDERED: IPRATROPIUM INH SCH (11:00)
[2017-11-25] MEDS: IPRATROPIUM BROMIDE 0.5 mg/2.5 ML NEB SCH ×3 (11:16→18:52)
[2017-11-25] MEDS ORDERED: cefTRIAXone Inj 2 GM in Sodium Chloride 0.9% 100 ML IV SCH (12:30)
--- NOTE | 2017-11-25 12:56 | PTI REPORT ---
Thank you for the referral of Milagros Dennis. She was seen on 11/24/17 for an inpatient evaluation secondary to generalized weakness. SUBJECTIVE: The patient is a 77-year-old female. The patient lives at home with her . The patient has vision problems and complains of some problems with memory. The patient reports being able to begin a task but cannot remember how to complete it or why she is doing it. The patient states that she was given Ativan at 2 PM today and feels too dizzy to stand. The patient complained, saying that the plantar side of her right foot really hurts and that she needs pain medication to control pain. The patient states that she ambulates without an assistive device around the house, but uses a cane when in the community. The patient reports being very tired and wanting to lay down. PAST MEDICAL HISTORY: Past medical history can be found in the patient's medical record. OBJECTIVE FINDINGS: General observations: The patient was alert and oriented and sitting edge of bed upon the therapist's arrival. All myotomes were within normal limits. Transfers: The patient did not perform sit to stand transfer due to complaints of dizziness. Strength: Manual muscle testing of bilateral hip flexors revealed strength of 4/ 5, bilateral dorsiflexion was 4/5, bilateral shoulder flexion/abduction was 4/ 5. Sensation: Dermatomes for C4, C5, C6, C7, C8, and T1 were within normal limits. Dermatomes for L2, L3, L4 were within normal limits. Range of motion: Knee flexion/extension was within normal limits. Elbow flexion /extension was within normal limits. Dorsiflexion and plantarflexion were within normal limits. Bed mobility: The patient moved from sitting edge of bed to supine individually. Pain: The patient reported a pain level in her foot of 5/10 on the verbal analog scale (0=no pain, 10=worst pain) with medication. The patient did not fully answer when asked current pain level or what pain level is when at worst. ASSESSMENT: Although alert and oriented, the patient demonstrated intermittent loss of cognitive ability. The patient was able to answer pain level with meds, but did not answer other pain questions due to loss of focus when trying to answer. The patient displays good overall strength with manual muscle testing, but endurance level could not be assessed due to dizziness. The patient demonstrated good sit to supine transfer with the head of bed elevated 30 degrees. The patient demonstrated good trunk control during sitting and manual muscle testing. The patient was able to march in place seated without loss of balance. Patient ambulation still needs to be assessed before discharge recommendation. Short-Term Goals: To be met by discharge from inpatient: Patient will be able to individually be able to ambulate safely x150 feet. Patient will demonstrate safe individual transfers for all transfers. Long-Term Goals: To be met following discharge from inpatient: Patient will be seen by outpatient physical therapy to help progress to prior level of function. Patient will be able to return home, independent with all ADLs. TREATMENT PLAN: Patient will be seen B.I.D during the week and one time per day over the weekend as an inpatient for therapeutic exercise, gait training, neuromuscular reeducation, and functional activities. INITIAL TREATMENT: Treatment today consisted of the initial evaluation followed by the patient being left in bed with bed alarm set and call button given to patient. Dictated by: PRISCILA Victoria Supervised by: GEORGE Leblanc
--- NOTE | 2017-11-25 14:58 | OTI REPORT ---
Thank you for the referral of Milagros Dennis. She was seen on 11/24/17 for an occupational therapy inpatient evaluation secondary to generalized weakness. SUBJECTIVE: The patient is a 77-year-old female who is being seen secondary to a COPD exacerbation, expressive aphasia, anxiety disorder, a-fib, and dementia. Her nurse stated that she is having a lot of difficulty following instructions this afternoon. The patient reports that she couldn't think right, she has anxiety, and she has been taking steroids. The patient reports that her has been helping with her medication, but she stated she feels like she is not asking enough questions in regards to her medication. She stated, "I don't know what to do, I'm not thinking right. I keep asking myself what's next?". The patient states she is a little bit dizzy. She states sometimes all of the sudden things just don't connect. The patient does ambulate at home without an assistive device and she has a "puffer" oxygen tank for when she leaves the house. PAST MEDICAL HISTORY: Past medical history can be found in the patient's medical record. OBJECTIVE FINDINGS: Range of motion: Upper extremity active range of motion was within normal limits. Strength: Strength for shoulder flexion was 4/5, abduction was 4/5, elbow flexion/extension was 4+/5, and wrist flexion/extension was 4+/5. Endurance: The patient has poor activity tolerance. She is on 4 liters of oxygen and this really affects her ability to complete activities for longer periods of time. She usually needs very frequent rest breaks during functional tasks. Activities of daily living: The patient was able to don and doff socks independently; however, today the patient was dizzy from the medication so she had difficulty standing and keeping her balance and she required min assist. Cognition: Secondary to cognitive concerns, the therapist completed two different screenings today. First was the MMSE (Mini Mental State Examination) . The patient scored 20/30 which places her at MILD cognitive difficulty, one point above the MODERATE cognitive impairment level. She had difficulty with the short term memory task and drawing. She also has a lot of visual deficits. She is blind in the right eye and she has a lot of difficulty seeing out of the left eye. Next we did the MS aphasia screening test. Expressive Index: Naming: The patient scored 8/10. Automatic speech: The patient scored 10/10. Repetitions: The patient scored 10/10. Writing: The patient scored 10/10. Verbal fluency: The patient scored 0/10. Expressive subscale score: 38/50 Receptive Index: Accuracy: The patient scored 18/20. Object recognition: The patient scored 10/10. Following instructions: The patient scored 6/10. Reading instructions: We did not test the patient on this as she could not read the instructions secondary to her visual deficits. Receptive subscale score: 34/40 Overall score: 72/90 ASSESSMENT: The real question is where should this patient be discharged and what assistance levels does she need throughout the day. Ideally it would be best if this patient could go to an assistive living facility where she could have her medications monitored and to be checked on on a daily basis. She does score in the MILD cognitive impairment level, but functionally she has been admitted to the hospital three times in the last month. It appears that she may be a frequent flyer if we don't get some level of assistance for her once she discharges. The difficult component of this whole picture is that the patient usually refuses to have any services for herself at home. Last time we recommended getting home health in her home to monitor the patient and to work on her therapy and to manage her medications. The patient had refused at the time. She also refused any extra help that could possibly be given. There is a program called [facility] that offers anywhere from 1-24 hour care. It would be ideal if she could get some more assistance throughout the day to reduce her anxiety levels, keep an eye on her medical status, and to monitor her medications. The patient states that her helps with this; however, when speaking to the several different times throughout the evaluation today, he could not hear or understand what was being said. It is unknown how much he is actually hearing and understanding. Short-Term Goals: To be met by discharge from inpatient: Patient will be able to improve short term memory by remembering three tasks after a 3-4 minutes time period. Patient will be able to complete all functional ADL tasks with functional transfers safely and independently. Patient will improve 2-3 points on her MMSE. Long-Term Goals: To be met following discharge from inpatient: Patient will have a minimum of four hours of extra help throughout the day in order to function as independently as possible within her home and to have someone other than her supervise and monitor her medication management. TREATMENT PLAN: Patient will be seen B.I.D during the week and one time per day over the weekend as an inpatient to address improving her coping skills, improving her overall memory, and being able to compensate for some of the areas she is having difficulty with. INITIAL TREATMENT: Treatment today consisted of the initial evaluation activities followed by the aphasia screening, MMSE, assessing lower and upper extremity dressing, and assessing activity tolerance. JAZLYN
--- NOTE | 2017-11-25 15:47 | OT.PROG ---
Progress Note Progress Note: S: pt stated that she was wanting to go home. O: tx consisted of bed [facility] supine [facility] A due to pts confusion and positioning of telemetry leads , functional ambulation x10 feet, yellow UE RTB exercises in all planes of motion x10 each, 2# BUE chest press and shoulder flexion x10. A: pt tolerated session well but had difficulties focusing due to her confusion. P: continue POC
--- NOTE | 2017-11-25 15:49 | PT.PROG ---
Progress Note Progress Note: S. Patient agreed to go to the therapy gym this morning. O. Patient was wheeled to the therapy gym where she performed seated exercises in the form of; long arc quads, heel toe raises, marches, ball squeezes, clam shells, resisted knee flexion all x 10 bilaterally with 1# weights and red thera bands. Patient then performed sit to stands x 5 and ambulated 40 feet to the wheelchair and was wheeled back to her room where she was left with alarm and call light. A. Patient tolerated therapy fair this morning, she continues to be weak and struggles with fatigue, she would continue to benefit from skilled therapy to increase strength and endurance at this time. P. Continue POC.
--- NOTE | 2017-11-25 15:52 | PT.PROG ---
Progress Note Progress Note: S. Patient stated that she is short of breath this afternoon, she agreed to go to the therapy gym. O. Patient ambulated 50 feet to the wheelchair then was wheeled to the therapy gym where she performed seated exercises in the form of; long arc quads, heel toe raises, marches, ball squeezes, clam shells, resisted knee flexion all x 10 bilaterally with 2# weights and red thera bands. Patient then performed sit to stands x 5 and ambulated 40 feet to the wheelchair and was wheeled back to her room where she was left in chair with alarm and call light. A. Patient tolerated therapy fair this afternoon, she continues to be weak and struggles with fatigue, she required frequent rest breaks to recover from fatigue and increase her o2 sats. she would continue to benefit from skilled therapy to increase strength and endurance at this time. P. Continue POC.
--- NOTE | 2017-11-25 16:14 | OT.PROG ---
Progress Note Progress Note: S: pt reports that she wants to know why she keeps getting sick. She reports that she lives with her . O: pt was seen in the p.m today after being transferred down by PT. She completed Ue exercises with RTB in all planes x15. She also completed shoulder press with 2# and dynamic reach activity with L and R UE. A: pt still needs simple commands to complete activities as she is still unsure of herself as she is slightly confused. She may benefit from better supervision with med management. P: continue per POC.
[2017-11-25] MEDS: DOCUSATE 100 MG CAPSULE PO SCH (20:53)
[2017-11-25] MEDS: ATORVASTATIN 40 MG TABLET PO SCH (20:53)
[2017-11-26] MEDS: LEVOTHYROXINE 50 MCG TABLET PO SCH (05:15)
[2017-11-26] MEDS: IPRATROPIUM BROMIDE 0.5 mg/2.5 ML NEB SCH ×4 (06:14→18:39)
[2017-11-26] MEDS: LEVALBUTEROL HCL 1.25 MG/3 ML NEB SCH ×4 (06:18→18:37)
[2017-11-26] MEDS: oxyCODONE/APAP 10/325 Tab 1 EACH TAB PO PRN ×3 (08:00→21:06)
[2017-11-26] MEDS: CLOPIDOGREL 75 MG TABLET PO SCH (08:01)
[2017-11-26] MEDS: FUROSEMIDE 40 MG TABLET PO SCH ×2 (08:01→14:51)
[2017-11-26] MEDS: Apixaban Tab 2.5 MG TABLET PO SCH ×2 (08:01→21:04)
[2017-11-26] MEDS: AZITHROMYCIN 250 MG TABLET PO SCH (08:01)
[2017-11-26] MEDS: Potassium Chloride Tab 10 MEQ TAB PO SCH (08:01)
[2017-11-26] MEDS: predniSONE Tab 20 MG TAB PO SCH (08:01)
[2017-11-26] MEDS: ALPRAZolam Tab 1 MG TABLET PO SCH (08:01)
[2017-11-26] MEDS: DILTIAZEM HCL CD 120 MG CAP PO SCH ×2 (08:01→21:05)
[2017-11-26] MEDS: ESCITALOPRAM 10 MG TABLET PO SCH (08:01)
[2017-11-26] MEDS ORDERED: ALPRAZolam Tab 0.25 MG TABLET PO PRN (09:43)
--- NOTE | 2017-11-26 09:49 | PDOC(PROG) ---
Interval History: Patient is doing well no complaints no chest pain nausea or vomiting feels much better eating breakfast Objective : Data - Labs CBC and BMP: 11/25/17 04:04 11/25/17 04:04 Objective : Exam - General General Appearance: No Acute Distress, Cooperative - Respiratory Respiratory Exam: Clear to Auscultation - Bilaterally, Breathing Non Labored, Normal To Percussion, Normal to Percussion and Palpation - Cardiovascular Cardiovascular Exam: RRR, No Murmur, No Clicks, No Gallops, No Rubs, PMI Non- Displaced - GI/Abdominal GI/Abdominal Exam: Normal Bowel Sounds, Non Tender, Non Distended, Soft, No Masses, No Hepatomegaly, No Splenomegaly, No Organomegaly - Extremities Extremities Exam: No Clubbing Present, No Edema Present - Neurological Neurological Exam: Alert, Oriented x 3, No Facial Droop, Moves All Extremities Equally Assessment and Plan - Patient Problems (1) COPD exacerbation Current Visit: No Status: Acute Code(s): J44.1 - Chronic obstructive pulmonary disease with (acute) exacerbation (2) Anxiety disorder Current Visit: No Status: Acute Code(s): F41.9 - Anxiety disorder, unspecified Qualifiers: (3) Atrial fibrillation with rapid ventricular response Current Visit: Yes Status: Acute Code(s): I48.91 - Unspecified atrial fibrillation (4) Dementia Current Visit: Yes Status: Acute Code(s): F03.90 - Unspecified dementia without behavioral disturbance - Assessment / Plan Additional Assessment/Plan Details: #1 congestive heart failure exacerbationpatient was diuresed about 4-5 L with a 45 pound weight loss she will remain on Lasix 40 twice a day even when she is discharged. She is now Reece bag in for severe incontinence hopefully this will help in managing her congestive heart failure a lot better. a prescription will be needed for Lasix twice a day. I did call Dr. kincaid he will call the family to arrange outpatient stress test to evaluate her ischemia #2 A. fibas been stable patient does very well on verapamil on echo EF is 65% patient does not tolerate digoxin #3 severe anxiety disorder to the point that patient cannot sleep this makes her confused we are trying Xanax 0.25 when necessary today and monitoring patient #4 COPD exacerbation now improved will finish off Zithromax and prednisone I spoke to Yovany Red phone number [phone] which is her daughter and I explained all the above complaints in detail. I did tell the daughter that most likely her mom will need more help at home and in the near future she might not able to be independent.
--- NOTE | 2017-11-26 12:02 | PT.PROG ---
Progress Note Progress Note: S. Patient stated that she is confused this morning and doesn't know whats going on, however agreed to go to the therapy gym. O. Patient was wheeled to the therapy gym where she performed seated exercises in the form of; long arc quads, heel toe raises, marches, ball squeezes, clam shells, resisted knee flexion all x 10 bilaterally with red thera band and 2# weights. Patient performed sit to stands x 10 and then ambulated 70 feet to the wheelchair and was returned to her room where she was left in her chair with alarm and call light. A. Patient tolerated therapy well this morning, she continues to struggle with weakness and fatigue, she requires frequent rest breaks to recover from shortness of breath. She would continue to benefit from skilled therapy to increase strength, endurance and mobility at this time. P. Continue POC.
[2017-11-26] MEDS ORDERED: AZITHROMYCIN 250 MG TABLET PO SCH (12:56)
--- NOTE | 2017-11-26 15:31 | OT.PROG ---
Progress Note Progress Note: S: pt stated several times that she is very thirsty all the time. O: pt was seen in her room in the a.m. Upon preparing her for therapy it was discovered her catheter bag was leaking, which nursing arrived and changed out for a new one. she needed Mod A with LE dressing as she could not plan this task. She also needed max A wit donning gown. She completed transfer approx 15 ft to w/c before going downstairs. She completed UE exercises with RTB in all planes x20 with BUE's. She was returned to her room and needed cues to sit in chair. A: pt still needs cues for simple tasks such as dressing and sitting in chairs. She does transfer rather well with or without walker w/wheels. P: continue per POC.
--- NOTE | 2017-11-26 15:32 | PT.PROG ---
Progress Note Progress Note: S. Patient stated that she is really tired this afternoon. O. Patient transferred to the wheelchair and was wheeled to the therapy gym where she performed, long arc quads, marches, heel toe raises, resisted knee flexion, ball squeezes and clam shells all x 10 bilaterally with 2# and red thera bands. Patient ambulated 80 feet to the wheelchair and was left with OT for further therapy. A. Patient tolerated therapy poor, she was struggling to stay awake during exercise this afternoon, she was able to ambulate further this afternoon compared to earlier however was struggling with balance when she became fatigued. She would continue to benefit from skilled therapy to increase strength, endurance and safety at this time. P. Continue POC.
[2017-11-26] MEDS ORDERED: BISACODYL 5 MG TABLET PO PRN (17:36)
[2017-11-26] MEDS ORDERED: ALPRAZolam Tab 1 MG TABLET PO ONE (20:44)
[2017-11-26] MEDS: ATORVASTATIN 40 MG TABLET PO SCH (21:05)
[2017-11-26] MEDS: DOCUSATE 100 MG CAPSULE PO SCH (21:05)
[2017-11-27] MEDS: LEVOTHYROXINE 50 MCG TABLET PO SCH (05:06)
[2017-11-27 05:47] LABS: BLOOD UREA NITROGEN 27 mg/dL (7-22); BUN/CREATININE RATIO 38.57 (6-20); SERUM ALBUMIN 3.5 g/dL (3.5-4.8)
[2017-11-27] MEDS: IPRATROPIUM BROMIDE 0.5 mg/2.5 ML NEB SCH ×4 (06:13→18:35)
[2017-11-27] MEDS: LEVALBUTEROL HCL 1.25 MG/3 ML NEB SCH ×4 (06:15→18:34)
[2017-11-27] MEDS: FUROSEMIDE 40 MG TABLET PO SCH (07:20)
[2017-11-27] MEDS: Apixaban Tab 2.5 MG TABLET PO SCH ×2 (08:10→21:14)
[2017-11-27] MEDS: ESCITALOPRAM 10 MG TABLET PO SCH (08:10)
[2017-11-27] MEDS: AZITHROMYCIN 250 MG TABLET PO SCH (08:10)
[2017-11-27] MEDS: CLOPIDOGREL 75 MG TABLET PO SCH (08:10)
[2017-11-27] MEDS: DILTIAZEM HCL CD 120 MG CAP PO SCH ×2 (08:10→21:14)
[2017-11-27] MEDS: predniSONE Tab 20 MG TAB PO SCH (08:10)
[2017-11-27] MEDS: Potassium Chloride Tab 10 MEQ TAB PO SCH (08:11)
[2017-11-27] MEDS: oxyCODONE/APAP 10/325 Tab 1 EACH TAB PO PRN ×2 (08:11→17:02)
--- NOTE | 2017-11-27 09:52 | PDOC(PROG) ---
Date of Service: 11/27/17 Time of Service: 10:00 Interval History: Subjective Patient was sitting in the chair looks tired. She said she didn't sleep last night. She did come in to the hospital because she was not thinking right according to her. She couldn't tell me whether she had shortness of breath or not. But she's been treated as a COPD exacerbation. She did say that she saw the urologist and they put the catheter but she doesn't know how long it will stay in. She said they put it in because she had incontinence. Objective : Data - Labs CBC and BMP: 11/25/17 04:04 11/27/17 04:20 Objective : Exam - General General Appearance: Cooperative, Obese Additional General Exam Details: Looks really tired - Head Head Exam: Normal Inspection - Eye Eye Exam: Normal Appearance - ENT ENT Exam: Normal Exam - Neck Neck Exam: Normal Inspection - Respiratory Additional Respiratory Exam Details: Decreased air entry otherwise clear - Cardiovascular Cardiovascular Exam: RRR - GI/Abdominal GI/Abdominal Exam: Normal Bowel Sounds, Non Tender, Non Distended, Soft, No Organomegaly - Rectal Rectal Exam: Deferred - External Exam: Deferred Exam: Deferred - Extremities Extremities Exam: Normal Inspection - Back Back Exam: Normal Inspection - Neurological Neurological Exam: Alert, Oriented x 3, CN II-XII Intact, No Facial Droop Additional Neurological Exam Details: Looks very tired. Moves all extremities equally though. - Psychiatric Psychiatric Exam: Flat Affect - Integumentary Integumentary Exam: Normal Color Assessment and Plan - Patient Problems (1) Atrial fibrillation with rapid ventricular response Current Visit: Yes Status: Acute Comment: Her rate seemed to be controlled with the Cardizem continue Code(s): I48.91 - Unspecified atrial fibrillation (2) COPD exacerbation Current Visit: No Status: Acute Comment: She is on Zithromax continue. I think we'll cut back on the dosage of the steroid maybe that's responsible for her not sleeping well which is her main complaint today. Code(s): J44.1 - Chronic obstructive pulmonary disease with (acute) exacerbation (3) Anxiety disorder Current Visit: No Status: Acute Comment: She is on Xanax 0.25 3 times a day as needed. Apparently when she came in initially put her on 1 mg I can see 3 times a day and yesterday she looked tired so will cut back on the dosage. I think I told her we'll continue with the lower dosage as needed and see her response today before we decide about increasing the dosage. Code(s): F41.9 - Anxiety disorder, unspecified Qualifiers:
[2017-11-27] MEDS ORDERED: ALPRAZolam Tab 0.25 MG TABLET PO SCH (21:00)
[2017-11-27] MEDS: DOCUSATE 100 MG CAPSULE PO SCH (21:14)
[2017-11-27] MEDS: ATORVASTATIN 40 MG TABLET PO SCH (21:14)
[2017-11-28] MEDS: LEVOTHYROXINE 50 MCG TABLET PO SCH (05:05)
[2017-11-28] MEDS: oxyCODONE/APAP 10/325 Tab 1 EACH TAB PO PRN ×2 (05:12→12:31)
[2017-11-28 06:07] LABS: BLOOD UREA NITROGEN 24 mg/dL (7-22); BUN/CREATININE RATIO 34.28 (6-20)
[2017-11-28 06:31] VITALS: TEMP 97.4
[2017-11-28] MEDS: FUROSEMIDE 40 MG TABLET PO SCH ×2 (07:07→12:31)
[2017-11-28] MEDS: IPRATROPIUM BROMIDE 0.5 mg/2.5 ML NEB SCH ×2 (07:59→11:47)
[2017-11-28] MEDS: LEVALBUTEROL HCL 1.25 MG/3 ML NEB SCH ×2 (08:00→11:45)
[2017-11-28 08:30] VITALS: BP 150/89
[2017-11-28] MEDS: ESCITALOPRAM 10 MG TABLET PO SCH (08:57)
[2017-11-28] MEDS: Apixaban Tab 2.5 MG TABLET PO SCH (08:57)
[2017-11-28] MEDS: CLOPIDOGREL 75 MG TABLET PO SCH (08:58)
[2017-11-28] MEDS: AZITHROMYCIN 250 MG TABLET PO SCH (08:58)
[2017-11-28] MEDS: DILTIAZEM HCL CD 120 MG CAP PO SCH (08:58)
[2017-11-28] MEDS: Potassium Chloride Tab 10 MEQ TAB PO SCH (08:58)
[2017-11-28] MEDS ORDERED: predniSONE Tab 20 MG TAB PO SCH (09:00)
--- NOTE | 2017-11-28 09:29 | PDOC(PROG) ---
Date of Service: 11/28/17 Time of Service: 07:30 Interval History: Subjective Patient was sitting in the chair does not appear in distress. She said she didn 't sleep also well last night because the electricity was off. She seems to be in a better mood today compared to yesterday. She refused to take the Xanax because she said that would make her feel really tired. Objective : Data - Labs CBC and BMP: 11/25/17 04:04 11/28/17 05:00 Objective : Exam - General General Appearance: No Acute Distress, Cooperative, Obese - Head Head Exam: Normal Inspection - Eye Eye Exam: Normal Appearance - ENT ENT Exam: Normal Exam - Neck Neck Exam: Normal Inspection - Respiratory Additional Respiratory Exam Details: Decreased air entry otherwise clear - Cardiovascular Cardiovascular Exam: RRR - GI/Abdominal GI/Abdominal Exam: Normal Bowel Sounds, Non Tender, Non Distended, Soft, No Organomegaly - Rectal Rectal Exam: Deferred - External Exam: Deferred - Extremities Extremities Exam: Normal Inspection - Back Back Exam: Normal Inspection - Neurological Neurological Exam: Alert, Oriented x 3, CN II-XII Intact, No Facial Droop, Speech Intact / Clear, Moves All Extremities Equally - Psychiatric Psychiatric Exam: Normal Affect Assessment and Plan - Patient Problems (1) Atrial fibrillation with rapid ventricular response Current Visit: Yes Status: Acute Comment: Rate seemed to be controlled with current medications continue the same. Code(s): I48.91 - Unspecified atrial fibrillation (2) COPD exacerbation Current Visit: No Status: Acute Comment: Continue steroid and the antibiotics. We cut back on the dosage of the steroid. I think we'll get her up and walking and see how she feels and decide about discharge maybe later on today. Code(s): J44.1 - Chronic obstructive pulmonary disease with (acute) exacerbation (3) Anxiety disorder Current Visit: No Status: Acute Comment: Continue Lexapro. She went back and forth about this she refused to take this morning she refused to take it last night, though it seems that she would like a prescription for few pillsif she is discharge I did tell her maybe just to use it at night see the effect of it over the next few days before using it during the day. Code(s): F41.9 - Anxiety disorder, unspecified Qualifiers:
--- NOTE | 2017-11-28 11:21 | DCSUMMARY ---
Hospitalization Summary Admit Date: 11/24/2017 Discharge Date: 11/28/17 Hospital Course: Discharge diagnoses 1. COPD exacerbation 2. Atrial fibrillation 3. Hypertension 4. Sleep apnea 5. Depression with anxiety 6. Coronary artery disease with previous CABG 7. History of CVA 8. Macular degeneration 9. Chronic pain syndrome 10. Urinary incontinence had Reece catheter inserted by urology remain in place for now Hospital course This is a 77 years old female with medical history significant for history of COPD, atrial fibrillation, hypertension, history of coronary artery disease with previous CABG, who was admitted recently twice to the hospital when she had urinary tract infection and uncontrolled heart rate, this time she came in with shortness of breath and cough and also not thinking clearly and was admitted by Dr. Mccord please see his note. Patient was treated as COPD exacerbation with nebulizer, steroid and antibiotics. She did have also anxiety and she was put on Xanax. She was also diuresed. Apparently she was making improvement I saw her first on Wednesday she looked very tired and she said she did not sleep well. her Xanax initially was 1 mg 3 times a day and was cut back to 0.25 mg 3 times a day however the night before I saw her she received 1 mg of Xanax. We decided to keep her as she looked very tired and we decided to cut back on the Xanax to 0.25 and uses only at night. On the day of discharge she feels better she is not as sleepy and as tired as yesterday. However she refused to take the Xanax. after discussion with her on the day of discharge she was back and forth about the Xanax and and we decided to discharge her on lower dosage of Xanax and only to use it at night and if she noticed the next few days that she is having problem with it as she had before then she needs to stop it. And that 's include excessive sleepiness and difficulty with concentration. We discharged her on tapering dose of steroid and Zithromax. She need follow- up with her primary to reassess her response to treatment. This is her third admission within a month one concern that we had is whether she is taking her medication as prescribed. However the previous 2 times she refused to home health nurse and refused pillbox to monitor her medication intake. And not sure whether the home health nurse will see her not but according to her he said somebody is coming tomorrow to check on her. Dr. Mccord did speak with the insulation worker furnace installer and they will call her for appointment for stress test. Dr. Mccord spoke with the daughter about also her recurrent admission and my understanding that we are uncertain whether she can maintain her independence the way things are progressing. However they don't want her to go assisted now. She was discharged also on many milligram of Lasix twice a day instead of the torsemide. Although she was on 40 mg twice a day of Lasix but I cut back on the dosage to 20 mg twice a day as her BUN was getting higher. Regarding her heart rate was variable but controlled most of the time. At times it was going higher but I thought may be the overdiuresis played part it it, I think once she see her physician and if her heart rate is uncontrolled then they can consider increasing the Cardizem in the morning to 180 day and continue with the 120 at night. Discharge section Diet regular Activity as started Medications Current Medication(s) 3 Medication Instructions Recorded Confirmed Type Oxygen (O2) 1 unit INH QHS unit 03/10/16 11/24/17 History clopidogrel 75 mg tablet 75 mg PO DAILY #90 tab 11/24/16 11/24/17 History docusate sodium 100 mg capsule 100 mg PO DAILY cap 11/24/16 11/24/17 History trimethoprim 100 mg tablet 100 mg PO QD tab 11/24/16 11/24/17 History atorvastatin 80 mg tablet 80 mg PO DAILY #90 tab 05/05/17 11/24/17 Rx apixaban 2.5 mg tablet 2.5 mg PO BID #60 tab 08/03/17 11/24/17 Rx levothyroxine 50 mcg tablet 50 mcg PO DAILY #90 tab-cap 08/16/17 11/24/17 Rx albuterol sulfate HFA 90 2 puff INH QID PRN #36 g 09/27/17 11/24/17 Rx mcg/actuation aerosol inhaler Escitalopram Oxalate [Lexapro] 10 mg PO DAILY tab 10/21/17 11/24/17 Rx oxycodone-acetaminophen 10 mg-325 1 tab PO Q6H PRN #120 tab 11/02/17 11/24/17 Rx mg tablet ipratropium 20 mcg-albuterol 100 1 inh INH QID 11/09/17 11/24/17 History mcg/actuation mist for inhalation potassium chloride ER 10 mEq 10 meq PO .QOD 30 Days cap 11/09/17 11/24/17 History capsule,extended release Diltiazem 24Hr ER [Cardizem Cd] 120 mg PO BID #60 cap.sr.24h 11/15/17 11/24/17 Rx ALPRAZolam Tab [Xanax Tab] 0.25 mg PO BEDTIME #15 tab 11/28/17 Rx Azithromycin [Zithromax] 250 mg PO DAILY #3 tab 11/28/17 Rx Furosemide [Lasix] 20 mg PO BID@0700,1300 #60 tab 11/28/17 Rx Prednisone 10 mg PO DAILY #9 tab 11/28/17 Rx Follow-up with PCP 1-2 weeks Condition at discharge was stable for discharge Exam - Vitals Vital Signs: Vital Signs Temperature 97.4 F Temperature Source Temporal Artery Scan Pulse Rate [Apical] 90 Pulse Rate [Pulse Oximeter] 100 Pulse Rate 111 Respiratory Rate 20 Blood Pressure [Right Arm] 150/89 Blood Pressure [Left Arm] 128/73 Pulse Ox 91 Oxygen Flow Rate 4 Oxygen Delivery Method Nasal Cannula Height 5 ft 6 in Weight 217 lb 1.6 oz Patient Problems - Patient Problem List (1) Atrial fibrillation with rapid ventricular response Status: Acute Code(s): I48.91 - Unspecified atrial fibrillation Category: Medical (2) COPD exacerbation Status: Acute Code(s): J44.1 - Chronic obstructive pulmonary disease with ( acute) exacerbation Category: Medical (3) Anxiety disorder Status: Acute Code(s): F41.9 - Anxiety disorder, unspecified Qualifiers: Category: Medical
--- NOTE | 2017-11-28 11:25 | PT.PROG ---
Progress Note Progress Note: Pt. refuses therapy today. States she is exhausted and not feeling well. Jo Ann Gonsalves, PEER TUTOR
--- NOTE | 2017-11-28 11:29 | PT.PROG ---
Progress Note Progress Note: S: pt. states she is doing ok today. O: Treatment consisted of functional activities: ambulated one lap around the nurses station, laq, seated marches, sit to stands, and pillow squeezes. A: Pt. was tired but agreed to participate in minimal activities. P: Continue per POC to increase strength and activity tolerance. Jo Ann Gonsalves, CORK GRINDER
[2017-11-28 11:48] VITALS: O2SAT 89
[2017-11-28 11:49] VITALS: RESP 22
--- NOTE | 2017-11-29 12:22 | OT PM DAY ---
Diagnosis : WEAKNESS PM - Occupational Therapy S: Patient reports that she is not tired but during therapy today she continually tried to fall asleep. O: Today we started down in therapy doing upper extremity strengthening exercises which included red Therabrand for biceps curls, internal/external rotation, shoulder extension, shoulder adduction, and triceps x15 reps with bilateral upper extremities. She continued to do the power web for hand strengthening and then completed some trunk stabilization and strength with cones and weight-bearing positions while in a seated position. Patient also worked on a light weight ball for shoulder flexion times 10 and also played catch with therapist times 15 for reaction time and upper extremity range of motion. Upstairs she wanted to take a shower. The occupational therapist wanted to asses her independence as she has been taking more anxiety medicine; however, they reported that the dosage of the medicine had been decreased but she still had a lot of cognitive issues today going through the shower task. She continually asked the therapist, "what am I doing?, am I doing this right?, what is the next step?, and do I sit down or do I stand up?". She consistently asked these types of questions through out the entire shower task. Patient was able to don socks with mid assist on right side and independently on left side. She was able to shower herself with assistance for the water but needed step by step cues in order to wash each body part. She had difficulty even initiating each body part during the shower. She did need assistance for her back and feet. When drying off, the patient needed assistance for her back and needed cues to dry each body part. She perseverated on several areas and did not know what to do when she was done drying herself and needed cues to sit down and then to dress self. She did need max assist for her ESTEFANY hose type socks but then was able to put on the bear paw socks with direct support staff with mid assist. After that she needed max assist to don her Depends because she had her catheter in. When ambulating back to her room which was about 15 feet away patient needed hand held assist as her balance was off and needed min assist to keep her balance as she kept closing her eyes and then got her to bed. After that her nurse was going to give her her medications and she stated that she would put her back to bed. A: Today the patient seems to have declined in her function. She needed more step by step cues, she was a lot more fatigued, she closed her eyes more, and demonstrated more confusion. Today would have definitely been a safety issue if she was at home as she would have more than likely fallen and was needing step by step cues in order to initiate and complete tasks. P: Continue seeing patient BID during the week and one time per day over the weekend until discharge. JAZLYN
== END 2017-11-28 13:06 | disposition home or self-care (01) | DRG 191 ==
LOC: ER 09:48 → MED/SURG 12:55
PROVIDERS: ADMIT Internal Medicine; ATTEND Internal Medicine

== ENCOUNTER 2018-03-11 09:10 | Inpatient (IN) ==
[2018-03-11] MEDS ORDERED: KETOROLAC 15 MG/1 ML VIAL IVP ONE (09:42)
[2018-03-11] MEDS ORDERED: FUROSEMIDE 10 MG/1 ML - 4 ML IVP ONE (09:42)
[2018-03-11] MEDS ORDERED: ONDANSETRON 4 MG/2 ML VIAL IVP ONE (09:42)
--- NOTE | 2018-03-11 09:44 | PDOC ---
Dyspnea HPI - General Chief Complaint: Dyspnea Stated Complaint: 8# weight gain in 24 hrs Date Seen by Provider: 03/11/18 Time Seen by Provider: 09:39 Source: POSITIVE: Patient, Spouse Exam Limitations: POSITIVE: No limitations Treatment Prior to Arrival: REPORTS: None Nurse's Notes Reviewed & Considered: Yes - History of Present Illness Initial Comments: This is a well-developed, well-nourished, 78-year-old female, who has experienced an 8 pound weight gain overnight. [place] [facility] [place] with shortness of breath and hypoxia. During her hospitalization she was found to have a collapsed lung per the patient. Presently patient denies any headache, she does have a mild sore throat, she does have some shortness of breath but denies any chest pain, no nausea vomiting or diarrhea, no hematuria or dysuria, no rashes, no myalgias or arthralgias. She does have some pitting edema in her lower extremities and some swelling of her face and hands. Body Location Affected: REPORTS: Upper Extremity (L), Upper Extremity (R), Lower Extremity (L), Lower Extremity (R), Face, Chest Timing: REPORTS: Gradual Duration: <1 week Severity: Moderate Initiating Event: REPORTS: Upper Respiratory Illness Exacerbated By: REPORTS: Exertion, Laying Flat, Coughing Associated Symptoms: REPORTS: Ankle Swelling, Leg Swelling Similar Symptoms Previously: Yes Recently seen/treated/hospitalized: Yes Any Prior Injuries Related to Current Complaint?: No - Patient Home Medications Home Medications: Home Medications atorvastatin 80 mg tablet 80 mg PO DAILY #90 tab 05/05/17 albuterol sulfate HFA 90 mcg/actuation aerosol inhaler 2 puff INH QID PRN #36 g 09/27/17 potassium chloride ER 10 mEq capsule,extended release 10 meq PO DAILY 30 Days #30 cap 01/04/18 citalopram 10 mg tablet 10 mg PO QDAY #30 tab 02/09/18 diltiazem CD 120 mg capsule,extended release 24 hr 120 mg PO BID #60 cap 02/15/18 quetiapine 25 mg tablet 25 mg PO BID #60 tab 02/15/18 oxycodone-acetaminophen 10 mg-325 mg tablet 1 tab PO Q6H PRN #120 tab 02/23/18 albuterol sulfate 2.5 mg/3 mL (0.083 %) solution for nebulization 1.25 mg INH Q6H PRN ml 03/08/18 alprazolam 0.25 mg tablet 0.25 mg PO BID PRN #90 tab 03/08/18 apixaban 2.5 mg tablet 5 mg PO BID tab 03/08/18 guaifenesin ER 600 mg tablet, extended release 12 hr 600 mg PO Q12H 03/08/18 levothyroxine 50 mcg tablet 50 mcg PO DAILY #90 tab-cap 03/08/18 polyethylene glycol 3350 17 gram oral powder packet 17 g PO QDAY PRN 03/08/18 - Patient Allergies Allergies/Adverse Reactions: Allergies Allergy/AdvReac Type Severity Reaction Status Date / Time sulfamethoxazole Allergy Severe pruritis, Verified 03/11/18 09:27 [From Bactrim] short of breath, chest pain trimethoprim [From Bactrim] Allergy Severe pruritis, Verified 03/11/18 09:27 short of breath, chest pain toprop XL AdvReac Severe NAUSEA Uncoded 03/08/18 14:07 PAIN CONTRACT AdvReac Unknown NOT Uncoded 03/08/18 14:07 APPLICABLE oxycotin AdvReac NAUSEA Uncoded 03/08/18 14:07 Past Medical History - heen HEENT History: Denies History, Dentures/Partials Cardiovascular History: Hypertension, CAD, Arrhythmia, Hyperlipidemia Additional Cardiovasular History: LE EDEMA Respiratory History: COPD, Shortness of Breath, Home Oxygen Use Gastrointestinal History: Denies History Genitourinary History: Recurrent UTI, Incontinence, Other (please comment) Additional Genitourinary History: had stent to kidney Endocrine History: Hypothyroidism Musculoskeletal History: Arthritis Prosthesis or Implant: No Neurological History: Denies History Blood Disorders: Denies History Psychiatric History: Depression History of Sexually Transmitted Diseases: No Cancer History: Denies History History of MDRO: No History of Other Communicable Diseases: No Alcohol Use: Occasionally In the Past 12 Months, Have Used or Abuse Any Substance: None Previous Surgical History: Yes Type / Date of Surgery: CABG, CAROTID ARTERY STENT X2, RENAL STENT Anesthesia Reactions: No Malignant Hyperthermia: No Significant Family History: No pertinent family hx ROS - Limitations ROS Limitations: No Limitations Constitution: REPORTS: Weight Gain Cardiovascular: REPORTS: Denies Cardiac Symptoms Respiratory: REPORTS: Cough Non Productive, Shortness Of Breath, Wheezing Neurological: REPORTS: Denies Neuro Symptoms Gastrointestinal: REPORTS: Denies GI Symptoms Endocrine: REPORTS: Elevated Glucose Musculoskeletal: REPORTS: Pedal Edema Genitourinary: REPORTS: Denies Symptoms Eyes: REPORTS: Denies Symptoms ENT: REPORTS: Sore Throat Skin: REPORTS: Denies Skin Symptoms Lympathic: REPORTS: Denies Lympathic Symptoms Immunologic: POSITIVE: Denies Symptoms Psychiatric: POSITIVE: Denies Psych Symptoms Dyspnea Physical Exam - General Appearance General Appearance: REPORTS: Alert, Cooperative, No Acute Distress, No Evidence of Trauma - HEENT HEENT: POSITIVE: Head Inspection Nml, Eyes Inspection Nml, Ears Inspection Nml, Nose Inspection Nml, Oral/Dental Inspect. Nml, Pharynx Inspect. Nml, PERRL, EOMI - Neck Neck: REPORTS: Normal Inspection - Respiratory Respiratory: REPORTS: No Respiratory Distress, No Pleuritic Chest Pain, Speaks Full Sentences, No Pain on Inspiration, Wheezes - Cardiovascular Cardiovascular: REPORTS: Strong Pulses, No Gallop, No Friction Rub, No JVD, Irregularly Irreg Rhythm, Tachycardia, Murmur Peripheral Pulses: Radial (R): 4+ - Abdomen Abdomen: Soft: (All Quadrants), Normal Bowel Sounds: (All Quadrants), Denies Tenderness: (All Quadrants), No Splenomegaly: (All Quadrants), No Hepatomegaly: (All Quadrants), No Guarding: (All Quadrants), No Rebound: (All Quadrants), No Palpable Pulse: (All Quadrants), No Palpabale Mass: (All Quadrants), No Distention: (All Quadrants), No Rigidity: (All Quadrants) - Skin Skin: REPORTS: Intact, Normal For Race, Warm, Dry, No Rash - Extremities Extremity: Non-Tender: (All Extremities), Normal ROM: (All Extremities), Edema / Swelling: (All Extremities) - Neurological / Psychological Neurological: POSITIVE: Affect Apporpriate, Oriented X3, Motor Normal, Sensation Normal Dyspnea Progress - Results Reviewed by me Xrays/CTs/US Reviewed by me: Yes Discussed with Radiologist: Yes Lab Results Reviewed by Me: Yes CBC and BMP: 03/11/18 09:52 03/11/18 09:52 Lab Results:: Laboratory Results 03/11/18 03/11/18 03/11/18 09:42 09:50 09:52 WBC 9.74 RBC 4.04 L Hgb 11.9 L Hct 39.0 MCV 96.5 MCH 29.5 MCHC 30.5 L RDW Std Deviation 53.7 H RDW Coeff of Karis 15.5 H Plt Count 316 MPV 8.9 Immature Gran % (Auto) 0.3 Neut % (Auto) 75.3 Lymph % (Auto) 14.0 [place] % (Auto) 7.3 Eos % (Auto) 2.9 Baso % (Auto) 0.2 Immature Gran # (Auto) 0.03 Neut # (Auto) 7.34 Lymph # (Auto) 1.36 [place] # (Auto) 0.71 Eos # (Auto) 0.28 Baso # (Auto) 0.02 WBC Morphology Comment Normal morphology Plt Morphology Comment Normal morphology RBC Morph Comment Normal morphology PT INR VBG pH 7.36 VBG pCO2 62 H VBG HCO3 35 H VBG Base Excess 9 H Sodium Potassium Chloride Carbon Dioxide Anion Gap BUN Creatinine BUN/Creatinine Ratio Glucose Calculated Osmolality Lactic Acid Calcium Total Bilirubin AST ALT Alkaline Phosphatase C-Reactive Protein NT-Pro-B Natriuret Pep Total Protein Albumin Globulin Albumin/Globulin Ratio TSH Group A Strep Screen Negative 03/11/18 03/11/18 03/11/18 09:52 09:52 09:52 WBC RBC Hgb Hct MCV MCH MCHC RDW Std Deviation RDW Coeff of Karis Plt Count MPV Immature Gran % (Auto) Neut % (Auto) Lymph % (Auto) [place] % (Auto) Eos % (Auto) Baso % (Auto) Immature Gran # (Auto) Neut # (Auto) Lymph # (Auto) [place] # (Auto) Eos # (Auto) Baso # (Auto) WBC Morphology Comment Plt Morphology Comment RBC Morph Comment PT INR VBG pH VBG pCO2 VBG HCO3 VBG Base Excess Sodium 138 Potassium 4.4 Chloride 96 L Carbon Dioxide 35 H Anion Gap 7 BUN 17 Creatinine 0.8 BUN/Creatinine Ratio 21.25 H Glucose 105 Calculated Osmolality 287.0 Lactic Acid 1.2 Calcium 8.5 L Total Bilirubin 0.6 AST 16 ALT 15 Alkaline Phosphatase 72 C-Reactive Protein 1.5 H NT-Pro-B Natriuret Pep 1540 H Total Protein 6.4 Albumin 3.9 Globulin 2.4 L Albumin/Globulin Ratio 1.60 TSH 1.66 Group A Strep Screen 03/11/18 09:52 WBC RBC Hgb Hct MCV MCH MCHC RDW Std Deviation RDW Coeff of Karis Plt Count MPV Immature Gran % (Auto) Neut % (Auto) Lymph % (Auto) [place] % (Auto) Eos % (Auto) Baso % (Auto) Immature Gran # (Auto) Neut # (Auto) Lymph # (Auto) [place] # (Auto) Eos # (Auto) Baso # (Auto) WBC Morphology Comment Plt Morphology Comment RBC Morph Comment PT 11.1 INR 1.10 VBG pH VBG pCO2 VBG HCO3 VBG Base Excess Sodium Potassium Chloride Carbon Dioxide Anion Gap BUN Creatinine BUN/Creatinine Ratio Glucose Calculated Osmolality Lactic Acid Calcium Total Bilirubin AST ALT Alkaline Phosphatase C-Reactive Protein NT-Pro-B Natriuret Pep Total Protein Albumin Globulin Albumin/Globulin Ratio TSH Group A Strep Screen - Patient's Progress Re-Examine Time: 11:43 Status: POSITIVE: Unchanged MDM / ED Course: Patient was evaluated, an IV started, blood drawn and sent to the lab for studies, chest x-ray was obtained. Findings: CBC shows white count hematocrit and platelets are normal with a hemoglobin of 11.9. Comprehensive metabolic panel shows a chloride of 96, CO2 of 35, calcium of 8.5. Coagulation studies show PT of 11.1, INR of 1.01 CRP is 1.5. TSH is 1.66. Strep swab is negative. Respiratory panel is negative for all pathogens tested. Chest x-ray shows congestive heart failure with right pleural effusion. Blood gases show pH is 7.36, PCO2 of 62, bicarbonate of 35, base excess of 9. Assessment: Congestive heart failure Plan: Patient being admitted by the hospitalist. Air Movement: POSITIVE: Fair Quality Measure Initiative: CAP: POSITIVE: CXR or CT - Consult Counseled: POSITIVE: Patient, Family, RE: Lab Results, RE: Radiology Results, RE: DX, RE: Need for F/U Patient Care Time - Estimated PCT Patient Care Time (In Minutes): 45 Vital Signs - Recent Vital Signs Vital Signs: Vital Signs (Last 8 hours) Temp Pulse Resp BP Pulse Ox 03/11/18 09:32 97.8 F 93 28 H 109/49 60 - VS Reviewed Vital Signs Reviewed: Yes Discharge Clinical Impression: CHF (congestive heart failure) Discharge Disposition: Admit to Inpatient Condition: Stable Follow Up With: KATHARINA SORTO [Primary Care Provider] - Date Decision to Admit to Inpatient: 03/11/18 Time Decision to Admit to Inpatient: 12:01
[2018-03-11 09:55] LABS: VENOUS PH 7.36 (7.32-7.42)
[2018-03-11 10:16] LABS: BASOPHILS # (AUTO) 0.02 10*3/UL; BASOPHILS % (AUTO) 0.2 % (0-1); EOSINOPHILS # (AUTO) 0.28 10*3/UL; EOSINOPHILS % (AUTO) 2.9 % (0-8); Hemoglobin [HGB] 11.9 g/dL (12.0-16.0); LYMPHOCYTES # (AUTO) 1.36 10*3/uL; MEAN CORPUSCULAR HEMOGLOBIN 29.5 PG (27-31); MEAN CORPUSCULAR HGB CONC 30.5 g/dL (33-37); MEAN CORPUSCULAR VOLUME 96.5 FL (81-99); MEAN PLATELET VOLUME 8.9 FL (7.4-12.2); MONOCYTES # (AUTO) 0.71 10*3/UL (0.3-0.8); MONOCYTES % (AUTO) 7.3 % (5-15); NEUTROPHILS # (AUTO) 7.34 10*3/UL; NEUTROPHILS % (AUTO) 75.3 % (50-80); RED BLOOD COUNT 4.04 10^6/uL (4.20-5.40)
[2018-03-11 10:18] LABS: PLATELET MORPHOLOGY COMMENT NORMAL MORPHOLOGY (NORM); RBC MORPHOLOGY COMMENT NORMAL MORPHOLOGY (NORM); WBC MORPHOLOGY COMMENT NORMAL MORPHOLOGY (NORM)
[2018-03-11 10:29] LABS: BLOOD UREA NITROGEN 17 mg/dL (7-22); BUN/CREATININE RATIO 21.25 (6-20); SERUM ALBUMIN 3.9 g/dL (3.5-4.8)
--- NOTE | 2018-03-11 11:02 | DI ---
PA /LATERAL CHEST, 03/11/2018 9:42 AM : Clinical History: 8 pound weight gain overnight. Previous Exam: 12/29/2017. Soft Tissues: No acute soft tissue abnormality. Bones: Osteoporosis. Heart: Cardiomegaly with CHF. The heart has a globular configuration consistent with either a cardiom yopathy or pericardial effusion. There is no separation of the epicardial/pericardial fat pad favorin g a cardiomyopathy. Status post CABG. Lungs: There is right lower lobe atelectasis. Effusion(s): Fluid is present in the minor fissure. Mediastinum: Normal mediastinum. Nodules: No pulmonary nodules. Readin. Cardiomegaly with CHF. The globular configuration is most consistent with a cardiomyopathy, proba sidra ischemic. 2. Right pleural effusion. Right lower lobe atelectasis.
[2018-03-11 11:46] LABS: BILIRUBIN,URINE NEGATIVE (NEG); CLARITY,URINE CLEAR (CLEAR); COLOR,URINE YELLOW (Y); GLUCOSE, URINE (UA) NEGATIVE (NEG); OCCULT BLOOD,URINE LARGE (NEG); PROTEIN,URINE 30 mg/dl (NEG); UROBILINOGEN,URINE 0.2 EU/dL (0.2)
[2018-03-11 11:57] LABS: BACTERIA,URINE FEW; SQUAMOUS EPITHELIAL CELL,UR RARE; URINE SAMPLE TYPE CLEAN CATCH URINE
[2018-03-11] MEDS ORDERED: LIDOCAINE W/ SODIUM BICARB 0.5 ML SYR SUBD PRN (13:23)
[2018-03-11] MEDS ORDERED: LIDOCAINE HCL 2 % 10 ML JELLY URO-JECT TOPICAL PRN (13:23)
--- NOTE | 2018-03-11 13:25 | EKG ---
[address] [place] [id number] Measurements Intervals [place] Rate: 106 P: MS: 0 QRS: 53 QRSD: 113 T: 162 QT: 361 QTc: 423 Interpretive Statements ATRIAL FIBRILLATION WITH RAPID VENTRICULAR RESPONSE POSSIBLE ANTERIOR MYOCARDIAL INFARCTION PROBABLY OLD NONSPECIFIC ST-TWAVE CHANGES ABNORMAL RHYTHM ECG Electronically Signed On 03-12-18 16:10:01 [facility] by Norberto Martinez [email or web address]
[2018-03-11] MEDS ORDERED: FUROSEMIDE 10 MG/1 ML - 10 ML IVP ONE (13:45)
--- NOTE | 2018-03-11 16:54 | DI ---
CT Chest W Contrast 03/11/2018 2:52 PM [place] [facility] [place] ? collapsed vs effusion Comparison: Chest x-ray from the same day. CT chest 12/29/2017. Technique: Contrast enhanced CT of the chest was performed after the administration of 65 mL of Isovu e intravenous contrast. Axial, coronal, and sagittal images were obtained from the thoracic inlet thr ough the lung bases. Findings: The patient is status post median sternotomy. Emphysematous changes are present bilaterally . There are tiny bilateral pleural effusions with medial right middle lobe and lingular, as well as b ilateral lower lobe atelectasis. There is no consolidation or pneumothorax. No pulmonary nodules are noted. The airways are patent with no endobronchial lesion. There is no mediastinal or hilar lymphadenopathy . The aorta and pulmonary vessels demonstrate normal course and caliber. Heart size is enlarged with no pericardial effusion. Contrast refluxes into the inferior vena cava and hepatic veins. The thyroid exhibits normal CT morphology with surgical clips along the anterior left lobe. Osseous structures are not significantly changed. The visualized upper abdominal structures are notable for 1.7 cm right and 2.5 cm left adrenal nodule s, not significantly changed from prior imaging. Impression: 1. Tiny bilateral pleural effusions with medial right middle lobe and lingular, as well as bilateral lower lobe atelectasis. 2. Cardiomegaly with findings that can be seen in the setting of heart failure. 3. Emphysematous changes without dense consolidation or pneumothorax.
--- NOTE | 2018-03-11 19:21 | PDOC ---
HPI - History of Present Illness Date of Service: 03/11/18 Time of Service: 19:15 Chief Complaint: 8 pound weight gain and shortness of breath History of Present Illness: Is a very pleasant 78-year-old female who recently was at [facility] in the setting of suprapubic catheter placement. She had an acute respiratory distress event happen in which she had to be admitted, was found to have a pneumonia and eventually was noted to have a collapsed right lower lobe. She was treated very aggressively with METANEBS and a flutter valve and was also treated for her pneumonia, and her mucous plugging and collapsed right lower lobe lung resolved. She was discharged around March 03. Her diuretic was switched from torsemide to furosemide, and she was placed on 20 mg a day. She was told that if her weight was to increase that she should be evaluated. The patient's , Mohan, brought in her weight chart over the month and it stayed fairly consistent until today when the patient actually gained 8 pounds this morning from yesterday. She felt very short of breath and she came into the emergency room for evaluation. On initial chest x-ray looked consistent with congestive heart failure and pleural effusion. I sent the patient down for CT with contrast and what we found is that the patient actually had some mild atelectasis but minimal pleural effusions bilaterally. She states to me that she went through an obstructive sleep apnea test in the past, but could not tolerate it due to significant nocturia and urinary incontinence. She is requiring 6 L/m and occasionally does desaturate below 91%. She has no fevers, but has had a persistent cough and runny nose. I did a biofire profile which is negative. An echocardiogram done in October 2017 showed a possible right ventricular enlargement, but also showed possible diastolic dysfunction. Systolic function was normal at 65%. Right heart pressures were difficult to measure. There is no known history of blood clots. Her brain natruretic peptide was elevated but it has been consistently elevated on the last several measurements here. She was given some Lasix in the emergency room but she cannot tell that it made her feel any better. She has JVD and bilateral lower extremity edema consistent with congestive heart failure. Past Medical History Medical History: 1. Hypertension. 2. Hypothyroidism. 3. COPD, with chronic hypoxemic respiratory failure on 4 L of nasal cannula at baseline. Currently re quiring 6 L/m. 4. Sleep apnea, but cannot tolerate noninvasive ventilation. She could not complete the test for sleep apnea and does not want to go through it again. 5. Depression apparently with anxiety features. 6. osteoporosis. 7. Atrial fibrillation. 8. Coronary artery disease status post CABG. 9. 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 10. Macular degeneration. 11. Carotid artery disease status post carotid stent placement on the right and prior carotid endarterectomy. 12. Chronic pain syndrome attributed to feet problems. 13. Recent collapsed right lower lobe of the lung. Treated conservatively with flutter valve and breathing therapies and did not require bronchoscopy. Surgical History: 1. Carotid endarterectomy, bilateral. 2. History of CABG, 7 vessel. 3. Hysterectomy. 4. Right carotid internal artery stent. 5. Hysterectomy with bladder suspension. 6. Renal artery stent Family History: Reviewed an Not Pertinent Pertinent Family History: Heart disease in her father and in her siblings Past Social History: She used to smoke quit many years ago, rarely drinks. No drugs. for 65 years. Has 5 children. Tobacco Use: Former Smoker In the Past 12 Months, Have Used or Abuse Any of the Following Substance: None Alcohol Use: None Medication / Allergies Home Medications: Home Medications Medication Instructions Recorded Confirmed Type atorvastatin 80 mg tablet 80 mg PO DAILY #90 tab 05/05/17 03/11/18 Rx albuterol sulfate HFA 90 2 puff INH QID PRN #36 g 09/27/17 03/11/18 Rx mcg/actuation aerosol inhaler potassium chloride ER 10 mEq 10 meq PO DAILY 30 Days #30 cap 01/04/18 03/11/18 Rx capsule,extended release citalopram 10 mg tablet 10 mg PO QDAY #30 tab 02/09/18 03/11/18 Rx diltiazem CD 120 mg 120 mg PO BID #60 cap 02/15/18 03/11/18 Rx capsule,extended release 24 hr quetiapine 25 mg tablet 25 mg PO BID #60 tab 02/15/18 03/11/18 Rx oxycodone-acetaminophen 10 mg-325 1 tab PO Q6H PRN #120 tab 02/23/18 03/11/18 Rx mg tablet albuterol sulfate 2.5 mg/3 mL 1.25 mg INH Q6H PRN ml 03/08/18 03/11/18 History (0.083 %) solution for nebulization alprazolam 0.25 mg tablet 0.25 mg PO BID PRN #90 tab 03/08/18 03/11/18 Rx apixaban 2.5 mg tablet 5 mg PO BID tab 03/08/18 03/11/18 History guaifenesin ER 600 mg tablet, 600 mg PO Q12H 03/08/18 03/11/18 History extended release 12 hr levothyroxine 50 mcg tablet 50 mcg PO DAILY #90 tab-cap 03/08/18 03/11/18 Rx polyethylene glycol 3350 17 gram 17 g PO QDAY PRN 03/08/18 03/11/18 History oral powder packet Allergies/Adverse Reactions: Allergies Allergy/AdvReac Type Severity Reaction Status Date / Time sulfamethoxazole Allergy Severe pruritis, Verified 03/11/18 09:27 [From Bactrim] short of breath, chest pain trimethoprim [From Bactrim] Allergy Severe pruritis, Verified 03/11/18 09:27 short of breath, chest pain toprop XL AdvReac Severe NAUSEA Uncoded 03/08/18 14:07 PAIN CONTRACT AdvReac Unknown NOT Uncoded 03/08/18 14:07 APPLICABLE oxycotin AdvReac NAUSEA Uncoded 03/08/18 14:07 Review of Systems - Constitutional Constitutional: REPORTS: General Health Poor, Weight Gain, Fatigue - Respiratory Respiratory: REPORTS: Cough, Other (Short of breath) - Cardiovascular Cardiovascular: REPORTS: Negative System Review - Gastrointestinal Gastrointestinal / Abdominal: REPORTS: Negative System Review - Genitourinary Genitourinary: REPORTS: Incontinence (Urinary incontinence is been very dysfunctional for the patient and she is requiring permanent indwelling Reece catheter. She had opted for a suprapubic catheter, but because of her deteriorating health, not clear that she'll be able to have that done.) - Neurological Neurologic: REPORTS: Negative System Review - Psychiatric Psychiatric: REPORTS: Negative System Review Exam - Vitals Vital Signs: Vital Signs Temperature 98.3 F Temperature Source Oral Pulse Rate [Pulse Oximeter] 74 Pulse Rate 68 Respiratory Rate 16 Blood Pressure [Right Arm] 120/63 Blood Pressure [Left Arm] 109/49 Pulse Ox 93 Oxygen Flow Rate 6 Oxygen Delivery Method Nasal Cannula Height 5 ft 6 in Weight 231 lb - General General Appearance: Cooperative, Mild Distress (Requiring 6 L per nasal cannula, breathing comfortably at that, but does desaturate to the 80% range even while blowing her nose.) - Head Head Exam: Normal Inspection, Normocephalic, Atraumatic - Eye Eye Exam: POSITIVE: No Scleral Icterus - ENT ENT Exam: POSITIVE: Mucous Membranes Moist - Neck Neck Exam: Normal Inspection, No Tenderness, No Lymphadenopathy, No Thyromegaly, JVP is Raised - Respiratory Respiratory Exam: POSITIVE: Breathing Non Labored, Decreased Breath Sounds (In the bases bilaterally), Coarse Breath Sounds - Cardiovascular Cardiovascular Exam: POSITIVE: No Murmur, No Clicks, No Gallops, No Rubs, Irregular Rhythm, Tachycardia, JVD - GI/Abdominal GI/Abdominal Exam: POSITIVE: Normal Bowel Sounds, Non Tender, Non Distended, Soft - Rectal Rectal Exam: POSITIVE: Deferred - External Exam: POSITIVE: Deferred Exam: POSITIVE: Deferred - Extremities Extremities Exam: POSITIVE: No Clubbing Present, No Cyanosis Present, +2 Edema - Back Back Exam: POSITIVE: No CVA Tenderness - Neurological Neurological Exam: POSITIVE: Alert, Oriented x 3, No Facial Droop, Speech Intact / Clear, Moves All Extremities Equally - Psychiatric Psychiatric Exam: POSITIVE: Normal Affect, Normal Mood - Integumentary Integumentary Exam: POSITIVE: Normal Color, Warm, Dry, Intact Results - Labs CBC and BMP: 03/11/18 09:52 03/11/18 09:52 Additional Lab Results: Laboratory Results 03/11/18 03/11/18 03/11/18 09:42 09:42 09:50 WBC RBC Hgb Hct MCV MCH MCHC RDW Std Deviation RDW Coeff of Karis Plt Count MPV Immature Gran % (Auto) Neut % (Auto) Lymph % (Auto) Stokes % (Auto) Eos % (Auto) Baso % (Auto) Immature Gran # (Auto) Neut # (Auto) Lymph # (Auto) Stokes # (Auto) Eos # (Auto) Baso # (Auto) WBC Morphology Comment Plt Morphology Comment RBC Morph Comment PT INR VBG pH 7.36 VBG pCO2 62 H VBG HCO3 35 H VBG Base Excess 9 H Sodium Potassium Chloride Carbon Dioxide Anion Gap BUN Creatinine BUN/Creatinine Ratio Glucose Calculated Osmolality Lactic Acid Calcium Total Bilirubin AST ALT Alkaline Phosphatase C-Reactive Protein NT-Pro-B Natriuret Pep Total Protein Albumin Globulin Albumin/Globulin Ratio TSH Ur Collection Type Clean catch urine Urine Color Yellow Urine Clarity Clear Urine pH 5.0 Ur Specific Flomot <=1.005 Urine Protein 30 A Urine Glucose (UA) Negative Urine Ketones Negative Urine Occult Blood Large H Urine Nitrate Positive A Urine Bilirubin Negative Urine Urobilinogen 0.2 Ur Leukocyte Esterase Small Urine RBC 10-20 Urine WBC 10-15 Ur Squamous Epith Cells Rare Ur Renal Epithelial Cell None Urine Crystals None Urine Bacteria Few Urine Casts None Urine Mucus None Urine Trichomonas None Urine Yeast None Ur Culture Indicated? Culture set Group A Strep Screen Negative 03/11/18 03/11/18 03/11/18 09:52 09:52 09:52 WBC 9.74 RBC 4.04 L Hgb 11.9 L Hct 39.0 MCV 96.5 MCH 29.5 MCHC 30.5 L RDW Std Deviation 53.7 H RDW Coeff of Karis 15.5 H Plt Count 316 MPV 8.9 Immature Gran % (Auto) 0.3 Neut % (Auto) 75.3 Lymph % (Auto) 14.0 Stokes % (Auto) 7.3 Eos % (Auto) 2.9 Baso % (Auto) 0.2 Immature Gran # (Auto) 0.03 Neut # (Auto) 7.34 Lymph # (Auto) 1.36 Stokes # (Auto) 0.71 Eos # (Auto) 0.28 Baso # (Auto) 0.02 WBC Morphology Comment Normal morphology Plt Morphology Comment Normal morphology RBC Morph Comment Normal morphology PT INR VBG pH VBG pCO2 VBG HCO3 VBG Base Excess Sodium 138 Potassium 4.4 Chloride 96 L Carbon Dioxide 35 H Anion Gap 7 BUN 17 Creatinine 0.8 BUN/Creatinine Ratio 21.25 H Glucose 105 Calculated Osmolality 287.0 Lactic Acid 1.2 Calcium 8.5 L Total Bilirubin 0.6 AST 16 ALT 15 Alkaline Phosphatase 72 C-Reactive Protein 1.5 H NT-Pro-B Natriuret Pep 1540 H Total Protein 6.4 Albumin 3.9 Globulin 2.4 L Albumin/Globulin Ratio 1.60 TSH Ur Collection Type Urine Color Urine Clarity Urine pH Ur Specific Flomot Urine Protein Urine Glucose (UA) Urine Ketones Urine Occult Blood Urine Nitrate Urine Bilirubin Urine Urobilinogen Ur Leukocyte Esterase Urine RBC Urine WBC Ur Squamous Epith Cells Ur Renal Epithelial Cell Urine Crystals Urine Bacteria Urine Casts Urine Mucus Urine Trichomonas Urine Yeast Ur Culture Indicated? Group A Strep Screen 03/11/18 03/11/18 09:52 09:52 WBC RBC Hgb Hct MCV MCH MCHC RDW Std Deviation RDW Coeff of Karis Plt Count MPV Immature Gran % (Auto) Neut % (Auto) Lymph % (Auto) Stokes % (Auto) Eos % (Auto) Baso % (Auto) Immature Gran # (Auto) Neut # (Auto) Lymph # (Auto) Stokes # (Auto) Eos # (Auto) Baso # (Auto) WBC Morphology Comment Plt Morphology Comment RBC Morph Comment PT 11.1 INR 1.10 VBG pH VBG pCO2 VBG HCO3 VBG Base Excess Sodium Potassium Chloride Carbon Dioxide Anion Gap BUN Creatinine BUN/Creatinine Ratio Glucose Calculated Osmolality Lactic Acid Calcium Total Bilirubin AST ALT Alkaline Phosphatase C-Reactive Protein NT-Pro-B Natriuret Pep Total Protein Albumin Globulin Albumin/Globulin Ratio TSH 1.66 Ur Collection Type Urine Color Urine Clarity Urine pH Ur Specific Flomot Urine Protein Urine Glucose (UA) Urine Ketones Urine Occult Blood Urine Nitrate Urine Bilirubin Urine Urobilinogen Ur Leukocyte Esterase Urine RBC Urine WBC Ur Squamous Epith Cells Ur Renal Epithelial Cell Urine Crystals Urine Bacteria Urine Casts Urine Mucus Urine Trichomonas Urine Yeast Ur Culture Indicated? Group A Strep Screen - EKG Data -: EKG Interpreted by Me Rate: Tachycardia - EKG Data EKG Interpretation: Other (Atrial fibrillation) - Imaging Status: Image Reviewed by Me (Chest x-ray, shows signs of prior CABG. It looks like there could be effusions present and looks consistent with congestive heart failure. CT of the chest shows what appears to be chronic lung disease changes with consistency with COPD and I don't see large effusions there. I don't see an infiltrate. There could be some atelectasis.) Assessment and Plan - Patient Problems (1) Acute hypercapnic respiratory failure Current Visit: Yes Status: Acute Code(s): J96.02 - Acute respiratory failure with hypercapnia (2) Acute on chronic respiratory failure with hypoxemia Current Visit: Yes Status: Acute Code(s): J96.21 - Acute and chronic respiratory failure with hypoxia (3) Congestive heart failure, NYHA class 3 Current Visit: Yes Status: Acute Code(s): I50.9 - Heart failure, unspecified Qualifiers: Congestive heart failure type: unspecified Qualified Code(s): I50.9 - Heart failure, unspecified (4) Cor pulmonale, acute Current Visit: Yes Status: Acute Code(s): I26.09 - Other pulmonary embolism with acute cor pulmonale (5) Neurogenic bladder disorder Current Visit: Yes Status: Chronic Code(s): N31.9 - Neuromuscular dysfunction of bladder, unspecified (6) COPD (chronic obstructive pulmonary disease) Current Visit: Yes Status: Chronic Onset Date: 05/10/13 Code(s): J44.9 - Chronic obstructive pulmonary disease, unspecified Qualifiers: COPD type: emphysema Emphysema type: panlobular Qualified Code(s): J43.1 - Panlobular emphysema (7) Obstructive sleep apnea Current Visit: No Status: Chronic Onset Date: 08/05/15 Code(s): G47.33 - Obstructive sleep apnea (adult) (pediatric) (8) Obesity (BMI 30-39.9) Current Visit: Yes Status: Chronic Onset Date: 08/05/16 Code(s): E66.9 - Obesity, unspecified (9) Hypothyroidism Current Visit: Yes Status: Chronic Onset Date: 08/06/11 Code(s): E03.9 - Hypothyroidism, unspecified Qualifiers: Hypothyroidism type: acquired Qualified Code(s): E03.9 - Hypothyroidism, unspecified (10) Coronary artery disease involving autologous vein coronary bypass graft without angina pectoris Current Visit: Yes Status: Chronic Onset Date: 08/13/15 Code(s): I25.810 - Atherosclerosis of coronary artery bypass graft(s) without angina pectoris (11) Atrial fibrillation Current Visit: Yes Status: Chronic Code(s): I48.91 - Unspecified atrial fibrillation Qualifiers: Atrial fibrillation type: chronic Qualified Code(s): I48.2 - Chronic atrial fibrillation - Assessment / Plan Additional Assessment/Plan Details: Admit the patient. After doing CT scan today to explore whether or not there was underlying pleural effusions versus collapsed lung with mucous plugging, I think overall the presentation, history and physical, her most consistent with cor pulmonale, and in acute congestive heart failure. Echocardiogram from October 2017 reviewed. I'm not sure if the patient had one about [facility] on her recent admission for which she was just discharged March 03, but I will go ahead and see if we can track one down there before ordering one here. Lasix drip. Potassium replacement as necessary. Continue Cardizem for rate control in the setting of chronic atrial fibrillation and it may also serve to help for cor pulmonale Oxygen as necessary. Urinalysis notes noted, but I think this is most consistent with asymptomatic bacteriuria. She has no fever, no elevation in white count and no other symptoms that would suggest urinary tract infection at this time. CODE STATUS is DO NOT RESUSCITATE. Patient is not interested in doing any more sleep studies. I might get ultrasounds of the lower extremities to make sure there is no DVTs, although there may be a moot point as the patient is on Eliquis for stroke prevention which can also serve as treatment for chronic DVT/pulmonary emboli. It makes it was tenderness to some reasons for right-sided congestive heart failure however. The patient is DO NOT RESUSCITATE. I spoke with the patient and her about this. I spoke to the patient and her about the plan above I also spoke to their older daughter briefly about trying to differentiate between congestive he art failure and collapsed lung. The patient and her agreed with the plan. Her daughter was not there for the discussion of the finalized plan based on CT scan today.
[2018-03-11] MEDS: DILTIAZEM HCL CD 120 MG CAP PO SCH (21:44)
[2018-03-11] MEDS: GUAIFENESIN 600 MG TABLET PO SCH (21:45)
[2018-03-11] MEDS: Apixaban Tab 2.5 MG TABLET PO SCH (21:45)
[2018-03-11] MEDS: ATORVASTATIN 40 MG TABLET PO SCH (21:45)
[2018-03-11] MEDS: ALPRAZolam Tab 0.25 MG TABLET PO PRN (22:40)
[2018-03-11] MEDS: oxyCODONE/APAP 10/325 Tab 1 EACH TAB PO PRN (22:44)
[2018-03-12] MEDS: CALCIUM CARBONATE 500 MG (TUMS) CHEWABLE TABLET PO PRN (02:15)
[2018-03-12] MEDS: LEVOTHYROXINE 50 MCG TABLET PO SCH (04:33)
[2018-03-12] MEDS: CITALOPRAM 20 MG TABLET PO SCH (08:35)
[2018-03-12] MEDS: DILTIAZEM HCL CD 120 MG CAP PO SCH ×2 (08:35→21:37)
[2018-03-12] MEDS: oxyCODONE/APAP 10/325 Tab 1 EACH TAB PO PRN ×3 (08:36→21:37)
[2018-03-12] MEDS: Apixaban Tab 2.5 MG TABLET PO SCH ×2 (08:36→21:37)
[2018-03-12] MEDS: ALPRAZolam Tab 0.25 MG TABLET PO PRN (08:36)
[2018-03-12] MEDS: GUAIFENESIN 600 MG TABLET PO SCH ×2 (08:36→21:37)
[2018-03-12 08:54] LABS: BLOOD UREA NITROGEN 20 mg/dL (7-22); BUN/CREATININE RATIO 22.22 (6-20)
--- NOTE | 2018-03-12 11:13 | PDOC(PROG) ---
Interval History: Patient denies any chest pain nausea or vomiting at first she said she does not want any more blood drawn I did explain to her she is on a Lasix drip will need to monitor some parameters. But if she did want to stop that would have to stop the Lasix drip as well. Later she agreed to continuing Lasix drip to try to get some more fluid off for her. Objective : Data - Labs CBC and BMP: 03/11/18 09:52 03/12/18 08:35 Objective : Exam - General General Appearance: Cooperative - Respiratory Respiratory Exam: Decreased Breath Sounds - Cardiovascular Cardiovascular Exam: RRR, No Murmur, No Clicks, No Gallops, No Rubs, PMI Non- Displaced - GI/Abdominal GI/Abdominal Exam: Normal Bowel Sounds, Non Tender, Non Distended, Soft, No Masses, No Hepatomegaly, No Splenomegaly, No Organomegaly - Extremities Extremities Exam: No Clubbing Present, No Cyanosis Present, +2 Edema Assessment and Plan - Patient Problems (1) Atrial fibrillation Current Visit: Yes Status: Chronic Code(s): I48.91 - Unspecified atrial fibrillation Qualifiers: Atrial fibrillation type: chronic Qualified Code(s): I48.2 - Chronic atrial fibrillation (2) Coronary artery disease involving autologous vein coronary bypass graft without angina pectoris Current Visit: Yes Status: Chronic Onset Date: 08/13/15 Code(s): I25.810 - Atherosclerosis of coronary artery bypass graft(s) without angina pectoris (3) Hypothyroidism Current Visit: Yes Status: Chronic Onset Date: 08/06/11 Code(s): E03.9 - Hypothyroidism, unspecified Qualifiers: Hypothyroidism type: acquired Qualified Code(s): E03.9 - Hypothyroidism, unspecified (4) Obesity (BMI 30-39.9) Current Visit: Yes Status: Chronic Onset Date: 08/05/16 Code(s): E66.9 - Obesity, unspecified (5) Obstructive sleep apnea Current Visit: No Status: Chronic Onset Date: 08/05/15 Code(s): G47.33 - Obstructive sleep apnea (adult) (pediatric) (6) COPD (chronic obstructive pulmonary disease) Current Visit: Yes Status: Chronic Onset Date: 05/10/13 Code(s): J44.9 - Chronic obstructive pulmonary disease, unspecified Qualifiers: COPD type: emphysema Emphysema type: panlobular Qualified Code(s): J43.1 - Panlobular emphysema (7) Neurogenic bladder disorder Current Visit: Yes Status: Chronic Code(s): N31.9 - Neuromuscular dysfunction of bladder, unspecified (8) Congestive heart failure, NYHA class 3 Current Visit: Yes Status: Acute Code(s): I50.9 - Heart failure, unspecified Qualifiers: Congestive heart failure type: unspecified Qualified Code(s): I50.9 - Heart failure, unspecified (9) Cor pulmonale, acute Current Visit: Yes Status: Acute Code(s): I26.09 - Other pulmonary embolism with acute cor pulmonale (10) Acute on chronic respiratory failure with hypoxemia Current Visit: Yes Status: Acute Code(s): J96.21 - Acute and chronic respiratory failure with hypoxia (11) Acute hypercapnic respiratory failure Current Visit: Yes Status: Acute Code(s): J96.02 - Acute respiratory failure with hypercapnia - Assessment / Plan Additional Assessment/Plan Details: #1 acute CHF most likely right heart failure and cor pulmonale continue IV Lasix drip patient has +2 lower extremity edema replace potassium as necessary #2 continue Cardizem with chronic A. fib and anticoagulation continue oxygen #3 patient has bacteriuria in the urine she does appear seem a little confused today I will go ahead and treat with Rocephin patient has a chronic indwelling catheter #4 disposition discuss case with the patient and patient appears very weak and unable to care for self also has chronic COPD I would recommend most likely PT OT if patient agrees and then longterm placement they will discuss this over the weekend
[2018-03-12] MEDS: cefTRIAXone Inj 2 GM in Sodium Chloride 0.9% 100 ML IV SCH (13:24)
[2018-03-12] MEDS: POLYETHYLENE GLYCOL 3350 17 GM POWDER PO PRN (21:36)
[2018-03-12] MEDS: ATORVASTATIN 40 MG TABLET PO SCH (21:37)
[2018-03-13] MEDS: CALCIUM CARBONATE 500 MG (TUMS) CHEWABLE TABLET PO PRN (01:52)
[2018-03-13] MEDS: LEVOTHYROXINE 50 MCG TABLET PO SCH (04:32)
[2018-03-13 04:41] LABS: Hematocrit [HCT] 39.4 % (37.0-47.0); Hemoglobin [HGB] 11.9 g/dL (12.0-16.0); MEAN CORPUSCULAR HEMOGLOBIN 29.2 PG (27-31); MEAN CORPUSCULAR HGB CONC 30.2 g/dL (33-37); MEAN CORPUSCULAR VOLUME 96.8 FL (81-99); MEAN PLATELET VOLUME 8.6 FL (7.4-12.2); RED BLOOD COUNT 4.07 10^6/uL (4.20-5.40)
[2018-03-13 04:55] LABS: BLOOD UREA NITROGEN 22 mg/dL (7-22); SERUM ALBUMIN 3.8 g/dL (3.5-4.8)
[2018-03-13] MEDS: ALBUTEROL SULFATE 2.5 MG/3 ML NEB PRN ×3 (08:22→19:06)
[2018-03-13] MEDS: ALPRAZolam Tab 0.25 MG TABLET PO PRN ×2 (09:42→15:28)
[2018-03-13] MEDS: POLYETHYLENE GLYCOL 3350 17 GM POWDER PO PRN (09:46)
[2018-03-13] MEDS: Apixaban Tab 2.5 MG TABLET PO SCH ×2 (09:46→20:54)
[2018-03-13] MEDS: GUAIFENESIN 600 MG TABLET PO SCH ×2 (09:46→20:55)
[2018-03-13] MEDS: oxyCODONE/APAP 10/325 Tab 1 EACH TAB PO PRN ×3 (09:46→20:55)
[2018-03-13] MEDS: DILTIAZEM HCL CD 120 MG CAP PO SCH ×2 (09:47→20:54)
[2018-03-13] MEDS: CITALOPRAM 20 MG TABLET PO SCH (09:47)
--- NOTE | 2018-03-13 10:16 | PDOC(PROG) ---
Interval History: No complaints no nausea no vomiting no chest pain feels much better today she is less confused. She has opted to go to [facility] for rehabilitation I will consult PT and OT Objective : Data - Labs CBC and BMP: 03/13/18 04:35 03/13/18 04:35 Objective : Exam - General General Appearance: Cooperative - Respiratory Respiratory Exam: Clear to Auscultation - Bilaterally, Breathing Non Labored, Normal To Percussion, Normal to Percussion and Palpation - Cardiovascular Cardiovascular Exam: RRR, No Murmur, No Clicks, No Gallops, No Rubs, PMI Non- Displaced - GI/Abdominal GI/Abdominal Exam: Normal Bowel Sounds, Non Tender, Non Distended, Soft, No Masses, No Hepatomegaly, No Splenomegaly, No Organomegaly - Extremities Extremities Exam: +1 Edema Assessment and Plan - Patient Problems (1) Congestive heart failure, NYHA class 3 Current Visit: Yes Status: Acute Comment: Patient had good diuresis almost 4 L out BUN is starting to rise we'll stop Lasix drip and the start by mouth Lasix. Discussed with family patient has chosen to be placed at [facility] for continuing rehabilitation Code(s): I50.9 - Heart failure, unspecified Qualifiers: Congestive heart failure type: unspecified Qualified Code(s): I50.9 - Heart failure, unspecified (2) UTI (urinary tract infection) Current Visit: Yes Status: Acute Comment: Indwelling Reece catheter. This was present on admission because of her confusion started to treat yesterday with Rocephin. Code(s): N39.0 - Urinary tract infection, site not specified (3) Atrial fibrillation Current Visit: Yes Status: Chronic Comment: Stable Code(s): I48.91 - Unspecified atrial fibrillation Qualifiers: Atrial fibrillation type: chronic Qualified Code(s): I48.2 - Chronic atrial fibrillation (4) Coronary artery disease involving autologous vein coronary bypass graft without angina pectoris Current Visit: Yes Status: Chronic Onset Date: 08/13/15 Code(s): I25.810 - Atherosclerosis of coronary artery bypass graft(s) without angina pectoris (5) Hypothyroidism Current Visit: Yes Status: Chronic Onset Date: 08/06/11 Code(s): E03.9 - Hypothyroidism, unspecified Qualifiers: Hypothyroidism type: acquired Qualified Code(s): E03.9 - Hypothyroidism, unspecified (6) Obesity (BMI 30-39.9) Current Visit: Yes Status: Chronic Onset Date: 08/05/16 Code(s): E66.9 - Obesity, unspecified (7) Obstructive sleep apnea Current Visit: No Status: Chronic Onset Date: 08/05/15 Code(s): G47.33 - Obstructive sleep apnea (adult) (pediatric) (8) COPD (chronic obstructive pulmonary disease) Current Visit: Yes Status: Chronic Onset Date: 05/10/13 Code(s): J44.9 - Chronic obstructive pulmonary disease, unspecified Qualifiers: COPD type: emphysema Emphysema type: panlobular Qualified Code(s): J43.1 - Panlobular emphysema (9) Neurogenic bladder disorder Current Visit: Yes Status: Chronic Code(s): N31.9 - Neuromuscular dysfuncti on of bladder, unspecified (10) Cor pulmonale, acute Current Visit: Yes Status: Acute Code(s): I26.09 - Other pulmonary embolism with acute cor pulmonale (11) Acute on chronic respiratory failure with hypoxemia Current Visit: Yes Status: Acute Code(s): J96.21 - Acute and chronic respiratory failure with hypoxia (12) Acute hypercapnic respiratory failure Current Visit: Yes Status: Acute Code(s): J96.02 - Acute respiratory failure with hypercapnia
[2018-03-13] MEDS: cefTRIAXone Inj 2 GM in Sodium Chloride 0.9% 100 ML IV SCH (11:21)
[2018-03-13] MEDS: FUROSEMIDE 40 MG TABLET PO SCH (13:27)
[2018-03-13] MEDS: ATORVASTATIN 40 MG TABLET PO SCH (20:54)
[2018-03-14] MEDS: LEVOTHYROXINE 50 MCG TABLET PO SCH (04:57)
[2018-03-14 05:06] LABS: Hematocrit [HCT] 39.2 % (37.0-47.0); Hemoglobin [HGB] 12.4 g/dL (12.0-16.0); MEAN CORPUSCULAR HEMOGLOBIN 29.8 PG (27-31); MEAN CORPUSCULAR HGB CONC 31.6 g/dL (33-37); MEAN CORPUSCULAR VOLUME 94.2 FL (81-99); MEAN PLATELET VOLUME 9.1 FL (7.4-12.2); RED BLOOD COUNT 4.16 10^6/uL (4.20-5.40)
[2018-03-14 05:25] LABS: BLOOD UREA NITROGEN 17 mg/dL (7-22); BUN/CREATININE RATIO 24.28 (6-20); SERUM ALBUMIN 3.7 g/dL (3.5-4.8)
[2018-03-14] MEDS: ALBUTEROL SULFATE 2.5 MG/3 ML NEB PRN ×2 (06:50→19:15)
[2018-03-14] MEDS: FUROSEMIDE 40 MG TABLET PO SCH ×2 (06:55→14:23)
[2018-03-14] MEDS: CITALOPRAM 20 MG TABLET PO SCH (08:57)
[2018-03-14] MEDS: GUAIFENESIN 600 MG TABLET PO SCH ×2 (08:57→21:41)
[2018-03-14] MEDS: DILTIAZEM HCL CD 120 MG CAP PO SCH ×2 (08:58→21:41)
[2018-03-14] MEDS: Apixaban Tab 2.5 MG TABLET PO SCH ×2 (08:58→21:41)
[2018-03-14] MEDS: oxyCODONE/APAP 10/325 Tab 1 EACH TAB PO PRN ×3 (08:58→21:41)
[2018-03-14] MEDS: ALPRAZolam Tab 0.25 MG TABLET PO PRN ×2 (08:59→21:47)
[2018-03-14] MEDS ORDERED: LIDOCAINE HCL 2 % 10 ML JELLY URO-JECT TOPICAL PRN (09:58)
--- NOTE | 2018-03-14 10:37 | PDOC(PROG) ---
Interval History: Patient feels much better she had great diuresis much more clearer since we started treating the UTI I believe has no complaints chart Mangus in the room for physical therapy patient expressed to her plans to be discharged to [facility] for further rehabilitation Objective : Data - Labs CBC and BMP: 03/14/18 04:34 03/14/18 04:34 Objective : Exam - General General Appearance: Cooperative - Respiratory Respiratory Exam: Clear to Auscultation - Bilaterally, Breathing Non Labored, Normal To Percussion, Normal to Percussion and Palpation - Cardiovascular Cardiovascular Exam: RRR, No Murmur, No Clicks, No Gallops, No Rubs, PMI Non- Displaced - GI/Abdominal GI/Abdominal Exam: Normal Bowel Sounds, Non Tender, Non Distended, Soft, No Masses, No Hepatomegaly, No Splenomegaly, No Organomegaly - Extremities Extremities Exam: No Clubbing Present, No Edema Present Assessment and Plan - Patient Problems (1) Congestive heart failure, NYHA class 3 Current Visit: Yes Status: Acute Comment: Great diuresis Lasix drip was stopped now on by mouth Lasix tolerating well BUN/creatinine within normal limits Code(s): I50.9 - Heart failure, unspecified Qualifiers: Congestive heart failure type: unspecified Qualified Code(s): I50.9 - Heart failure, unspecified (2) UTI (urinary tract infection) Current Visit: Yes Status: Acute Comment: Continue Rocephin Code(s): N39.0 - Urinary tract infection, site not specified (3) Atrial fibrillation Current Visit: Yes Status: Chronic Comment: Stable Code(s): I48.91 - Unspecified atrial fibrillation Qualifiers: Atrial fibrillation type: chronic Qualified Code(s): I48.2 - Chronic atrial fibrillation (4) Coronary artery disease involving autologous vein coronary bypass graft without angina pectoris Current Visit: Yes Status: Chronic Onset Date: 08/13/15 Comment: Stable Code(s): I25.810 - Atherosclerosis of coronary artery bypass graft(s) without angina pectoris (5) Hypothyroidism Current Visit: Yes Status: Chronic Onset Date: 08/06/11 Comment: Continue replacement Code(s): E03.9 - Hypothyroidism, unspecified Qualifiers: Hypothyroidism type: acquired Qualified Code(s): E03.9 - Hypothyroidism, unspecified (6) Obesity (BMI 30-39.9) Current Visit: Yes Status: Chronic Onset Date: 08/05/16 Code(s): E66.9 - Obesity, unspecified (7) Obstructive sleep apnea Current Visit: No Status: Chronic Onset Date: 08/05/15 Code(s): G47.33 - Obstructive sleep apnea (adult) (pediatric) (8) COPD (chronic obstructive pulmonary disease) Current Visit: Yes Status: Chronic Onset Date: 05/10/13 Code(s): J44.9 - Chronic obstructive pulmonary disease, unspecified Qualifiers: COPD type: emphysema Emphysema type: panlobular Qualified Code(s): J43.1 - Panlobular emphysema (9) Neurogenic bladder disorder Current Visit: Yes Status: Chronic Comment: Change Reece out Code(s): N31.9 - Neuromuscular dysfunction of bladder, unspecified (10) Cor pulmonale, acute Current Visit: Yes Status: Acute Code(s): I26.09 - Other pulmonary embolism with acute cor pulmonale (11) Acute on chronic respiratory failure with hypoxemia Current Visit: Yes Status: Acute Code(s): J96.21 - Acute and chronic respiratory failure with hypoxia (12) Acute hypercapnic respiratory failure Current Visit: Yes Status: Acute Code(s): J96.02 - Acute respiratory failure with hypercapnia
[2018-03-14] MEDS: cefTRIAXone Inj 2 GM in Sodium Chloride 0.9% 100 ML IV SCH (14:23)
--- NOTE | 2018-03-14 15:01 | PT.PROG ---
Progress Note Progress Note: S. Patient stated that she would like to get up and go for a walk. O. Patient ambulated 75 feet in carpenter and back to her room where she performed, long arc quads, marches, and ankle pumps, x 10, sit to stands x 3. Patient was left in her chair with alarm and call light. A. Patient tolerated ambulation fair, she requires frequent verbal cues for safety with her walker and min assist with transfers and ambulation, She would continue to benefit from skilled therapy to increase strength, mobility, endurance and safety at this time. P. continue POC.
--- NOTE | 2018-03-14 15:27 | PTI REPORT ---
Thank you for the referral of Milagros Dennis. She was seen on 03/14/18 for an inpatient evaluation secondary to generalized weakness. SUBJECTIVE: The patient is an 78-year-old female who was referred by Dr. Betancourt secondary to a recent hospitalization in [place]. She then transferred back to [place]. Her doctor states she still has significant right sided congestive heart failure. We are going to care for her here. She states that she is going to be eventually transferring to the [facility] for rehabilitation. She does hope to eventually get home. She was upset about the decision, but she said that the decision was hers and in light of her multiple re-hospitalizations, it is probably the best place for her. PAST MEDICAL HISTORY: Past medical history can be found in the patient's medical record. OBJECTIVE FINDINGS: General observations: Lower extremities demonstrated significant improvement of swelling and fluid according to the doctor as he was right there during the examination. Range of motion/Strength: The patient demonstrates range of motion of the right shoulder to approximately 90 degrees of flexion and abduction. She does have a history of a rotator cuff tear in that shoulder. The left shoulder made it to about 120 degrees of flexion and abduction with 3-/5 strength. She demonstrates strength of 3/5 in the hip, knee, ankle, and foot on both sides. Core strength is poor. Transfers: The patient required minimal assistance to transfer from sit to stand. She was very hesitant in any of her movements or decisions today. Ambulation: The patient did ambulate with stand by assist of one and a walker up to 100 feet and she made it to the shower today. Pain: The patient complains of ankle and foot pain that prevents her from ambulating too far or participating in too much activity. ASSESSMENT: The patient is considering and has agreed to go to the [facility] after the next 3-4 days in the hospital here. Problem List: Decreased upper and lower extremity strength Bad right shoulder, longstanding Food/ankle pain Multiple hospitalizations due to her respiratory function Short-Term Goals: To be met by discharge from inpatient: Patient will be able to transfer from bed to stand independently. Patient will be able to ambulate 300 feet with least restrictive assistive device. Patient will increase bilateral lower extremity strength to 3+/5. Patient will be able to perform all ADLs independently. Long-Term Goals: To be met following discharge from inpatient: Patient will transfer to the [facility]. TREATMENT PLAN: Patient will be seen B.I.D during the week and one time per day over the weekend as an inpatient to address the above goals and objectives. INITIAL TREATMENT: Treatment today consisted of the initial evaluation only. JAZLYN
[2018-03-14] MEDS: NYSTATIN 15 GM POWDER TOPICAL PRN (15:40)
--- NOTE | 2018-03-14 16:37 | OT.PROG ---
Progress Note Progress Note: Occupational Therapy Pt. refused occupational therapy services this afternoon and reports that she is tired and wants to visit with her . Pt. did see physical therapy this afternoon and OT will attempt to see pt. again in the morning. SURAJ Reinoso/Marisel
[2018-03-14] MEDS: ATORVASTATIN 40 MG TABLET PO SCH (21:41)
[2018-03-14] MEDS: POTASSIUM CHLORIDE 20 MEQ TAB PO SCH (22:11)
[2018-03-15] MEDS ORDERED: POTASSIUM CHLORIDE 20 MEQ TAB PO ONE (02:16)
[2018-03-15] MEDS ORDERED: Magnesium Sulfate 2gm (Premix) 2 GM/50 ML BAG IV ONE (02:16)
[2018-03-15] MEDS: LEVOTHYROXINE 50 MCG TABLET PO SCH (04:58)
[2018-03-15] MEDS: oxyCODONE/APAP 10/325 Tab 1 EACH TAB PO PRN ×2 (07:45→13:33)
[2018-03-15] MEDS: FUROSEMIDE 40 MG TABLET PO SCH ×2 (07:45→12:59)
[2018-03-15 08:35] LABS: BLOOD UREA NITROGEN 17 mg/dL (7-22); BUN/CREATININE RATIO 24.28 (6-20); SERUM ALBUMIN 3.9 g/dL (3.5-4.8)
[2018-03-15] MEDS: Apixaban Tab 2.5 MG TABLET PO SCH (09:12)
[2018-03-15] MEDS: GUAIFENESIN 600 MG TABLET PO SCH (09:12)
[2018-03-15] MEDS: ALPRAZolam Tab 0.25 MG TABLET PO PRN ×2 (09:12→13:39)
[2018-03-15] MEDS: POTASSIUM CHLORIDE 20 MEQ TAB PO SCH (09:13)
[2018-03-15] MEDS: CITALOPRAM 20 MG TABLET PO SCH (09:13)
[2018-03-15] MEDS: DILTIAZEM HCL CD 120 MG CAP PO SCH (09:13)
--- NOTE | 2018-03-15 10:23 | PDOC(PROG) ---
Interval History: Patient has no complaints had a few PVCs in the middle the night electrolytes were replaced with magnesium and potassium now within normal limits PVCs resolved patient denies chest pain nausea vomiting just wanted to know when her [facility] bed is available I told her the social work assistant is working on Objective : Data - Labs CBC and BMP: 03/14/18 04:34 03/15/18 08:20 Objective : Exam - General General Appearance: No Acute Distress, Cooperative - Respiratory Respiratory Exam: Clear to Auscultation - Bilaterally, Breathing Non Labored, Normal To Percussion, Normal to Percussion and Palpation - Cardiovascular Cardiovascular Exam: RRR, No Murmur, No Clicks, No Gallops, No Rubs, PMI Non- Displaced - GI/Abdominal GI/Abdominal Exam: Normal Bowel Sounds, Non Tender, Non Distended, Soft, No Masses, No Hepatomegaly, No Splenomegaly, No Organomegaly - Extremities Extremities Exam: No Clubbing Present, No Edema Present, No Cyanosis Present Assessment and Plan - Patient Problems (1) Congestive heart failure, NYHA class 3 Current Visit: Yes Status: Acute Comment: Stable at present time continue Lasix by mouth twice a day and potassium replacement Code(s): I50.9 - Heart failure, unspecified Qualifiers: Congestive heart failure type: unspecified Qualified Code(s): I50.9 - Heart failure, unspecified (2) UTI (urinary tract infection) Current Visit: Yes Status: Acute Comment: Treated we will go one more day with ceftriaxone then stop for a total of 5 days Code(s): N39.0 - Urinary tract infection, site not specified (3) Atrial fibrillation Current Visit: Yes Status: Chronic Comment: Stable at present time Code(s): I48.91 - Unspecified atrial fibrillation Qualifiers: Atrial fibrillation type: chronic Qualified Code(s): I48.2 - Chronic atrial fibrillation (4) Coronary artery disease involving autologous vein coronary bypass graft without angina pectoris Current Visit: Yes Status: Chronic Onset Date: 08/13/15 Code(s): I25.810 - Atherosclerosis of coronary artery bypass graft(s) without angina pectoris (5) Hypothyroidism Current Visit: Yes Status: Chronic Onset Date: 08/06/11 Code(s): E03.9 - Hypothyroidism, unspecified Qualifiers: Hypothyroidism type: acquired Qualified Code(s): E03.9 - Hypothyroidism, unspecified (6) Obesity (BMI 30-39.9) Current Visit: Yes Status: Chronic Onset Date: 08/05/16 Code(s): E66.9 - Obesity, unspecified (7) Obstructive sleep apnea Current Visit: No Status: Chronic Onset Date: 08/05/15 Code(s): G47.33 - Obstructive sleep apnea (adult) (pediatric) (8) COPD (chronic obstructive pulmonary disease) Current Visit: Yes Status: Chronic Onset Date: 05/10/13 Code(s): J44.9 - Chronic obstructive pulmonary disease, unspecified Qualifiers: COPD type: emphysema Emphysema type: panlobular Qualified Code(s): J43.1 - Panlobular emphysema (9) Neurogenic bladder disorder Current Visit: Yes Status: Chronic Code(s): N31.9 - Neuromuscular dysfunction of bladder, unspecified (10) Cor pulmonale, acute Current Visit: Yes Status: Chronic Code(s): I26.09 - Other pulmonary embolism with acute cor pulmonale (11) Acute on chronic respiratory failure with hypoxemia Current Visit: Yes Status: Resolved Code(s): J96.21 - Acute and chronic re spiratory failure with hypoxia (12) Acute hypercapnic respiratory failure Current Visit: Yes Status: Resolved Code(s): J96.02 - Acute respiratory failure with hypercapnia
[2018-03-15] MEDS: NYSTATIN 15 GM POWDER TOPICAL PRN (10:49)
[2018-03-15 11:26] VITALS: BP 95/64; RESP 12; TEMP 97.3; O2SAT 96
--- NOTE | 2018-03-15 11:33 | PT.PROG ---
Progress Note Progress Note: S. Patient stated that she would go for a walk. O. Patient ambulated 110 feet in the carpenter and back to her room where she was left with PCT. A. Patient tolerated ambulation fair, she required frequent rest break breaks during ambulation and one seated rest break. Patient is very weak and would continue to benefit from skilled therapy or alf facility to increase strength, mobility, endurance and safety. P. Continue POC>
--- NOTE | 2018-03-15 11:41 | OT.PROG ---
Progress Note Progress Note: S: pt stated that she had a rough night but agreed to therapy. O: tx consisted of RTB exercises of biceps, triceps and chest pulls x20 and completed of ADL tasks of donning UE clothing. pt needed MAX A for donning UE. pt was transferred to PT for continued therapy. A: pt tolerated session well but seems confused. P: continue POC
--- NOTE | 2018-03-15 12:02 | OTI REPORT ---
Thank you for the referral of Milagros Dennis. She was seen on 03/14/18 for an occupational therapy inpatient evaluation secondary to weakness. SUBJECTIVE: The patient is an 78-year-old female who is being seen secondary to multiple lung issues. Prior to admission the patient was at [facility] for a week and then was discharged home for a week but ended up back in the hospital. She has a collapsed right lower lobe, respiratory failure, hypoxemia, CHF, and COPD. Her states she has had to have a lot of assistance getting dressed, with her showers, and with some simple ADLs. The patient is waiting to go to the [facility] at some point in order to continue to work on strength and improving her abilities. PAST MEDICAL HISTORY: Past medical history can be found in the patient's medical record. OBJECTIVE FINDINGS: General observations: Today the patient was sitting in chair when the therapist arrived. The patient was alert and oriented x4; however, she does perseverate on a lot of different issues that are going on and has difficulty following through with the next task. Range of motion: The patient had within functional limits for all upper extremity range of motion. Strength: Strength for shoulder flexion was 3+/5, shoulder abduction was 3+/5, elbow flexion/extension was 4/5, and wrist flexion/extension was 4/5. Activities of daily living: Today the patient was asked to complete lower extremity dressing. She needed max assist to start dressing task but was able to pull pants to waistline. Endurance: The patient tends to fatigue quite easily and has poor activity tolerance. She needs cues to perform pursed lipped breathing and her energy conservation techniques. Transfers: The patient requires min assist to keep her balance and to decrease her fatigue. ASSESSMENT: The patient would benefit from skilled occupational therapy to address improving her overall strength, activity tolerance, and safety while completing functional transfers and ADLs. Short-Term Goals: To be met by discharge from inpatient: Patient will be able to dress self with adaptive devices and modified independence. Patient will be able to increase upper extremity strength to 4+/5 to improve strength for ADLs and functional transfers. Patient will complete a toilet transfer and toilet hygiene independently. Long-Term Goals: To be met following discharge from inpatient: Patient will discharge to a 24-hour care facility to improve her strength and functional safety for ADLs and transfers. TREATMENT PLAN: Patient will be seen B.I.D during the week and one time per day over the weekend as an inpatient to address the above goals and objectives. INITIAL TREATMENT: Treatment today consisted of the evaluation followed by the patient completing upper extremity active range of motion x10 for flexion, biceps, and wrist flexion/extension. She completed two minute standing periods x3 and weight shifting at chair. We worked on upper extremity dressing with mod assist and lower extremity dressing with max assist. She perseverated on her catheter that had not been taken out and changed and also perseverated on a little bit of dampness on her gown; she wanted this changed as well as the pad underneath her. JAZLYN
[2018-03-15] MEDS: POLYETHYLENE GLYCOL 3350 17 GM POWDER PO PRN (12:59)
[2018-03-15] MEDS: cefTRIAXone Inj 2 GM in Sodium Chloride 0.9% 100 ML IV SCH (13:00)
--- NOTE | 2018-03-15 13:05 | DCSUMMARY ---
Hospitalization Summary Hospital Course: Final Discharge Diagnosis: Current Visit Problems Problem Status Onset Code CHF (congestive heart failure) Acute I50.9 Congestive heart failure, NYHA class 3 Acute I50.9 Cor pulmonale, acute Chronic I26.09 Acute on chronic respiratory failure with hypoxemia Resolved J96.21 Acute hypercapnic respiratory failure Resolved J96.02 UTI (urinary tract infection) Acute N39.0 Neurogenic bladder disorder Chronic N31.9 COPD (chronic obstructive pulmonary disease) Chronic 05/10/13 J44.9 Obesity (BMI 30-39.9) Chronic 08/05/16 E66.9 Hypothyroidism Chronic 08/06/11 E03.9 Coronary artery disease involving autologous vein coronary bypass graft without angina pectoris Chronic 08/13/15 I25.810 Atrial fibrillation Chronic I48.91 Diagnostic Data, Laboratory Data, and Procedures of Signifigance: Laboratory Results 03/15/18 08:20 Sodium 140 Potassium 4.5 D Chloride 90 L Carbon Dioxide 43 H Anion Gap 7 BUN 17 Creatinine 0.7 BUN/Creatinine Ratio 24.28 H Glucose 145 H Calculated Osmolality 294.0 H Calcium 8.7 Total Bilirubin 0.7 AST 21 ALT 21 Alkaline Phosphatase 72 Total Protein 6.2 Albumin 3.9 Globulin 2.3 L Albumin/Globulin Ratio 1.60 History and Physical pertinent to Admission: Past Medical History Medical History: 1. Hypertension. 2. Hypothyroidism. 3. COPD, with chronic hypoxemic respiratory failure on 4 L of nasal cannula at baseline. Currently requiring 6 L/m. 4. Sleep apnea, but cannot tolerate noninvasive ventilation. She could not complete the test for sleep apnea and does not want to go through it again. 5. Depression apparently with anxiety features. 6. osteoporosis. 7. Atrial fibrillation. 8. Coronary artery disease status post CABG. 9. 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 10. Macular degeneration. 11. Carotid artery disease status post carotid stent placement on the right and prior carotid endarterectomy. 12. Chronic pain syndrome attributed to feet problems. 13. Recent collapsed right lower lobe of the lung. Treated conservatively with flutter valve and breathing therapies and did not require bronchoscopy. Surgical History: 1. Carotid endarterectomy, bilateral. 2. History of CABG, 7 vessel. 3. Hysterectomy. 4. Right carotid internal artery stent. 5. Hysterectomy with bladder suspension. 6. Renal artery stent Family History: Reviewed an Not Pertinent Pertinent Family History: Heart disease in her father and in her siblings Past Social History: She used to smoke quit many years ago, rarely drinks. No drugs. for 65 years. Has 5 children. Tobacco Use: Former Smoker In the Past 12 Months, Have Used or Abuse Any of the Following Substance: None Alcohol Use: None Course of Hospitalization: Is a very nice 78-year-old female who was just discharged from [facility] she had gone up there for a suprapubic catheter placement. She had an acute respiratory failure event had to be admitted and was found to be pneumonia and treated for. She was discharged and switched from thoracic my to Lasix and was told that if her weight increased she should the call her matcher leather parts. Her weight went up 8 pounds was brought to the ER for this also has shortness of breath and was admitted for congestive heart failure and right-sided heart failure and cor pulmonale she responded very well to Lasix drip with the decreased the leg edema her BUN started to go up there for Lasix drip was stopped and oral potassium was initiated and oral Lasix. She is doing quite well and stable from congestive heart failure point her electrolytes were replaced since magnesium and potassium were both low. She also was treated for UTI which improved her mental clarity. Her and her decided to be doing her rehabilitation at [facility] On the date of discharge, the patient was examined: Gen.: No acute distress, alert, nontoxic Heart: Regular rate and rhythm, no murmurs, clicks, gallops, or rubs Lungs: Clear to auscultation bilaterally, breathing is nonlabored Abdomen/GI: Normal tones on auscultation, soft, nontender, nondistended Musculoskeletal/extremities: No clubbing, cyanosis, or edema Vitals reviewed and are listed below Vital Signs (24 hrs) 03/14/18 15:00 03/14/18 15:07 03/14/18 15:59 Temperature 97.8 F Pulse Rate 70 Pulse Rate Pulse Oximeter 70 Respiratory Rate 19 Blood Pressure Right Arm 113/78 Pulse Ox 94 94 03/14/18 19:00 03/14/18 19:15 03/14/18 19:16 Temperature Pulse Rate 76 66 68 Pulse Rate Pulse Oximeter 70 Respiratory Rate 17 15 17 Blood Pressure Right Arm Pulse Ox 91 92 98 03/14/18 20:38 03/14/18 23:00 03/14/18 23:25 Temperature 98.3 F Pulse Rate 82 Pulse Rate Pulse Oximeter 88 Respiratory Rate 14 Blood Pressure Right Arm 135/56 Pulse Ox 91 93 03/14/18 23:37 03/15/18 03:00 03/15/18 03:37 Temperature 97.6 F 97.8 F Pulse Rate 87 Pulse Rate Pulse Oximeter 82 87 Respiratory Rate 27 H 10 L Blood Pressure Right Arm 146/66 102/58 Pulse Ox 93 94 93 03/15/18 05:04 03/15/18 06:58 03/15/18 07:00 Temperature 98 F Pulse Rate 74 Pulse Rate Pulse Oximeter 76 Respiratory Rate 20 Blood Pressure Right Arm 120/67 Pulse Ox 95 93 91 03/15/18 07:48 03/15/18 07:49 03/15/18 11:00 Temperature Pulse Rate Pulse Rate Pulse Oximeter 72 Respiratory Rate 20 Blood Pressure Right Arm Pulse Ox 97 03/15/18 11:21 Temperature 97.3 F Pulse Rate Pulse Rate Pulse Oximeter 75 Respiratory Rate 12 Blood Pressure Right Arm 95/64 Pulse Ox 96 Assessment and Plan: 1. As per discharge assessments above 2. Disposition: [facility] 3. Condition on discharge, stable and improved. 4. Diet: regular diet 5. Activities: resume normal activities 6. Follow-Up: 1. PCP and urology for possible evaluation of suprapubic catheter 2. 7. Medications at the Time of Discharge: Home Medications Medication Instructions Recorded Confirmed Type atorvastatin 80 mg tablet 80 mg PO DAILY #90 tab 05/05/17 03/11/18 Rx albuterol sulfate HFA 90 2 puff INH QID PRN #36 g 09/27/17 03/11/18 Rx mcg/actuation aerosol inhaler citalopram 10 mg tablet 10 mg PO QDAY #30 tab 02/09/18 03/11/18 Rx diltiazem CD 120 mg 120 mg PO BID #60 cap 02/15/18 03/11/18 Rx capsule,extended release 24 hr quetiapine 25 mg tablet 25 mg PO BID #60 tab 02/15/18 03/11/18 Rx albuterol sulfate 2.5 mg/3 mL 1.25 mg INH Q6H PRN ml 03/08/18 03/11/18 History (0.083 %) solution for nebulization apixaban 2.5 mg tablet 5 mg PO BID tab 03/08/18 03/11/18 History guaifenesin ER 600 mg tablet, 600 mg PO Q12H 03/08/18 03/11/18 History extended release 12 hr levothyroxine 50 mcg tablet 50 mcg PO DAILY #90 tab-cap 03/08/18 03/11/18 Rx polyethylene glycol 3350 17 gram 17 g PO QDAY PRN 03/08/18 03/11/18 History oral powder packet Furosemide [Lasix] 40 mg PO BID@0700,1300 tab 03/15/18 Rx Nystatin Powder [Mycostatin Powder] 1 applic TOPICAL TID PRN bottle 03/15/18 Rx Potassium Chloride [Klor-Con] 40 meq PO BID tab 03/15/18 Rx 8. Time, care, counseling and coordination of care for this discharge is greater than 30 minutes. Exam - Vitals Vital Signs: Vital Signs Temperature 97.3 F Temperature Source Temporal Artery Scan Pulse Rate [Pulse Oximeter] 75 Pulse Rate 74 Respiratory Rate 12 Blood Pressure [Right Arm] 95/64 Blood Pressure [Left Arm] 109/49 Blood Pressure 158/72 Pulse Ox 96 Oxygen Flow Rate 5 Oxygen Delivery Method Nasal Cannula Height 5 ft 6 in Weight 223 lb Patient Problems - Patient Problem List (1) Congestive heart failure, NYHA class 3 Current Visit: Yes Status: Acute Code(s): I50.9 - Heart failure, unspecified Qualifiers: Congestive heart failure type: unspecified Qualified Code(s): I50.9 - Heart failure, unspecified Category: Medical (2) UTI (urinary tract infection) Current Visit: Yes Status: Acute Code(s): N39.0 - Urinary tract infection, site not specified Category: Medical (3) Atrial fibrillation Current Visit: Yes Status: Chronic Code(s): I48.91 - Unspecified atrial fibrillation Qualifiers: Atrial fibrillation type: chronic Qualified Code(s): I48.2 - Chronic atrial fibrillation Category: Medical (4) Coronary artery disease involving autologous vein coronary bypass graft without angina pectoris Current Visit: Yes Status: Chronic Onset Date: 08/13/15 Code(s): I25.810 - Atherosclerosis of coronary artery bypass graft(s) without angina pectoris Category: Medical (5) Hypothyroidism Current Visit: Yes Status: Chronic Onset Date: 08/06/11 Code(s): E03.9 - Hypothyroidism, unspecified Qualifiers: Hypothyroidism type: acquired Qualified Code(s): E03.9 - Hypothyroidism, unspecified Category: Medical (6) Obesity (BMI 30-39.9) Current Visit: Yes Status: Chronic Onset Date: 08/05/16 Code(s): E66.9 - Obesity, unspecified Category: Medical (7) Obstructive sleep apnea Current Visit: No Status: Chronic Onset Date: 08/05/15 Code(s): G47.33 - Obstructive sleep apnea (adult) (pediatric) Category: Medical (8) COPD (chronic obstructive pulmonary disease) Current Visit: Yes Status: Chronic Onset Date: 05/10/13 Code(s): J44.9 - Chronic obstructive pulmonary disease, unspecified Qualifiers: COPD type: emphysema Emphysema type: panlobular Qualified Code(s): J43.1 - Panlobular emphysema Category: Medical (9) Neurogenic bladder disorder Current Visit: Yes Status: Chronic Comment: Dr Tejada has been in discussion with family about placement of suprapubic catheter. Will continue to pursue this approach of management of her incontinence and chronic UTI. Code(s): N31.9 - Neuromuscular dysfunction of bladder, unspecified Category: Medical (10) Cor pulmonale, acute Current Visit: Yes Status: Chronic Code(s): I26.09 - Other pulmonary embolism with acute cor pulmonale Category: Medical (11) Acute on chronic respiratory failure with hypoxemia Current Visit: Yes Status: Resolved Code(s): J96.21 - Acute and chronic respiratory failure with hypoxia Category: Medical (12) Acute hypercapnic respiratory failure Current Visit: Yes Status: Resolved Code(s): J96.02 - Acute respiratory failure with hypercapnia Category: Medical
== END 2018-03-15 14:17 | DRG 291 ==
LOC: ER 09:10 → MED/SURG 13:18
PROVIDERS: ADMIT Family Medicine; ATTEND Family Medicine

== ENCOUNTER 2018-03-16 09:18 | Observation (INO) ==
--- NOTE | 2018-03-16 09:41 | PDOC ---
Altered Mental Status HPI - General Chief Complaint: Altered Mental Status Stated Complaint: unresponsive Date Seen by Provider: 03/16/18 Time Seen by Provider: 09:36 Source: POSITIVE: Other (daughter) Exam Limitations: POSITIVE: Clinical condition Nurse's Notes Reviewed & Considered: Yes EMS Report Reviewed & Considered: Unavailable - History of Present Illness Initial Comments: This is an 78-year-old female brought to the emergency department by her daughter from the assisted. According to the patient's daughter, she was somewhat sleepy already this morning because last night was her first night at the assisted after being discharged from the hospital. She did not have a good night sleep last night. She was at breakfast, when she was given her morning medications, including Percocet and Xanax. She was not having any type of anxiety symptoms at the time period and was not complaining about any pain. After meds were given, she became somewhat more somnolent, and started slumping over. So she is brought to the emergency department for further evaluation and treatment. Blood pressure is noted to be 70/50 here in the department. Patient has no other complaints or concerns at this time. She is quite somnolent. She is currently on her baseline 3 L of oxygen and saturating in the low 90s. - Patient Home Medications Home Medications: Home Medications atorvastatin 80 mg tablet 80 mg PO DAILY #90 tab 05/05/17 albuterol sulfate HFA 90 mcg/actuation aerosol inhaler 2 puff INH QID PRN #36 g 09/27/17 citalopram 10 mg tablet 10 mg PO QDAY #30 tab 02/09/18 diltiazem CD 120 mg capsule,extended release 24 hr 120 mg PO BID #60 cap 1 04/18/17 quetiapine 25 mg tablet 25 mg PO BID #60 tab 02/15/18 albuterol sulfate 2.5 mg/3 mL (0.083 %) solution for nebulization 1.25 mg INH Q6H PRN ml 03/08/18 apixaban 2.5 mg tablet 5 mg PO BID tab 03/08/18 guaifenesin ER 600 mg tablet, extended release 12 hr 600 mg PO Q12H 03/08/18 levothyroxine 50 mcg tablet 50 mcg PO DAILY #90 tab-cap 03/08/18 polyethylene glycol 3350 17 gram oral powder packet 17 g PO QDAY PRN 03/08/18 Furosemide [Lasix] 40 mg PO BID@0700,1300 tab 03/15/18 Nystatin Powder [Mycostatin Powder] 1 applic TOPICAL TID PRN bottle 03/15/18 Potassium Chloride [Klor-Con] 40 meq PO BID tab 03/15/18 - Patient Allergies Allergies/Adverse Reactions: Allergies Allergy/AdvReac Type Severity Reaction Status Date / Time sulfamethoxazole Allergy Severe pruritis, Verified 03/16/18 09:22 [From Bactrim] short of breath, chest pain trimethoprim [From Bactrim] Allergy Severe pruritis, Verified 03/16/18 09:22 short of breath, chest pain toprop XL AdvReac Severe NAUSEA Uncoded 03/15/18 06:48 PAIN CONTRACT AdvReac Unknown NOT Uncoded 03/15/18 06:48 APPLICABLE oxycotin AdvReac NAUSEA Uncoded 03/15/18 06:48 Past Medical History - heen HEENT History: Denies History, Dentures/Partials Cardiovascular History: Hypertension, CAD, Arrhythmia, Hyperlipidemia Additional Cardiovasular History: LE EDEMA Respiratory History: COPD, Shortness of Breath, Home Oxygen Use Gastrointestinal History: Denies History Genitourinary History: Recurrent UTI, Incontinence, Other (please comment) Additional Genitourinary History: had stent to kidney Endocrine History: Hypothyroidism Musculoskeletal History: Arthritis Prosthesis or Implant: No Neurological History: Denies History Blood Disorders: Denies History Psychiatric History: Depression History of Sexually Transmitted Diseases: No Cancer History: Denies History History of MDRO: No History of Other Communicable Diseases: No Alcohol Use: Occasionally In the Past 12 Months, Have Used or Abuse Any Substance: None Previous Surgical History: Yes Type / Date of Surgery: CABG, CAROTID ARTERY STENT X2, RENAL STENT Anesthesia Reactions: No Malignant Hyperthermia: No Significant Family History: No pertinent family hx Past Medical History Reviewed: Reviewed - No Changes ROS - Limitations ROS Limitations: Other (please comment) (Somnolent, overmedicated most likely. Cannot really get much review systems because of the patient's somnolence.) Altered Mental Physical Exam - General Appearance General Appearance: POSITIVE: Lethargic - Neuro/Psych Neurological: POSITIVE: Denies Neuro Symptoms - Respiratory Respiratory: POSITIVE: No Respiratory Distress, Breath Sounds Normal. NEGATIVE: Wheezes, Rales, Rhonchi - Cardiovascular CVS: POSITIVE: Heart Sounds Normal, Irregularly Irreg. Rhythm - Abdomen Additional Abdominal Details: Abdomen is obese, soft, nontender, nondistended, no obvious organomegaly, but the exam is limited by body habitus. - Skin Skin: POSITIVE: Warm, Dry - Extremities Additional Extremities Details: No significant pitting edema. Altered Mental Status - Results Reviewed By Me Lab Results Reviewed by Me: Yes CBC and BMP: 03/16/18 09:55 03/16/18 09:55 Lab Results:: Laboratory Results 03/16/18 03/16/18 03/16/18 09:55 09:55 10:06 WBC 6.88 RBC 3.93 L Hgb 11.7 L Hct 38.4 MCV 97.7 MCH 29.8 MCHC 30.5 L RDW Std Deviation 53.5 H RDW Coeff of Karis 15.1 H Plt Count 297 MPV 8.7 Immature Gran % (Auto) 0.1 Neut % (Auto) 65.9 Lymph % (Auto) 18.9 Powell % (Auto) 7.6 Eos % (Auto) 7.4 Baso % (Auto) 0.1 Immature Gran # (Auto) 0.01 Neut # (Auto) 4.53 Lymph # (Auto) 1.30 Powell # (Auto) 0.52 Eos # (Auto) 0.51 Baso # (Auto) 0.01 WBC Morphology Comment Normal morphology Plt Morphology Comment Normal morphology RBC Morph Comment Normal morphology Sodium 139 Potassium 4.7 Chloride 91 L Carbon Dioxide 44 H Anion Gap 4 L BUN 16 Creatinine 0.8 BUN/Creatinine Ratio 20.00 Glucose 119 H Calculated Osmolality 289.0 Calcium 8.7 Ur Collection Type Cath specimen Urine Color Yellow Urine Clarity Clear Urine pH 6.0 Ur Specific Ruby 1.020 Urine Protein 100 A Urine Glucose (UA) Negative Urine Ketones Trace A Urine Occult Blood Moderate H Urine Nitrate Negative Urine Bilirubin Negative Urine Urobilinogen 0.2 Ur Leukocyte Esterase Small Urine RBC 15-24 A Urine WBC 15-24 H Ur Squamous Epith Cells Moderate Ur Renal Epithelial Cell Few Urine Crystals None Urine Bacteria Few Urine Casts None Urine Mucus None Urine Trichomonas None Urine Yeast None Ur Culture Indicated? Culture set EKG Interpreted/Reviewed By Me:: Yes (atrial fibrillation with controlled ventricular response and nonspecific ST) - Patient's Progress Pain Medication Addressed: POSITIVE: Not Applicable Re-Examine Time:: 11:05 Re-Examine Comment: Patient's blood pressure is continuing to decline, despite a 500 mL saline bolus. The patient's nurse had a discussion with the family regarding how aggressive they wanted daycare to be calm, including starting pressors for her blood pressure. The family decided at this point not to pursue aggressive aggressive means, and they like to have her admitted for comfort care only. Re-Examine Time: 11:34 Re-Examine Comment: Patient improved after Narcan, and changing the position of the pressure cuff. Status: POSITIVE: Worsened MDM / ED Course: Emergency room course: After initial evaluation, an IV was started. She was given a 500 mL bolus of normal saline, due to the fact she does have significant CHF. Despite the bolus, her blood pressure continued to decline. Her initial labs are not indicative of significant infection. The patient's nurse had a discussion with the family in terms of how aggressive they wanted us to be in terms of maintaining her blood pressure, etc. They've decided to place her on comfort care at this time. I did discuss with the patient's family all of the possible options. At this time Dr. Sage Mccord, the hospitalist, will continue this discussion with the patient and her family. After further discussion with Dr. Mccord, and missed patient Narcan, as well as changing the position of the blood pressure cuff, the patient's status started to improve somewhat. She'll be admitted by Dr. Mccord for further evaluation treatment. Treatment: POSITIVE: Narcan Time of Treatment: 11:35 - Consult Counseled: POSITIVE: Patient, Family, RE: Lab Results, RE: DX Patient Care Time - Estimated PCT Patient Care Time (In Minutes): 30 Vital Signs - Recent Vital Signs Vital Signs: Vital Signs (Last 8 hours) Temp Pulse Resp BP Pulse Ox 03/16/18 09:29 96.8 F 84 18 70/51 98 Discharge Clinical Impression: Drug overdose Condition: Fair Follow Up With: KATHARINA SORTO [Primary Care Provider] - Date Decision to Admit to Inpatient: 03/16/18 Time Decision to Admit to Inpatient: 11:00
[2018-03-16] MEDS ORDERED: Sodium Chloride 0.9% 500 ML PRIMARY IV ONE (09:45)
[2018-03-16 09:57] LABS: BASOPHILS # (AUTO) 0.01 10*3/UL; BASOPHILS % (AUTO) 0.1 % (0-1); EOSINOPHILS # (AUTO) 0.51 10*3/UL; EOSINOPHILS % (AUTO) 7.4 % (0-8); Hematocrit [HCT] 38.4 % (37.0-47.0); Hemoglobin [HGB] 11.7 g/dL (12.0-16.0); MEAN CORPUSCULAR HEMOGLOBIN 29.8 PG (27-31); MEAN CORPUSCULAR HGB CONC 30.5 g/dL (33-37); MEAN CORPUSCULAR VOLUME 97.7 FL (81-99); MEAN PLATELET VOLUME 8.7 FL (7.4-12.2); MONOCYTES # (AUTO) 0.52 10*3/UL (0.3-0.8); MONOCYTES % (AUTO) 7.6 % (5-15); NEUTROPHILS # (AUTO) 4.53 10*3/UL; NEUTROPHILS % (AUTO) 65.9 % (50-80); RED BLOOD COUNT 3.93 10^6/uL (4.20-5.40)
[2018-03-16 09:59] LABS: PLATELET MORPHOLOGY COMMENT NORMAL MORPHOLOGY (NORM); RBC MORPHOLOGY COMMENT NORMAL MORPHOLOGY (NORM); WBC MORPHOLOGY COMMENT NORMAL MORPHOLOGY (NORM)
[2018-03-16 10:09] LABS: BLOOD UREA NITROGEN 16 mg/dL (7-22)
[2018-03-16 10:16] LABS: COLOR,URINE YELLOW (Y); URINE SAMPLE TYPE CATH SPECIMEN
[2018-03-16 10:17] LABS: BILIRUBIN,URINE NEGATIVE (NEG); CLARITY,URINE CLEAR (CLEAR); GLUCOSE, URINE (UA) NEGATIVE (NEG); OCCULT BLOOD,URINE MODERATE (NEG); PROTEIN,URINE 100 mg/dl (NEG); UROBILINOGEN,URINE 0.2 EU/dL (0.2)
[2018-03-16 10:19] LABS: BACTERIA,URINE FEW; RENAL EPITHELIAL CELLS,URINE FEW; SQUAMOUS EPITHELIAL CELL,UR MODERATE
--- NOTE | 2018-03-16 11:06 | EKG ---
[address] [address] Measurements Intervals [place] Rate: 83 P: MN: 0 QRS: 62 QRSD: 109 T: 73 QT: 402 QTc: 442 Interpretive Statements ATRIAL FLUTTER/TACHYCARDIA LOW QRS VOLTAGE IN PRECORDIAL LEADS [QRS DEFLECTION < 1.0 mV IN CHEST LEADS] ABNORMAL RHYTHM ECG WARNING: DATA QUALITY MAY AFFECT INTERPRETATION Compared to ECG 03/11/2018 09:22:20 Low QRS voltage now present Atrial fibrillation no longer present Myocardial infarct finding no longer present Electronically Signed On 03-16-18 15:28:45 MST by Don Salazar MD [email or web address]
[2018-03-16] MEDS ORDERED: NALOXONE 0.4 MG/1 ML VIAL IVP ONE (11:16)
[2018-03-16] MEDS ORDERED: NALOXONE 0.4 MG/1 ML VIAL ONE (11:22)
--- NOTE | 2018-03-16 11:44 | PDOC ---
HPI - History of Present Illness History of Present Illness: This very nice 78-year-old female well-known to me I discharged her to the skilled nursing yesterday. She was brought in to the emergency room by her daughter. She had altered mental status with low blood pressure. She received 2 Xanax is this morning and 1 Percocet 12/01/2024. I believe this was the cause of her altered mental status and lethargy. I examined the patient in the room I changed her blood pressure cuff to regular we have gotten better blood pressures in the 100s. Also gave her Narcan which worked very well discussed with the family there was discussion of comfort care with the ER staff they're willing to try to see if the fluid boluses and the Narcan that we will work which it did. The which is the decision maker states that whenever I think is the thing to do I should do. I will give this patient another half liter bolus and then 150 an hour they know that this could cause congestive heart failure but we need to get her blood pressure up once this is obtained I can definitely stop him back off the fluid. Family was very grateful for my intervention Past Medical History Medical History: 1. Hypertension. 2. Hypothyroidism. 3. COPD, with chronic hypoxemic respiratory failure on 4 L of nasal cannula at baseline. Currently requiring 6 L/m. 4. Sleep apnea, but cannot tolerate noninvasive ventilation. She could not complete the test for sleep apnea and does not want to go through it again. 5. Depression apparently with anxiety features. 6. osteoporosis. 7. Atrial fibrillation. 8. Coronary artery disease status post CABG. 9. 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 10. Macular degeneration. 11. Carotid artery disease status post carotid stent placement on the right and prior carotid endarterectomy. 12. Chronic pain syndrome attributed to feet problems. 13. Recent collapsed right lower lobe of the lung. Treated conservatively with flutter valve and breathing therapies and did not require bronchoscopy. Surgical History: 1. Carotid endarterectomy, bilateral. 2. History of CABG, 7 vessel. 3. Hysterectomy. 4. Right carotid internal artery stent. 5. Hysterectomy with bladder suspension. 6. Renal artery stent Family History: Reviewed an Not Pertinent Pertinent Family History: Heart disease in her father and in her siblings Past Social History: She used to smoke quit many years ago, rarely drinks. No drugs. for 65 years. Has 5 children. Tobacco Use: Former Smoker In the Past 12 Months, Have Used or Abuse Any of the Following Substance: None Medication / Allergies Home Medications: Home Medications Medication Instructions Recorded Confirmed Type atorvastatin 80 mg tablet 80 mg PO DAILY #90 tab 05/05/17 03/11/18 Rx albuterol sulfate HFA 90 2 puff INH QID PRN #36 g 09/27/17 03/11/18 Rx mcg/actuation aerosol inhaler citalopram 10 mg tablet 10 mg PO QDAY #30 tab 02/09/18 03/11/18 Rx diltiazem CD 120 mg 120 mg PO BID #60 cap 02/15/18 03/11/18 Rx capsule,extended release 24 hr quetiapine 25 mg tablet 25 mg PO BID #60 tab 02/15/18 03/11/18 Rx albuterol sulfate 2.5 mg/3 mL 1.25 mg INH Q6H PRN ml 03/08/18 03/11/18 History (0.083 %) solution for nebulization apixaban 2.5 mg tablet 5 mg PO BID tab 03/08/18 03/11/18 History guaifenesin ER 600 mg tablet, 600 mg PO Q12H 03/08/18 03/11/18 History extended release 12 hr levothyroxine 50 mcg tablet 50 mcg PO DAILY #90 tab-cap 03/08/18 03/11/18 Rx polyethylene glycol 3350 17 gram 17 g PO QDAY PRN 03/08/18 03/11/18 History oral powder packet Furosemide [Lasix] 40 mg PO BID@0700,1300 tab 03/15/18 Rx Nystatin Powder [Mycostatin Powder] 1 applic TOPICAL TID PRN bottle 03/15/18 Rx Potassium Chloride [Klor-Con] 40 meq PO BID tab 03/15/18 Rx Allergies/Adverse Reactions: Allergies Allergy/AdvReac Type Severity Reaction Status Date / Time sulfamethoxazole Allergy Severe pruritis, Verified 03/16/18 09:22 [From Bactrim] short of breath, chest pain trimethoprim [From Bactrim] Allergy Severe pruritis, Verified 03/16/18 09:22 short of breath, chest pain toprop XL AdvReac Severe NAUSEA Uncoded 03/15/18 06:48 PAIN CONTRACT AdvReac Unknown NOT Uncoded 03/15/18 06:48 APPLICABLE oxycotin AdvReac NAUSEA Uncoded 03/15/18 06:48 Exam - Vitals Vital Signs: Vital Signs Temperature 96.8 F Temperature Source Temporal Artery Scan Pulse Rate [Pulse Oximeter] 84 Respiratory Rate 18 Blood Pressure [Left Arm] 70/51 Pulse Ox 98 Oxygen Delivery Method Nasal Cannula - Respiratory Respiratory Exam: POSITIVE: Clear to Auscultation - Bilaterally, Breathing Non Labored, Normal To Percussion, Normal to Percussion and Palpation - Cardiovascular Cardiovascular Exam: POSITIVE: RRR, No Murmur, No Clicks, No Gallops, No Rubs, PMI Non-Displaced - GI/Abdominal GI/Abdominal Exam: POSITIVE: Normal Bowel Sounds, Non Tender, Non Distended, Soft, No Masses, No Hepatomegaly, No Splenomegaly, No Organomegaly - Extremities Extremities Exam: POSITIVE: No Edema Present, No Cyanosis Present Results - Labs CBC and BMP: 03/16/18 09:55 03/16/18 09:55 Assessment and Plan - Patient Problems (1) Drug overdose Current Visit: Yes Status: Acute Comment: From Xanax and Percocet Narcan worked splendidly patient is speaking following commands continue IV fluids for now and watch very closely I will hold off her diltiazem and only Tylenol for pain most likely patient has sleep apnea which she knows for many years but has refused to wear CPAP. The combination of sleep apnea and the anxiety meds probably caused her to have lethargy check venous blood gas and if needed BiPAP will be started Code(s): T50.901A - Poisoning by unspecified drugs, medicaments and biological substances, accidental (unintentional), initial encounter (2) Altered mental status Current Visit: No Status: Acute Code(s): R41.82 - Altered mental status, unspecified
[2018-03-16] MEDS ORDERED: cefTRIAXone Inj 2 GM in Sodium Chloride 0.9% 100 ML IV SCH (11:45)
[2018-03-16 12:19] LABS: VENOUS PH 7.36 (7.32-7.42)
[2018-03-16] MEDS ORDERED: LIDOCAINE W/ SODIUM BICARB 0.5 ML SYR SUBD PRN (12:35)
[2018-03-16] MEDS ORDERED: DOCUSATE 100 MG CAPSULE PO PRN (12:35)
[2018-03-16] MEDS ORDERED: ONDANSETRON 4 MG/2 ML VIAL IVP PRN (12:35)
[2018-03-16] MEDS ORDERED: Lactated Ringers 1,000 ML PRIMARY IV SCH (12:35)
[2018-03-16] MEDS ORDERED: ALBUTEROL SULFATE 8.5 GM HFA INHALER INH PRN (12:35)
[2018-03-16] MEDS ORDERED: ACETAMINOPHEN 325 MG TABLET PO PRN (12:35)
[2018-03-16] MEDS ORDERED: CALCIUM CARBONATE 500 MG (TUMS) CHEWABLE TABLET PO PRN (12:35)
[2018-03-16] MEDS ORDERED: ALBUTEROL SULFATE 2.5 MG/3 ML NEB PRN (13:11)
[2018-03-16] MEDS ORDERED: FUROSEMIDE 10 MG/1 ML - 2 ML VIAL IVP ONE ×2 (13:44→17:56)
[2018-03-16 15:46] LABS: VENOUS PH 7.39 (7.32-7.42)
[2018-03-16] MEDS ORDERED: Sodium Chloride 0.9% 1,000 ML PRIMARY IV ONE (18:06)
[2018-03-16] MEDS: HEPARIN 5000 UNIT/1 ML SUBCUT SCH (21:03)
[2018-03-16] MEDS: Apixaban Tab 2.5 MG TABLET PO SCH (21:04)
[2018-03-16] MEDS: POTASSIUM CHLORIDE 20 MEQ TAB PO SCH (21:04)
[2018-03-17] MEDS: HEPARIN 5000 UNIT/1 ML SUBCUT SCH ×2 (03:51→12:21)
[2018-03-17 05:05] LABS: BASOPHILS # (AUTO) 0.04 10*3/UL; BASOPHILS % (AUTO) 0.5 % (0-1); EOSINOPHILS # (AUTO) 0.52 10*3/UL; EOSINOPHILS % (AUTO) 6.3 % (0-8); Hemoglobin [HGB] 10.3 g/dL (12.0-16.0); LYMPHOCYTES # (AUTO) 1.62 10*3/uL; MEAN CORPUSCULAR HEMOGLOBIN 29.5 PG (27-31); MEAN CORPUSCULAR HGB CONC 30.3 g/dL (33-37); MEAN CORPUSCULAR VOLUME 97.4 FL (81-99); NEUTROPHILS # (AUTO) 5.58 10*3/UL; NEUTROPHILS % (AUTO) 67.4 % (50-80); RED BLOOD COUNT 3.49 10^6/uL (4.20-5.40)
[2018-03-17 05:08] LABS: VENOUS PH 7.43 (7.32-7.42)
[2018-03-17 05:24] LABS: PLATELET MORPHOLOGY COMMENT NORMAL MORPHOLOGY (NORM); RBC MORPHOLOGY COMMENT NORMAL MORPHOLOGY (NORM); WBC MORPHOLOGY COMMENT NORMAL MORPHOLOGY (NORM)
[2018-03-17 05:28] LABS: BLOOD UREA NITROGEN 16 mg/dL (7-22); BUN/CREATININE RATIO 26.66 (6-20); SERUM ALBUMIN 3.7 g/dL (3.5-4.8)
[2018-03-17] MEDS ORDERED: LEVOTHYROXINE 50 MCG TABLET PO SCH (05:30)
--- NOTE | 2018-03-17 08:42 | DI ---
XR CXR 1VW 03/17/2018 7:00 AM HISTORY: [facility] [place]hypoxia Comparison: 11/12/2017. Findings: A single portable frontal view of the chest is submitted. Images demonstrate patchy left mid and right lower lung opacities. There are small to moderate bilate ral pleural effusions. There is no pneumothorax. The patient is status post median sternotomy. The ca rdiomediastinal silhouette is enlarged with increased pulmonary vasculature. Atheromatous calcificati ons are present in the arch of the tortuous thoracic aorta. The osseous structures are not significan tly changed. Impression: 1. There are patchy left mid and right lower lung opacities that could represent atelectasis versus e chon airspace disease in the correct clinical setting. Repeat imaging 6 weeks following completion of therapy is recommended in order to ensure resolution. 2. Small to moderate pleural effusions. 3. Cardiomegaly with increased pulmonary vasculature, findings concerning for early pulmonary edema i n the setting of heart failure.
[2018-03-17] MEDS ORDERED: CITALOPRAM 20 MG TABLET PO SCH (09:00)
[2018-03-17] MEDS: POTASSIUM CHLORIDE 20 MEQ TAB PO SCH (09:50)
[2018-03-17] MEDS: Apixaban Tab 2.5 MG TABLET PO SCH (09:50)
[2018-03-17] MEDS ORDERED: DILTIAZEM HCL CD 120 MG CAP PO SCH (11:45)
--- NOTE | 2018-03-17 12:16 | DCSUMMARY ---
Hospitalization Summary Admit Date: 03/16/2018 Discharge Date: 03/17/18 Hospital Course: Discharge diagnoses 1. Alteration in mental status improved likely medication related 2. Hypertension 3. Hypothyroidism 4. COPD with chronic hypoxemic respiratory failure 5. History of sleep apnea 6. Anxiety 7. History of atrial fibrillation 8. History of coronary artery disease with previous CABG 9. History of previous carotid endarterectomy 10. Urinary incontinence requiring permanent Reece catheter Hospital course This is a 78 years old female with medical history significant for history of COPD, A. fib, hypertension, CHF and anxiety who was in the hospital for CHF treatment she was discharged to intermediate on Wednesday. Yesterday they brought her back to the hospital because of alteration in mental status. Apparently the patient received multiple medication including Xanax and Pe rcocet, she did also receive Seroquel. Patient was lethargic in the ER she was hypotensive she was given some fluid and Narcan. Initially they thought maybe she needs a comfort care but she did this respond to Narcan and the fluid. She did show improvement after a few hours of admission to the hospital. She did receive also some Lasix while she is here. I saw the patient the next day she was complaining from an anxiety otherwise denying other symptoms. Examination is unchanged from before with decreased air entry but the lung were clear she had minimal edema in her legs. We thought that she could be discharged back to the intermediate. We took her off the pain medication and we DC'd also the Seroquel. We wrote for Xanax 0.25 twice a day as needed for anxiety. Apparently after talking to the daughter, her other daughter insisted that the patient needs pain medication and she got the pain medication in addition to the Xanax. We decided after discussion with them that we'll stop the pain medication use Tylenol as needed for pain. I did speak with Dr. Moore and let hi, know about the changes that we made. She to have a repeat chemistry next week. The blood gas initially showed some retention but I think it's chronic retention as the pH is normal. Though patient had abnormal UA but I don't think she has an infection I think it's secondary to the chronic catheterization. She did have a quick response to Narcan and fluid and I think her presentation was secondary to medications. Laboratory Results 03/16/18 03/16/18 03/17/18 15:42 18:47 01:00 WBC RBC Hgb Hct MCV MCH MCHC RDW Std Deviation RDW Coeff of Karis Plt Count MPV Immature Gran % (Auto) Neut % (Auto) Lymph % (Auto) [place] % (Auto) Eos % (Auto) Baso % (Auto) Immature Gran # (Auto) Neut # (Auto) Lymph # (Auto) [place] # (Auto) Eos # (Auto) Baso # (Auto) WBC Morphology Comment Plt Morphology Comment RBC Morph Comment VBG pH 7.39 VBG pCO2 63 H VBG HCO3 38 H VBG Base Excess 13 H Sodium Potassium Chloride Carbon Dioxide Anion Gap BUN Creatinine BUN/Creatinine Ratio Glucose Calculated Osmolality Calcium Total Bilirubin AST ALT Alkaline Phosphatase Troponin I < 0.012 < 0.012 Total Protein Albumin Globulin Albumin/Globulin Ratio 03/17/18 03/17/18 03/17/18 04:46 04:46 04:50 WBC 8.28 RBC 3.49 L Hgb 10.3 L Hct 34.0 L MCV 97.4 MCH 29.5 MCHC 30.3 L RDW Std Deviation 51.8 H RDW Coeff of Karis 15.0 H Plt Count 332 MPV 9.0 Immature Gran % (Auto) 0.2 Neut % (Auto) 67.4 Lymph % (Auto) 19.6 [place] % (Auto) 6.0 Eos % (Auto) 6.3 Baso % (Auto) 0.5 Immature Gran # (Auto) 0.02 Neut # (Auto) 5.58 Lymph # (Auto) 1.62 [place] # (Auto) 0.50 Eos # (Auto) 0.52 Baso # (Auto) 0.04 WBC Morphology Comment Normal morphology Plt Morphology Comment Normal morphology RBC Morph Comment Normal morphology VBG pH 7.43 H VBG pCO2 63 H VBG HCO3 41 H VBG Base Excess 17 H Sodium 137 Potassium 4.2 Chloride 91 L Carbon Dioxide 42 H Anion Gap 4 L BUN 16 Creatinine 0.6 BUN/Creatinine Ratio 26.66 H Glucose 113 H Calculated Osmolality 285.0 Calcium 8.9 Total Bilirubin 0.9 AST 16 ALT 16 Alkaline Phosphatase 62 Troponin I Total Protein 6.1 Albumin 3.7 Globulin 2.4 L Albumin/Globulin Ratio 1.50 Discharge instruction Diet regular activity as tolerated Medications Current Medication(s) Medication Instructions Recorded Confirmed Type atorvastatin 80 mg tablet 80 mg PO DAILY #90 tab 05/05/17 03/16/18 Rx albuterol sulfate HFA 90 2 puff INH QID PRN #36 g 09/27/17 03/16/18 Rx mcg/actuation aerosol inhaler citalopram 10 mg tablet 10 mg PO QDAY #30 tab 02/09/18 03/16/18 Rx diltiazem CD 120 mg 120 mg PO BID #60 cap 02/15/18 03/16/18 Rx capsule,extended release 24 hr albuterol sulfate 2.5 mg/3 mL 1.25 mg INH Q6H PRN ml 03/08/18 03/16/18 History (0.083 %) solution for nebulization apixaban 2.5 mg tablet 5 mg PO BID tab 03/08/18 03/16/18 History guaifenesin ER 600 mg tablet, 600 mg PO Q12H 03/08/18 03/16/18 History extended release 12 hr levothyroxine 50 mcg tablet 50 mcg PO DAILY #90 tab-cap 03/08/18 03/16/18 Rx polyethylene glycol 3350 17 gram 17 g PO QDAY PRN 03/08/18 03/16/18 History oral powder packet Furosemide [Lasix] 40 mg PO BID@0700,1300 tab 03/15/18 03/16/18 Rx Potassium Chloride [Klor-Con] 40 meq PO BID tab 03/15/18 03/16/18 Rx ALPRAZolam Tab [Xanax Tab] 0.25 mg PO BID PRN tab 03/17/18 Rx Acetaminophen [Tylenol] 650 mg PO Q6H PRN tab 03/17/18 Rx Docusate Sodium [Colace] 100 mg PO BID PRN cap 03/17/18 Rx Follow-up with PCP in a week or 2 Condition at discharge was stable for discharge Exam - Vitals Vital Signs: Vital Signs Temperature 98.1 F Temperature Source Temporal Artery Scan Pulse Rate [Apical] 92 Pulse Rate [Pulse Oximeter] 76 Pulse Rate 91 Respiratory Rate 24 Blood Pressure [Right Arm] 172/90 Blood Pressure [Left Arm] 70/51 Pulse Ox 94 Oxygen Flow Rate 5 Oxygen Delivery Method Nasal Cannula Height 5 ft 6 in Weight 227 lb 14.4 oz - General General Appearance: No Acute Distress, Cooperative, Morbidly Obese - Head Head Exam: Normal Inspection - Eye Eye Exam: POSITIVE: Normal Appearance - ENT ENT Exam: POSITIVE: Normal Exam - Neck Neck Exam: Normal Inspection - Respiratory Additional Respiratory Exam Details: Decreased air entry otherwise clear - GI/Abdominal GI/Abdominal Exam: POSITIVE: Normal Bowel Sounds, Non Tender, Non Distended, Soft, No Organomegaly - Rectal Rectal Exam: POSITIVE: Deferred - External Exam: POSITIVE: Deferred Exam: POSITIVE: Deferred - Extremities Additional Extremities Exam Details: Trace edema noted in the legs - Back Back Exam: POSITIVE: Normal Inspection - Neurological Neurological Exam: POSITIVE: Alert, CN II-XII Intact, No Facial Droop, Speech Intact / Clear, Moves All Extremities Equally - Psychiatric Psychiatric Exam: POSITIVE: Normal Affect
[2018-03-17] MEDS ORDERED: ALPRAZolam Tab 0.25 MG TABLET PO PRN (12:27)
[2018-03-17 12:53] VITALS: BP 122/80; RESP 20; TEMP 99.4; O2SAT 85
[2018-03-17] MEDS ORDERED: cefTRIAXone Inj 2 GM in Sodium Chloride 0.9% 100 ML IV SCH (16:00)
== END 2018-03-17 15:25 ==
LOC: ER 09:18 → MED/SURG 09:18
PROVIDERS: ADMIT Internal Medicine; ATTEND Internal Medicine

== ENCOUNTER 2018-09-06 12:49 | Inpatient (IN) ==
[2018-09-06] MEDS ORDERED: Sodium Chloride 0.9% 1,000 ML PRIMARY IV ONE (13:06)
[2018-09-06] MEDS ORDERED: ONDANSETRON 4 MG/2 ML VIAL IVP ONE (13:06)
[2018-09-06] MEDS ORDERED: KETOROLAC 15 MG/1 ML VIAL IVP ONE (13:06)
--- NOTE | 2018-09-06 13:11 | PDOC ---
Lower Extremity Injury HPI - General Chief Complaint: Lower Extremity Problem/Injury Stated Complaint: FALL, LEFT KNEE PAIN Date Seen by Provider: 09/06/18 Time Seen by Provider: 13:05 Source: POSITIVE: Patient, Spouse Exam Limitations: POSITIVE: No limitations Nurse's Notes Reviewed & Considered: Yes - History of Present Illness Initial Comments: This is a well-developed, well-nourished, 78-year-old female, who appears older than her stated age, complaining of right knee pain. Patient was in her bathroom this morning wearing socks when she slipped on the floor falling. Accounts seem to indicate that she hyperextended her right knee. She now has pain and swelling in her right knee and is unable to bear weight. When the ambulance arrived she was having nausea but that has improved. She denies any headache, no sore throat, no chest pain or shortness of breath, no cough, at present no nausea vomiting or diarrhea, no hematuria or dysuria, no skin rashes. Have you received a tetanus shot in the past 10 years?: No Body Location Affected: REPORTS: Lower Extremity (R) Timing: REPORTS: Abrupt Duration: 1 hour Quality: REPORTS: "Pain" Location at Time of Onset: REPORTS: Home Context of Injury: REPORTS: Fall, Twist Location of Injury: REPORTS: Knee (R) Modifying Factors: improves with: Walking, Movement, Nothing Relieves Associated Symptoms: REPORTS: Unable to Bear Weight Any Prior Injuries Related to Current Complaint?: No - Patient Home Medications Home Medications: Home Medications docusate sodium 100 mg capsule 100 mg PO BID PRN cap 03/17/18 acetaminophen 325 mg tablet 650 mg PO QID PRN #60 tab 03/22/18 albuterol sulfate 2.5 mg/3 mL (0.083 %) solution for nebulization 2.5 mg INH Q6H PRN #90 ml 04/21/18 albuterol sulfate HFA 90 mcg/actuation aerosol inhaler 2 puff INH Q6H PRN 05/10 ipratropium bromide 0.02 % solution for inhalation 2.5 ml INH TID PRN ml 05/10/18 vit A 7,160 unit-vit C 113 mg-vit E 100 mesj-hldk-ucujja tablet 1 tab PO BID tab 05/10/18 cholecalciferol (vitamin D3) 1,000 unit capsule 1,000 unit PO QDAY #30 cap 05/12/18 citalopram 10 mg tablet 10 mg PO QDAY #30 tab 05/20/18 furosemide 40 mg tablet 40 mg PO BID@0700,1300 #60 tab 05/20/18 potassium chloride ER 20 mEq tablet,extended release 40 meq PO BID #120 tab 05/20/18 fluticasone fur. 100 mcg-umeclid 62.5 mcg-vilant 25 mcg inhalat.powder 1 inh INH QDAY #28 ea 05/24/18 apixaban 5 mg tablet 5 mg PO BID #60 tab 06/06/18 diltiazem CD 120 mg capsule,extended release 24 hr 120 mg PO BID #60 cap 06/06/18 mirtazapine 7.5 mg tablet 7.5 mg PO QDAY #30 tab 06/06/18 atorvastatin 80 mg tablet 80 mg PO QHS #90 tab 07/19/18 levothyroxine 50 mcg tablet 50 mcg PO QDAY #90 tab-cap 07/19/18 alprazolam 0.25 mg tablet 0.25 mg PO Q6H PRN #120 tab 08/05/18 fluticasone propionate 50 mcg/actuation nasal spray,suspension 2 spray INASL BID PRN #54.6 g 08/23/18 montelukast 10 mg tablet 10 mg PO QPM PRN #30 tab 08/23/18 oxybutynin chloride ER 5 mg tablet,extended release 24 hr 10 mg PO QDAY #60 tab 08/29/18 Guaifenesin [Guaifenesin ER] 600 mg PO Q12H 09/06/18 - Patient Allergies Allergies/Adverse Reactions: Allergies Allergy/AdvReac Type Severity Reaction Status Date / Time sulfamethoxazole Allergy Severe pruritis, Verified 09/06/18 13:01 [From Bactrim] short of breath, chest pain trimethoprim [From Bactrim] Allergy Severe pruritis, Verified 09/06/18 13:01 short of breath, chest pain toprop XL AdvReac Severe NAUSEA Uncoded 09/06/18 13:01 PAIN CONTRACT AdvReac Unknown NOT Uncoded 09/06/18 13:01 APPLICABLE oxycotin AdvReac NAUSEA Uncoded 09/06/18 13:01 Past Medical History - heen HEENT History: Denies History, Dentures/Partials Cardiovascular History: Hypertension, CAD, Arrhythmia, Hyperlipidemia Additional Cardiovasular History: LE EDEMA Respiratory History: COPD, Shortness of Breath, Home Oxygen Use Gastrointestinal History: Denies History Genitourinary History: Recurrent UTI, Incontinence, Other (please comment) Additional Genitourinary History: had stent to kidney Endocrine History: Hypothyroidism Musculoskeletal History: Arthritis Prosthesis or Implant: No Neurological History: Denies History Blood Disorders: Denies History Psychiatric History: Depression History of Sexually Transmitted Diseases: No Cancer History: Denies History History of MDRO: No History of Other Communicable Diseases: No Alcohol Use: Occasionally In the Past 12 Months, Have Used or Abuse Any Substance: None Previous Surgical History: Yes Type / Date of Surgery: CABG, CAROTID ARTERY STENT X2, RENAL STENT Anesthesia Reactions: No Malignant Hyperthermia: No Significant Family History: No pertinent family hx ROS - Limitations ROS Limitations: No Limitations Constitution: REPORTS: Denies Symptoms Cardiovascular: REPORTS: Denies Cardiac Symptoms Respiratory: REPORTS: Denies Resp Symptoms Neurological: REPORTS: Denies Neuro Symptoms Gastrointestinal: REPORTS: Denies GI Symptoms Endocrine: REPORTS: Denies Symptoms Musculoskeletal: REPORTS: Joint Pain Genitourinary: REPORTS: Denies Symptoms Eyes: REPORTS: Denies Symptoms ENT: REPORTS: Denies Symptoms Skin: REPORTS: Denies Skin Symptoms Lympathic: REPORTS: Denies Lympathic Symptoms Immunologic: POSITIVE: Denies Symptoms Psychiatric: POSITIVE: Denies Psych Symptoms Lower Ext Complaint Exam - General Appearance General Appearance: POSITIVE: Alert, Cooperative, Anxious, Mild Distress - Extremities Lower Extremity: POSITIVE: Normal Color, Skin Intact, No Evidence of Ischemia, Soft Tissue Tenderness (Soft tissue tenderness over the medial knee and posterior knee.), Swelling (Right knee), Limited ROM, Joint Effusion Lower Extremity Ligament: POSITIVE: Pain on Medial Stress, Pain on Lateral Stress Gait: POSITIVE: Unable to Bear Weight Neurovascular/Tendon: POSITIVE: Sensation Normal, Motor Normal, No Vascular Compromise (Strong bilateral dorsalis pedis and posterior tib pulses present) Skin: POSITIVE: Warm, Dry - HEENT HEENT: POSITIVE: Head Inspection Nml, Eyes Inspection Nml, Ears Inspection Nml, Nose Inspection Nml, Oral/Dental Inspect. Nml, Pharynx Inspect. Nml, PERRL, EOMI - Neck / Back Neck/Back: POSITIVE: Normal Inspection, Non-Tender, Painless ROM - Respiratory / CVS Respiratory / CVS: POSITIVE: Chest Non Tender, No Ecchymosis, Breath Sounds Normal, No Respiratory Distress, Heart Sounds Normal, Regular Rate/Rhythm Peripheral Pulses: Radial (L): 4+, Dorsalis-pedis (R): 4+, Dorsalis-pedis (L): 4+ - Abdomen Abdomen: Soft: (All Quadrants), Normal Bowel Sounds: (All Quadrants), Denies Tenderness: (All Quadrants), No Splenomegaly: (All Quadrants), No Hepatomegaly: (All Quadrants), No Guarding: (All Quadrants), No Rebound: (All Quadrants), No Palpable Pulse: (All Quadrants), No Palpabale Mass: (All Quadrants), No Distention: (All Quadrants), No Rigidity: (All Quadrants) Procedures - Laceration/Wound Repair Did patient have a laceration repair: No Lower Ext Complaint Progress - Results Reviewed by me Xrays/CTs/US Reviewed by me: Yes Discussed with Radiologist: Yes Lab Results Reviewed by Me: Yes CBC and BMP: 09/06/18 13:25 09/06/18 13:20 Lab Results:: Laboratory Results 09/06/18 09/06/18 09/06/18 13:20 13:20 13:25 WBC 16.16 H RBC 4.70 Hgb 14.0 Hct 44.9 MCV 95.5 MCH 29.8 MCHC 31.2 L RDW Std Deviation 54.6 H RDW Coeff of Karis 15.8 H Plt Count 299 MPV 9.1 Immature Gran % (Auto) 0.4 Neut % (Auto) 89.1 H Lymph % (Auto) 4.7 L Andrew % (Auto) 5.5 Eos % (Auto) 0.2 Baso % (Auto) 0.1 Immature Gran # (Auto) 0.06 Neut # (Auto) 14.39 Lymph # (Auto) 0.76 Andrew # (Auto) 0.89 H Eos # (Auto) 0.04 Baso # (Auto) 0.02 WBC Morphology Comment Normal morphology Plt Morphology Comment Normal morphology RBC Morph Comment Normal morphology PT 19.9 H INR 1.72 APTT Sodium 142 Potassium 4.6 Chloride 100 Carbon Dioxide 33 Anion Gap 9 BUN 21 Creatinine 0.9 BUN/Creatinine Ratio 23.33 H Glucose 134 H Calculated Osmolality 298.0 H Calcium 8.9 Magnesium 2.0 Total Bilirubin 0.9 AST 19 ALT 15 Alkaline Phosphatase 91 C-Reactive Protein 4.4 H NT-Pro-B Natriuret Pep 873 H Total Protein 7.2 Albumin 4.0 Globulin 3.2 Albumin/Globulin Ratio 1.20 L 09/06/18 15:19 WBC RBC Hgb Hct MCV MCH MCHC RDW Std Deviation RDW Coeff of Karis Plt Count MPV Immature Gran % (Auto) Neut % (Auto) Lymph % (Auto) Andrew % (Auto) Eos % (Auto) Baso % (Auto) Immature Gran # (Auto) Neut # (Auto) Lymph # (Auto) Andrew # (Auto) Eos # (Auto) Baso # (Auto) WBC Morphology Comment Plt Morphology Comment RBC Morph Comment PT INR APTT 38.0 H Sodium Potassium Chloride Carbon Dioxide Anion Gap BUN Creatinine BUN/Creatinine Ratio Glucose Calculated Osmolality Calcium Magnesium Total Bilirubin AST ALT Alkaline Phosphatase C-Reactive Protein NT-Pro-B Natriuret Pep Total Protein Albumin Globulin Albumin/Globulin Ratio - Patient's Progress Pain Medication Addressed: POSITIVE: Yes Re-Examine Time:: 17:19 Status: POSITIVE: Improved MDM / ED Course: Patient was evaluated, an IV started, blood drawn and sent to the lab for studies, MRI, x-ray of her knee were obtained as well as a chest x-ray. Findings: CBC shows white count of 16.16 with hemoglobin, hematocrit, and platelets normal, neutrophils 89.1% and lymphocytes 4.7%. Coag studies show PT of 19.9, INR of 1.72, PTT of 38.0. CMP shows glucose elevated at 134 the remainder the panel was normal. Magnesium is 2.0. CRP is 4.4. BNP is 873. X- ray of her right knee shows a large joint effusion without fracture or dislocation. Chest x-ray shows no acute findings but there is noted chronic left-sided heart failure. MRI shows a medial tibial plateau fracture that is minimally depressed with large hemarthrosis present. Assessment: #120 plateau fracture. #2 hemarthrosis. #3 congestive heart failure. Plan: Patient is being admitted by the hospitalist Dr. Coreen Kohli will consult on the patient in the morning for orthopedic consultation. - Consult Consult (If Yes, Name of Consulting MD & Time Called): Yes (Dr. Kohli at [address] Condon at 1720 hrs.) Consulting MD will see pt:: POSITIVE: [facility] [place] Admit Counseled: POSITIVE: Patient, Family, RE: Lab Results, RE: Radiology Results, RE: DX, RE: Need for F/U Patient Care Time - Estimated PCT Patient Care Time (In Minutes): 60 Vital Signs - Recent Vital Signs Vital Signs: Vital Signs (Last 8 hours) Temp Pulse Resp BP Pulse Ox 09/06/18 12:50 97.4 F 103 H 22 90/46 80 - VS Reviewed Vital Signs Reviewed: Yes Discharge Clinical Impression: Fracture of tibia, Hemarthrosis, Congestive heart failure Discharge Disposition: Admit to Observation Condition: Stable Patient Problem(s) Reviewed: Yes Follow Up With: Jo Simpson [Primary Care Provider] - Date Decision to Admit to Inpatient: 09/06/18 Time Decision to Admit to Inpatient: 17:19
[2018-09-06 13:27] LABS: BASOPHILS # (AUTO) 0.02 10*3/UL; BASOPHILS % (AUTO) 0.1 % (0-1); EOSINOPHILS # (AUTO) 0.04 10*3/UL; EOSINOPHILS % (AUTO) 0.2 % (0-8); Hematocrit [HCT] 44.9 % (37.0-47.0); LYMPHOCYTES # (AUTO) 0.76 10*3/uL; MEAN CORPUSCULAR HEMOGLOBIN 29.8 PG (27-31); MEAN CORPUSCULAR HGB CONC 31.2 g/dL (33-37); MEAN CORPUSCULAR VOLUME 95.5 FL (81-99); MEAN PLATELET VOLUME 9.1 FL (7.4-12.2); MONOCYTES # (AUTO) 0.89 10*3/UL (0.3-0.8); MONOCYTES % (AUTO) 5.5 % (5-15); NEUTROPHILS # (AUTO) 14.39 10*3/UL; NEUTROPHILS % (AUTO) 89.1 % (50-80)
[2018-09-06 13:28] LABS: PLATELET MORPHOLOGY COMMENT NORMAL MORPHOLOGY (NORM); RBC MORPHOLOGY COMMENT NORMAL MORPHOLOGY (NORM); WBC MORPHOLOGY COMMENT NORMAL MORPHOLOGY (NORM)
[2018-09-06 13:38] LABS: BLOOD UREA NITROGEN 21 mg/dL (7-22); BUN/CREATININE RATIO 23.33 (6-20)
--- NOTE | 2018-09-06 14:11 | DI ---
RIGHT KNEE, 09/06/2018 1:06 PM: Clinical History: Injury. The patient fell. Comparison Study: None at this facility. Views: 3 views. Soft Tissues: No soft tissue swelling. Effusion: Large joint effusion. Joints: Cartilaginous surfaces intact. Bones: No fracture or dislocation. Reading: Large joint effusion. No acute fracture or dislocation.
--- NOTE | 2018-09-06 15:56 | DI ---
AP CHEST X-RAY, 09/06/2018 1:56 PM : Clinical History: Tachypnea. Tachycardia. Previous Exam: 03/17/2018. Soft Tissues: No acute soft tissue abnormality. The patient is morbidly obese. This detracts from the overall quality and significantly limits the diagnostic quality of the exam with respect to small or fine detail structures. Bones: Normal. Heart: Heart Size: Cardiomegaly. Vascular Pedicle Width: Increased. Azygous Vein: Not well visualized due to rotation. Vascular Flow Pattern:Reversal of flow to the upper lobes indicating left heart evette lure. Pulmonary Arteries: Normal. Lungs: No infiltrates. No interstitial edema. Effusion(s): None. Mediastinum: Normal mediastinum. Nodules: No pulmonary nodules. Reading: Cardiomegaly with chronic left heart failure. No evidence of acute left heart failure.
--- NOTE | 2018-09-06 17:04 | DI ---
MRI RIGHT KNEE SCAN, 09/06/2018 1:06 PM: Clinical History: Injury. The patient fell. Prior Study: None at this facility. Comparison Exam: Right knee exam, 09/06/2018. Technique: Coronal, sagittal, & axial FS PD weighted; coronal & axial PD; sagittal T1 weighted. Medial Collateral Ligament: Intact. Lateral Collateral Ligament, IT Band, Biceps Femoris Tendon: Partial tear at the insertion of the LCL on the lateral femoral condyle. Popliteus Tendon and Popliteofibular Ligament: Partial tear of the popliteus tendon with evidence of a tear in the popliteus muscle. There the popliteofibular ligament at the attachment to the popliteus tendon. Meniscal Root Attachment: Intact. Medial/Lateral Compartment Cartilage: Focal grade 3 chondromalacia of the lateral femoral condyle.. Posterior Femoral Condyles: Bone contusion of the lateral femoral condyle. Bone Marrow Signal: Minimally depressed lateral tibial plateau fracture anteriorly. Medial and Lateral Meniscus: Flap tear of the posterior horn of the medial meniscus on the undersurfa ce extending to the body. Intact lateral meniscus. Anterior and Posterior Cruciate Ligament: Partial chronic tear of the anterior cruciate ligament at t he insertion on the tibial spines. Chronic partial tear superior half of the posterior cruciate ligam ent. Proximal Tibiofibular Joint: Normal. Popliteal Hiatus, Superior and Inferior Popliteomeniscal Fascicles: Partial tears of the posterosuper ior and anteroinferior popliteomeniscal fascicles.. Quadriceps Tendon: Intact. Patella Tendon: Intact. Medial and Lateral Heads of Gastrocnemius Tendon: Partial tear of the tendon of the medial head of th e gastrocnemius muscle. The lateral head tendon is intact. Joint Fluid: Large joint effusion with a fluid-fluid level consistent with a hemarthrosis. Hoffa's Fat Pad: Normal. No synovitis. Popliteal Cyst, Bursal Fluid: None. Patella Cartilage: Normal medial and lateral patellar facet cartilage. Trochlear Cartilage: Normal. Medial Retinaculum and Medial Patellofemoral Ligament: Intact. Lateral Retinaculum: Intact. Muscle Tissues: Acute tear involving the popliteus muscle. Readin. Minimally depressed lateral tibial plateau fracture with a large hemarthrosis. There is a tear of the popliteus tendon and muscle as well as partial tears of the LCL, popliteofibular ligament, and t he superior and inferior popliteomeniscal fascicles. Partial tear of the tendon of the medial head of the gastrocnemius muscle. There is a small bone contusion in the lateral femoral condyle. 2. Flap tear of the posterior horn of the medial meniscus extending to the body on the undersurface. Chronic partial tears of the ACL and PCL.
--- NOTE | 2018-09-06 18:00 | PDOC ---
HPI - History of Present Illness Date of Service: 09/06/18 Time of Service: 18:35 Chief Complaint: Pain in the right knee after a fall this morning History of Present Illness: This is an 78 years old female with medical history significant for history of COPD on oxygen, history of A. fib, hypothyroidism, history of coronary artery disease with previous CABG, pulmonary hypertension and history of macular degeneration who came into the hospital for evaluation after a fall. She said she was in her bathroom this morning wearing socks and she slipped and fell. She said she hit the side of the right knee and then she started to have pain a nd swelling in the knee and is unable to put weight on it. Because of that they brought her to the ER. she did mention that she had some nausea earlier and that's resolved. In the ER she had multiple investigation including an MRI which showed that she had minimally depressed lateral tibial plateau fracture with a large hemarthrosis. She did receive some pain medication. The case was discussed with Dr. Kohli he suggested admission and consideration for aspiration tomorrow. Her may complain is pain in the knee but otherwise she said she was feeling fine before she fell. There is no change in her shortness of breath, no chest pain. Denied palpitation. The nausea that she had resolved now. Past Medical History Medical History: 1. Hypertension. 2. Hypothyroidism. 3. COPD, with chronic hypoxemic respiratory failure on 4 L of nasal cannula at baseline. Currently requiring 6 L/m. 4. Sleep apnea, but cannot tolerate noninvasive ventilation. She could not complete the test for sleep apnea and does not want to go through it again. 5. Depression apparently with anxiety features. 6. osteoporosis. 7. Atrial fibrillation. 8. Coronary artery disease status post CABG. 9. 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 10. Macular degeneration. 11. Carotid artery disease status post carotid stent placement on the right and prior carotid endarterectomy. 12. Chronic pain syndrome attributed to feet problems. 13. Recent collapsed right lower lobe of the lung. Treated conservatively with flutter valve and breathing therapies and did not require bronchoscopy. Surgical History: 1. Carotid endarterectomy, bilateral. 2. History of CABG, 7 vessel. 3. Hysterectomy. 4. Right carotid internal artery stent. 5. Hysterectomy with bladder suspension. 6. Renal artery stent Family History: Reviewed an Not Pertinent Pertinent Family History: Heart disease in her father and in her siblings Past Social History: She used to smoke quit many years ago, rarely drinks. No drugs. for 65 years. Has 5 children. Tobacco Use: Former Smoker In the Past 12 Months, Have Used or Abuse Any of the Following Substance: None Medication / Allergies Home Medications: Home Medications Medication Instructions Recorded Confirmed docusate sodium 100 mg capsule 100 mg PO BID PRN cap 03/17/18 09/06/18 acetaminophen 325 mg tablet 650 mg PO QID PRN #60 tab 03/22/18 09/06/18 albuterol sulfate 2.5 mg/3 mL 2.5 mg INH Q6H PRN #90 ml 04/21/18 09/06/18 (0.083 %) solution for nebulization albuterol sulfate HFA 90 2 puff INH Q6H PRN 05/10/18 09/06/18 mcg/actuation aerosol inhaler ipratropium bromide 0.02 % 2.5 ml INH TID PRN ml 05/10/18 09/06/18 solution for inhalation vit A 7,160 unit-vit C 113 mg-vit 1 tab PO BID tab 05/10/18 09/06/18 E 100 ldln-kucp-ellgzi tablet cholecalciferol (vitamin D3) 1,000 1,000 unit PO QDAY #30 cap 05/12/18 09/06/18 unit capsule citalopram 10 mg tablet 10 mg PO QDAY #30 tab 05/20/18 09/06/18 furosemide 40 mg tablet 40 mg PO BID@0700,1300 #60 tab 05/20/18 09/06/18 potassium chloride ER 20 mEq 40 meq PO BID #120 tab 05/20/18 09/06/18 tablet,extended release fluticasone fur. 100 mcg-umeclid 1 inh INH QDAY #28 ea 05/24/18 09/06/18 62.5 mcg-vilant 25 mcg inhalat.powder apixaban 5 mg tablet 5 mg PO BID #60 tab 06/06/18 09/06/18 diltiazem CD 120 mg 120 mg PO BID #60 cap 06/06/18 09/06/18 capsule,extended release 24 hr mirtazapine 7.5 mg tablet 7.5 mg PO QDAY #30 tab 06/06/18 09/06/18 atorvastatin 80 mg tablet 80 mg PO QHS #90 tab 07/19/18 09/06/18 levothyroxine 50 mcg tablet 50 mcg PO QDAY #90 tab-cap 07/19/18 09/06/18 alprazolam 0.25 mg tablet 0.25 mg PO Q6H PRN #120 tab 08/05/18 09/06/18 fluticasone propionate 50 2 spray INASL BID PRN #54.6 g 08/23/18 09/06/18 mcg/actuation nasal spray,suspension montelukast 10 mg tablet 10 mg PO QPM PRN #30 tab 08/23/18 09/06/18 oxybutynin chloride ER 5 mg 10 mg PO QDAY #60 tab 08/29/18 09/06/18 tablet,extended release 24 hr Guaifenesin [Guaifenesin ER] 600 mg PO Q12H 09/06/18 09/06/18 Allergies/Adverse Reactions: Allergies Allergy/AdvReac Type Severity Reaction Status Date / Time sulfamethoxazole Allergy Severe pruritis, Verified 09/06/18 18:25 [From Bactrim] short of breath, chest pain trimethoprim [From Bactrim] Allergy Severe pruritis, Verified 09/06/18 18:25 short of breath, chest pain toprop XL AdvReac Severe NAUSEA Uncoded 09/06/18 18:25 PAIN CONTRACT AdvReac Unknown NOT Uncoded 09/06/18 18:25 APPLICABLE oxycotin AdvReac NAUSEA Uncoded 09/06/18 18:25 Review of Systems - Review of Systems All Systems: Reviewed & No Additional Complaints Except as Stated Exam - Vitals Vital Signs: Vital Signs Temperature 97.4 F Temperature Source Temporal Artery Scan Pulse Rate [Pulse Oximeter 103 Right] Respiratory Rate 22 Blood Pressure [Right Arm] 90/46 Pulse Ox 80 Oxygen Flow Rate 6 Oxygen Delivery Method Nasal Cannula Height 5 ft 6 in Weight 231 lb - General General Appearance: Obese Additional General Exam Details: Looks tired - Head Head Exam: Normal Inspection - Eye Eye Exam: POSITIVE: Normal Appearance - ENT ENT Exam: POSITIVE: Normal Exam - Neck Neck Exam: Normal Inspection - Respiratory Additional Respiratory Exam Details: Decreased air entry otherwise clear - Cardiovascular Cardiovascular Exam: POSITIVE: RRR - GI/Abdominal GI/Abdominal Exam: POSITIVE: Normal Bowel Sounds, Non Tender, Non Distended, Soft, No Organomegaly - Rectal Rectal Exam: POSITIVE: Deferred - External Exam: POSITIVE: Deferred - Extremities Additional Extremities Exam Details: There is a effusion in the right knee tense with tenderness. - Back Back Exam: POSITIVE: Normal Inspection - Neurological Neurological Exam: POSITIVE: Alert, Oriented x 3, CN II-XII Intact, Speech Intact / Clear, Moves All Extremities Equally - Psychiatric Psychiatric Exam: POSITIVE: Normal Affect Results - Labs CBC and BMP: 09/06/18 13:25 09/06/18 13:20 - Imaging Status: Report Reviewed by Me (MRI knee 1. Minimally depressed lateral tibial plateau fracture with a large hemarthrosis. There is a tear of the popliteus tendon and muscle as well as partial tears of the LCL, popliteofibular ligament, and the superior and inferior popliteomeniscal fascicles. Partial tear of the tendon of the medial head of the gastrocnemius muscle. There is a small bone contusion in the lateral femoral condyle. 2. Flap tear of the posterior horn of the medial meniscus extending to the body on the undersurface. Chronic partial tears of the ACL and PCL. Chest X ray Cardiomegaly with chronic left heart failure. No evidence of acute left heart failure.) Assessment and Plan - Patient Problems (1) Hemarthrosis Current Visit: Yes Status: Acute Comment: will put her on Tylenol for pain. We'll wait for Dr. Kohli assessment in the morning. I think we'll hold her eliquis for now. Code(s): M25.00 - Hemarthrosis, unspecified joint (2) Anxiety associated with depression Current Visit: No Status: Chronic Onset Date: 08/13/15 Comment: Same medication Code(s): F41.8 - Other specified anxiety disorders (3) Hypothyroidism Current Visit: No Status: Chronic Onset Date: 08/06/11 Comment: Same med Code(s): E03.9 - Hypothyroidism, unspecified Qualifiers: Hypothyroidism type: acquired Qualified Code(s): E03.9 - Hypothyroidism, unspecified (4) Atrial fibrillation Current Visit: Yes Status: Acute Comment: Continue Cardizem. Will hold anticoagulant. Code(s): I48.91 - Unspecified atrial fibrillation (5) History of congestive heart failure Current Visit: Yes Status: Acute Comment: Blood pressure is on the low side so I think we'll cut back on Lasix for now to once a day. We'll see how things looks tomorrow and then decide. If her blood pressure is acceptable we will put her back on her usual Lasix twice a day. Code(s): Z86.79 - Personal history of other diseases of the circulatory system
[2018-09-06] MEDS ORDERED: CALCIUM CARBONATE 500 MG (TUMS) CHEWABLE TABLET PO PRN (18:38)
[2018-09-06] MEDS ORDERED: LIDOCAINE W/ SODIUM BICARB 0.5 ML SYR SUBD PRN (18:38)
[2018-09-06] MEDS ORDERED: ONDANSETRON 4 MG/2 ML VIAL IVP PRN (18:38)
[2018-09-06] MEDS ORDERED: ALPRAZolam Tab 0.25 MG TABLET PO PRN (18:47)
[2018-09-06] MEDS ORDERED: ALBUTEROL SULFATE 8.5 GM HFA INHALER INH PRN (19:01)
[2018-09-06] MEDS: FLUTICASONE PROPIONATE 16 GRAM (120 SPRAYS / BOTTLE) ENOS SCH (20:18)
[2018-09-06] MEDS: ATORVASTATIN 40 MG TABLET PO SCH (20:19)
[2018-09-06] MEDS: DILTIAZEM HCL CD 120 MG CAP PO SCH (20:19)
[2018-09-06] MEDS: ACETAMINOPHEN 325 MG TABLET PO PRN (20:19)
--- NOTE | 2018-09-06 20:28 | CONSULT ---
Consult Note - Consult Consult Date: 09/06/18 Reason for Consult: Orthopedic Consult Requesting Physician: Dr. Condon Primary Care Provider: Jo Simpson MD - History of Present Illness History of Present Illness: Patient is an 78-year-old female who this morning slipped while in the bathroom sustaining an injury to her right knee she thinks she may have hyperextended the knee by description pain discomfort was brought to the emergency room x-rays were taken with no clear fracture and MRI was ordered she had a significant effusion was found to have lateral tibial plateau nondisplaced fracture with a lot of fluid within the knee joint some edema posteriorly indicating that she probably did have a hyperextension type injury. Patient because of her significant physical limitations deconditioning could not go home and has a who is in significant medical needs and limitations and could not care for her. She was admitted about the hospitalist. Denies loss of consciousness shortness of breath chest pain or dizziness or lightheadedness prior to her of that. She denies any significant pain or discomfort elsewhere Past Medical History Medical History: 1. Hypertension. 2. Hypothyroidism. 3. COPD, with chronic hypoxemic respiratory failure on 4 L of nasal cannula at baseline. Currently requiring 6 L/m. 4. Sleep apnea, but cannot tolerate noninvasive ventilation. She could not complete the test for sleep apnea and does not want to go through it again. 5. Depression apparently with anxiety features. 6. osteoporosis. 7. Atrial fibrillation. 8. Coronary artery disease status post CABG. 9. 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 10. Macular degeneration. 11. Carotid artery disease status post carotid stent placement on the right and prior carotid endarterectomy. 12. Chronic pain syndrome attributed to feet problems. 13. Recent collapsed right lower lobe of the lung. Treated conservatively with flutter valve and breathing therapies and did not require bronchoscopy. Surgical History: 1. Carotid endarterectomy, bilateral. 2. History of CABG, 7 vessel. 3. Hysterectomy. 4. Right carotid internal artery stent. 5. Hysterectomy with bladder suspension. 6. Renal artery stent Family History: Reviewed an Not Pertinent Pertinent Family History: Heart disease in her father and in her siblings Past Social History: She used to smoke quit many years ago, rarely drinks. No drugs. for 65 years. Has 5 children. Tobacco Use: Former Smoker In the Past 12 Months, Have Used or Abuse Any of the Following Substance: None Medication / Allergies Home Medications: Home Medications Medication Instructions Recorded Confirmed docusate sodium 100 mg capsule 100 mg PO BID PRN cap 03/17/18 09/06/18 acetaminophen 325 mg tablet 650 mg PO QID PRN #60 tab 03/22/18 09/06/18 albuterol sulfate 2.5 mg/3 mL 2.5 mg INH Q6H PRN #90 ml 04/21/18 09/06/18 (0.083 %) solution for nebulization albuterol sulfate HFA 90 2 puff INH Q6H PRN 05/10/18 09/06/18 mcg/actuation aerosol inhaler ipratropium bromide 0.02 % 2.5 ml INH TID PRN ml 05/10/18 09/06/18 solution for inhalation vit A 7,160 unit-vit C 113 mg-vit 1 tab PO BID tab 05/10/18 09/06/18 E 100 [id number] tablet cholecalciferol (vitamin D3) 1,000 1,000 unit PO QDAY #30 cap 05/12/18 09/06/18 unit capsule citalopram 10 mg tablet 10 mg PO QDAY #30 tab 05/20/18 09/06/18 furosemide 40 mg tablet 40 mg PO BID@0700,1300 #60 tab 05/20/18 09/06/18 potassium chloride ER 20 mEq 40 meq PO BID #120 tab 05/20/18 09/06/18 tablet,extended release fluticasone fur. 100 mcg-umeclid 1 inh INH QDAY #28 ea 05/24/18 09/06/18 62.5 mcg-vilant 25 mcg inhalat.powder apixaban 5 mg tablet 5 mg PO BID #60 tab 06/06/18 09/06/18 diltiazem CD 120 mg 120 mg PO BID #60 cap 06/06/18 09/06/18 capsule,extended release 24 hr mirtazapine 7.5 mg tablet 7.5 mg PO QDAY #30 tab 06/06/18 09/06/18 atorvastatin 80 mg tablet 80 mg PO QHS #90 tab 07/19/18 09/06/18 levothyroxine 50 mcg tablet 50 mcg PO QDAY #90 tab-cap 07/19/18 09/06/18 alprazolam 0.25 mg tablet 0.25 mg PO Q6H PRN #120 tab 08/05/18 09/06/18 fluticasone propionate 50 2 spray INASL BID PRN #54.6 g 08/23/18 09/06/18 mcg/actuation nasal spray,suspension montelukast 10 mg tablet 10 mg PO QPM PRN #30 tab 08/23/18 09/06/18 oxybutynin chloride ER 5 mg 10 mg PO QDAY #60 tab 08/29/18 09/06/18 tablet,extended release 24 hr Guaifenesin [Guaifenesin ER] 600 mg PO Q12H 09/06/18 09/06/18 Allergies/Adverse Reactions: Allergies Allergy/AdvReac Type Severity Reaction Status Date / Time sulfamethoxazole Allergy Severe pruritis, Verified 09/06/18 19:49 [From Bactrim] short of breath, chest pain trimethoprim [From Bactrim] Allergy Severe pruritis, Verified 09/06/18 19:49 short of breath, chest pain toprop XL AdvReac Severe NAUSEA Uncoded 09/06/18 19:49 PAIN CONTRACT AdvReac Unknown NOT Uncoded 09/06/18 19:49 APPLICABLE oxycotin AdvReac NAUSEA Uncoded 09/06/18 19:49 Exam - - Exam: Examination shows that the patient has no significant ecchymosis black and blue she does have a tense effusion of the right knee shows good motor examination of foot and ankle including peroneal and tibial nerve function. Her sensory is generally with no significant deficits. She has trouble moving the knee she can lift the knee can get close to about 20 short of full extension can flex to about 70 has a fair amount of discomfort gentle ligamentous testing feels like it's intact good pulses and brisk refill. She has no pain with palpation elsewhere in the upper extremities neck low back pelvis or left lower extremity no pain around the ankle or foot or hip region. Radiographs of the knee on the notch view show a possible non-displaced a crack in the lateral tibial plateau towards the tibial spines. A lot of osteophytes and degenerative changes in the otherwise. MRI shows significant edema within the lateral tibial plateau with nondisplaced fracture lines good supporting structure underneath. There is no lateral meniscus tear that I see. Some edema in the anterior cruciate ligament and at its attachment region. Patient also with an undersurface posterior horn medial meniscus tear. There is a fair amount of edema and swelling within the popliteus muscle and underneath the gastroc muscles indicating a stretch type injury with a bleed but overall intact. Laboratory Results 09/06/18 09/06/18 09/06/18 13:20 13:20 13:25 WBC 16.16 H RBC 4.70 Hgb 14.0 Hct 44.9 MCV 95.5 MCH 29.8 MCHC 31.2 L RDW Std Deviation 54.6 H RDW Coeff of Karis 15.8 H Plt Count 299 MPV 9.1 Immature Gran % (Auto) 0.4 Neut % (Auto) 89.1 H Lymph % (Auto) 4.7 L [place] % (Auto) 5.5 Eos % (Auto) 0.2 Baso % (Auto) 0.1 Immature Gran # (Auto) 0.06 Neut # (Auto) 14.39 Lymph # (Auto) 0.76 [place] # (Auto) 0.89 H Eos # (Auto) 0.04 Baso # (Auto) 0.02 WBC Morphology Comment Normal morphology Plt Morphology Comment Normal morphology RBC Morph Comment Normal morphology PT 19.9 H INR 1.72 APTT Sodium 142 Potassium 4.6 Chloride 100 Carbon Dioxide 33 Anion Gap 9 BUN 21 Creatinine 0.9 BUN/Creatinine Ratio 23.33 H Glucose 134 H Calculated Osmolality 298.0 H Calcium 8.9 Magnesium 2.0 Total Bilirubin 0.9 AST 19 ALT 15 Alkaline Phosphatase 91 C-Reactive Protein 4.4 H NT-Pro-B Natriuret Pep 873 H Total Protein 7.2 Albumin 4.0 Globulin 3.2 Albumin/Globulin Ratio 1.20 L 09/06/18 15:19 WBC RBC Hgb Hct MCV MCH MCHC RDW Std Deviation RDW Coeff of Karis Plt Count MPV Immature Gran % (Auto) Neut % (Auto) Lymph % (Auto) [place] % (Auto) Eos % (Auto) Baso % (Auto) Immature Gran # (Auto) Neut # (Auto) Lymph # (Auto) [place] # (Auto) Eos # (Auto) Baso # (Auto) WBC Morphology Comment Plt Morphology Comment RBC Morph Comment PT INR APTT 38.0 H Sodium Potassium Chloride Carbon Dioxide Anion Gap BUN Creatinine BUN/Creatinine Ratio Glucose Calculated Osmolality Calcium Magnesium Total Bilirubin AST ALT Alkaline Phosphatase C-Reactive Protein NT-Pro-B Natriuret Pep Total Protein Albumin Globulin Albumin/Globulin Ratio - Vitals Vital Signs: Vital Signs Temperature 98.6 F Temperature Source Temporal Artery Scan Pulse Rate [Apical] 84 Pulse Rate [Pulse Oximeter 83 Right] Pulse Rate 87 Respiratory Rate 20 Blood Pressure [Right Arm] 107/42 Blood Pressure 119/61 Pulse Ox 91 Oxygen Flow Rate 5 Oxygen Delivery Method Nasal Cannula Height 5 ft 6 in Weight 104.78 kg Results - Labs CBC and BMP: 09/06/18 13:25 09/06/18 13:20 Assessment and Plan - Assessment / Plan Additional Assessment/Plan Details: Impression: Lateral tibial plateau fracture nondisplaced, stretch injury to posterior capsule gastroc and popliteus muscles otherwise large hemarthrosis. Plan:We discussed the patient's current condition and clinical findings as it pertains to the current situation. Surgical versus nonsurgical options risks and benefits were discussed and reviewed. Options moving forward include but are not limited to continued choice to live with their current condition; evaluate their current condition further with imaging studies and/or diagnostic testing, etc.; treat problem/problems with surgical versus nonsurgical methods. The patient demonstrates a clear understanding of our discussion. All questions were answered. Surgical versus nonsurgical options risks and benefits were Discussed and reviewed. Risks include but are not limited to bleeding, infection, neurovascular damage, wound problems, deep vein thromboses, pulmonary embolism, need for further surgery, and loss of life and limb. Certainly any surgical procedure may not improve symptoms and potentially could makes symptoms worse. There are no guarantees implied with the discussion of surgical treatment. All questions were answered and the patient wishes to proceed with surgical treatment. We discussed aspiration I think this would be helpful the patient and she agreed so after sterile preparation with povidone alcohol through a lateral suprapatellar pouch region we cleansed the skin with appropriate on alcohol we numbed the skin with 2% lidocaine going into the suprapatellar pouch and then aspirated about 35 mL of a thick bloody fluid. Band-Aid was applied. Physical therapy can have her mobilized I would say because she is deconditioned no more than 5-10 pounds through the leg just to balance herself she can use a knee brace if she finds more helpful or a knee immobilizer. I want her to be icing the right knee and protecting the skin with a layer of material between. As a discussed with the and the patient I don't think this is going require any Surgical intervention if things stay whether adequate the current time.
--- NOTE | 2018-09-06 20:33 | ORTHO.OP ---
- - -: See Dictated Operative Report (Aspirated the knee in the patient's room after sterile technique. CPT code 74029)
[2018-09-06] MEDS ORDERED: Mirtazapine Tab 15 MG TAB PO SCH (21:00)
[2018-09-06] MEDS: NITROFURANTOIN/NITROFURAN MAC 100 MG CAPSULE PO SCH (22:03)
[2018-09-07] MEDS: LEVOTHYROXINE 50 MCG TABLET PO SCH (04:48)
[2018-09-07] MEDS: ACETAMINOPHEN 325 MG TABLET PO PRN ×3 (04:48→17:45)
[2018-09-07 06:37] LABS: BASOPHILS # (AUTO) 0.03 10*3/UL; BASOPHILS % (AUTO) 0.2 % (0-1); EOSINOPHILS # (AUTO) 0.01 10*3/UL; EOSINOPHILS % (AUTO) 0.1 % (0-8); Hematocrit [HCT] 43.1 % (37.0-47.0); Hemoglobin [HGB] 13.5 g/dL (12.0-16.0); LYMPHOCYTES # (AUTO) 0.82 10*3/uL; MEAN CORPUSCULAR HEMOGLOBIN 30.5 PG (27-31); MEAN CORPUSCULAR HGB CONC 31.3 g/dL (33-37); MEAN CORPUSCULAR VOLUME 97.5 FL (81-99); MEAN PLATELET VOLUME 9.1 FL (7.4-12.2); MONOCYTES # (AUTO) 0.79 10*3/UL (0.3-0.8); MONOCYTES % (AUTO) 5.7 % (5-15); NEUTROPHILS % (AUTO) 87.5 % (50-80); RED BLOOD COUNT 4.42 10^6/uL (4.20-5.40)
[2018-09-07 06:43] LABS: VENOUS PH 7.27 (7.32-7.42)
[2018-09-07] MEDS: FUROSEMIDE 40 MG TABLET PO SCH (07:04)
[2018-09-07 07:05] LABS: PLATELET MORPHOLOGY COMMENT NORMAL MORPHOLOGY (NORM); RBC MORPHOLOGY COMMENT NORMAL MORPHOLOGY (NORM); WBC MORPHOLOGY COMMENT NORMAL MORPHOLOGY (NORM)
[2018-09-07 07:14] LABS: BLOOD UREA NITROGEN 20 mg/dL (7-22)
[2018-09-07] MEDS ORDERED: cefTRIAXone Inj 1 GM in Sodium Chloride 0.9% 100 ML IV SCH (07:30)
--- NOTE | 2018-09-07 07:40 | PDOC(PROG) ---
Date of Service: 09/07/18 Time of Service: 07:30 Interval History: Subjective I was called early this morning as the patient was very sleepy, we did order a venous blood gas. The venous blood gas came back showing respiratory acidosis secondary to CO2 retention. We put her on a BiPAP. Currently she is very sleepy and she would wake up for few seconds and then she'll go back to sleep. Objective : Data - Labs CBC and BMP: 09/07/18 06:30 09/07/18 06:30 Objective : Exam - General Additional General Exam Details: Very lethargic - Head Head Exam: Normal Inspection - Eye Eye Exam: Normal Appearance - ENT ENT Exam: Normal Exam - Neck Neck Exam: Normal Inspection - Respiratory Additional Respiratory Exam Details: Very poor air entry but otherwise clear - Cardiovascular Cardiovascular Exam: Irregular Rhythm - GI/Abdominal GI/Abdominal Exam: Normal Bowel Sounds, Non Tender, Non Distended, Soft, No Organomegaly - Rectal Rectal Exam: Deferred - External Exam: Deferred - Extremities Additional Extremities Exam Details: No edema in the leg. Swelling in the right knee is less than yesterday. - Back Back Exam: Normal Inspection - Neurological Additional Neurological Exam Details: Sleepy. She would wake up followed some of the command and then go immediately back to sleep. - Psychiatric Psychiatric Exam: Flat Affect Assessment and Plan - Patient Problems (1) Acute and chronic respiratory failure Current Visit: Yes Status: Acute Comment: Reason is not clear. Her chest x-ray does not look different from before. Will take blood culture start her on antibiotics, will put her on nebulizer treatment. She did tell me when she came in that she's not using her nebulizer now only the inhaler. Code(s): J96.20 - Acute and chronic respiratory failure, unspecified whether with hypoxia or hypercapnia (2) Hemarthrosis Current Visit: Yes Status: Acute Comment: This was tapped by Dr. Kohli yesterday. Code(s): M25.00 - Hemarthrosis, unspecified joint (3) Anxiety associated with depression Current Visit: No Status: Chronic Onset Date: 08/13/15 Comment: Same med. We cut back on her Xanax. Code(s): F41.8 - Other specified anxiety disorders (4) Hypothyroidism Current Visit: No Status: Chronic Onset Date: 08/06/11 Comment: Same med Code(s): E03.9 - Hypothyroidism, unspecified Qualifiers: Hypothyroidism type: acquired Qualified Code(s): E03.9 - Hypothyroidism, unspecified (5) Atrial fibrillation Current Visit: Yes Status: Acute Comment: Continue Cardizem. Hopefully she will be more awake to take a medication if not we will see her heart that and decide if we need to give her some IV. Code(s): I48.91 - Unspecified atrial fibrillation (6) History of congestive heart failure Current Visit: Yes Status: Acute Comment: Same medication. We'll see if she can take her oral medication if not will decide about switching medication to IV. Code(s): Z86.79 - Personal history of other diseases of the circulatory system
[2018-09-07] MEDS: cefTAZidime Inj 2 GM in Sodium Chloride 0.9% 100 ML IV SCH ×2 (09:32→17:43)
[2018-09-07 09:50] LABS: BILIRUBIN,URINE NEGATIVE (NEG); CLARITY,URINE CLEAR (CLEAR); COLOR,URINE ORANGE (Y); GLUCOSE, URINE (UA) NEGATIVE (NEG); OCCULT BLOOD,URINE SMALL (NEG); PH,URINE 5.5 (5.0-8.5); PROTEIN,URINE NEGATIVE (NEG); UROBILINOGEN,URINE 0.2 EU/dL (0.2)
[2018-09-07 09:57] LABS: BACTERIA,URINE MODERATE; RBC,URINE 0-1 /hpf; SQUAMOUS EPITHELIAL CELL,UR RARE; URINE CASTS FEW; URINE SAMPLE TYPE CATH SPECIMEN
[2018-09-07] MEDS: DILTIAZEM HCL CD 120 MG CAP PO SCH ×2 (10:43→21:21)
[2018-09-07] MEDS: CHOLECALCIFEROL 1000 IU TABLET PO SCH (10:43)
[2018-09-07] MEDS: POTASSIUM CHLORIDE 20 MEQ TAB PO SCH (10:43)
[2018-09-07] MEDS: CITALOPRAM 20 MG TABLET PO SCH (10:43)
[2018-09-07] MEDS: NITROFURANTOIN/NITROFURAN MAC 100 MG CAPSULE PO SCH ×2 (10:44→21:21)
[2018-09-07] MEDS: FLUTICASONE PROPIONATE 16 GRAM (120 SPRAYS / BOTTLE) ENOS SCH ×2 (10:44→21:21)
[2018-09-07 10:47] LABS: VENOUS PH 7.32 (7.32-7.42)
[2018-09-07] MEDS: FLUTICASONE INH SCH (10:51)
[2018-09-07] MEDS: UMECLIDIN INH SCH (10:51)
[2018-09-07] MEDS: VILANTER INH SCH (10:51)
[2018-09-07] MEDS ORDERED: ALPRAZolam Tab 0.25 MG TABLET PO PRN (11:32)
[2018-09-07] MEDS: LEVALBUTEROL HCL 1.25 MG/3 ML NEB SCH ×2 (13:10→19:58)
[2018-09-07 14:22] LABS: VENOUS PH 7.36 (7.32-7.42)
--- NOTE | 2018-09-07 15:57 | OTI REPORT ---
Thank you for the referral of Milagros Dennis. She was seen on 09/07/18 for an occupational therapy inpatient evaluation status post right tibial plateau fracture. SUBJECTIVE: The patient is an 78-year-old female who came in yesterday with a right tibial plateau fracture. The patient is on a 10 pound weight-bearing precaution. At this time nursing reports that they are having trouble with her CO2 levels. The patient is currently on a BIPAP to help decrease those CO2 levels. The patient does live at home with her . It is reported that they were getting [facility] services for showers and home services. At one point she was getting home health and outpatient therapy. It is reported that the patient required min to mod assist for all ADLs previous to this fall. The patient did fall in the bathroom in the bathtub. Nursing did give us permission to work with the patient very minimally as the tube on the BIPAP is only 5 feet long. PAST MEDICAL HISTORY: Past medical history can be found in the patient's medical record. OBJECTIVE FINDINGS: General observations: The patient was supine in bed upon the therapist's arrival. She did react to us walking into the room and did agree to work with us. Bed mobility: The patient required mod to max assist to transfer from supine to sitting edge of bed x2. Once seated, the patient was able to complete seated balance for greater than five minutes with stand by assist only. At this point the patient was getting fatigued and she did require min assist to transfer from sit to supine back into bed. ASSESSMENT: The patient would qualify for OT services at this time. At this time the patient is max assist for all ADLs. Occupational Therapy Goals: To be met by discharge from inpatient: Patient will be able to complete upper extremity dressing with min assist. Patient will be able to complete lower extremity dressing with mod assist. Patient will be able to complete functional transfers with contact guard assist only. Patient will be able to complete a shower with min assist using any adaptive equipment as necessary. Patient will increase her activity tolerance from 5 minutes to 15 minutes to complete ADLs more independently. TREATMENT PLAN: Patient will be seen B.I.D during the week and one time per day over the weekend as an inpatient to address the above goals and objectives. INITIAL TREATMENT: Treatment today consisted of the occupational therapy initial evaluation only. Following treatment the patient was left in bed with bed alarm set and call light within reach. MTDD
--- NOTE | 2018-09-07 16:48 | PTI REPORT ---
Thank you for the referral of Milagros Dennis. She was seen on 09/07/18 for an inpatient evaluation secondary to weakness and a right tibial plateau fracture. SUBJECTIVE: The patient is an 78-year-old female who states that she fell in her bathroom yesterday and as a result of that fall per her medical chart she has sustained a lateral right tibial plateau fracture and is to be only 5-10 pounds weight- bearing on the right lower extremity for balance purposes only per MD report. The patient is doing fair this morning. She was withheld from therapy this morning as they were dealing with other medical issues. She is a little bit more stable this afternoon and we did get clearance from nursing staff to work with the patient. The patient lives here in [place] with her . The patient has multiple medical issues and overall has poor to fair health. The patient is on oxygen normally at home; typically 2-3 liters. She has been using a four wheeled walker for ambulation. She does not get around a lot within her home environment. The patient also has very poor vision. The patient has been receiving assistance for ADLs such as showering. Her does help take care of needs around the home as well and his health is fair. He has been dealing with some heart issues. They do have two daughters that do help out as needed. The patient has been in and out of the hospital, on home health, and in the custodial over the last year. The patient reports that she is having a lot of pain in her right knee and also complains of pain in her left ankle from her fall. PAST MEDICAL HISTORY: Past medical history can be found in the patient's medical record. OBJECTIVE FINDINGS: General observations: The patient is alert and oriented to setting upon PT arrival. The patient is on a BIPAP machine so she is hard to understand due to the machine. Bed mobility: The patient was able to transfer from supine to seated edge of bed with mod assist of two. Her biggest limiting factor when trying to scoot toward edge of bed was the fact that she was having a lot of right knee pain and also left ankle pain and she did need some assistance to lower her lower extremities. She also did need a hand to scoot toward the edge of the bed. As she was making her way to the edge of the bed, the patient had fair to poor trunk control. Once seated edge of bed with her feet planted, she demonstrated improved trunk control to fair and was able to sit edge of bed for a few minutes. After she sat edge of bed the patient transferred back into bed. She did require mod assist x1 to help with her lower extremities. She was able to independently lift both of her lower extremities, she just needed a little help to guide them into the bed and to reposition her right lower extremity due to her knee pain. The patient was able to scoot herself up in bed with use of bilateral upper extremities. ASSESSMENT: The patient has fair potential secondary to her age and past medical history and due to the fact that she is supposed to be no more than 5-10 pounds weight- bearing on her right lower extremity due to her right tibial plateau fracture. The patient is also having difficulties with left ankle pain at this time which will affect her mobility as well and may need to be further looked at to make sure that she didn't injure the left ankle during her fall as well. The patient does have some cognitive issues and very poor balance, so following her weight- bearing precautions may present as a difficulty. The patient does have a lot of anxiety due to her difficulties with breathing and in general for movement which may affect our therapy as well. Short-Term Goals: To be met by discharge from inpatient: Patient will be able to transfer from bed to a chair following her weight- bearing precautions safely with minimal assist. Patient will be able to reposition herself in bed independently. Long-Term Goals: To be met following discharge from inpatient: Once the patient is medically stable, it may be appropriate for the patient to go swingbed to further rehab and to possibly look into a senior care setting, especially with her weight-bearing precautions that she has on the right lower extremity. We may need to look further into her left ankle and this could present some difficulties with being able to perform transfers and may make her unsafe to return home until she is strong enough and able to weight- bear correctly to safely perform the transfers. TREATMENT PLAN: Patient will be seen B.I.D during the week and one time per day over the weekend as an inpatient to address the above goals and objectives. INITIAL TREATMENT: Treatment today consisted of the initial evaluation. Following treatment the patient was left in bed with bed alarm set and call light within reach. MTDD
[2018-09-07] MEDS: ATORVASTATIN 40 MG TABLET PO SCH (21:21)
[2018-09-08] MEDS: LEVALBUTEROL HCL 1.25 MG/3 ML NEB SCH ×4 (01:47→19:56)
[2018-09-08] MEDS: cefTAZidime Inj 2 GM in Sodium Chloride 0.9% 100 ML IV SCH ×3 (02:04→17:27)
[2018-09-08] MEDS: LEVOTHYROXINE 50 MCG TABLET PO SCH (05:12)
[2018-09-08 06:03] LABS: BASOPHILS # (AUTO) 0.02 10*3/UL; BASOPHILS % (AUTO) 0.1 % (0-1); EOSINOPHILS # (AUTO) 0.18 10*3/UL; EOSINOPHILS % (AUTO) 1.3 % (0-8); Hemoglobin [HGB] 12.5 g/dL (12.0-16.0); LYMPHOCYTES # (AUTO) 0.77 10*3/uL; MEAN CORPUSCULAR HEMOGLOBIN 30.1 PG (27-31); MEAN CORPUSCULAR HGB CONC 30.5 g/dL (33-37); MEAN CORPUSCULAR VOLUME 98.8 FL (81-99); MEAN PLATELET VOLUME 9.6 FL (7.4-12.2); MONOCYTES # (AUTO) 1.03 10*3/UL (0.3-0.8); MONOCYTES % (AUTO) 7.5 % (5-15); NEUTROPHILS # (AUTO) 11.62 10*3/UL; NEUTROPHILS % (AUTO) 85.1 % (50-80); RED BLOOD COUNT 4.15 10^6/uL (4.20-5.40)
[2018-09-08 06:15] LABS: BLOOD UREA NITROGEN 21 mg/dL (7-22); BUN/CREATININE RATIO 26.25 (6-20); SERUM ALBUMIN 3.2 g/dL (3.5-4.8)
[2018-09-08 07:03] LABS: PLATELET MORPHOLOGY COMMENT NORMAL MORPHOLOGY (NORM); RBC MORPHOLOGY COMMENT NORMAL MORPHOLOGY (NORM); WBC MORPHOLOGY COMMENT NORMAL MORPHOLOGY (NORM)
[2018-09-08] MEDS: FUROSEMIDE 40 MG TABLET PO SCH (07:32)
[2018-09-08] MEDS: ACETAMINOPHEN 325 MG TABLET PO PRN ×2 (08:13→16:25)
[2018-09-08] MEDS: CITALOPRAM 20 MG TABLET PO SCH (09:29)
[2018-09-08] MEDS: POTASSIUM CHLORIDE 20 MEQ TAB PO SCH (09:30)
[2018-09-08] MEDS: CHOLECALCIFEROL 1000 IU TABLET PO SCH (09:31)
[2018-09-08] MEDS: DILTIAZEM HCL CD 120 MG CAP PO SCH (09:32)
[2018-09-08] MEDS: NITROFURANTOIN/NITROFURAN MAC 100 MG CAPSULE PO SCH (09:32)
[2018-09-08] MEDS: FLUTICASONE PROPIONATE 16 GRAM (120 SPRAYS / BOTTLE) ENOS SCH ×2 (09:32→21:44)
--- NOTE | 2018-09-08 10:05 | ORTHO.PROG ---
Last Taken Vital Signs: Vital Signs - Last Taken Temperature 98.6 F 09/08/18 07:17 Pulse Rate 116 H 09/08/18 07:17 Respiratory Rate 24 09/08/18 07:17 Blood Pressure 98/55 09/08/18 07:17 Pulse Ox 90 09/08/18 07:17 Subjective: Patient doing markedly better today she notes any still hurts but seems to be be tter and she is awake and she is conversing today she notes that her left ankle hurts and has not had that evaluated Objective: The right knee has a 1-2+ effusion is not tense she has no bruising or ecchymosis on the front of the knee she has some tenderness along the lateral tibial plateau region. Motor and sensory exam of the right foot and ankle is good with no focal findings. Left ankle has some mild swelling tenderness over the lateral malleolus denies any significant medial sided pain dorsiflexion is to neutral plantar flexion is to 40. Motor and sensory exam is nonfocal. Laboratory Results 09/07/18 09/07/18 09/08/18 10:15 14:14 05:15 WBC 13.68 H RBC 4.15 L Hgb 12.5 Hct 41.0 MCV 98.8 MCH 30.1 MCHC 30.5 L RDW Std Deviation 56.8 H RDW Coeff of Karis 16.0 H Plt Count 242 MPV 9.6 Immature Gran % (Auto) 0.4 Neut % (Auto) 85.1 H Lymph % (Auto) 5.6 L [place] % (Auto) 7.5 Eos % (Auto) 1.3 Baso % (Auto) 0.1 Immature Gran # (Auto) 0.06 Neut # (Auto) 11.62 Lymph # (Auto) 0.77 [place] # (Auto) 1.03 H Eos # (Auto) 0.18 Baso # (Auto) 0.02 WBC Morphology Comment Normal morphology Plt Morphology Comment Normal morphology RBC Morph Comment Normal morphology VBG pH 7.32 7.36 VBG pCO2 75 H 65 H VBG HCO3 39 H 36 H VBG Base Excess 12 H 11 H Sodium Potassium Chloride Carbon Dioxide Anion Gap BUN Creatinine BUN/Creatinine Ratio Glucose Calculated Osmolality Calcium Total Bilirubin AST ALT Alkaline Phosphatase Total Protein Albumin Globulin Albumin/Globulin Ratio 09/08/18 05:15 WBC RBC Hgb Hct MCV MCH MCHC RDW Std Deviation RDW Coeff of Karis Plt Count MPV Immature Gran % (Auto) Neut % (Auto) Lymph % (Auto) [place] % (Auto) Eos % (Auto) Baso % (Auto) Immature Gran # (Auto) Neut # (Auto) Lymph # (Auto) [place] # (Auto) Eos # (Auto) Baso # (Auto) WBC Morphology Comment Plt Morphology Comment RBC Morph Comment VBG pH VBG pCO2 VBG HCO3 VBG Base Excess Sodium 142 Potassium 4.7 Chloride 99 Carbon Dioxide 36 H Anion Gap 7 BUN 21 Creatinine 0.8 BUN/Creatinine Ratio 26.25 H Glucose 133 H Calculated Osmolality 298.0 H Calcium 8.7 Total Bilirubin 0.6 AST 21 ALT 19 Alkaline Phosphatase 71 Total Protein 5.9 L Albumin 3.2 L Globulin 2.7 Albumin/Globulin Ratio 1.10 L Assessment: Patient with right hemarthrosis and right tibial plateau fracture Left ankle pain rule out fracture Plan: We will get an x-ray of the left ankle to see if she may have a nondisplaced lateral malleolus or minimally displaced malleolus fracture. Certainly the ankle is a markedly deformed. Continue with physical therapy for the right knee and lower extremity once were able to get these x-rays to rule out a fracture that needs to be protected.
--- NOTE | 2018-09-08 10:42 | OT.PROG ---
Progress Note Progress Note: S: pt stated that she thinks that she needs to change her pad because it is wet and would like to sit up in the recliner. O: tx consisted of ADL task of changing brief. pt completed doffing oiled brief with use of bed mobility rolling from left to right and use of grab bars while needed MAX A to pull soiled brief off. pt needed barrier cream applied to right and left upper thigh near parianal area for redness and moisture protection. pt needed MAX A for toileting hygiene and donning new brief. A: pt was unable to bridge to doff and estrellita briefs due to fracture and soreness of L ankle. P: continue POC
[2018-09-08] MEDS: VILANTER INH SCH (11:01)
[2018-09-08] MEDS: UMECLIDIN INH SCH (11:01)
[2018-09-08] MEDS: FLUTICASONE INH SCH (11:01)
--- NOTE | 2018-09-08 11:05 | DI ---
LEFT ANKLE EXAM, 09/08/2018 10:02 AM: Clinical History: Left lateral ankle pain. Comparison Study: None at this facility. Views: 3 views. Soft Tissues: Soft tissues bilaterally. Effusion: No joint effusion present. Joints: Mild narrowing of the tibiotalar joint. 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 Bones: No fracture or dislocation. Reading: No fracture or dislocation. Arthritic changes in the ankle and hindfoot.
--- NOTE | 2018-09-08 11:30 | PT.PROG ---
Progress Note Progress Note: S. Patient stated that she would like to sit in her chair. O. Patient performed bed mobility and pivot transfer to the chair where she was left with alarm and call light. A. patient required mod assist x 2 with bed mobility and dependent transfer x 2 with pivot transfer to the chair. Patient was unable to put weight on either leg to support herself with transfer. Patient would continue to benefit from skilled therapy to increase strength, mobility and safety at this time. P. Continue POC.
[2018-09-08] MEDS ORDERED: Sodium Chloride 0.9% 500 ML IV ONE (15:13)
--- NOTE | 2018-09-08 15:16 | PDOC(PROG) ---
Date of Service: 09/08/18 Time of Service: 15:10 Interval History: No chest pain, shortness breath, nausea or vomiting. States she's had some cough production. Right knee and tibia hurts. Objective : Data - Labs CBC and BMP: 09/08/18 05:15 09/08/18 05:15 Additional Lab Results: Urine culture greater than 100,000 gram-negative colony-forming units Objective : Exam - General General Appearance: No Acute Distress, Cooperative Additional General Exam Details: Vital Signs - Last Taken Temperature 97.5 F 09/08/18 12:39 Pulse Rate 94 09/08/18 13:40 Respiratory Rate 18 09/08/18 13:40 Blood Pressure 92/55 09/08/18 12:39 Pulse Ox 93 09/08/18 12:39 - Eye Eye Exam: No Scleral Icterus - ENT ENT Exam: Mucous Membranes Moist - Neck Neck Exam: JVP is not Raised - Respiratory Respiratory Exam: Clear to Auscultation - Bilaterally, Breathing Non Labored, Decreased Breath Sounds (in bases) - Cardiovascular Cardiovascular Exam: RRR, No Clicks, No Gallops, No Rubs, No JVD - GI/Abdominal GI/Abdominal Exam: Normal Bowel Sounds, Non Tender, Non Distended, Soft - Extremities Extremities Exam: No Clubbing Present, No Cyanosis Present, +1 Edema - Neurological Neurological Exam: Alert, Oriented x 3, No Facial Droop, Speech Intact / Clear, Moves All Extremities Equally Assessment and Plan - Patient Problems (1) Acute and chronic respiratory failure Current Visit: Yes Status: Acute Code(s): J96.20 - Acute and chronic respira tory failure, unspecified whether with hypoxia or hypercapnia Qualifiers: Respiratory failure complication: unspecified whether with hypoxia or hypercapnia Qualified Code(s): J96.20 - Acute and chronic respiratory failure, unspecified whether with hypoxia or hypercapnia (2) Urinary tract infection Current Visit: Yes Status: Acute Comment: present on admission Code(s): N39.0 - Urinary tract infection, site not specified Qualifiers: Urinary tract infection type: acute cystitis Hematuria presence: without hematuria Qualified Code(s): N30.00 - Acute cystitis without hematuria (3) Congestive heart failure, NYHA class 3 Current Visit: Yes Status: Chronic Code(s): I50.9 - Heart failure, unspecified Qualifiers: Congestive heart failure type: unspecified Qualified Code(s): I50.9 - Heart failure, unspecified (4) Hemarthrosis Current Visit: Yes Status: Acute Code(s): M25.00 - Hemarthrosis, unspecified joint (5) Anxiety associated with depression Current Visit: Yes Status: Chronic Onset Date: 08/13/15 Code(s): F41.8 - Other specified anxiety disorders (6) Hypothyroidism Current Visit: Yes Status: Chronic Onset Date: 08/06/11 Code(s): E03.9 - Hypothyroidism, unspecified Qualifiers: Hypothyroidism type: acquired Qualified Code(s): E03.9 - Hypothyroidism, unspecified (7) Atrial fibrillation Current Visit: Yes Status: Chronic Code(s): I48.91 - Unspecified atrial fibrillation Qualifiers: Atrial fibrillation type: chronic Qualified Code(s): I48.2 - Chronic atrial fibrillation - Assessment / Plan Additional Assessment/Plan Details: Continue oxygen and breathing therapies as necessary. Hold off on antibiotics. Hold off on additional steroids. Blood pressures noted, so reduce Cardizem to once daily and stop Lasix. Give small boluses of IV fluids. Continue Fortaz for now. PT and OT. Evaluate for swing bed. Stop Macrodantin, contraindicated in patients over 65. Labs in a.m.
--- NOTE | 2018-09-08 15:47 | OT.PROG ---
Progress Note Progress Note: S: pt reported quite a bit of pain today during UE exercises coming from her knee and Her L shoulder. O: pt was seen in her room and completed Ue exercises with RTB in all planes x15. She completed EROT/shoulder ext only x10 as she stopped due to pain. A: pt may continue to benefit from therapy to increase her activity tolerance and Ind during transitions and sit to stands. P: continue per POC.
--- NOTE | 2018-09-08 16:34 | PT.PROG ---
Progress Note Progress Note: S. Patient stated that she would stand to have her brief changed. O. patient performed sit to stand x 4 and stood x 30 seconds each time. Patient was left in her chair with alarm and call light. A. Patient tolerated therapy poor, she continues to require max assist x 2 for sit to stand transfers. Patient would continue to benefit from skilled therapy to increase strength, endurance and safety at this time. P. Continue POC.
[2018-09-08] MEDS: ATORVASTATIN 40 MG TABLET PO SCH (21:44)
[2018-09-08] MEDS: DOCUSATE 100 MG CAPSULE PO PRN (21:45)
[2018-09-09] MEDS: cefTAZidime Inj 2 GM in Sodium Chloride 0.9% 100 ML IV SCH ×2 (00:54→10:06)
[2018-09-09] MEDS: LEVALBUTEROL HCL 1.25 MG/3 ML NEB SCH ×4 (01:02→21:32)
[2018-09-09 05:18] LABS: BASOPHILS # (AUTO) 0.02 10*3/UL; BASOPHILS % (AUTO) 0.2 % (0-1); EOSINOPHILS # (AUTO) 0.26 10*3/UL; Hematocrit [HCT] 39.5 % (37.0-47.0); Hemoglobin [HGB] 11.7 g/dL (12.0-16.0); LYMPHOCYTES # (AUTO) 1.01 10*3/uL; MEAN CORPUSCULAR HEMOGLOBIN 29.3 PG (27-31); MEAN CORPUSCULAR HGB CONC 29.6 g/dL (33-37); MEAN CORPUSCULAR VOLUME 98.8 FL (81-99); MEAN PLATELET VOLUME 9.5 FL (7.4-12.2); MONOCYTES # (AUTO) 1.02 10*3/UL (0.3-0.8); NEUTROPHILS # (AUTO) 10.34 10*3/UL; NEUTROPHILS % (AUTO) 81.5 % (50-80)
[2018-09-09 05:24] LABS: BLOOD UREA NITROGEN 15 mg/dL (7-22); BUN/CREATININE RATIO 21.42 (6-20)
[2018-09-09 05:34] LABS: PLATELET MORPHOLOGY COMMENT NORMAL MORPHOLOGY (NORM); RBC MORPHOLOGY COMMENT NORMAL MORPHOLOGY (NORM); WBC MORPHOLOGY COMMENT NORMAL MORPHOLOGY (NORM)
[2018-09-09] MEDS: LEVOTHYROXINE 50 MCG TABLET PO SCH (05:55)
[2018-09-09] MEDS ORDERED: DILTIAZEM HCL CD 120 MG CAP PO SCH (09:00)
[2018-09-09] MEDS: CITALOPRAM 20 MG TABLET PO SCH (09:50)
[2018-09-09] MEDS: FLUTICASONE PROPIONATE 16 GRAM (120 SPRAYS / BOTTLE) ENOS SCH ×2 (09:50→21:30)
[2018-09-09] MEDS: CHOLECALCIFEROL 1000 IU TABLET PO SCH (09:50)
--- NOTE | 2018-09-09 10:07 | OT.PROG ---
Progress Note Progress Note: OT Daily Note 09/09/18 S: pt was in her recliner upon arrival. nursing reports that she has been refusing a new Iv as well as the Bipap machine. they also reported that in a transfer yesterday the pt was dependent and has had to use the sit to stand machine for transfers. O: pt reported she would work with therapy although she has a lot of pain and does not want to stand. pt reported both feet hurt, but the left ankle is really sore they x rayed it and she reports nothing is wrong with the ankle. ktape was applied to the L ankle to provide support. PT and nursing co treated pt to complete a sit to stand and to change the brief while standing. pt required max A x 2 and max encouragement while standing to stand for ~2 min. pt was lef tin the chair with nursing staff. A: At this time pt seems to be giving up. she does not want to complete any activity. pt does not seem to be a good candidate for swing bed at this time. P:cont per POC and encourage DC plans
[2018-09-09] MEDS ORDERED: LIDOCAINE HCL 2 % 10 ML JELLY URO-JECT TOPICAL PRN (12:05)
--- NOTE | 2018-09-09 12:11 | PT.PROG ---
Progress Note Progress Note: S. Patient stated that she is hurting this morning. O. Patient performed seated exercises in the form of; long arc quads, marches, hip abduction/adduction all x 10 bilaterally, Patient stood x 1 minute and was left in her chair with alarm and call light. A. Patient continues to require mod to max assist x 2 for standing, and fatigues very easily, she requires frequent verbal cues to complete activities. She would continue to benefit from skilled therapy to increase strength, mobility and safety. P. Continue POC.
[2018-09-09] MEDS: VILANTER INH SCH (12:40)
[2018-09-09] MEDS: UMECLIDIN INH SCH (12:40)
[2018-09-09] MEDS: FLUTICASONE INH SCH (12:40)
--- NOTE | 2018-09-09 12:47 | PDOC(PROG) ---
Date of Service: 09/09/18 Time of Service: 12:41 Interval History: Does not feel short of breath despite increasing oxygenation to maintain saturations. Normally on 2 L of oxygen at home. Has terrible, stage IV chronic obstructive pulmonary disease. In terms of her urinary incontinence, and is been extremely limiting socially, has been hurting her quality of life, she has had skin irritation regardless of Reece catheterization, and recurrent urinary tract infections in the setting of Reece catheterization and is considering a suprapubic catheter which I think would be appropriate given her decreased quality of life from this urinary incontinence. She will discuss with her further as to whether or not this makes sense in terms of her risks and benefits standpoint. Metabolic equivalents are very hard to do, her biggest risk for surgery would be her age, and end-stage COPD. She is not capable of self catheterization. She would prefer the Reece catheter in despite potential risks of infection due to [id number] issues. Says pain and knee is better controlled and left ankle wrapping has helped improve her left ankle pain. Objective : Data - Labs CBC and BMP: 09/09/18 04:25 09/09/18 04:25 Objective : Exam - General General Appearance: No Acute Distress, Cooperative Additional General Exam Details: Vital Signs - Last Taken Temperature 99 F 09/09/18 07:44 Pulse Rate 117 H 09/09/18 07:44 Respiratory Rate 20 09/09/18 07:44 Blood Pressure 113/66 09/09/18 07:44 Pulse Ox 91 09/09/18 07:44 - Eye Eye Exam: No Scleral Icterus - ENT ENT Exam: Mucous Membranes Moist - Neck Neck Exam: JVP is not Raised - Respiratory Respiratory Exam: Breathing Non Labored, Decreased Breath Sounds - Cardiovascular Cardiovascular Exam: No Clicks, No Gallops, No Rubs, Irregular Rhythm, Tachycardia - GI/Abdominal GI/Abdominal Exam: Normal Bowel Sounds - Extremities Extremities Exam: No Clubbing Present, No Edema Present, No Cyanosis Present - Neurological Neurological Exam: Alert, Oriented x 3, No Facial Droop, Speech Intact / Clear - Psychiatric Psychiatric Exam: Anxious Assessment and Plan - Patient Problems (1) Acute and chronic respiratory failure Current Visit: Yes Status: Acute Code(s): J96.20 - Acute and chronic respiratory failure, unspecified whether with hypoxia or hypercapnia Qualifiers: Respiratory failure complication: unspecified whether with hypoxia or hypercapnia Qualified Code(s): J96.20 - Acute and chronic respiratory failure, unspecified whether with hypoxia or hypercapnia (2) Urinary tract infection Current Visit: Yes Status: Acute Code(s): N39.0 - Urinary tract infection, site not specified Qualifiers: Urinary tract infection type: acute cystitis Hematuria presence: without hematuria Qualified Code(s): N30.00 - Acute cystitis without hematuria (3) Congestive heart failure, NYHA class 3 Current Visit: Yes Status: Chronic Code(s): I50.9 - Heart failure, unspecified Qualifiers: Congestive heart failure type: unspecified Qualified Code(s): I50.9 - Heart failure, unspecified (4) Hemarthrosis Current Visit: Yes Status: Acute Code(s): M25.00 - Hemarthrosis, unspecified joint (5) Anxiety associated with depression Current Visit: Yes Status: Chronic Onset Date: 08/13/15 Code(s): F41.8 - Other specified anxiety disorders (6) Hypothyroidism Current Visit: Yes Status: Chronic Onset Date: 08/06/11 Code(s): E03.9 - Hypothyroidism, unspecified Qualifiers: Hypothyroidism type: acquired Qualified Code(s): E03.9 - Hypothyroidism, unspecified (7) Atrial fibrillation Current Visit: Yes Status: Chronic Code(s): I48.91 - Unspecified atrial fibrillation Qualifiers: Atrial fibrillation type: chronic Qualified Code(s): I48.2 - Chronic atrial fibrillation - Assessment / Plan Additional Assessment/Plan Details: I do not think the patient makes a good narcotic candidate at all due to her end-stage COPD. Continue Tylenol for pain. Continue PT and OT. Given risk and benefit ratio of recurrent Reece catheterization, poor quality of life with urinary incontinence issues that was described to me with worsening worsening social isolation, embarrassment, discomfort, and overall loss of enjoyment of life, I think that we need to replace the Reece catheter. Escherichia coli is what grew from the urine culture, it is resistant to Rocephin, switch to Rocephin and continue a course of that. Eventually to oral antibiotics and by mouth course with IV to total 10 days of therapy. As this is a complicated, present on admission, catheter associated urinary tract inf ection. Swing bed consideration. She definitely is not ready to go home and needs more therapy for this hemarthrosis and tibial plateau fracture. Not sure why the patient's oxygenation is increasing, we'll check CT scan (CTA) of chest to check for pulmonary emboli, also will be beneficial in helping determine whether there could be an underlying pneumonia although chest x-ray was negative for that. I think whatever cause hemarthrosis is probably resolved. Knee does not appear any worse in terms of swelling. Patient is at high risk for DVT, start DVT prophylaxis. Discussed in depth with patient, at bedside. Cardizem was decreased to 120 once a day as it was long-acting. The twice a day dosing did not make sense, but she's been more tachycardic and so I'll resume her prior dosing of 120 mg CD twice a day .
--- NOTE | 2018-09-09 15:24 | PT.PROG ---
Progress Note Progress Note: S. patient stated that she is scared to try to stand up. O. Patient performed sit to stand transfer and stood x 2 minutes then pivot transfer to the bed where she was left with alarm and call light. A. Patient tolerated therapy poor, she continues to require max assist x 2 for sit to stand transfer and max assist x 3 for pivot transfer. She would continue to benefit from skilled therapy to increase strength, endurance and safety at this time. P. Continue POC.
[2018-09-09] MEDS: cefTRIAXone Inj 2 GM in Sodium Chloride 0.9% 100 ML IV SCH (15:34)
--- NOTE | 2018-09-09 18:03 | DI ---
CT CHEST SCAN WITHOUT IV CONTRAST, 09/09/2018 2:05 PM : Clinical History: Hypoxia. Previous Exam: None at this facility. Technique: From base of neck to lung bases without IV contrast. Non-MIPS and MIPS sagittal/coronal im ages generated. IV Contrast: None. Base of Neck: Normal. Nodes: Normal axillary, supraclavicular, mediastinal, and hilar lymph nodes. Heart: Normal. Status post CABG. There is left atrial and right atrial enlargement. The ventricles ap pear to be of normal size. Aorta: Normal thoracic aorta. No aneurysm. Calcification is present in the aortic valve. Pulmonary Arteries: Normal non-contrast appearance. Marked pulmonary arterial hypertension. Mediastinum: Normal. Lungs: No infiltrates. Right lower lobe atelectasis. There is evidence of multiple small blebs indica ting bullous emphysema as well as thickening of the bronchi consistent with chronic bronchitis. Effusion(s): Very small right pleural effusion. Nodules: None. Bony Structures: Normal visualized portions of ribs, sternum, scapulae, clavicles, and shoulders. Nor mal visualized portions of thoracic spine. Limited Upper Abdomen: There are low-density nodules in both adrenal glands, but the CT measurements for each nodule are greater than 10 Hounsfield units and therefore these cannot be classified as nevaeh gn adenomas on the noncontrast study. The visualized portions of the liver and spleen and pancreas ar e normal. READIN. Right lower lobe atelectasis with a small right pleural effusion. There is no evidence of pneumon ia. 2. Marked pulmonary arterial hypertension with underlying emphysema and chronic bronchitis. 3. Marked enlargement of the right and left atria. The right and left ventricles are of normal size. 4. Bilateral adrenal masses that are higher than the cutoff point for lipid rich adenomas on the non contrast study. The right adrenal lesion measures roughly 15 mm in diameter. The left adrenal lesion measures 25 mm in diameter.
--- NOTE | 2018-09-09 18:29 | ORTHO.PROG ---
Last Taken Vital Signs: Vital Signs - Last Taken Temperature 98.9 F 09/09/18 17:00 Pulse Rate 93 09/09/18 17:00 Respiratory Rate 24 09/09/18 17:00 Blood Pressure 110/58 09/09/18 17:00 Pulse Ox 94 09/09/18 17:00 Subjective: patient notes pain less right knee Objective: right knee with 1 plus effusion, ttp lateral plateau, no calf adductor hiatis or thigh pain. Laboratory Results 09/07/18 09/09/18 09/09/18 09:30 04:25 04:25 WBC 12.69 H RBC 4.00 L Hgb 11.7 L Hct 39.5 MCV 98.8 MCH 29.3 MCHC 29.6 L RDW Std Deviation 56.1 H RDW Coeff of Karis 15.8 H Plt Count 248 MPV 9.5 Immature Gran % (Auto) 0.3 Neut % (Auto) 81.5 H Lymph % (Auto) 8.0 L [place] % (Auto) 8.0 Eos % (Auto) 2.0 Baso % (Auto) 0.2 Immature Gran # (Auto) 0.04 Neut # (Auto) 10.34 Lymph # (Auto) 1.01 [place] # (Auto) 1.02 H Eos # (Auto) 0.26 Baso # (Auto) 0.02 WBC Morphology Comment Normal morphology Plt Morphology Comment Normal morphology RBC Morph Comment Normal morphology Sodium 143 Potassium 4.1 Chloride 99 Carbon Dioxide 39 H Anion Gap 5 BUN 15 Creatinine 0.7 BUN/Creatinine Ratio 21.42 H Glucose 121 H Calculated Osmolality 297.0 H Calcium 8.4 L Ur Collection Type Cath specimen Urine Color [place] A Urine Clarity Clear Urine pH 5.5 Ur Specific [place] 1.010 Urine Protein Negative Urine Glucose (UA) Negative Urine Ketones Negative Urine Occult Blood Small H Urine Nitrate Positive A Urine Bilirubin Negative Urine Urobilinogen 0.2 Ur Leukocyte Esterase Negative Urine RBC 0-1 Urine WBC 3-5 Ur Squamous Epith Cells Rare Ur Renal Epithelial Cell None Urine Crystals None Urine Bacteria Moderate H Urine Casts Few Urine Mucus None Urine Trichomonas None Urine Yeast None Ur Culture Indicated? Culture set Vital Signs (24 hrs) 09/08/18 19:00 09/08/18 19:56 09/08/18 19:57 Temperature Pulse Rate 84 71 Pulse Rate [Apical] 96 Pulse Rate [Pulse Oximeter Right] 73 Pulse Rate [right] Respiratory Rate 16 16 Blood Pressure [Right Arm] Pulse Ox 90 Pulse Ox [right] 93 09/08/18 21:00 09/08/18 23:00 09/08/18 23:31 Temperature 97.6 F Pulse Rate Pulse Rate [Apical] Pulse Rate [Pulse Oximeter Right] 100 Pulse Rate [right] 81 Respiratory Rate 17 Blood Pressure [Right Arm] 91/57 Pulse Ox 94 Pulse Ox [right] 91 94 09/09/18 01:00 09/09/18 01:02 09/09/18 01:03 Temperature Pulse Rate 61 62 Pulse Rate [Apical] Pulse Rate [Pulse Oximeter Right] Pulse Rate [right] Respiratory Rate 16 16 Blood Pressure [Right Arm] Pulse Ox 89 Pulse Ox [right] 90 09/09/18 01:06 09/09/18 03:00 09/09/18 04:22 Temperature 97.9 F Pulse Rate Pulse Rate [Apical] Pulse Rate [Pulse Oximeter Right] 102 H Pulse Rate [right] 79 Respiratory Rate 28 H Blood Pressure [Right Arm] 108/64 Pulse Ox 89 91 Pulse Ox [right] 95 09/09/18 04:55 09/09/18 06:21 09/09/18 06:22 Temperature Pulse Rate 97 94 Pulse Rate [Apical] Pulse Rate [Pulse Oximeter Right] Pulse Rate [right] 84 Respiratory Rate 22 20 Blood Pressure [Right Arm] Pulse Ox 90 Pulse Ox [right] 93 09/09/18 07:00 09/09/18 07:44 09/09/18 09:00 Temperature 99 F Pulse Rate Pulse Rate [Apical] 100 Pulse Rate [Pulse Oximeter Right] 117 H Pulse Rate [right] 113 H 104 H Respiratory Rate 20 Blood Pressure [Right Arm] 113/66 Pulse Ox 91 Pulse Ox [right] 91 94 09/09/18 11:00 09/09/18 12:42 09/09/18 12:43 Temperature Pulse Rate 70 70 Pulse Rate [Apical] Pulse Rate [Pulse Oximeter Right] Pulse Rate [right] 108 H Respiratory Rate 18 18 Blood Pressure [Right Arm] Pulse Ox 96 Pulse Ox [right] 93 09/09/18 13:00 09/09/18 15:00 09/09/18 17:00 Temperature 99.2 F 98.9 F Pulse Rate Pulse Rate [Apical] Pulse Rate [Pulse Oximeter Right] 103 H 101 H Pulse Rate [right] 108 H 93 Respiratory Rate 20 24 Blood Pressure [Right Arm] 109/60 110/58 Pulse Ox 92 92 Pulse Ox [right] 94 91 94 Assessment: right tibial lateral plateau fracture, deconditioning Plan: Continue with current plan
[2018-09-09 19:36] LABS: VENOUS PH 7.46 (7.32-7.42)
[2018-09-09] MEDS: ACETAMINOPHEN 325 MG TABLET PO PRN (21:12)
[2018-09-09] MEDS: ATORVASTATIN 40 MG TABLET PO SCH (21:12)
[2018-09-09] MEDS: DOCUSATE 100 MG CAPSULE PO PRN (21:13)
[2018-09-09] MEDS: DILTIAZEM HCL CD 120 MG CAP PO SCH (21:13)
--- NOTE | 2018-09-09 22:11 | DI ---
CT ANGIOGRAM OF THE CHEST, 09/09/2018 5:32 PM : Clinical History: Acute hypoxemic respiratory failure. Previous Exam: A noncontrast study performed earlier today. We have finally able to achieve a suitabl e IV access for contrast. Technique: Scans from base of neck to lung bases with IV contrast. Bolus tracking protocol was used f or timing the injection. Non-MIPS and MIPS sagittal/coronal images generated. Contrast scans were als o obtained through the adrenal glands at approximately 1 in 10 minutes post initial contrast injectio n in order to assess the bilateral adrenal tumors. IV Contrast: 90 mL of Ultravist 370. Base of Neck: Normal. Nodes: Normal axillary, supraclavicular, mediastinal, and hilar lymph nodes. Heart: Cardiomegaly. There is left atrial and right atrial enlargement as noted previously. 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 Aorta: Normal thoracic aorta. No aneurysm or dissection. Pulmonary Arteries: Pulmonary arterial hypertension. No evidence of pulmonary embolism or pulmonary e mbolism with infarct. Mediastinum: Normal. Lungs: No infiltrates. Bullous emphysema and chronic bronchitis. Effusion(s): Small right pleural effusion. Nodules: None. Bony Structures: Normal visualized portions of ribs, sternum, scapulae, clavicles, and shoulders. Nor mal visualized portions of thoracic spine. Limited Upper Abdomen: Both adrenal glands show initial enhancement at one minute with subsequent was hout values calculated as 54% for the right adrenal gland and 50% for the left adrenal gland. Accurac y is somewhat limited because of the patient's large body habitus with portions of the body lying out side of the scan squaxin producing artifacts. These studies represent the best estimate possible and i ndicate that these represent benign adrenal adenomas. Normal limited views of liver and pancreas. READIN. Marked pulmonary arterial hypertension. No evidence of pulmonary emboli or pulmonary embolism wit h infarction. Both atria are enlarged. Both ventricles are of normal size. 2. Mixture of chronic bronchitis and emphysema with a ratio probably 50:50. 3. Both adrenal tumors show washout values of 50% or greater indicating they represent benign adenom as.
[2018-09-10] MEDS: LEVALBUTEROL HCL 1.25 MG/3 ML NEB SCH ×2 (02:01→06:33)
[2018-09-10 04:32] LABS: BASOPHILS # (AUTO) 0.02 10*3/UL; BASOPHILS % (AUTO) 0.2 % (0-1); EOSINOPHILS % (AUTO) 3.7 % (0-8); Hemoglobin [HGB] 11.6 g/dL (12.0-16.0); LYMPHOCYTES # (AUTO) 1.48 10*3/uL; MEAN CORPUSCULAR HEMOGLOBIN 29.7 PG (27-31); MEAN CORPUSCULAR HGB CONC 30.5 g/dL (33-37); MEAN CORPUSCULAR VOLUME 97.2 FL (81-99); MEAN PLATELET VOLUME 9.6 FL (7.4-12.2); MONOCYTES # (AUTO) 0.84 10*3/UL (0.3-0.8); MONOCYTES % (AUTO) 7.7 % (5-15); NEUTROPHILS # (AUTO) 8.09 10*3/UL; NEUTROPHILS % (AUTO) 74.6 % (50-80); RED BLOOD COUNT 3.91 10^6/uL (4.20-5.40)
[2018-09-10 04:37] LABS: PLATELET MORPHOLOGY COMMENT NORMAL MORPHOLOGY (NORM); RBC MORPHOLOGY COMMENT NORMAL MORPHOLOGY (NORM); WBC MORPHOLOGY COMMENT NORMAL MORPHOLOGY (NORM)
[2018-09-10] MEDS: LEVOTHYROXINE 50 MCG TABLET PO SCH (05:55)
[2018-09-10 06:34] VITALS: RESP 20
[2018-09-10] MEDS: CHOLECALCIFEROL 1000 IU TABLET PO SCH (08:52)
[2018-09-10] MEDS: FLUTICASONE PROPIONATE 16 GRAM (120 SPRAYS / BOTTLE) ENOS SCH (08:52)
[2018-09-10] MEDS: DILTIAZEM HCL CD 120 MG CAP PO SCH (08:52)
[2018-09-10] MEDS: ACETAMINOPHEN 325 MG TABLET PO PRN (08:52)
[2018-09-10] MEDS: CITALOPRAM 20 MG TABLET PO SCH (08:52)
[2018-09-10] MEDS ORDERED: DILTIAZEM HCL CD 120 MG CAP PO SCH (09:00)
[2018-09-10] MEDS ORDERED: ENOXAPARIN SODIUM 40 MG/0.4 ML SYRINGE SUBCUT SCH (09:00)
--- NOTE | 2018-09-10 11:09 | OT.PROG ---
Progress Note Progress Note: S: pt agreed to therapy services today. O: tx consisted of STS x1 with standing for 1 min with MAX A, functional tra nsfer to w/c with MAX A, functional transfer to EOB with MAX A, bed mobility from supine to EOB with MAX A, ankle pumps x10, heel slides x10, SLR x10, hip abduction adduction x10, 1# biceps curls x10, red RTB exercises of scapular squeezes and rows x10. A: pt tolerated session well. pt needed a few rest breaks during exercises. P: continue POC
[2018-09-10 11:26] VITALS: BP 112/64; TEMP 98
--- NOTE | 2018-09-10 11:32 | DI ---
VENOUS DOPPLER ULTRASOUND OF BOTH LOWER EXTREMITIES, 09/10/2018 10:24 AM: Clinical History: Bilateral calf pain. Previous Exam: Right venous Doppler ultrasound, 06/09/2017. Technique: 2D real-time imaging and color Doppler ultrasound with compression and augmentation maneuv ers. Deep Venous System: Normal deep venous system from groin to popliteal fossa bilaterally. Superficial Venous System: Normal greater saphenous vein bilaterally. Edema is present in both lower legs. Reading: Negative venous Doppler ultrasound of both lower extremities for deep vein thrombosis.
[2018-09-10] MEDS ORDERED: POTASSIUM CHLORIDE 20 MEQ TAB PO ONE (11:43)
[2018-09-10] MEDS ORDERED: FUROSEMIDE 10 MG/1 ML - 4 ML IVP ONE (11:43)
--- NOTE | 2018-09-10 11:50 | ORTHO.PROG ---
Last Taken Vital Signs: Vital Signs - Last Taken Temperature 98 F 09/10/18 11:22 Pulse Rate 78 09/10/18 11:22 Respiratory Rate 20 09/10/18 11:22 Blood Pressure 112/64 09/10/18 11:22 Pulse Ox 96 09/10/18 11:22 Subjective: Patient notes to be tired Objective: Knee with moderate amount of effusion not tense not erythematous. No evidence of infection difficulty moving her leg secondary to pain at the knee denies any hip pain with motion. And with keeping knee still no increasing hip pain with motion motor and sensory exam generally without change. Laboratory Results 09/09/18 09/09/18 09/10/18 19:15 19:17 03:55 WBC 10.85 H RBC 3.91 L Hgb 11.6 L Hct 38.0 MCV 97.2 MCH 29.7 MCHC 30.5 L RDW Std Deviation 54.4 H RDW Coeff of Karis 15.5 H Plt Count 257 MPV 9.6 Immature Gran % (Auto) 0.2 Neut % (Auto) 74.6 Lymph % (Auto) 13.6 Clarke % (Auto) 7.7 Eos % (Auto) 3.7 Baso % (Auto) 0.2 Immature Gran # (Auto) 0.02 Neut # (Auto) 8.09 Lymph # (Auto) 1.48 Clarke # (Auto) 0.84 H Eos # (Auto) 0.40 Baso # (Auto) 0.02 WBC Morphology Comment Normal morphology Plt Morphology Comment Normal morphology RBC Morph Comment Normal morphology VBG pH 7.46 H VBG pCO2 51 VBG HCO3 36 H VBG Base Excess 13 H NT-Pro-B Natriuret Pep 1920 H 09/10/18 03:55 WBC RBC Hgb Hct MCV MCH MCHC RDW Std Deviation RDW Coeff of Karis Plt Count MPV Immature Gran % (Auto) Neut % (Auto) Lymph % (Auto) Clarke % (Auto) Eos % (Auto) Baso % (Auto) Immature Gran # (Auto) Neut # (Auto) Lymph # (Auto) Clarke # (Auto) Eos # (Auto) Baso # (Auto) WBC Morphology Comment Plt Morphology Comment RBC Morph Comment VBG pH VBG pCO2 VBG HCO3 VBG Base Excess NT-Pro-B Natriuret Pep 1850 H Vital Signs (24 hrs) 09/09/18 12:42 09/09/18 12:43 09/09/18 13:00 Temperature 99.2 F Pulse Rate 70 70 Pulse Rate [Apical] Pulse Rate [Pulse Oximeter Right] 103 H Pulse Rate [right] 108 H Respiratory Rate 18 18 20 Blood Pressure [Right Arm] 109/60 Pulse Ox 96 92 Pulse Ox [right] 94 09/09/18 15:00 09/09/18 17:00 09/09/18 18:58 Temperature 98.9 F 98.9 F Pulse Rate Pulse Rate [Apical] Pulse Rate [Pulse Oximeter Right] 101 H 106 H Pulse Rate [right] 93 Respiratory Rate 24 28 H Blood Pressure [Right Arm] 110/58 119/64 Pulse Ox 92 90 Pulse Ox [right] 91 94 09/09/18 19:00 09/09/18 21:00 09/09/18 21:32 Temperature Pulse Rate 82 Pulse Rate [Apical] 88 Pulse Rate [Pulse Oximeter Right] Pulse Rate [right] Respiratory Rate 16 Blood Pressure [Right Arm] Pulse Ox 96 Pulse Ox [right] 95 95 09/09/18 21:33 09/09/18 22:45 09/09/18 23:28 Temperature 97.0 F Pulse Rate 71 Pulse Rate [Apical] Pulse Rate [Pulse Oximeter Right] 107 H Pulse Rate [right] 83 Respiratory Rate 16 22 Blood Pressure [Right Arm] 128/65 Pulse Ox 94 Pulse Ox [right] 92 09/10/18 01:00 09/10/18 02:01 09/10/18 02:02 Temperature Pulse Rate 83 71 Pulse Rate [Apical] Pulse Rate [Pulse Oximeter Right] Pulse Rate [right] 80 Respiratory Rate 16 16 Blood Pressure [Right Arm] Pulse Ox 93 93 Pulse Ox [right] 92 09/10/18 03:00 09/10/18 03:29 09/10/18 05:00 Temperature 98.7 F Pulse Rate Pulse Rate [Apical] Pulse Rate [Pulse Oximeter Right] 81 Pulse Rate [right] Respiratory Rate 22 Blood Pressure [Right Arm] 106/52 Pulse Ox 92 Pulse Ox [right] 92 91 09/10/18 06:33 09/10/18 06:34 09/10/18 07:00 Temperature Pulse Rate 83 86 Pulse Rate [Apical] Pulse Rate [Pulse Oximeter Right] Pulse Rate [right] 90 Respiratory Rate 20 20 Blood Pressure [Right Arm] Pulse Ox 93 Pulse Ox [right] 94 09/10/18 07:22 09/10/18 09:00 09/10/18 11:00 Temperature 97.2 F Pulse Rate Pulse Rate [Apical] Pulse Rate [Pulse Oximeter Right] 90 Pulse Rate [right] 88 76 Respiratory Rate 20 Blood Pressure [Right Arm] 112/73 Pulse Ox 94 Pulse Ox [right] 97 95 09/10/18 11:22 Temperature 98 F Pulse Rate Pulse Rate [Apical] Pulse Rate [Pulse Oximeter Right] 78 Pulse Rate [right] Respiratory Rate 20 Blood Pressure [Right Arm] 112/64 Pulse Ox 96 Pulse Ox [right] Assessment: Right lateral tibial plateau fracture stable, poor conditioning Plan: Patient will continue with physical therapy and occupational therapy. Pain control as needed DVT prophylaxis. Patient just had a ultrasound of both lower extremities which showed no venous clots throughout both lower extremities but she's been having low O2 levels despite being on high oxygen demand. Patient may be transferred for further evaluation and treatment to [facility] [place].
[2018-09-10] MEDS ORDERED: Montelukast Tab 10 MG TAB PO PRN (11:51)
[2018-09-10] MEDS: cefTRIAXone Inj 2 GM in Sodium Chloride 0.9% 100 ML IV SCH (12:39)
[2018-09-10] MEDS: UMECLIDIN INH SCH (12:52)
[2018-09-10] MEDS: VILANTER INH SCH (12:52)
[2018-09-10] MEDS: FLUTICASONE INH SCH (12:52)
[2018-09-10 13:01] LABS: BLOOD UREA NITROGEN 16 mg/dL (7-22); BUN/CREATININE RATIO 26.66 (6-20)
[2018-09-10 13:03] LABS: VENOUS PH 7.65 (7.32-7.42)
--- NOTE | 2018-09-10 13:15 | EKG ---
[address] [address] Measurements Intervals [place] Rate: 92 P: NM: 0 QRS: 37 QRSD: 107 T: 55 QT: 377 QTc: 427 Interpretive Statements ATRIAL FIBRILLATION ABNORMAL RHYTHM ECG Compared to ECG 03/16/2018 09:30:14 Atrial flutter no longer present Electronically Signed On 09-12-18 14:20:18 MDT by Norberto Martinez [email or web address]
--- NOTE | 2018-09-10 13:46 | DCSUMMARY ---
Hospitalization Summary Admit Date: 09/06/2018 Discharge Date: 09/10/18 Primary Diagnosis:: acute on chronic hypercapnic and hypoxemic respiratory f Hospital Course: This very pleasant 78-year-old female who had a fall in her bathroom, apparently she slipped with her socks on and hit her right knee and developed a hemarthrosis and pulled some tendons in her muscle. She was admitted, PT and OT and orthopedics were consulted. In terms of the hemarthrosis, she is to put no more than 5-10 pounds of weight on her right leg. An MRI scan showed a lateral tibial plateau fracture that is nonsurgical. It showed the tendon tears as well. She is only been able to ambulate about 5-10 feet maximum with physical therapy. It was also recommended that ice and/or knee brace or immobilizer could be used. Initially, her Eliquis was held, and eventually we started her back on stroke prophylaxis/DVT prophylaxis with Lovenox stopped back, and resumed dialysis today. She had her hemarthrosis drained by orthopedic surgery. The patient has known pulmonary arterial hypertension, COPD, and chronic bronchitis. Her oxygen level at home is 2 L per nasal cannula. I'm told by her daughters that the patient is been doing very well on Trilogy, and although it was ordered, and I'm told by respiratory therapy that the family was informed we did not have that on formulary here and to bring in the medication, it was not brought in until today. Be that as it may, the patient's oxygen requirements have increased, she had hypercapnia that required intermittent BiPAP when the patient would tolerate it and allow us to use it, and she's developed hypoxemia this required as much is 10 L via Venturi mask. Although her CO2 normalized, her hypoxemia seems to be getting worse over the last 36-48 hours. I do not have the ability to do cardiac workup or additional pulmonology workup. We were able to get a CTA of the chest, and it was negative for pulmonary emboli. Lower extremity Dopplers were negative for blood clots. When I called [facility] [place] the staff veterinarian home security professional requested an ABG which is pending at this time but will be done. The family's daughters were upset about Lasix being discontinued, and felt that was the reason for 5 pound weight gain although her input and output information shows her being about 600 mL ahead for the whole hospital, I'm not sure that 5 pounds is accurate, and in addition she was relatively hypotensive on admission. My partner, Dr. Jolley, felt holding Lasix would be appropriate given her blood pressures and fall on admission. Either way, she has very complex pulmonology issues, and an increased oxygen requirement that I cannot explain within the limits of my ability to work up the patient diagnostically here. Her last echocardiogram was reviewed, she has biatrial enlargement but normal ejection fraction. However she has a history of CABG in 2000, negative troponin on admission, and an EKG done today shows atrial fibrillation with a normal ventricular response. She has on an interesting dosing of Cardizem CD at 129 g twice a day. I tried to do this once a day, but she went into A. fib with RVR and then we changed her dose back to her home dosing, she normalized and did fine. That is in terms of her heart rate. She did not have any palpitations or chest pain. I do not have the ability to get an echocardiogram here until Wednesday at the very earliest. There was no evidence of pneumonia on the CT scans, but as an aside, she came in with a known urinary tract infection on Macrobid which was stopped on admission. Given that she had a urinary tract infection, isn't on admission but the cardiology was not figured out on culture as of yet, the patient was placed on Fortaz. Urine cultures came back positive for Escherichia coli which was sensitive to Rocephin but resistant to Ancef. I placed the patient on Rocephin which she's been on for the last 3 days. Rocephin would also cover the lung shouldn't be a lung infection or COPD exacerbation, but she's not had any increase in cough and her sputum production. Her oxygenation is her big ischemia possible COPD exacerbation, although I'm somewhat reluctant to give steroids until we know for sure what the heck is going on here. She has terrible urinary incontinence, we'll obtain notes from urology, and she has a neurogenic bladder which of course is never going to get better, and although a suprapubic catheter would twice a day I'll, at this point I think she needs a Reece catheter, particularly with her limited mobility and I discussed this at length with the patient, and her and just based on lifestyle alone, it's an indication to continue. She understands the risks of infection or recurrent or recent infection but feels that for her quality of life this is the best thing to do. We replaced the Reece catheter during this hospital stay. Again, she is on day 5 of antibiotic therapy, day 3 of Rocephin. I explained to the patient, her , and her 2 daughters that I am at a stand point where I can no longer work the patient up further from a cardiology standpoint and/or a pulmonology standpoint, and the patient has not responded to reintroduction of therapies such as trilogy which was given earlier today, and unfortunately, although I reordered Lasix, we have not been able to dose it as patient lost IV access and they're trying to get IV access to give Lasix prior to discharge from the hospital but either way clinically she is not in overt left-sided congestive heart failure or pulmonary edema by any means. She does not have JVD and has minimal edema in her lower extremities, and is a very mixed picture with edema examination in her right lower extremity due to hematoma from her recent injury. Overall, my impression is that this patient has much more advanced pulmonary hypertension that were giving her credit for, and I think her COPD and emphysema are advanced, likely end-stage, and decompensated in the setting of this acute injury. I tried to explain this to the daughters and her as best as I could and I feel the best thing for the patient is to transfer her and the patient agreed to that and the family seems to be okay with her transferring as well. This is further complicated by the fact that the patient has multiple chronic medical issues such as atrial fibrillation, coronary artery disease, lung issues as noted, obesity, obstructive sleep apnea, and I think they are all somewhat decompensated with significantly decreased activity in a patient who already had a decreased activity level and was probably at a [place] Heart Association class 3-4 symptomatology in terms of her congestive heart failure and end-stage COPD. Patient denies any chest pain. She does not feel overly short of breath. She gets anxious. Assessment and Plan: 1. As per discharge assessments noted 2. Disposition: Patient is discharged to [facility] [place] 3. Condition on discharge, stabilized as best as I can gather, but certainly her condition could deteriorate 4. Diet: regular diet 5. Activities: As per physician's [facility] [place] 6. Follow-Up: 1. She should see Dr. Simpson [facility]discharge from [facility] 2. 7. Medications at the Time of Discharge: Active Medications Generic Name Dose Route Start Last Admin Trade Name Freq PRN Reason Stop Dose Admin Acetaminophen 650 mg 09/06/18 18:38 09/10/18 08:52 Tylenol PO 650 mg Q6H PRN Administration Pain or Fever Albuterol Sulfate 2 puff 09/06/18 19:01 Proair Hfa Inhaler INH RTQ6H PRN Wheezing Alprazolam 0.25 mg 09/07/18 11:32 Xanax Tab PO BEDTIME PRN Anxiety Apixaban 5 mg 09/10/18 21:00 Eliquis PO BID YENIFER Atorvastatin Calcium 80 mg 09/06/18 21:00 09/09/18 21:12 Lipitor PO 80 mg BEDTIME YENIFER Administration Calcium Carbonate 1 - 2 tab 09/06/18 18:38 Tums PO Q6H PRN Heartburn Cholecalciferol 1,000 iu 09/07/18 09:00 09/10/18 08:52 Vitamin D3 PO 1,000 iu DAILY YENIFER Administration Citalopram Hydrobromide 10 mg 09/07/18 09:00 09/10/18 08:52 Celexa PO 10 mg DAILY YENIFER Administration Diltiazem HCl 120 mg 09/09/18 21:00 09/10/18 08:52 Cardizem Cd PO 120 mg BID YENIFER Administration Docusate Sodium 100 mg 09/06/18 18:38 09/09/18 21:13 Colace PO 100 mg BID PRN Administration Constipation Fluticasone Propionate 2 sprays 09/06/18 21:00 09/10/18 08:52 Flonase Nasal Hayden 0.05% BLAKE 2 sprays BID YENIFER Administration Sodium Chloride 25 mls @ 200 mls/hr 09/06/18 18:38 09/10/18 12:40 Normal Saline 0.9% IV 200 mls/hr .Post Infusion PRN Administration No Primary IV for Flush ONLY Ceftriaxone Sodium 2 gm/ 100 mls @ 200 mls/hr 09/09/18 12:15 09/10/18 12:39 Sodium Chloride IV 200 mls/hr Q24H YENIFER Administration Levalbuterol HCl 1.25 mg 09/07/18 13:00 09/10/18 06:33 Xopenex Neb Soln NEB 1.25 mg RTQ6H YENIFER Administration Levothyroxine Sodium 50 mcg 09/07/18 05:30 09/10/18 05:55 Synthroid PO 50 mcg DAILY@0530 YENIFER Administration Lidocaine HCl 0.5 ml 09/06/18 18:38 Lidocaine Buffered Inj SUBD ONCE PRN IV Starts Lidocaine HCl 10 ml 09/09/18 12:05 Xylocaine Uro-Ject 2% TOPICAL ONCE PRN Discomfort catheter insertion Mirtazapine 7.5 mg 09/11/18 09:00 Remeron PO DAILY YENIFER Montelukast Sodium 10 mg 09/10/18 11:51 Singulair PO BEDTIME PRN allergy symptoms Nf (Fluticasone/ 1 inh 09/07/18 09:00 09/10/18 12:52 Umeclidin/Vilanter [ INH 1 inh Trelegy Ellipta 100- DAILY YENIFER Administration 62.5-25] 1 Inh) Ondansetron HCl 4 mg 09/06/18 18:38 Zofran Inj IVP Q4H PRN NAUSEA / VOMITING 8. Time, care, counseling and coordination of care for this discharge is greater than 30 minutes. Exam - Vitals Vital Signs: Vital Signs Temperature 98 F Temperature Source Temporal Artery Scan Pulse Rate [Apical] 88 Pulse Rate [Pulse Oximeter 78 Right] Pulse Rate [right] 76 Pulse Rate 86 Respiratory Rate 20 Blood Pressure [Right Arm] 112/64 Blood Pressure 119/61 Pulse Ox [right] 95 Pulse Ox 96 Oxygen Flow Rate [right] 10 Oxygen Flow Rate 10 Oxygen Delivery Method [right] Nasal Cannula Oxygen Delivery Method Nasal Cannula Height 5 ft 6 in Weight 236 lb - General General Appearance: Cooperative, Obese Additional General Exam Details: Gets anxious at times, not overly labored breathing, but when she does any minimal activity she is much more labored. - Eye Eye Exam: POSITIVE: No Scleral Icterus - ENT ENT Exam: POSITIVE: Mucous Membranes Moist - Neck Neck Exam: JVP is not Raised - Respiratory Respiratory Exam: POSITIVE: Breathing Non Labored, Decreased Breath Sounds, Coarse Breath Sounds - Cardiovascular Cardiovascular Exam: POSITIVE: No Murmur, No Clicks, No Gallops, No Rubs, Irregular Rhythm, No JVD - GI/Abdominal GI/Abdominal Exam: POSITIVE: Normal Bowel Sounds, Non Tender, Non Distended, Soft - Extremities Extremities Exam: POSITIVE: No Cyanosis Present, +1 Edema (Has hematoma on right calf. Right knee is swollen, but about the same and really unchanged.) - Neurological Neurological Exam: POSITIVE: Alert, Oriented x 3, No Facial Droop, Speech Intact / Clear, Moves All Extremities Equally - Psychiatric Psychiatric Exam: POSITIVE: Anxious Data Peritnent Studies: 03/17/18 09/06/18 09/06/18 01:00 13:20 15:19 WBC Hgb Hct Plt Count PT 19.9 H INR 1.72 APTT 38.0 H VBG pH VBG pCO2 VBG HCO3 VBG Base Excess Sodium Potassium Chloride Carbon Dioxide Anion Gap BUN Creatinine BUN/Creatinine Ratio Glucose Calculated Osmolality Calcium Troponin I < 0.012 NT-Pro-B Natriuret Pep 09/07/18 09/09/18 09/09/18 06:39 19:15 19:17 WBC Hgb Hct Plt Count PT INR APTT VBG pH 7.27 L 7.46 H VBG pCO2 77 H 51 VBG HCO3 36 H 36 H VBG Base Excess 9 H 13 H Sodium Potassium Chloride Carbon Dioxide Anion Gap BUN Creatinine BUN/Creatinine Ratio Glucose Calculated Osmolality Calcium Troponin I NT-Pro-B Natriuret Pep 1920 H 09/10/18 09/10/18 09/10/18 03:55 03:55 12:33 WBC 10.85 H Hgb 11.6 L Hct 38.0 Plt Count 257 PT INR APTT VBG pH VBG pCO2 VBG HCO3 VBG Base Excess Sodium 140 Potassium 3.8 Chloride 97 L Carbon Dioxide 37 H Anion Gap 6 BUN 16 Creatinine 0.6 BUN/Creatinine Ratio 26.66 H Glucose 154 H Calculated Osmolality 293.0 H Calcium 8.7 Troponin I NT-Pro-B Natriuret Pep 1850 H 09/10/18 12:52 WBC Hgb Hct Plt Count PT INR APTT VBG pH 7.65 H VBG pCO2 33 L VBG HCO3 37 H VBG Base Excess 16 H Sodium Potassium Chloride Carbon Dioxide Anion Gap BUN Creatinine BUN/Creatinine Ratio Glucose Calculated Osmolality Calcium Troponin I NT-Pro-B Natriuret Pep ABG shows a pH of 7.53, PaCO2 of 44, PaO2 of 108, bicarbonate 36.2, SaO2 99% and this is on BiPAP settings with an FiO2 of 50%, 12 over 5 Procedures: [address] [facility] [facility] [place] [id number] PH: DD: [phone] FAX: [phone] ~DIAGNOSTIC IMAGING REPORT~ Patient: Mliagros Dennis : 1940 Sex: F Age: 78 Exam Name: CT CTA Chest Non-Coronary [facility] Exam Date: 09/09/18 Report # : [id number] CPT Code: 76207 EMR/MR #: [id number] Ordering: JOSE MILLER Admiting: TINY JOLLEY MD. Primary: Jo Simpson MD. Attending: TINY JOLLEY MD. Signed CT ANGIOGRAM OF THE CHEST, 09/09/2018 5:32 PM : Clinical History: Acute hypoxemic respiratory failure. Previous Exam: A noncontrast study performed earlier today. We have finally able to achieve a suitable IV access for contrast. Technique: Scans from base of neck to lung bases with IV contrast. Bolus tracking protocol was used for timing the injection. Non-MIPS and MIPS sagittal/coronal images generated. Contrast scans were also obtained through the adrenal glands at approximately 1 in 10 minutes post initial contrast injection in order to assess the bilateral adrenal tumors. IV Contrast: 90 mL of Ultravist 370. Base of Neck: Normal. Nodes: Normal axillary, supraclavicular, mediastinal, and hilar lymph nodes. Heart: Cardiomegaly. There is left atrial and right atrial enlargement as noted previously. Status post CABG. Aorta: Normal thoracic aorta. No aneurysm or dissection. Pulmonary Arteries: Pulmonary arterial hypertension. No evidence of pulmonary embolism or pulmonary embolism with infarct. Mediastinum: Normal. Lungs: No infiltrates. Bullous emphysema and chronic bronchitis. Effusion(s): Small right pleural effusion. Nodules: None. Bony Structures: Normal visualized portions of ribs, sternum, scapulae, clavicles, and shoulders. Normal visualized portions of thoracic spine. Limited Upper Abdomen: Both adrenal glands show initial enhancement at one minute with subsequent washout values calculated as 54% for the right adrenal gland and 50% for the left adrenal gland. Accuracy is somewhat limited because of the patient's large body habitus with portions of the body lying outside of the scan torres martinez producing artifacts. These studies represent the best estimate possible and indicate that these represent benign adrenal adenomas. Normal limited views of liver and pancreas. READIN. Marked pulmonary arterial hypertension. No evidence of pulmonary emboli or pulmonary embolism with infarction. Both atria are enlarged. Both ventricles are of normal size. 2. Mixture of chronic bronchitis and emphysema with a ratio probably 50:50. 3. Both adrenal tumors show washout values of 50% or greater indicating they represent benign adenomas. Dictated By: 09/09/18 2200 KATHLEEN NIX MD. Signed By: 09/09/18 2211 KATHLEEN NIX MD. [address] [facility] [place] [address] PH: DD: [phone] FAX: [phone] ~DIAGNOSTIC IMAGING REPORT~ Patient: Milagros Dennis : 1940 Sex: F Age: 78 Exam Name: US Veins, UE/LE Bilat Exam Date: 09/10/18 Report # : [id number] CPT Code: 03346 EMR/MR #: [id number] Ordering: JOSE MILLER Admiting: TINY JOLLEY MD. Primary: Jo Simpson MD. Attending: TINY JOLLEY MD. Signed VENOUS DOPPLER ULTRASOUND OF BOTH LOWER EXTREMITIES, 09/10/2018 10:24 AM: Clinical History: Bilateral calf pain. Previous Exam: Right venous Doppler ultrasound, 06/09/2017. Technique: 2D real-time imaging and color Doppler ultrasound with compression and augmentation maneuvers. Deep Venous System: Normal deep venous system from groin to popliteal fossa bilaterally. Superficial Venous System: Normal greater saphenous vein bilaterally. Edema is present in both lower legs. Reading: Negative venous Doppler ultrasound of both lower extremities for deep vein thrombosis. Dictated By: 09/10/18 1126 KATHLEEN NIX MD. Signed By: 09/10/18 1132 KATHLEEN NIX MD. [address] [facility] [place] [address] PH: DD: [phone] FAX: [phone] ~DIAGNOSTIC IMAGING REPORT~ Patient: Milagros Dennis Brittney : 1940 Sex: F Age: 78 Exam Name: MRI Lower Extremity Joint WO Exam Date: 09/06/18 Report # : [id number] CPT Code: 32793 EMR/MR #: [id number] Ordering: Walter Angel Admiting: Primary: Jo Simpson MD. Attending: Signed MRI RIGHT KNEE SCAN, 09/06/2018 1:06 PM: Clinical History: Injury. The patient fell. Prior Study: None at this facility. Comparison Exam: Right knee exam, 09/06/2018. Technique: Coronal, sagittal, & axial FS PD weighted; coronal & axial PD; sagit radha T1 weighted. Medial Collateral Ligament: Intact. Lateral Collateral Ligament, IT Band, Biceps Femoris Tendon: Partial tear at the insertion of the LCL on the lateral femoral condyle. Popliteus Tendon and Popliteofibular Ligament: Partial tear of the popliteus tendon with evidence of a tear in the popliteus muscle. There the popliteofibular ligament at the attachment to the popliteus tendon. Meniscal Root Attachment: Intact. Medial/Lateral Compartment Cartilage: Focal grade 3 chondromalacia of the lateral femoral condyle.. Posterior Femoral Condyles: Bone contusion of the lateral femoral condyle. Bone Marrow Signal: Minimally depressed lateral tibial plateau fracture anteriorly. Medial and Lateral Meniscus: Flap tear of the posterior horn of the medial meniscus on the undersurface extending to the body. Intact lateral meniscus. Anterior and Posterior Cruciate Ligament: Partial chronic tear of the anterior cruciate ligament at the insertion on the tibial spines. Chronic partial tear superior half of the posterior cruciate ligament. Proximal Tibiofibular Joint: Normal. Popliteal Hiatus, Superior and Inferior Popliteomeniscal Fascicles: Partial tears of the posterosuperior and anteroinferior popliteomeniscal fascicles.. Quadriceps Tendon: Intact. Patella Tendon: Intact. Medial and Lateral Heads of Gastrocnemius Tendon: Partial tear of the tendon of the medial head of the gastrocnemius muscle. The lateral head tendon is intact. Joint Fluid: Large joint effusion with a fluid-fluid level consistent with a hemarthrosis. Hoffa's Fat Pad: Normal. No synovitis. Popliteal Cyst, Bursal Fluid: None. Patella Cartilage: Normal medial and lateral patellar facet cartilage. Trochlear Cartilage: Normal. Medial Retinaculum and Medial Patellofemoral Ligament: Intact. Lateral Retinaculum: Intact. Muscle Tissues: Acute tear involving the popliteus muscle. Readin. Minimally depressed lateral tibial plateau fracture with a large hemarthrosis. There is a tear of the popliteus tendon and muscle as well as partial tears of the LCL, popliteofibular ligament, and the superior and inferior popliteomeniscal fascicles. Partial tear of the tendon of the medial head of the gastrocnemius muscle. There is a small bone contusion in the lateral femoral condyle. 2. Flap tear of the posterior horn of the medial meniscus extending to the body on the undersurface. Chronic partial tears of the ACL and PCL. Dictated By: 09/06/18 1602 KATHLEEN NIX MD. Signed By: 09/06/18 6868 KATHLEEN NIX MD. Patient Problems - Patient Problem List (1) Acute and chronic respiratory failure Current Visit: Yes Status: Acute Code(s): J96.20 - Acute and chronic respiratory failure, unspecified whether with hypoxia or hypercapnia Qualifiers: Respiratory failure complication: unspecified whether with hypoxia or hypercapnia Qualified Code(s): J96.20 - Acute and chronic respiratory failure, unspecified whether with hypoxia or hypercapnia Category: Medical (2) Urinary tract infection Current Visit: Yes Status: Acute Code(s): N39.0 - Urinary tract infection, site not specified Qualifiers: Urinary tract infection type: acute cystitis Hematuria presence: without hematuria Qualified Code(s): N30.00 - Acute cystitis without hematuria Category: Medical (3) Congestive heart failure, NYHA class 3 Current Visit: Yes Status: Chronic Code(s): I50.9 - Heart failure, unspecified Qualifiers: Congestive heart failure type: unspecified Qualified Code(s): I50.9 - Heart failure, unspecified Category: Medical (4) Hemarthrosis Current Visit: Yes Status: Acute Code(s): M25.00 - Hemarthrosis, unspecified joint Category: Medical (5) Anxiety associated with depression Current Visit: Yes Status: Chronic Onset Date: 08/13/15 Code(s): F41.8 - Other specified anxiety disorders Category: Medical (6) Hypothyroidism Current Visit: Yes Status: Chronic Onset Date: 08/06/11 Code(s): E03.9 - Hypothyroidism, unspecified Qualifiers: Hypothyroidism type: acquired Qualified Code(s): E03.9 - Hypothyroidism, unspecified Category: Medical (7) Atrial fibrillation Current Visit: Yes Status: Chronic Code(s): I48.91 - Unspecified atrial fibrillation Qualifiers: Atrial fibrillation type: chronic Qualified Code(s): I48.2 - Chronic atrial fibrillation Category: Medical (8) Pulmonary hypertension Current Visit: Yes Status: Acute Code(s): I27.20 - Pulmonary hypertension, unspecified Category: Medical (9) COPD (chronic obstructive pulmonary disease) Current Visit: Yes Status: Acute Code(s): J44.9 - Chronic obstructive pulmonary disease, unspecified Qualifiers: COPD type: emphysema Emphysema type: panlobular Qualified Code(s): J43.1 - Panlobular emphysema Category: Medical
[2018-09-10 13:52] VITALS: O2SAT 96
[2018-09-10 13:58] LABS: ABG BASE EXCESS 13 MMOL/L (-2-2); ABG OXYGEN SATURATION 99 % (90-100); ABG PCO2 44 MMHG (34-38); ABG PH 7.53 (7.35-7.45); ABG PO2 108 MMHG (65-75); ALLEN TEST YES; COLLECTION SITE RIGHT RADIAL
[2018-09-10] MEDS ORDERED: Apixaban 5 MG TABLET PO SCH (21:00)
[2018-09-11] MEDS ORDERED: Mirtazapine Tab 15 MG TAB PO SCH (09:00)
== END 2018-09-10 15:28 | disposition short-term general hospital (02) | DRG 189 ==
LOC: ER 12:49 → MED/SURG 12:49
PROVIDERS: ADMIT Internal Medicine; ATTEND Internal Medicine